=== PATIENT | male | born 1995 | race Caucasian/White ===

== ENCOUNTER 2018-09-23 21:49 | Emergency (ER) | payer SELFPAY ==
[2018-09-23 21:49] VITALS: BP 143/93; PULSE 118; RESP 18; TEMP 36.9; O2SAT 97; BMI 32.8
--- NOTE | 2018-09-23 21:52 | ED.RN ---
CALLED FOR EKG PER RN REQUEST, PULLED OLD EKGS FOR
[2018-09-23 21:57] VITALS: PULSE 102; RESP 18; O2SAT 97
--- NOTE | 2018-09-23 21:57 | EKG12_ITS ---
Test Reason : PALPS Blood Pressure : / mmHG Vent. Rate : 084 BPM Atrial Rate : 084 BPM P-R Int : 136 ms QRS Dur : 100 ms QT Int : 360 ms P-R-T Axes : 053 042 037 degrees QTc Int : 425 ms Sinus rhythm with Premature supraventricular complexes Otherwise normal ECG Confirmed by NICK KENDRICK ([id number]), editorial cartoonist NATASHA WILSON ([id number]) on 09/27/2018 11:14:34 AM Referred By: BRITTANY/AURA Confirmed By:NICK KENDRICK
[2018-09-23 22:36] LABS: Absolute Lymphocyte Count 2.97 X10^3/ul (0.83-4.51); Basophil# 0.03 X10^3/uL; Basophil% 0.2 % (0-1); Differential Indicated SCAN CRITERIA MET; Eosinophil# 0.25 X10^3/uL; Hematocrit 44.1 % (40-54); Hemoglobin 15.5 g/dl (13.0-16.5); Lymphocyte # 2.97 X10^3/ul (4.0); Lymphocyte % 23.2 % (19-41); Mean Corp Hgb Conc 35.1 g/gl (32-36); Mean Corpuscular Hgb 30.6 pg (27.0-32.0); Mean Platelet Vol. 10.3 fl (6.2-12.0); Monocyte# 1.58 X10^3/uL; Monocyte% 12.3 % (0-10); Neutrophil # 7.97 X10^3/uL (2.7-7.7); Neutrophil % 62.1 % (47-70); POSITIVE COUNT NO; POSITIVE DIFFERENTIAL YES; POSITIVE MORPHOLOGY NO; Platelet Count 273 K/mm3 (150-450); RBC Distribution Width CV 13.3 % (11.6-14.6); RBC Distribution Width SD 42.4 fl (35.1-43.9); Red Blood Count 5.07 M/mm3 (4.6-6.2); White Blood Count 12.8 K/mm3 (4.4-11.0)
[2018-09-23 22:47] LABS: Anion Gap 7 (5-15); BUN 12 mg/dL (7-18); BUN/Creat Ratio 10.7 RATIO (10-20); Calcium,Total 9.1 mg/dL (8.5-10.1); Chloride 107 mmol/L (98-107); Creatinine, Serum 1.12 mg/dL (0.70-1.30); EST Glomerular Filtration Rate 85 mL/min (>60); Est Glom Filt Rate - Afr Amer 103 mL/min (>60); Glucose 97 mg/dL (74-106); Potassium 3.4 mmol/L (3.5-5.1); Sodium Level 139 mmol/L (136-145)
[2018-09-23] MEDS: Metoprolol Tartrate 50 MG Tablet PO (22:59)
--- NOTE | 2018-09-23 23:43 | ED.VIS.GEN ---
History of Present Illness Chief Complaint: Palpitations Informant: Patient Onset: Today Context: Sudden Onset - Sometimes exertional, other times random Timing: Intermittent Quality: fast/racing at times, other times just skips Location: chest Current Severity: Mild Maximum Severity: Severe Worsened by: nothing Relieved by: sometimes by coughing hard Associated Symptoms: Chest tightness when heart was racing earlier Narrative: 1.5 years ago, patient had similar symptoms and needed an ablation in [facility]. He was sent there from here. At that time, he had an EKG that showed sinus tachycardia in the 130s. He states that since his ablation, he has been unable to afford medications that he was supposed to be on which included anticoagulant and metoprolol. He stopped smoking a month ago. He still drinks 1-2 energy drinks daily. He states he frequently since his ablation he has had occasional skips/palpitations, but today felt racing like it did when he needed his ablation. Prior similar symptoms: Yes Past Medical History - Allergies and Home Meds Allergies/Adverse Reactions: Allergies codeine Allergy (Verified 09/23/18 21:59) [facility] Primary Care Physician: Rikki Mojica, CHARGE ATTENDANT-C [Primary Care Provider] - Surgical History: - - Cardiac ablation Lives: Alone Smoking Status: Former smoker Drugs: None Review of Systems General: Denies: Chills, Fever, Sweats Eyes: Denies: Visual changes - bilaterally, Diplopia ENT: Denies: Rhinorrhea, Sore throat Cardiovascular: Reports: Chest pain, Palpitations, Heart racing Respiratory: Denies: Dyspnea, Cough, Dyspnea on exertion Gastrointestinal: Denies: Abdominal pain, Nausea, Vomiting, Diarrhea, Melena, Hematochezia Genitourinary: Denies: Dysuria, Hematuria, Frequency Musculoskeletal: Denies: Back pain, Extremity Pain Skin: Denies: Rash, Wounds Neurological: Denies: Headache, Weakness, Numbness Physical Exam Vital Signs/Narrative: Vital Signs Temp Pulse Resp BP Pulse Ox 09/23/18 21:57 102 H 18 97 09/23/18 21:49 98.5 F 118 H 18 143/93 H 97 Inital Vital Signs reviewed: Yes General: Well nourished, Well developed, No Acute Distress Head: Normocephalic, Atraumatic Eyes: Perrl, EOMI ENT: Moist mucous membranes, No rhinorrhea Neck: Supple, Nontender Cardiovascular: Regular rate, Regular rhythm, No murmurs, Normal S1, Normal S2. Negative for: Tachycardia Respiratory: No distress, CTA bilaterally, Chest nontender Abdomen: Soft, Nontender, Nondistended, Normal bowel sounds Back: Nontender, Normal Inspection Extremities: Nontender, No edema. Negative for: Calf Tenderness Skin: Normal color, No rash, No Trauma Neurological: Alert, Oriented x3, Cranial nerves II-XII grossly intact, Normal Strength, Normal Sensation Psychological: Normal affect, Normal Mood Diagnostic/Tx/Re-eval Laboratory Tests 09/23/18 09/23/18 Range/Units 22:00 22:00 WBC 12.8 H (4.4-11.0) K/mm3 RBC 5.07 (4.6-6.2) M/mm3 Hgb 15.5 (13.0-16.5) g/dl Hct 44.1 (40-54) % MCV 87.0 (80-94) fL MCH 30.6 (27.0-32.0) pg MCHC 35.1 (32-36) g/gl RDW 13.3 (11.6-14.6) % RDW Differential 42.4 (35.1-43.9) fl Plt Count 273 (150-450) K/mm3 MPV 10.3 (6.2-12.0) fl Immature Gran % (Auto) 0.200 (0.0-0.9) % Neut % (Auto) 62.1 (47-70) % Lymph % (Auto) 23.2 (19-41) % Hodgeman % (Auto) 12.3 H (0-10) % Eos % (Auto) 2.0 (0-5) % Baso % (Auto) 0.2 (0-1) % Absolute Neuts (auto) 8.0 H (2.0-7.7) X10^3/uL Absolute Lymphs (auto) 2.97 (0.83-4.51) X10^3/ul Total Counted Not Reportable Differential Comment Sodium 139 (136-145) mmol/L Potassium 3.4 L (3.5-5.1) mmol/L Chloride 107 (98-107) mmol/L Carbon Dioxide 25.0 (21.0-32.0) mmol/L Anion Gap 7 (5-15) BUN 12 (7-18) mg/dL Creatinine 1.12 (0.70-1.30) mg/dL Estim Creat Clear Calc 104.10 ml/min Est GFR (MDRD) Af Amer 103 (>60) mL/min Est GFR (MDRD) Non-Af 85 (>60) mL/min BUN/Creatinine Ratio 10.7 (10-20) RATIO Glucose 97 (74-106) mg/dL Calcium 9.1 (8.5-10.1) mg/dL - Rhythm Strip Rhythm Strip: Sinus Rhythm Rate: 95 Ectopy: PAC(s) - EKG Initial EKG Interpretation: Sinus Rhythm, No Acute Injury Pattern, - - Intervals are unremarkable. Sinus rhythm at 84 with a PAC. Normal axis. No acute injury. - Medical Decision Making Labs show slightly low potassium but are otherwise normal. He was given a dose of oral replacement. He was also given oral metoprolol 50 mg and a reevaluation his heart rate is in 80s and he feels fine. I think he is stable for discharge on metoprolol. I advised to follow-up with his manager intel at [facility]. He is agreeable to this plan, in addition to curbing or discontinuing energy drinks/caffeine. ED Disposition - Plan for ED Patient: Disposition: Home or Assisted Living Diagnosis: Palpitations Instructions: ED Palpitations Prescriptions: Metoprolol Tartrate 2 tab PO BID #60 tab Referrals: Rikki Mojica, TENNILLE-C [Primary Care Provider] - manager intel, [facility] [Other] (call for appt)
--- NOTE | 2018-09-23 23:51 | ED.DCSUM_ITS ---
History of Present Illness Chief Complaint: Palpitations Informant: Patient Onset: Today Context: Sudden Onset - Sometimes exertional, other times random Timing: Intermittent Quality: fast/racing at times, other times just skips Location: chest Current Severity: Mild Maximum Severity: Severe Worsened by: nothing Relieved by: sometimes by coughing hard Associated Symptoms: Chest tightness when heart was racing earlier Narrative: 1.5 years ago, patient had similar symptoms and needed an ablation in [facility]. He was sent there from here. At that time, he had an EKG that showed sinus tachycardia in the 130s. He states that since his ablation, he has been unable to afford medications that he was supposed to be on which included anticoagulant and metoprolol. He stopped smoking a month ago. He still drinks 1-2 energy drinks daily. He states he frequently since his ablation he has had occasional skips/palpitations, but today felt racing like it did when he needed his ablation. Prior similar symptoms: Yes Past Medical History - Allergies and Home Meds Allergies/Adverse Reactions: Allergies codeine Allergy (Verified 09/23/18 21:59) [facility] Primary Care Physician: Rikki Mojica, ADVENTURE EDUCATION TEACHER-C [Primary Care Provider] - Surgical History: - - Cardiac ablation Lives: Alone Smoking Status: Former smoker Drugs: None Review of Systems General: Denies: Chills, Fever, Sweats Eyes: Denies: Visual changes - bilaterally, Diplopia ENT: Denies: Rhinorrhea, Sore throat Cardiovascular: Reports: Chest pain, Palpitations, Heart racing Respiratory: Denies: Dyspnea, Cough, Dyspnea on exertion Gastrointestinal: Denies: Abdominal pain, Nausea, Vomiting, Diarrhea, Melena, Hematochezia Genitourinary: Denies: Dysuria, Hematuria, Frequency Musculoskeletal: Denies: Back pain, Extremity Pain Skin: Denies: Rash, Wounds Neurological: Denies: Headache, Weakness, Numbness Physical Exam Vital Signs/Narrative: Vital Signs Temp Pulse Resp BP Pulse Ox 09/23/18 21:57 102 H 18 97 09/23/18 21:49 98.5 F 118 H 18 143/93 H 97 Inital Vital Signs reviewed: Yes General: Well nourished, Well developed, No Acute Distress Head: Normocephalic, Atraumatic Eyes: Perrl, EOMI ENT: Moist mucous membranes, No rhinorrhea Neck: Supple, Nontender Cardiovascular: Regular rate, Regular rhythm, No murmurs, Normal S1, Normal S2. Negative for: Tachycardia Respiratory: No distress, CTA bilaterally, Chest nontender Abdomen: Soft, Nontender, Nondistended, Normal bowel sounds Back: Nontender, Normal Inspection Extremities: Nontender, No edema. Negative for: Calf Tenderness Skin: Normal color, No rash, No Trauma Neurological: Alert, Oriented x3, Cranial nerves II-XII grossly intact, Normal Strength, Normal Sensation Psychological: Normal affect, Normal Mood Diagnostic/Tx/Re-eval Laboratory Tests 09/23/18 09/23/18 Range/Units 22:00 22:00 WBC 12.8 H (4.4-11.0) K/mm3 RBC 5.07 (4.6-6.2) M/mm3 Hgb 15.5 (13.0-16.5) g/dl Hct 44.1 (40-54) % MCV 87.0 (80-94) fL MCH 30.6 (27.0-32.0) pg MCHC 35.1 (32-36) g/gl RDW 13.3 (11.6-14.6) % RDW Differential 42.4 (35.1-43.9) fl Plt Count 273 (150-450) K/mm3 MPV 10.3 (6.2-12.0) fl Immature Gran % (Auto) 0.200 (0.0-0.9) % Neut % (Auto) 62.1 (47-70) % Lymph % (Auto) 23.2 (19-41) % Rush % (Auto) 12.3 H (0-10) % Eos % (Auto) 2.0 (0-5) % Baso % (Auto) 0.2 (0-1) % Absolute Neuts (auto) 8.0 H (2.0-7.7) X10^3/uL Absolute Lymphs (auto) 2.97 (0.83-4.51) X10^3/ul Total Counted Not Reportable Differential Comment Sodium 139 (136-145) mmol/L Potassium 3.4 L (3.5-5.1) mmol/L Chloride 107 (98-107) mmol/L Carbon Dioxide 25.0 (21.0-32.0) mmol/L Anion Gap 7 (5-15) BUN 12 (7-18) mg/dL Creatinine 1.12 (0.70-1.30) mg/dL Estim Creat Clear Calc 104.10 ml/min Est GFR (MDRD) Af Amer 103 (>60) mL/min Est GFR (MDRD) Non-Af 85 (>60) mL/min BUN/Creatinine Ratio 10.7 (10-20) RATIO Glucose 97 (74-106) mg/dL Calcium 9.1 (8.5-10.1) mg/dL - Rhythm Strip Rhythm Strip: Sinus Rhythm Rate: 95 Ectopy: PAC(s) - EKG Initial EKG Interpretation: Sinus Rhythm, No Acute Injury Pattern, - - Intervals are unremarkable. Sinus rhythm at 84 with a PAC. Normal axis. No acute injury. - Medical Decision Making Labs show slightly low potassium but are otherwise normal. He was given a dose of oral replacement. He was also given oral metoprolol 50 mg and a reevaluation his heart rate is in 80s and he feels fine. I think he is stable for discharge on metoprolol. I advised to follow-up with his setter up at [facility]. He is agreeable to this plan, in addition to curbing or discontinuing energy drinks/caffeine. ED Disposition - Plan for ED Patient: Disposition: Home or Assisted Living Diagnosis: Palpitations Instructions: ED Palpitations Prescriptions: Metoprolol Tartrate 2 tab PO BID #60 tab Referrals: Rikki Mojica, TENNILLE-C [Primary Care Provider] - setter up, your [facility] [Other] (call for appt)
[2018-09-24 00:03] VITALS: BP 124/73; PULSE 74; RESP 14; O2SAT 98
== END 2018-09-24 00:04 | disposition home or self-care (01) ==
PROVIDERS: Emergency Provider Emergency Medicine; Family Provider Nurse Practitioner Family; PCP Nurse Practitioner Family
DX: R00.2 Palpitations (principal); Z88.5 Allergy status to narcotic agent; Z87.891 Personal history of nicotine dependence
CPT/HCPCS: 80048; 85025; 93005; 99285; A4216

== ENCOUNTER 2022-09-06 18:55 | Emergency (ER) | payer MEDICAID, SELFPAY ==
[2022-09-06 18:56] VITALS: BP 138/97; PULSE 75; RESP 18; TEMP 36.3; O2SAT 98; BMI 34.8
--- NOTE | 2022-09-06 20:38 | EX.ED.GUMALE ---
HPI History of Present Illness Chief Complaint: Complaint Informant: patient Narrative Narrative: Patient is a 27-year-old female with history of atrial fibrillation (on metoprolol and sotalol), prior cardiac ablation presenting for concern of UTI. Patient states he has been having some penile pain and dysuria for the past 2 to 3 weeks. Has had increased frequency for 1 week and started having hematuria over the past 3 to 4 days. His mother gave him ciprofloxacin which he took for 2 days which helped with his urinary symptoms however he started to have generalized malaise and no energy. He went to [facility] and was told that the Cipro was interacting with his medicines and he had to stop it. He was sent to the ER for further evaluation. He denies any penile discharge, lesions or rash. He was released from skilled nursing 6 months ago and has had 1 partner since. He does not think he has been exposed to the STDs but is not certain. He is willing to be tested and treated for them. He denies any scrotal pain or swelling. No other complaints at this time. He states since stopping the Cipro his malaise and other symptoms have improved. [facility] Medical History Asthma History of atrial fibrillation Palpitations Sinus tachycardia Home Medications metoprolol tartrate 25 mg tablet 50 mg PO BID 03/21/19 [History Last Taken Unknown] cephalexin 500 mg capsule 500 mg PO Q12 #10 CAPSULES 09/06/22 [Rx Last Taken Unknown] Allergy/AdvReac Type Severity Reaction Status Date / Time codeine Allergy Hives Verified 09/06/22 18:58 Surgical History H/O cardiac radiofrequency ablation (04/06/17) Social History Smoking Status: Former smoker substance use type: does not use ROS ROS ED Constitutional Constitutional ED: Reports other Details: Generalized malaise ; Denies chills Cardiovascular Cardiovascular: Denies chest pain Respiratory/Chest Respiratory/Chest: Denies dyspnea Gastrointestinal Gastrointestinal: Denies abdominal pain, nausea or other Genitourinary Genitourinary ED: Reports dysuria, hematuria and urinary frequency Musculoskeletal Musculoskeletal: Denies arthralgias or myalgias Neurologic Neurologic: Denies headache(s) Psychiatric Psychiatric: Denies anxiety Hematologic/Lymphatic Hematologic/Lymphatic: Denies easy bleeding or easy bruising EXAM Physical Exam Const Vital Signs: 09/06/22 18:56 Temperature 97.3 F L Temperature Source Temporal Pulse Rate 75 Respiratory Rate 18 Blood Pressure 138/97 H Blood Pressure Mean 110 Pulse Ox 98 Oxygen Delivery Method Room Air Positive well nourished and well developed General Appearance ED: well developed and NAD HEENT Reports moist mucous membranes Eyes PERRL Neck supple Resp normal respiratory effort and clear to auscultation bilaterally Cardio regular rate, regular rhythm and no murmurs GI non-tender and non-distended Extremity normal to inspection Neuro oriented x3 and moves all extremities Motor Exam: Negative for general weakness Psych mental status grossly normal Skin Lesions: no lesions Rashes: no rashes MDM MDM MDM Narrative Medical decision making narrative: Patient is evaluated for dysuria. Urinalysis does show positive nitrites and rare bacteria. Urinalysis is confounded by the fact that he is already had 2 days of ciprofloxacin. He is tested for gonorrhea and chlamydia as well. He likes to be empirically treated. Patient is treated with IM Rocephin for gonorrhea and given 1 dose of doxycycline. As he is concerned about medication mixtures and he does have nitrates in his urine I will err on the side of treating for E. coli UTI over chlamydia. Patient started on Keflex. Counseled that if his chlamydia comes back positive we can switch up his antibiotics. Urine culture sent because he is a male and is atypical to have a UTI. I did check and there should not be any interaction between his sotalol, metoprolol and Keflex. Patient is given return precautions. As he is not having any penile testicular pain I have a low suspicion for epididymitis I do not think he requires any testicular ultrasound. Discharged home in stable condition. Lab Data Labs: Laboratory Results - last 24 hr 09/06/22 09/06/22 20:30 20:30 Urine Color Yellow Urine Clarity Clear Urine pH 5.0 Ur Specific Shepherd 1.025 Urine Protein Negative Urine Glucose (UA) Normal Urine Ketones Negative Urine Occult Blood Negative Urine Nitrite Positive H Urine Bilirubin Negative Urine Urobilinogen 1 H Ur Leukocyte Esterase Negative Urine RBC 0 SEEN Urine WBC 0 SEEN Ur Squamous Epith Cells 0 SEEN Urine Bacteria RARE Urine Mucus 0 SEEN Chlam trachomat DNA PCR Negative N.gonorrhoeae DNA (PCR) Negative Discharge Plan Triage Chief Complaint: Complaint ED Provider: Celia Garcia Dx/Rx/DC Orders Instructions: ED Bladder Infection, Male (Adult) Prescriptions: New cephalexin 500 mg capsule 500 mg PO Q12 Qty: 10 0RF No Action metoprolol tartrate 25 mg tablet 50 mg PO BID Primary Care Provider: Rikki Mojica NP Referrals: Rikki Mojica NP, DOUBLE REAMER OPERATOR-C [Primary Care Provider] - Activity Restrictions/Additional Instructions: You were treated fully for gonorrhea. Your test is pending for chlamydia and gonorrhea. Because you have nitrites in your urine which is more indicative of an E. coli infection I will treat you with Keflex (cephalexin). This should not interact with your current medicines. If your chlamydia result does come back positive we will call in a different antibiotic. Your urine was sent for culture. Disposition Disposition: Home, Self Care Discharge Date/Time: 09/06/22 21:35
[2022-09-06 20:42] LABS: Mucous, Urine 0 SEEN /hpf (<or=2+); Red Blood Cells-Urine 0 SEEN /hpf (0-5); Squamous Epithelial Cells - UA 0 SEEN /hpf (0-5); White Blood Cells 0 SEEN /hpf (0-5)
[2022-09-06 20:45] LABS: Color, Urine Yellow (Yellow); Glucose, Dipstick Normal (Normal); Ketone-Dipstick Negative (Negative); Leukocyte Esterase-Dipstick Negative /ul (Negative); Nitrite-Dipstick Positive (Negative); Occult Blood-Urine Negative /ul (Negative); Protein-Dipstick Negative (Negative); Specific Gravity, Urine 1.025 (1.002-1.030); Urine Bilirubin Dipstick Negative (Negative); Urine Clarity Clear (Clear); Urine Urobilinogen 1 mg/dl (Normal)
[2022-09-06 21:01] LABS: Bacteria RARE /hpf (None Seen)
[2022-09-06] MEDS: Ceftriaxone 500 MG Vial IM (21:21)
[2022-09-06] MEDS: Doxycycline 100 MG CAPSULE PO (21:21)
[2022-09-06 22:42] LABS: Chlamydia Trachomatis by PCR Negative (Negative); Neisserai gonorrhoeae by PCR Negative (Negative); Probe Check PASS; Sample Adequacy Control PASS; Specimen Processing Control PASS
== END 2022-09-06 21:35 | disposition home or self-care (01) ==
PROVIDERS: Emergency Provider Emergency Medicine; PCP Nurse Practitioner Family; Visit Provider Emergency Medicine
DX: N39.0 Urinary tract infection, site not specified (principal); I48.91 Unspecified atrial fibrillation; Z87.891 Personal history of nicotine dependence; B96.20 Unspecified Escherichia coli [E. coli] as the cause of diseases classified elsewhere; R31.9 Hematuria, unspecified; Z11.3 Encounter for screening for infections with a predominantly sexual mode of transmission; R30.0 Dysuria; N48.89 Other specified disorders of penis; J45.909 Unspecified asthma, uncomplicated; R35.0 Frequency of micturition; Z79.899 Other long term (current) drug therapy
CPT/HCPCS: 81001; 87086; 87491; 87591; 96372; 99283

== ENCOUNTER 2023-04-18 13:53 | Inpatient (IN) | payer MEDICAID, SELFPAY ==
[2023-04-18 13:53] VITALS: BP 117/70; PULSE 73; RESP 16; TEMP 36.6; O2SAT 99; BMI 31.5
--- NOTE | 2023-04-18 14:07 | RAD_ITS ---
STUDY: X-RAY - RIGHT KNEE REASON FOR EXAM: Male, 27 years old. Pain and swelling following a fall. TECHNIQUE: 4 view(s) of the knee. COMPARISON: None. FINDINGS: Normal visualized distal femur. Normal visualized proximal tibia and fibula. Normal proximal tibiofibular articulation. Normal medial femorotibial compartment. Normal lateral femorotibial compartment. Normal patellofemoral articulation. Tiny joint effusion. Soft tissue swelling. RAD/Knee 4 or More Views IMPRESSION: Soft tissue swelling. Small joint effusion. Electronically Signed: Miki Preston MD at 14:39 EST ,
--- NOTE | 2023-04-18 14:08 | EDS_ITS ---
HPI History of Present Illness Chief Complaint: Lower Extremity Injury Detail of Chief Complaint: Right knee pain/injury/erythema Informant: patient, parent and family Narrative Narrative: Patient presents to the emergency department with complaint of pain to the right knee. Patient states that he fell 2 nights ago onto the knee while in the driveway injuring it. He states it was sore the next day but then it became more red and hot and more painful. He was seen at urgent care and referred to the emergency department for evaluation. Urgent care had concern for possible joint infection. Patient denies fever or chills or sweats. PFSH PFS Medical History Asthma History of atrial fibrillation Palpitations Sinus tachycardia Home Medications metoprolol tartrate 25 mg tablet 50 mg PO BID 03/21/19 [History Last Taken Unknown] cephalexin 500 mg capsule 500 mg PO Q12 #10 CAPSULES 09/06/22 [Rx Last Taken Unknown] Allergy/AdvReac Type Severity Reaction Status Date / Time codeine Allergy Hives Verified 04/18/23 13:55 Surgical History H/O cardiac radiofrequency ablation (04/06/17) Social History Smoking Status: Former smoker substance use type: does not use ROS ROS ED Review of Systems ROS Unobtainable: other Constitutional Constitutional ED: Reports lethargy; Denies chills, fever(s), sweats or weight loss Eyes Eyes: Denies blurry vision, change in vision or diplopia ENT ENT ED: Denies rhinorrhea or sore throat Cardiovascular Cardiovascular: Denies chest pain, orthopnea or racing heartbeat Respiratory/Chest Respiratory/Chest: Denies cough, dyspnea, dyspnea on exertion, orthopnea or sputum Gastrointestinal Gastrointestinal: Denies abdominal pain, diarrhea, nausea or vomiting Genitourinary Genitourinary ED: Denies dysuria, hematuria or urinary frequency Musculoskeletal Musculoskeletal: Reports other Details: Knee pain, redness, swelling ; Denies arthralgias, back pain, myalgias or neck pain Integumentary Denies abscess, Abrasions or rash Neurologic Neurologic: Denies headache(s) or weakness Psychiatric Psychiatric: Denies anxiety, depression or suicidal thoughts Endocrine Endocrinology: Denies polydipsia, polyphagia or polyuria Hematologic/Lymphatic Hematologic/Lymphatic: Denies easy bleeding, easy bruising or lymphadenopathy Allergic/Immunologic Allergic/Immunologic ED: Denies mouth swelling, tongue swelling or urticaria EXAM Physical Exam Const Vital Signs: 04/18/23 13:53 Temperature 97.8 F Temperature Source Temporal Pulse Rate 73 Respiratory Rate 16 Blood Pressure 117/70 Blood Pressure Mean 85 Pulse Ox 99 Oxygen Delivery Method Room Air Positive well nourished and well developed General Appearance ED: well developed and NAD HEENT Reports TM's clear and moist mucous membranes normocephalic and atraumatic; Negative for trauma or tenderness Tympanic Membrane ED: Yes TM's clear Eyes PERRL and EOMs intact bilaterally General Eye ED: Negative for pale conjunctiva or scleral icterus Neck no lymphadenopathy, supple and no JVD General: Negative for tenderness Chest Wall inspection of chest normal and palpation of chest normal Chest: Negative for tenderness Resp normal respiratory effort and clear to auscultation bilaterally Effort and Inspection: Negative for respiratory distress or pain with movement Auscultation: Negative for rhonchi, wheezes or diminished lung sounds Cardio regular rate, regular rhythm, S1 normal heart sound, S2 normal heart sound and no murmurs Peripheral Pulses: pulses 2+ throughout GI normal to inspection, nondistended, normoactive bowel sounds, soft to palpation, non-tender, non-distended and no masses Back/Spine no CVA tenderness and no thoracic nor lumbar tenderness Extremity Extremity Narrative: Elevation of the right knee reveals diffuse erythema to the anterior aspect and lateral aspect of the knee and onto the anterior proximal tibia. Patient has significant pain with range of motion he has decreased range of motion secondary to pain and swelling. Neurovascular intact distally. Mild joint effusion. General Extremety ED: Negative for edema General Extremity: Negative for edema Neuro oriented x3, CN's II-XII intact bilaterally, no sensory deficits noted and gait normal Sensorium / Orientation: awake, alert, oriented to person, oriented to place and oriented to time Motor Exam: strength 5/5 throughout and strength abnormal Psych mental status grossly normal Skin no rashes or lesions noted and no wounds MDM MDM MDM Narrative Medical decision making narrative: Presents with redness and swelling in severe pain in the right knee after falling onto with 2 days ago. Concern for septic joint. IV line established. CBC with differential patient with a white count of 23.8 with hemoglobin 13.6 and platelet count of 276. Patient sed rate was 14 and C-reactive protein 186. X-rays of the knee show a small fusion. No evidence for fracture. Lola case with orthopedic surgeon who will present to the emergency department to evaluate patient and possible knee arthrocentesis to evaluate further. I initially had concerned about doing this as there are cellulitic changes about the knee and did not want to introduce bacteria into the joint. We will discuss case with hospitalist also to evaluate patient for admission Lab Data Attestation: I reviewed the patient's lab results. Labs: Laboratory Results - last 24 hr 04/18/23 14:22 WBC 23.6 H RBC 4.48 L Hgb 13.6 Hct 40.7 MCV 90.8 MCH 30.4 MCHC 33.4 RDW Std Deviation 46.9 H RDW Coeff of Dev 13.9 Plt Count 276 MPV 10.0 Immature Gran % (Auto) 0.500 Neut % (Auto) 83.2 H Lymph % (Auto) 7.7 L Louisa % (Auto) 7.2 Eos % (Auto) 1.1 Baso % (Auto) 0.3 Absolute Neuts (auto) 19.6 H Absolute Lymphs (auto) 1.82 Nucleated RBC % 0 Differential Comment SCANNED Diff Path Review September ESR 14 C-React Prot Ext Range 186.00 H Radiography Diagnostic Testing: Clinical Impression(s) from Imaging Studies Knee X-Ray 04/18/23 14:07 IMPRESSION: Soft tissue swelling. Small joint effusion. Electronically Signed: Miki Preston MD at 14:39 EST , New x-rays of right knee obtained interpreted by myself as no evidence of fracture. Patient does have small joint effusion. Radiology in agreement. Discharge Plan Triage Chief Complaint: Lower Extremity Injury ED Provider: Alisa Wesley Dx/Rx/DC Orders Clinical Impression: Cellulitis of knee, Acute pain of right knee, History of atrial fibrillation Prescriptions: No Action metoprolol tartrate 25 mg tablet 50 mg PO BID cephalexin 500 mg capsule 500 mg PO Q12 Qty: 10 0RF Primary Care Provider: Rikki Mojica NP Referrals: Rikki Mojica PLANT SENIOR MANAGER, PLANT SENIOR MANAGER-C [Primary Care Provider] - Disposition Disposition: Acute Care [facility]
[2023-04-18 14:30] LABS: Erythrocyte Sedimentation Rate 14 mm/hr (0-20)
[2023-04-18 14:32] LABS: Absolute Lymphocyte Count 1.82 X10^3/uL (0.83-4.51); Absolute Neutrophil Count 19.6 X10^3/uL (2.0-7.7); Basophil# 0.06 X10^3/uL; Basophil% 0.3 % (0-1); Eosinophil# 0.27 X10^3/uL; Eosinophils% 1.1 % (0-5); Hematocrit 40.7 % (40-54); Hemoglobin 13.6 g/dL (13.0-16.5); Lymphocyte # 1.82 X10^3/ul (0.83-4.51); Lymphocyte % 7.7 % (19-41); Mean Corp Hgb Conc 33.4 g/dL (32-36); Mean Corpuscular Hgb 30.4 pg (27.0-32.0); Mean Corpuscular Volume 90.8 fL (80-94); Monocyte% 7.2 % (0-10); NRBC Flagged by Analyzer 0 % (0-5); Neutrophil # 19.62 X10^3/uL (2.7-7.7); Neutrophil % 83.2 % (47-70); POSITIVE DIFFERENTIAL YES; Platelet Count 276 K/mm3 (150-450); RBC Distribution Width CV 13.9 % (11.6-14.6); RBC Distribution Width SD 46.9 fl (35.1-43.9); Red Blood Count 4.48 M/mm3 (4.6-6.2); White Blood Count 23.6 K/mm3 (4.4-11.0)
[2023-04-18 14:35] LABS: Differential Indicated SCAN CRITERIA MET
[2023-04-18 14:47] LABS: Differential Comment SCANNED
[2023-04-18 15:53] VITALS: RESP 18
--- NOTE | 2023-04-18 16:02 | PCM.HP.STD ---
HPI - General General Date of Admission: 04/18/23 Date of Service: 04/18/23 Chief Complaint: Right knee swelling and pain HPI Narrative SERAFIN FUENTES, is a 27 M who presented to [facility] ED on 04/18/2023 with worsening right knee pain and swelling. Patient seen at bedside in the ED. Sitting in bed, conversing normally. Does appear to be in mild distress due to right knee pain. Patient states he fell onto his right knee 2 days ago while working and had mild scraping on the knee. Since then, patient states that there is been development of significant redness around the knee and working down to the mid lower leg, as well as swelling of the knee joint. Has also had a significant amount of pain with any movement over the past day or so. 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 Patient has no previous history of knee issues. Only medical history for patient is A-fib, follows with cardiology in [place] and is taking sotalol for this. Not taking any other medications at home. Otherwise denies any fevers or chills, chest pain, shortness of breath, abdominal pain. No other acute concerns at this time. [facility] Medical History Asthma History of atrial fibrillation Palpitations Sinus tachycardia Home Medications sotalol 80 mg tablet 80 mg PO BID Ablation 04/18/23 [History Last Taken 04/18/23] Allergy/AdvReac Type Severity Reaction Status Date / Time codeine Allergy Hives Verified 04/18/23 13:55 Surgical History H/O cardiac radiofrequency ablation (04/06/17) Social History Smoking Status: Former smoker substance use type: does not use ROS Constitutional Constitutional: Denies chills, fatigue, fever(s) or weakness Eyes Eyes: Denies change in vision Cardiovascular Cardiovascular: Denies chest pain Respiratory/Chest Respiratory/Chest: Denies cough Gastrointestinal Gastrointestinal: Denies abdominal pain Musculoskeletal Musculoskeletal: Reports arthralgias, joint pain and joint swelling Neurologic Neurologic: Reports abnormal gait; Denies confusion, dizziness, focal weakness, headache(s) or numbness Vital Signs Vital Signs Vital Signs: 04/18/23 13:53 Temperature 97.8 F Temperature Source Temporal Pulse Rate 73 Respiratory Rate 16 Blood Pressure 117/70 Blood Pressure Mean 85 Pulse Ox 99 Oxygen Delivery Method Room Air Weight Weight: 99.79 kg Body Mass Index (BMI) 31.5 Physical Exam Const alert and oriented x3 Constitutional Narrative: Pleasant younger male, obese, sitting in bed, conversing normally. Appears to be in mild distress due to right knee pain. General Appearance: cooperative HEENT normocephalic, head/scalp atraumatic, hearing grossly normal bilaterally, nasal mucous membranes and turbinates normal and moist oral mucous membranes Eyes PERRL, EOMs intact bilaterally and conjunctivae normal Neck full ROM, no lymphadenopathy and supple Lymph Lymphatic: no lymphadenopathy noted Chest inspection of chest normal Resp normal respiratory effort, normal air movement, no use of accessory muscles and clear to auscultation bilaterally Cardio regular rate, regular rhythm, no murmurs and peripheral pulses 2+ throughout GI normal to inspection, nondistended, normoactive bowel sounds, soft to palpation, non-tender and non-distended Back/Spine normal ROM Extremity Extremity Narrative: Significant erythema surrounding right knee down to the mid right leg, area was marked with a marker in the ED. Moderate swelling of the knee at the joint. Severe tenderness to light palpation of the knee. Did not attempt any movement of the leg. Skin no rashes or lesions noted Neuro No oriented x3, No moves all extremities and No no focal motor deficits Speech: speech normal Psych mental status grossly normal Results Lab / Micro Data 04/18/23 14:22 04/18/23 17:47 Labs: Laboratory Results - last 24 hr 04/18/23 14:22: WBC 23.6 H, RBC 4.48 L, Hgb 13.6, Hct 40.7, MCV 90.8, MCH 30.4, MCHC 33.4, RDW Std Deviation 46.9 H, RDW Coeff of Dev 13.9, Plt Count 276, MPV 10.0, Immature Gran % (Auto) 0.500, Neut % (Auto) 83.2 H, Lymph % (Auto) 7.7 L, [place] % (Auto) 7.2, Eos % (Auto) 1.1, Baso % (Auto) 0.3, Absolute Neuts (auto) 19.6 H, Absolute Lymphs (auto) 1.82, Nucleated RBC % 0, Differential Comment SCANNED, Diff Path Review September foll, ESR 14, C-React Prot Ext Range 186.00 H Imagaing Radiology Impression Knee X-Ray 04/18/23 14:07 IMPRESSION: Soft tissue swelling. Small joint effusion. Electronically Signed: Miki Preston MD at 14:39 EST , Assessment & Plan Assessment/Plan (1) Cellulitis of knee: (2) Acute pain of right knee: PLAN: Plan Patient is a 27-year-old male who presented to [facility] ED on 04/18/2023 with worsening right knee swelling and pain. 1. Right knee cellulitis with concern for septic joint Severe right knee pain with notable swelling and tenderness to palpation in the ED. Right knee x-ray showed soft tissue swelling with small joint effusion. WBC count 23, CRP 186. Pain began 2 days prior to admission after patient fell and scraped his knee, has progressively gotten worse since then. No previous history of right knee issues. ? Admit under inpatient status to PCU. Orthopedic surgery consulted. Dr. Rollins performed arthrocentesis in the ED, follow-up fluid studies. Continue vancomycin and Unasyn that were initiated in the ED, follow-up blood cultures. Pain management with scheduled Tylenol, as needed IV Toradol, IV Dilaudid and p.o. oxycodone. N.p.o. at midnight in case of need for possible orthopedic procedure tomorrow. 2. Paroxysmal atrial fibrillation Patient reports history of paroxysmal A-fib that started back in 2017. States he failed flecainide at that time and had an ablation done. However, he had recurrence of A-fib a few years later. States he follows with cardiology in [place]. States he was on Lopressor and Eliquis, but was recently switched over to sotalol. [facility] review [facility] [place] records, I was unable to find any records of outpatient visits with cardiology. Last notes from 08/2022 indicated the patient was on Lopressor and Eliquis. Patient is unsure on his dose of sotalol. EKG on admission showed normal sinus rhythm, no ST changes. ? Will hold on starting sotalol for now. Monitor telemetry. Has been in normal sinus rhythm since admission. May need to discuss having patient's outpatient tare weigher send office notes to the hospital here for further review. Chronic medical conditions: ? Obesity: BMI 31 on admit, encouraged lifestyle applications. DVT prophylaxis: Lovenox CODE STATUS: Full code, verified Expected disposition: Home, TBD Total clinical time spent by myself addressing the patient's medical issues, reviewing all the data, and collaborating with patient's care team: 55 minutes. Charges/Coding Visit Charges Inpatient E&M: 90444 Init Hosp L2
[2023-04-18] MEDS: Ampicillin/Sulbactam 3 GM in 0.9% Normal Saline (100mL MB+) 100 ML IV ×2 (16:40→22:03)
[2023-04-18 17:15] VITALS: BP 120/106; PULSE 68; RESP 18; TEMP 36.7; O2SAT 100; BMI 31.6
[2023-04-18] MEDS: Vancomycin HCl 1,500 MG in 0.9% Normal Saline (500mL Bag) 500 ML 250 MG IV (17:35)
[2023-04-18 18:14] LABS: Anion Gap 4 (5-15); BUN 25 mg/dL (7-18); BUN/Creat Ratio 22.1 RATIO (10-20); Calcium,Total 8.7 mg/dL (8.5-10.1); Chloride 101 mmol/L (98-107); Creatinine, Serum 1.13 mg/dL (0.70-1.30); EST Glomerular Filtration Rate 81 mL/min (>60); Est Glom Filt Rate - Afr Amer 98 mL/min (>60); Estimated Creatinine Clearance 99.59 ml/min; Glucose 133 mg/dL (74-106); Potassium 3.5 mmol/L (3.5-5.1); Sodium Level 136 mmol/L (136-145)
[2023-04-18 18:38] LABS: Color / Synovial Fluid Red (Pale Yellow); Source / Synovial Fluid RIGHT KNEE
[2023-04-18 18:39] LABS: Appearance /Synovial Fluid Cloudy (CLEAR)
[2023-04-18 18:42] LABS: Body Fluid QC Type(s) BF2Q
[2023-04-18 18:55] LABS: Lymph 10 %; Monocyte /Synovial Fluid 6 %; Neutrophil 84 % (0-25)
--- NOTE | 2023-04-18 19:23 | PCM.RX.CS ---
Consult Antibiotic Management Pharmacy has been consulted to manage selected antiobiotic: Vancomycin Type of Intervention Type of Consult: New Suspected Infection Suspected Infection: Skin/Soft tissue and Other Labs Labs: Sodium 136 mmol/L (136-145) 04/18/23 17:47 Potassium 3.5 mmol/L (3.5-5.1) 04/18/23 17:47 Chloride 101 mmol/L (98-107) 04/18/23 17:47 Carbon Dioxide 31.0 mmol/L (21.0-32.0) 04/18/23 17:47 Anion Gap 4 (5-15) L 04/18/23 17:47 BUN 25 mg/dL (7-18) H 04/18/23 17:47 Creatinine 1.13 mg/dL (0.70-1.30) 04/18/23 17:47 Est GFR (MDRD) Af Amer 98 mL/min (>60) 04/18/23 17:47 Est GFR (MDRD) Non-Af 81 mL/min (>60) 04/18/23 17:47 BUN/Creatinine Ratio 22.1 RATIO (10-20) H 04/18/23 17:47 Glucose 133 mg/dL (74-106) H 04/18/23 17:47 Goal Trough Goal Trough: 15-20 mcg/mL Pharmacy Plan for Drug Dosing Pharmacy Plan for Drug Dosing: IV VANCOMYCIN Consulting Physician: Dr. Craven Indication: SSTI/ R/O septic joint Goal Trough: 15-20 SrCr:1.13 (04/18) CrCl: 99 mL/min Comments: Initial ED dose of 1500mg IV x1 ordered and administered 04/18 @1735 Vancomycin Dose: 2000mg IV Q12hr to start 04/19/23 @0500 Pending Level: 04/20/23 @0430, prior to 4th total dose per protocol Pharmacy Service will continue to monitor and adjust dosing as required.
[2023-04-18] MEDS: Ketorolac 15 MG/ML Vial IV (20:42)
[2023-04-18] MEDS: 0.9% Saline Lock 10 ML Syringe IV (20:43)
[2023-04-18 21:59] VITALS: BP 121/60; PULSE 78; RESP 18; TEMP 36.9; O2SAT 99
--- NOTE | 2023-04-18 22:00 | CON.PCM.OR_ITS ---
HPI Consult Data Date of Consult: 04/18/23 HPI Narrative Reason for Consultation: Pain with overlying erythema. HPI Narrative: SERAFIN FUENTES, is a 27 M With history of atrial fibrillation cardioverted who presents With right knee pain. Patient fell 2 days ago and developed an abrasion over the anterior knee. He presented to an urgent care today who recommended he proceed to the emergency department. Emergency room physician evaluated the patient patient reported pain over the front of the knee with range of motion. Did have elevated white blood cell count and significant erythema over the anterior knee as well as swelling over the anterior knee. Patient reports pain with flexion. Patient is not currently on any blood thinners. Patient notes symptoms developed over the last 48 hours. Pain with weightbearing. Currently today reports 8 out of 10 pain. [facility] Medical History Asthma History of atrial fibrillation Palpitations Sinus tachycardia Home Medications sotalol 80 mg tablet 80 mg PO BID Ablation 04/18/23 [History Last Taken 04/18/23] Allergy/AdvReac Type Severity Reaction Status Date / Time codeine Allergy Hives Verified 04/18/23 13:55 Family History no significant family his no significant family history Surgical History H/O cardiac radiofrequency ablation (04/06/17) Social History Smoking Status: Former smoker substance use type: does not use ROS Constitutional Constitutional: Reports as per HPI Eyes Eyes: Reports as per HPI ENT HEENT: Reports as per HPI Cardiovascular Cardiovascular: Reports as per HPI Respiratory/Chest Respiratory/Chest: Reports as per HPI Gastrointestinal Gastrointestinal: Reports as per HPI Genitourinary Genitourinary: Reports as per HPI Musculoskeletal Musculoskeletal: Reports as per HPI Integumentary Integumentary: Reports as per HPI Neurologic Neurologic: Reports as per HPI Psychiatric Psychiatric: Reports as per HPI Endocrine Endocrinology: Reports as per HPI Hematologic/Lymphatic Hematologic/Lymphatic: Reports as per HPI Allergic/Immunologic Allergic/Immunologic: Reports as per HPI Vital Signs Vital Signs Vital Signs: 04/18/23 13:53 04/18/23 15:53 04/18/23 17:15 Temperature 97.8 F 98.0 F Temperature Source Temporal Oral Pulse Rate 73 68 Respiratory Rate 16 18 18 Respiratory Effort Respiratory Depth Respiratory Pattern Blood Pressure 117/70 120/106 H Blood Pressure Mean 85 110 Blood Pressure Source Monitor Blood Pressure Position Semi-Fowlers Blood Pressure Location Right Arm Pulse Ox 99 100 Oxygen Delivery Method Room Air Room Air 04/18/23 17:30 Temperature Temperature Source Pulse Rate Respiratory Rate Respiratory Effort Normal Non-Labored Respiratory Depth Normal Respiratory Pattern Normal Blood Pressure Blood Pressure Mean Blood Pressure Source Blood Pressure Position Blood Pressure Location Pulse Ox Oxygen Delivery Method Room Air Weight Weight: 220 lb 3.869 oz Body Mass Index (BMI) 31.6 Physical Exam Const alert and oriented x3 General Appearance: cooperative HEENT normocephalic and head/scalp atraumatic Eyes PERRL Neck no JVD Resp normal respiratory effort Cardio Cardio Narrative: regular pulse GI non-distended Extremity Extremity Narrative: Right lower extremity: Pain and swelling over the anterior knee with tenderness palpation. Patient has a small abrasion of the anterior knee. Erythema over the anterior knee spreading down the anterior tibia. Patient is able to flex knee to 90 degrees with pain anteriorly. Tolerates short arc range of motion on exam testing. Strength exam deferred secondary to pain. Increased warmth of her skin. Moderate swelling of soft tissues anterior to the knee.Neurovascular intact distally. Skin Skin Narrative: Anterior [id number] female. Neuro CN's II-XII intact bilaterally Psych affect normal Medical Records Data Attestation: I reviewed the patient's medical records Lab / Micro Data Attestation: I reviewed the patient's lab results. 04/18/23 14:22 04/18/23 17:47 Labs: Laboratory Results - last 24 hr 04/18/23 14:22: WBC 23.6 H, RBC 4.48 L, Hgb 13.6, Hct 40.7, MCV 90.8, MCH 30.4, MCHC 33.4, RDW Std Deviation 46.9 H, RDW Coeff of Dev 13.9, Plt Count 276, MPV 10.0, Immature Gran % (Auto) 0.500, Neut % (Auto) 83.2 H, Lymph % (Auto) 7.7 L, [place] % (Auto) 7.2, Eos % (Auto) 1.1, Baso % (Auto) 0.3, Absolute Neuts (auto) 19.6 H, Absolute Lymphs (auto) 1.82, Nucleated RBC % 0, Differential Comment SCANNED, Diff Path Review May foll, ESR 14, C-React Prot Ext Range 186.00 H 04/18/23 16:06: Synovial Source RIGHT KNEE, Synovial Color Red, Synovial Appearance Cloudy, Synovial WBC TNP, Synovial RBC TNP, Synovial Tot Cell Ct TNP, Synovial Neutrophils 84 H, Synovial Lymphocytes 10, Synovial Monocytes 6, Synovial Path Comment May follow 04/18/23 17:47: Sodium 136, Potassium 3.5, Chloride 101, Carbon Dioxide 31.0, Anion Gap 4 L, BUN 25 H, Creatinine 1.13, Estim Creat Clear Calc 99.59, Est GFR (MDRD) Af Amer 98, Est GFR (MDRD) Non-Af 81, BUN/Creatinine Ratio 22.1 H, Glucose 133 H, Calcium 8.7 Imagaing Radiology Impression Knee X-Ray 04/18/23 14:07 IMPRESSION: Soft tissue swelling. Small joint effusion. Electronically Signed: Miki Preston MD at 14:39 EST , Personal review of the radiographs reveals significant anterior knee soft tissue swelling Assessment & Plan Assessment/Plan (1) Cellulitis of knee: PLAN: Natural history of the disease process was discussed with the patient. Patient was given opportunity to ask questions. All questions were answered appropriately and to the best of my ability. Natural history I was consulted to rule out potential septic arthritis. Based on the patient's physical examination I do not feel he had septic arthritis however there was an area over the superior patellar medial portal without erythema that I felt was appropriate for aspiration. I was able to aspirate 1 cc of straw-colored synovial fluid. Unfortunately they were unable to obtain synovial white blood cell count. However based on physical examination and the gross appearance of the fluid I do not feel the patient has a septic arthritis. Ultimately I think patient has ant erior knee cellulitis with potential to develop prepatellar bursitis if not treated appropriately. I agree with the plan to admit the patient for IV antibiotics. I will reexamine the patient tomorrow and go over results of the aspiration. There was only 1 cc of fluid so I sent it for cell count again the lab did not perform the cell count. There was some blood-tinged fluid. At this time I will treat the patient for cellulitis. We will reexamine tomorrow. Procedure: After examining the patient I discussed with him an aspiration. I recommended aspirating superior lateral medial suprapatellar portal I explained this may be more painful however there is less erythema here less chance of introducing infectious etiology into the joint. Patient demonstrated understanding and did wish to proceed. 18-gauge needle was drawn used to perform. Gloves were donned and the area was prepped with 4 alcohol swabs. After prepping the area 18-gauge needle was introduced into the joint. Patient moved very abruptly once we did it and remained quite agitated throughout the procedure I was able to get 1 cc of straw-colored fluid with a small amount of blood-tinged in it. The needle was eventually removed and a Band-Aid was placed.
--- NOTE | 2023-04-18 22:18 | EKG12_ITS ---
Test Reason : Blood Pressure : / mmHG Vent. Rate : 073 BPM Atrial Rate : 073 BPM P-R Int : 142 ms QRS Dur : 094 ms QT Int : 384 ms P-R-T Axes : 027 033 025 degrees QTc Int : 423 ms Poor data quality, interpretation may be adversely affected Normal sinus rhythm Normal ECG When compared with ECG of 19-APR-2023 01:17, MANUAL COMPARISON REQUIRED, DATA IS UNCONFIRMED Confirmed by SKYLAR STEPHENS, GODFREY ([id number]), acquisition editor NATASHA WILSON ([id number]) on 04/20/2023 1:57:48 PM Referred By: KAY Confirmed By:GODFREY CHENG MD
[2023-04-18 22:45] VITALS: BP 105/58; PULSE 75
[2023-04-18] MEDS: Sotalol Hydrochloride 80 MG Tablet PO (22:47)
--- NOTE | 2023-04-19 01:00 | EKG12_ITS ---
Test Reason : PRE MEDICATION BASELINE Blood Pressure : / mmHG Vent. Rate : 076 BPM Atrial Rate : 076 BPM P-R Int : 148 ms QRS Dur : 100 ms QT Int : 386 ms P-R-T Axes : 021 022 -05 degrees QTc Int : 434 ms Normal sinus rhythm Normal ECG When compared with ECG of 23-SEP-2018 21:56, Premature supraventricular complexes are no longer Present Nonspecific T wave abnormality, worse in Inferior leads Confirmed by SKYLAR STEPHENS, GODFREY ([id number]), editor at large NATASHA WILSON ([id number]) on 04/20/2023 9:14:54 AM Referred By: KAY Confirmed By:GODFREY CHENG MD
[2023-04-19 04:20] VITALS: BP 126/63; PULSE 73; RESP 18; TEMP 36.8; O2SAT 98
[2023-04-19] MEDS: 0.9% Saline Lock 10 ML Syringe IV ×4 (04:48→16:12)
[2023-04-19] MEDS: Vancomycin HCl 2,000 MG in 0.9% Normal Saline (500mL Bag) 500 ML 250 MG IV ×2 (04:48→16:11)
[2023-04-19 06:37] LABS: Hematocrit 36.2 % (40-54); Hemoglobin 11.8 g/dL (13.0-16.5); Mean Corp Hgb Conc 32.6 g/dL (32-36); Mean Corpuscular Hgb 29.6 pg (27.0-32.0); Mean Corpuscular Volume 90.7 fL (80-94); Mean Platelet Vol. 10.5 fl (6.2-12.0); Platelet Count 256 K/mm3 (150-450); RBC Distribution Width CV 14.2 % (11.6-14.6); RBC Distribution Width SD 47.4 fl (35.1-43.9); Red Blood Count 3.99 M/mm3 (4.6-6.2); White Blood Count 17.8 K/mm3 (4.4-11.0)
[2023-04-19 06:58] LABS: ALB/GLOB Ratio 0.9 RATIO (0.9-2.4); AST(SGOT) 15 U/L (15-37); Alanine Aminotransfer ALT/SGPT 22 U/L (16-61); Albumin, Serum 2.9 g/dL (3.2-5.0); Alkaline Phosphatase 73 U/L (45-117); Anion Gap 4 (5-15); BUN 19 mg/dL (7-18); BUN/Creat Ratio 21.9 RATIO (10-20); Calcium,Total 8.3 mg/dL (8.5-10.1); Chloride 105 mmol/L (98-107); Creatinine, Serum 0.87 mg/dL (0.70-1.30); EST Glomerular Filtration Rate 110 mL/min (>60); Est Glom Filt Rate - Afr Amer 134 mL/min (>60); Estimated Creatinine Clearance 129.36 ml/min; Globulin 3.3 g/dL (2.2-4.2); Glucose 127 mg/dL (74-106); Potassium 3.4 mmol/L (3.5-5.1); Protein, Total 6.2 g/dL (6.4-8.2); Sodium Level 136 mmol/L (136-145)
[2023-04-19] MEDS: Ampicillin/Sulbactam 3 GM in 0.9% Normal Saline (100mL MB+) 100 ML IV ×3 (07:04→18:28)
--- NOTE | 2023-04-19 10:35 | CASEMGMT ---
RN CM Face to Face with patient for initial transition planning/care coordination assessment. RN CM introduced self and role at [facility]. Patient lying in bed, alert and oriented. Patient willing to participate in assessment and is able to answer all questions appropriately. Care providers, pharmacy, and demographics verified. Patient wishes to discharge home, denies need for home health at this time, will monitor for need pending wound care and ATBs. Patient states he has no further needs or concerns at this time. CM to follow for discharge planning needs that may arise. PCP: Yunior Specialists: Juanjose electronic device repairer Preferred Pharmacy: [facility] Insurance: Verdin Prescription Benefit: yes Living Will/HPOA: none LNOK: mother Living Arrangements: Patient lives with his mother in a 3 story duplex. Patient is independent and able to ambulate stairs. Transportation: self, mother DME/HHC: Patient denies DME in the home. May benefit from crutches at discharge. No previous HHC. Disposition Plan: Patient to discharge home with family support and follow-up plans in place. Will monitor course treatment for wound care and ATBs. Leticia PERKINS, RN, CM
[2023-04-19 10:45] VITALS: BP 137/64; PULSE 71; RESP 16; TEMP 36.7; O2SAT 97
[2023-04-19] MEDS: Sotalol Hydrochloride 80 MG Tablet PO ×2 (10:47→22:16)
[2023-04-19] MEDS: Potassium Chloride Oral Tablet 20 MEQ 40 MEQ PO (10:47)
--- NOTE | 2023-04-19 13:45 | EKG12_ITS ---
Test Reason : POST MED Blood Pressure : / mmHG Vent. Rate : 075 BPM Atrial Rate : 075 BPM P-R Int : 146 ms QRS Dur : 096 ms QT Int : 392 ms P-R-T Axes : 039 076 001 degrees QTc Int : 437 ms Normal sinus rhythm Normal ECG No previous ECGs available Confirmed by SKYLAR STEPHENS, GODFREY ([id number]), editor publications NATASHA WILSON ([id number]) on 04/20/2023 1:58:27 PM Referred By: Confirmed By:GODFREY CHENG MD
--- NOTE | 2023-04-19 14:14 | PN_ITS ---
Subjective Subjective Patient seen and examined. He still complained of pain in his right knee; he denied any fever, chills, cough, chest pain, palpitations, dizziness, nausea, vomiting or any other symptoms. Review of sysems is otherwise negative. He had a right knee aspiration done. Objective Data Objective Data Vital Signs: Vital Signs Temp Pulse Resp BP Pulse Ox O2 Del Method 98.1 F 71 16 137/64 H 97 Room Air 04/19/23 10:45 04/19/23 10:45 04/19/23 10:45 04/19/23 10:45 04/19/23 10:45 04/19/23 10:45 Oxygen Delivery Method Room Air Weight: 220 lb 3.869 oz Body Mass Index (BMI) 31.6 Intake & Output: Intake and Output for Last 24 Hours 04/17/23 04/18/23 04/19/23 23:59 23:59 23:59 Intake Total 974 / 974 1324 / 1324 Balance 974 / 974 1324 / 1324 Lab / Micro Data 04/19/23 06:00 04/19/23 06:00 Labs: Laboratory Results - last 24 hr 04/18/23 14:22: WBC 23.6 H, RBC 4.48 L, Hgb 13.6, Hct 40.7, MCV 90.8, MCH 30.4, MCHC 33.4, RDW Std Deviation 46.9 H, RDW Coeff of Dev 13.9, Plt Count 276, MPV 10.0, Immature Gran % (Auto) 0.500, Neut % (Auto) 83.2 H, Lymph % (Auto) 7.7 L, [place] % (Auto) 7.2, Eos % (Auto) 1.1, Baso % (Auto) 0.3, Absolute Neuts (auto) 19.6 H, Absolute Lymphs (auto) 1.82, Nucleated RBC % 0, Differential Comment SCANNED, Diff Path Review September foll, ESR 14, C-React Prot Ext Range 186.00 H 04/18/23 16:06: Synovial Source RIGHT KNEE, Synovial Color Red, Synovial Appearance Cloudy, Synovial WBC TNP, Synovial RBC TNP, Synovial Tot Cell Ct TNP, Synovial Neutrophils 84 H, Synovial Lymphocytes 10, Synovial Monocytes 6, Synovial Path Comment May follow 04/18/23 17:47: Sodium 136, Potassium 3.5, Chloride 101, Carbon Dioxide 31.0, Anion Gap 4 L, BUN 25 H, Creatinine 1.13, Estim Creat Clear Calc 99.59, Est GFR (MDRD) Af Amer 98, Est GFR (MDRD) Non-Af 81, BUN/Creatinine Ratio 22.1 H, Glucose 133 H, Calcium 8.7 04/19/23 06:00: WBC 17.8 H, RBC 3.99 L, Hgb 11.8 L, Hct 36.2 L, MCV 90.7, MCH 29.6, MCHC 32.6, RDW Std Deviation 47.4 H, RDW Coeff of Dev 14.2, Plt Count 256, MPV 10.5, Sodium 136, Potassium 3.4 L, Chloride 105, Carbon Dioxide 27.0, Anion Gap 4 L, BUN 19 H, Creatinine 0.87, Estim Creat Clear Calc 129.36, Est GFR (MDRD) Af Amer 134, Est GFR (MDRD) Non-Af 110, BUN/Creatinine Ratio 21.9 H, Glucose 127 H, Calcium 8.3 L, Total Bilirubin 0.30, AST 15, ALT 22, Alkaline Phosphatase 73, Total Protein 6.2 L, Albumin 2.9 L, Globulin 3.3, Albumin/Globulin Ratio 0.9 Radiography Diagnostic Testing: Radiology Impression Knee X-Ray 04/18/23 14:07 IMPRESSION: Soft tissue swelling. Small joint effusion. Electronically Signed: Miki Preston MD at 14:39 EST Reading Location ID and State: [facility] / [place] , Service support , Physical Exam Const alert, oriented x3 and no apparent distress General Appearance: cooperative and well developed HEENT normocephalic, head/scalp atraumatic, moist oral mucous membranes, oropharynx normal and gingiva normal Eyes PERRL and EOMs intact bilaterally Neck no lymphadenopathy and supple Lymph Lymphatic: no lymphadenopathy noted Resp normal respiratory effort, normal air movement and clear to auscultation bilaterally Cardio regular rate, regular rhythm, S1 normal heart sound, S2 normal heart sound and no murmurs GI normal to inspection, nondistended, normoactive bowel sounds, soft to palpation, non-tender and non-distended Extremity normal capillary refill, no clubbing, cyanosis or edema and no calf tenderness Extremity Narrative: right knee markedly swollen, erythematous, tender to touch, has significant tenderness with movement. Skin Skin Narrative: as under extremity Neuro CN's II-XII intact bilaterally, no focal motor deficits, no sensory deficits noted and deep tendon reflexes 2+ bilaterally Psych thought process normal and cooperative Appearance: appropriate Assessment & Plan Assessment/Plan (1) Acute pain of right knee: (2) History of atrial fibrillation: PLAN: Plan #Right knee cellulitis, concerning for septic arthritis * right knee xray showed soft tissue swelling * had right knee aspiration in the ED * orthopedic surgery on board * on IV vancomycin and IV unasyn * on PO oxycodone, IV morphine and PO tylenl prn for pain * wbc is down to 17.8, from 23.6 on admission. * #Hypokalemia: Potassium is 3.4. Will replace and trend. #Paroxysmal afib * in normal sinus rhythm * had an ablation done * on sotalol and eliquis * #Obesity: BMI is 31.6. Complicates acute care, expected recovery and prognosis DVT prophylaxis: Lovenox. Eliquis on hold as he had the aspiration done. * Charges/Coding Visit Charges Inpatient E&M: 76406 Subs Hosp L2
[2023-04-19 16:26] VITALS: BP 125/79; PULSE 67; RESP 16; TEMP 37.1; O2SAT 99
--- NOTE | 2023-04-19 18:46 | PN.ORTHO_ITS ---
Subjective Subjective Patient overall reports an improvement in his symptoms. He reports medial and lateral knee pain have resolved significantly. He remains with pain in the anterior knee. He is resting comfortably watching television when I enter the room. Vital signs do show that he rates his pain an 8 out of 10. Pain is worse with flexion of the knee. He is able to tolerate range of motion 0-90 fairly well demonstrates to me in the room. He notes he has been up walking around. White count is also shown decline on antibiotics. Unfortunately, they were unable to obtain a full cell count with the fluid available. However gross appearance of the fluid was not consistent with infectious etiology. Objective Data Objective Data Vital Signs: Vital Signs Temp Pulse Resp BP Pulse Ox O2 Del Method 98.8 F 67 16 125/79 H 99 Room Air 04/19/23 16:26 04/19/23 16:26 04/19/23 16:26 04/19/23 16:26 04/19/23 16:26 04/19/23 16:26 Oxygen Delivery Method Room Air Weight: 220 lb 3.869 oz Body Mass Index (BMI) 31.6 Intake & Output: Intake and Output for Last 24 Hours 04/17/23 04/18/23 04/19/23 23:59 23:59 23:59 Intake Total 974 / 974 2424 / 2424 Balance 974 / 974 2424 / 2424 Lab / Micro Data Attestation: I reviewed the patient's lab results. 04/19/23 06:00 04/19/23 06:00 Labs: Laboratory Results - last 24 hr 04/18/23 16:06: Synovial Source RIGHT KNEE, Synovial Color Red, Synovial Appearance Cloudy, Synovial Tot Cell Ct TNP, Synovial Neutrophils 84 H, Synovial Lymphocytes 10, Synovial Monocytes 6, Synovial Path Comment May follow 04/19/23 06:00: WBC 17.8 H, RBC 3.99 L, Hgb 11.8 L, Hct 36.2 L, MCV 90.7, MCH 29.6, MCHC 32.6, RDW Std Deviation 47.4 H, RDW Coeff of Dev 14.2, Plt Count 256, MPV 10.5, Sodium 136, Potassium 3.4 L, Chloride 105, Carbon Dioxide 27.0, Anion Gap 4 L, BUN 19 H, Creatinine 0.87, Estim Creat Clear Calc 129.36, Est GFR (MDRD) Af Amer 134, Est GFR (MDRD) Non-Af 110, BUN/Creatinine Ratio 21.9 H, Glucose 127 H, Calcium 8.3 L, Total Bilirubin 0.30, AST 15, ALT 22, Alkaline Phosphatase 73, Total Protein 6.2 L, Albumin 2.9 L, Globulin 3.3, Albumin/Globulin Ratio 0.9 Physical Exam Const alert, oriented x3 and no apparent distress General Appearance: cooperative, comfortable and well kempt Extremity Extremity Narrative: Right lower extremity: Patient tolerates passive and active short arc range of motion 0 to 90 degrees without significant pain. Upon flexion to greater than 90 reports anterior knee pain. Patient's erythema has resolved and is primarily anterior. There is some anterior bogginess however there is not a definitive area of fluctuance consistent with prepatellar bursa at this time. Lower extremities otherwise neurovascular intact distally. Assessment & Plan Assessment/Plan (1) Cellulitis of knee: PLAN: At this time patient's clinical symptoms are consistent with cellulitis of the right knee. He does not demonstrate symptoms consistent with septic arthritis. Additionally, after aspirating the fluid there was not gross appearance of infectious etiology. Unfortunately were unable to perform the full cell count. I was not contacted in order to also try and get cultures on the available fluid. However again, patient's physical examination is not consistent with a septic joint. Will continue with IV antibiotics. Long-term concern is that the patient may eventually develop prepatellar bursitis. I explained to the patient the natural history of prepatellar bursitis and how it can sometimes require surgical intervention. Would like the patient to follow- up in my office in 2 weeks he would likely need discharge on some form of antibiotic regimen I will leave that up to the primary team. Please call orthopedics for any further questions or concerns. [facility] Office:
[2023-04-19 22:13] VITALS: BP 127/76; PULSE 78; RESP 18; TEMP 37.4; O2SAT 96
[2023-04-20] MEDS: Ampicillin/Sulbactam 3 GM in 0.9% Normal Saline (100mL MB+) 100 ML IV ×4 (00:03→17:11)
[2023-04-20] MEDS: 0.9% Saline Lock 10 ML Syringe IV ×3 (00:04→21:29)
--- NOTE | 2023-04-20 00:04 | EKG12_ITS ---
Test Reason : REPEAT POST MEDICATION Blood Pressure : / mmHG Vent. Rate : 076 BPM Atrial Rate : 076 BPM P-R Int : 146 ms QRS Dur : 104 ms QT Int : 394 ms P-R-T Axes : 011 025 006 degrees QTc Int : 443 ms Normal sinus rhythm Nonspecific T wave abnormality Abnormal ECG When compared with ECG of 18-APR-2023 22:29, MANUAL COMPARISON REQUIRED, DATA IS UNCONFIRMED Confirmed by SKYLAR STEPHENS, GODFREY ([id number]), rewrite editor NATASHA WILSON ([id number]) on 04/20/2023 9:14:42 AM Referred By: KAY Confirmed By:GODFREY CHENG MD
[2023-04-20 04:20] VITALS: BP 115/71; PULSE 69; RESP 16; TEMP 36.9; O2SAT 98
[2023-04-20 04:44] LABS: Absolute Lymphocyte Count 1.68 X10^3/uL (0.83-4.51); Absolute Neutrophil Count 9.4 X10^3/uL (2.0-7.7); Basophil# 0.06 X10^3/uL; Basophil% 0.5 % (0-1); Eosinophil# 0.23 X10^3/uL; Eosinophils% 1.8 % (0-5); Hematocrit 35.7 % (40-54); Hemoglobin 11.4 g/dL (13.0-16.5); Lymphocyte # 1.68 X10^3/ul (0.83-4.51); Lymphocyte % 13.4 % (19-41); Mean Corp Hgb Conc 31.9 g/dL (32-36); Mean Corpuscular Hgb 29.8 pg (27.0-32.0); Mean Corpuscular Volume 93.2 fL (80-94); Mean Platelet Vol. 9.5 fl (6.2-12.0); Monocyte# 1.16 X10^3/uL; Monocyte% 9.3 % (0-10); NRBC Flagged by Analyzer 0 % (0-5); Neutrophil # 9.36 X10^3/uL (2.7-7.7); Neutrophil % 74.8 % (47-70); Platelet Count 243 K/mm3 (150-450); RBC Distribution Width CV 14.5 % (11.6-14.6); RBC Distribution Width SD 49.8 fl (35.1-43.9); Red Blood Count 3.83 M/mm3 (4.6-6.2); White Blood Count 12.5 K/mm3 (4.4-11.0)
[2023-04-20 05:16] LABS: Anion Gap 6 (5-15); BUN 10 mg/dL (7-18); BUN/Creat Ratio 13.8 RATIO (10-20); Calcium,Total 7.8 mg/dL (8.5-10.1); Chloride 109 mmol/L (98-107); Creatinine, Serum 0.73 mg/dL (0.70-1.30); EST Glomerular Filtration Rate 135 mL/min (>60); Est Glom Filt Rate - Afr Amer 164 mL/min (>60); Estimated Creatinine Clearance 154.17 ml/min; Glucose 111 mg/dL (74-106); Sodium Level 141 mmol/L (136-145)
--- NOTE | 2023-04-20 05:38 | PCM.RX.CS ---
Consult Antibiotic Management Pharmacy has been consulted to manage selected antiobiotic: Vancomycin Type of Intervention Type of Consult: Follow-up Labs Labs: Sodium 141 mmol/L (136-145) 04/20/23 04:30 Potassium 4.0 mmol/L (3.5-5.1) 04/20/23 04:30 Chloride 109 mmol/L (98-107) H 04/20/23 04:30 Carbon Dioxide 26.0 mmol/L (21.0-32.0) 04/20/23 04:30 Anion Gap 6 (5-15) 04/20/23 04:30 BUN 10 mg/dL (7-18) 04/20/23 04:30 Creatinine 0.73 mg/dL (0.70-1.30) 04/20/23 04:30 Est GFR (MDRD) Af Amer 164 mL/min (>60) 04/20/23 04:30 Est GFR (MDRD) Non-Af 135 mL/min (>60) 04/20/23 04:30 BUN/Creatinine Ratio 13.8 RATIO (10-20) 04/20/23 04:30 Glucose 111 mg/dL (74-106) H 04/20/23 04:30 Vancomycin Trough 9.0 ug/mL (5.0-15.0) 04/20/23 04:30 Goal Trough Goal Trough: 15-20 mcg/mL Pharmacy Plan for Drug Dosing Pharmacy Plan for Drug Dosing: Pharmacy Service will continue to monitor and adjust dosing as required. TROUGH 9.0 @ 12 HOURS. CHANGE TO 1250MG Q8H AND FOLLOW UP TROUGH PRIOR TO 4TH DOSE Follow-Up Labs Follow-Up Labs: Trough: Vancomycin Date/Time Labs Ordered Labs to be done on [date and time ordered]: 04/21 @ 0500
[2023-04-20] MEDS: Vancomycin HCl 1,250 MG in 0.9% Normal Saline (250mL Bag) 250 ML 167 MG IV ×3 (05:41→21:29)
[2023-04-20 09:35] VITALS: BP 125/84; PULSE 80; RESP 16; TEMP 36.7; O2SAT 99
[2023-04-20] MEDS: Sotalol Hydrochloride 80 MG Tablet PO ×2 (09:35→21:29)
[2023-04-20 10:19] LABS: Pathologist Comment Reviewed
[2023-04-20 10:23] LABS: Pathologist Review Reviewed
--- NOTE | 2023-04-20 10:25 | CASEMGMT ---
Social Work As per initial second vp hr assessment, pt does not have LW/POA, declined further information. SHEELA Morales
--- NOTE | 2023-04-20 10:45 | PN_ITS ---
Subjective Subjective Patient seen and examined. He still has pain in his right knee. The swelling and redness has improved. Per orthopedic progress note, the amount of fluid aspirated was too small for the lab to run any tests on it. WBC is trending downwards. Review of systems otherwise negative. Objective Data Objective Data Vital Signs: Vital Signs Temp Pulse Resp BP Pulse Ox O2 Del Method 98.0 F 80 16 125/84 H 99 Room Air 04/20/23 09:35 04/20/23 09:35 04/20/23 09:35 04/20/23 09:35 04/20/23 09:35 04/20/23 09:35 Oxygen Delivery Method Room Air Weight: 220 lb 3.869 oz Body Mass Index (BMI) 31.6 Intake & Output: Intake and Output for Last 24 Hours 04/18/23 04/19/23 04/20/23 23:59 23:59 23:59 Intake Total 974 / 974 2536 / 2536 499 / 499 Balance 974 / 974 2536 / 2536 499 / 499 Lab / Micro Data 04/20/23 04:30 04/20/23 04:30 Labs: Laboratory Results - last 24 hr 04/18/23 14:22: Diff Path Review Reviewed 04/18/23 16:06: Synovial Path Comment Reviewed 04/20/23 04:30: WBC 12.5 H, RBC 3.83 L, Hgb 11.4 L, Hct 35.7 L, MCV 93.2, MCH 29.8, MCHC 31.9 L, RDW Std Deviation 49.8 H, RDW Coeff of Dev 14.5, Plt Count 243, MPV 9.5, Immature Gran % (Auto) 0.200, Neut % (Auto) 74.8 H, Lymph % (Auto) 13.4 L, [place] % (Auto) 9.3, Eos % (Auto) 1.8, Baso % (Auto) 0.5, Absolute Neuts (auto) 9.4 H, Absolute Lymphs (auto) 1.68, Nucleated RBC % 0, Sodium 141, Potassium 4.0, Chloride 109 H, Carbon Dioxide 26.0, Anion Gap 6, BUN 10, Creatinine 0.73, Estim Creat Clear Calc 154.17, Est GFR (MDRD) Af Amer 164, Est GFR (MDRD) Non-Af 135, BUN/Creatinine Ratio 13.8, Glucose 111 H, Calcium 7.8 L, Vancomycin Trough 9.0 Physical Exam Const alert, oriented x3 and no apparent distress General Appearance: cooperative and well developed HEENT normocephalic, head/scalp atraumatic, hearing grossly normal bilaterally, nasal mucous membranes and turbinates normal, moist oral mucous membranes, oropharynx normal and gingiva normal Eyes PERRL, EOMs intact bilaterally and conjunctivae normal Neck full ROM, no lymphadenopathy and supple Lymph Lymphatic: no lymphadenopathy noted Chest inspection of chest normal Resp normal respiratory effort, normal air movement, no use of accessory muscles and clear to auscultation bilaterally Cardio regular rate, regular rhythm, S1 normal heart sound, S2 normal heart sound, no murmurs and peripheral pulses 2+ throughout GI normal to inspection, nondistended, normoactive bowel sounds, soft to palpation, non-tender and non-distended Back/Spine normal ROM Extremity normal capillary refill, no clubbing, cyanosis or edema and no calf tenderness Extremity Narrative: right knee swelling has improved significantly, still has erythema and moderate swelling, unable to flex or extend leg fully at the knee. Skin no rashes or lesions noted Skin Narrative: as under extremity Neuro No oriented x3, CN's II-XII intact bilaterally, No moves all extremities, no focal motor deficits, no sensory deficits noted and deep tendon reflexes 2+ bilaterally Speech: speech normal Psych mental status grossly normal, thought process normal and cooperative Appearance: appropriate Assessment & Plan Assessment/Plan (1) Acute pain of right knee: (2) History of atrial fibrillation: PLAN: Plan #Right knee cellulitis, concerning for septic arthritis * right knee xray showed soft tissue swelling * had right knee aspiration in the ED; fluid was too scant for the lab to run any test on it apparently. * orthopedic surgery on board; per ortho, this is likely cellulitis of the knee, and not a likely septic arthritis. * wbc is down to 12.5 * on IV vancomycin and IV unasyn * on PO oxycodone, IV morphine and PO tylenl prn for pain * * #Hypokalemia: resolved. K is 4. #Paroxysmal afib * in normal sinus rhythm * had an ablation done * on sotalol and eliquis * #Obesity: BMI is 31.6. Complicates acute care, expected recovery and prognosis DVT prophylaxis: Lovenox. Eliquis on hold as he had the aspiration done. Will resume eliquis tomorrow as he is not having any further procedures done. * Charges/Coding Visit Charges Inpatient E&M: 44584 Subs Hosp L2
[2023-04-20 15:35] VITALS: BP 131/79; PULSE 85; RESP 16; TEMP 36.8; O2SAT 99
[2023-04-20 21:25] VITALS: BP 110/61; PULSE 73; RESP 16; TEMP 37; O2SAT 99
[2023-04-21] MEDS: Ampicillin/Sulbactam 3 GM in 0.9% Normal Saline (100mL MB+) 100 ML IV ×3 (00:28→11:12)
[2023-04-21 03:30] VITALS: BP 121/51; PULSE 65; RESP 16; TEMP 36.6; O2SAT 99
[2023-04-21] MEDS: Vancomycin Trough/Random Due 1 LAB MC (05:01)
[2023-04-21] MEDS: 0.9% Saline Lock 10 ML Syringe IV (05:01)
[2023-04-21 05:49] LABS: Absolute Lymphocyte Count 1.67 X10^3/uL (0.83-4.51); Absolute Neutrophil Count 7.8 X10^3/uL (2.0-7.7); Basophil# 0.08 X10^3/uL; Basophil% 0.7 % (0-1); Eosinophil# 0.51 X10^3/uL; Eosinophils% 4.5 % (0-5); Hematocrit 35.7 % (40-54); Hemoglobin 11.3 g/dL (13.0-16.5); Lymphocyte # 1.67 X10^3/ul (0.83-4.51); Lymphocyte % 14.6 % (19-41); Mean Corp Hgb Conc 31.7 g/dL (32-36); Mean Corpuscular Hgb 29.1 pg (27.0-32.0); Mean Platelet Vol. 9.9 fl (6.2-12.0); Monocyte# 1.35 X10^3/uL; Monocyte% 11.8 % (0-10); NRBC Flagged by Analyzer 0 % (0-5); Neutrophil # 7.77 X10^3/uL (2.7-7.7); Neutrophil % 68.1 % (47-70); Platelet Count 263 K/mm3 (150-450); RBC Distribution Width CV 14.3 % (11.6-14.6); RBC Distribution Width SD 48.3 fl (35.1-43.9); Red Blood Count 3.88 M/mm3 (4.6-6.2); White Blood Count 11.4 K/mm3 (4.4-11.0)
[2023-04-21 05:51] LABS: Vancomycin, Trough Level 15.5 ug/mL (5.0-15.0)
[2023-04-21 06:11] LABS: Anion Gap 6 (5-15); BUN 9 mg/dL (7-18); Calcium,Total 8.2 mg/dL (8.5-10.1); Chloride 109 mmol/L (98-107); Creatinine, Serum 0.82 mg/dL (0.70-1.30); EST Glomerular Filtration Rate 118 mL/min (>60); Est Glom Filt Rate - Afr Amer 142 mL/min (>60); Estimated Creatinine Clearance 137.25 ml/min; Glucose 99 mg/dL (74-106); Sodium Level 140 mmol/L (136-145)
[2023-04-21] MEDS: Vancomycin HCl 1,250 MG in 0.9% Normal Saline (250mL Bag) 250 ML 167 MG IV (06:40)
--- NOTE | 2023-04-21 06:43 | PCM.RX.CS ---
Consult Antibiotic Management Pharmacy has been consulted to manage selected antiobiotic: Vancomycin Type of Intervention Type of Consult: Follow-up Labs Labs: Sodium 140 mmol/L (136-145) 04/21/23 04:45 Potassium 4.0 mmol/L (3.5-5.1) 04/21/23 04:45 Chloride 109 mmol/L (98-107) H 04/21/23 04:45 Carbon Dioxide 25.0 mmol/L (21.0-32.0) 04/21/23 04:45 Anion Gap 6 (5-15) 04/21/23 04:45 BUN 9 mg/dL (7-18) 04/21/23 04:45 Creatinine 0.82 mg/dL (0.70-1.30) 04/21/23 04:45 Est GFR (MDRD) Af Amer 142 mL/min (>60) 04/21/23 04:45 Est GFR (MDRD) Non-Af 118 mL/min (>60) 04/21/23 04:45 BUN/Creatinine Ratio 11.0 RATIO (10-20) 04/21/23 04:45 Glucose 99 mg/dL (74-106) 04/21/23 04:45 Vancomycin Trough 15.5 ug/mL (5.0-15.0) H 04/21/23 04:45 Goal Trough Goal Trough: 15-20 mcg/mL Pharmacy Plan for Drug Dosing Pharmacy Plan for Drug Dosing: Pharmacy Service will continue to monitor and adjust dosing as required. TROUGH 15.5 @ 7.2 HOURS. NO CHANGES, FOLLOW UP TROUGH IN 2 DAYS Follow-Up Labs Follow-Up Labs: Trough: Vancomycin Date/Time Labs Ordered Labs to be done on [date and time ordered]: 04/23 @ 0500
[2023-04-21 08:56] VITALS: BP 125/83; PULSE 68; RESP 12; TEMP 36.6; O2SAT 100
[2023-04-21] MEDS: Sotalol Hydrochloride 80 MG Tablet PO (09:01)
--- NOTE | 2023-04-21 11:00 | CASEMGMT ---
Social Work SW was asked about getting crutches for pt, they were able to pull the crutches from materials management. Script on chart if needed. SHEELA Morales
--- NOTE | 2023-04-21 12:16 | DCINST_ITS ---
Discharge Instructions Diet Discharge Diet: Low fat / Low cholesterol Activity Discharge Activity: Return to Normal Activity Weight Bearing Status: Weight bearing as tolerated Dressing / Incision Call your doctor if you observe: Fever of 101 or Higher, Shortness of breath, Dizziness, Swelling in the ankles, Chest pain and Increased palpitations (irregular heartbeat) Follow Up Care Test Results: Test results from this visit will be discussed in further detail at your follow- up appointment, if applicable. Discharge Plan Admission Admit Date/Time: 04/18/23 16:02 Primary Reason for Your Visit: cellulitis of the right knee Attending Provider: Juliana Dominguez Primary Care Provider: Rikki Mojica NP Consulting Providers: Jacky Rollins; Rock Craven Instructions Patient Instructions: Cellulitis Discharge Orders/Prescriptions Prescriptions: New doxycycline hyclate 100 mg tablet 100 mg PO BID Qty: 20 0RF cephalexin 500 mg capsule 500 mg PO Q8H Qty: 30 0RF Continued sotalol 80 mg tablet 80 mg PO BID Referrals / Follow Up: Jacky Rollins MD [Med Staff - Active Staff] - Within 2 Weeks Rikki Mojica NP, [employer] [Primary Care Provider] - Within 1 Week Disposition Disposition (needs filled in before D/C Order can be placed): Home, Self Care
--- NOTE | 2023-04-21 12:17 | PCM.DC.SUM ---
Providers Date of Admission: 04/18/23 Date of Discharge: 04/21/23 Primary Care Physician: Rikki Mojica, [facility] Consultations 04/18/23 16:06 Consult: Orthopedics Routine Consulting Provider: Jacky Rollins Reason for Consult: Concern for left knee septic joint EMERGENT Consult: No MD Notified: Yes Date Notified: 04/18/23 Time Notified: 16:06 Method of Notification: Verbal Reason For Visit: LEFT KNEE CELLULITIS WITH CONCERN FOR SEPTIC JOINT Diagnosis Discharge Diagnosis (1) Acute pain of right knee: Status: Acute Code(s): M25.561 - Pain in right knee (2) History of atrial fibrillation: Status: Resolved Code(s): Z86.79 - Personal history of other diseases of the circulatory system Plan #Right knee cellulitis, concerning for septic arthritis right knee xray showed soft tissue swelling had right knee aspiration in the ED; fluid was too scant for the lab to run any test on it apparently. orthopedic surgery on board; per ortho, this is likely cellulitis of the knee, and not a likely septic arthritis. wbc is down to 12.5 on IV vancomycin and IV unasyn on PO oxycodone, IV morphine and PO tylenl prn for pain #Hypokalemia: resolved. K is 4. #Paroxysmal afib in normal sinus rhythm had an ablation done on sotalol and eliquis #Obesity: BMI is 31.6. Complicates acute care, expected recovery and prognosis DVT prophylaxis: Lovenox. Eliquis on hold as he had the aspiration done. Will resume eliquis tomorrow as he is not having any further procedures done. Medications at Discharge Home Medications sotalol 80 mg tablet 80 mg PO BID Ablation 04/18/23 cephalexin 500 mg capsule 500 mg PO Q8H #30 caps 04/21/23 doxycycline hyclate 100 mg tablet 100 mg PO BID #20 tabs 04/21/23 Hospital Course Operations None Procedures - (right knee aspiration) Summary of Care Provided Minutes Spent on Discharge: 45 Hospital Course: Patient is a 27 y/o male with a PMH as outlined who was admitted with a complaint of right knee swelling and pain. He fell onto his right knee 2 days prior to admission and had mild scooping on the knee. Subsequently he noticed that there was extensive swelling and redness around the knee and extending down to the mid kern. The knee was also very painful with movement. Review of symptoms otherwise negative and he denied any fever or chills. X-ray of the right knee showed soft tissue swelling with small joint effusion. He was admitted and managed for right knee cellulitis with concerns for septic arthritis. Orthopedic surgery was consulted. He was started on IV vancomycin and Unasyn. Patient had bedside right knee aspiration done by orthopedics. Patient's pain, swelling and redness of the right knee and right lower extremity improved with antibiotics. The scant fluid gotten from the aspiration was sent for microbiology evaluation. However it turned out that he could not have any analysis of the fluid done because the fluid was scanty. Per orthopedics, there was no need to do a repeat aspiration as the swelling and redness was getting better and was likely this was due to right knee cellulitis and less likely septic arthritis. Patient felt much better and was able to better flex and extend his right leg at the knee joint. Redness had also significantly improved as well as swelling. He was discharged home on 04/21/2023 on p.o. Keflex and p.o. doxycycline for 10-day course. He is follow-up with his primary care doctor and follow-up with orthopedic surgery on outpatient basis within 2 weeks. Patient seen and examined prior to discharge. He had no complaints and had an uneventful night. Pain, redness and swelling was much better. He felt much much better. Review of systems otherwise negative. Labs and vitals reviewed. Home medication reviewed and reconciled. Physical Exam Const alert, oriented x3 and no apparent distress General Appearance: cooperative, comfortable, well kempt and well developed HEENT normocephalic, head/scalp atraumatic, hearing grossly normal bilaterally, nasal mucous membranes and turbinates normal, moist oral mucous membranes, oropharynx normal and gingiva normal Mouth: oral and palatal mucosa normal Eyes PERRL, EOMs intact bilaterally and conjunctivae normal Neck full ROM, no lymphadenopathy and supple Lymph Lymphatic: no lymphadenopathy noted Chest inspection of chest normal Resp normal respiratory effort, normal air movement, no use of accessory muscles and clear to auscultation bilaterally Cardio regular rate, regular rhythm, S1 normal heart sound, S2 normal heart sound, no murmurs and peripheral pulses 2+ throughout GI normal to inspection, nondistended, normoactive bowel sounds, soft to palpation, non-tender and non-distended Back/Spine normal ROM Extremity normal capillary refill, no clubbing, cyanosis or edema and no calf tenderness Extremity Narrative: right knee swelling has improved significantly; erythema and pain has improved significantly. Skin no rashes or lesions noted Skin Narrative: as under extremity Neuro No oriented x3, CN's II-XII intact bilaterally, No moves all extremities, no focal motor deficits, no sensory deficits noted and deep tendon reflexes 2+ bilaterally Speech: speech normal Psych mental status grossly normal, thought process normal and cooperative Appearance: appropriate Weight / BMI Weight Weight: 220 lb 3.869 oz Body Mass Index (BMI) 31.6 ABG / Lab / Microbiology Data 04/21/23 04:45 04/21/23 04:45 Laboratory: Laboratory Results - last 24 hr 04/21/23 04:45: WBC 11.4 H, RBC 3.88 L, Hgb 11.3 L, Hct 35.7 L, MCV 92.0, MCH 29.1, MCHC 31.7 L, RDW Std Deviation 48.3 H, RDW Coeff of Dev 14.3, Plt Count 263, MPV 9.9, Immature Gran % (Auto) 0.300, Neut % (Auto) 68.1, Lymph % (Auto) 14.6 L, [place] % (Auto) 11.8 H, Eos % (Auto) 4.5, Baso % (Auto) 0.7, Absolute Neuts (auto) 7.8 H, Absolute Lymphs (auto) 1.67, Nucleated RBC % 0, Sodium 140, Potassium 4.0, Chloride 109 H, Carbon Dioxide 25.0, Anion Gap 6, BUN 9, Creatinine 0.82, Estim Creat Clear Calc 137.25, Est GFR (MDRD) Af Amer 142, Est GFR (MDRD) Non-Af 118, BUN/Creatinine Ratio 11.0, Glucose 99, Calcium 8.2 L, Vancomycin Trough 15.5 H D/C Instructions Discharge Diet: Low fat / Low cholesterol Discharge Activity: Return to Normal Activity Weight Bearing Status: Weight bearing as tolerated Call your doctor if you observe: Fever of 101 or Higher, Shortness of breath, Dizziness, Swelling in the ankles, Chest pain and Increased palpitations (irregular heartbeat) Meaningful Use Info Meaningful Use Diagnoses (Choose all that apply): None applicable Discharge Plan Admission Admit Date/Time: 04/18/23 16:02 Primary Reason for Your Visit: cellulitis of the right knee Attending Provider: Juliana Dominguez Primary Care Provider: Rikki Mojica NP Consulting Providers: Jacky Rollins; Rock Craven Instructions Patient Instructions: Cellulitis Discharge Orders/Prescriptions Prescriptions: New doxycycline hyclate 100 mg tablet 100 mg PO BID Qty: 20 0RF cephalexin 500 mg capsule 500 mg PO Q8H Qty: 30 0RF Continued sotalol 80 mg tablet 80 mg PO BID Referrals / Follow Up: Jacky Rollins MD [Med Staff - Active Staff] - Within 2 Weeks Rikki Mojica NP, ASSOCIATE [employer]MIST[employer] [Primary Care Provider] - Within 1 Week Disposition Disposition (needs filled in before D/C Order can be placed): Home, Self Care Charges/Coding Visit Charges Inpatient E&M: 95499 Disch Hosp >30min
[2023-04-21 13:00] VITALS: BP 113/76; PULSE 99; RESP 14; TEMP 36.6; O2SAT 97
== END 2023-04-21 13:25 | disposition home or self-care (01) | DRG 383 ==
LOC: ED 16:18 → PCU 16:36
PROVIDERS: Specialist; Admitting Provider Hospitalist; Emergency Provider Emergency Medicine; PCP Nurse Practitioner Family; Visit Provider Student in an Organized Health Care Education/Training Program
DX: L03.115 Cellulitis of right lower limb (principal); E66.9 Obesity, unspecified; I48.0 Paroxysmal atrial fibrillation; J45.909 Unspecified asthma, uncomplicated; E87.6 Hypokalemia; M25.561 Pain in right knee; S80.211A Abrasion, right knee, initial encounter; W18.30XA Fall on same level, unspecified, initial encounter; Z79.899 Other long term (current) drug therapy; Z87.891 Personal history of nicotine dependence; Z68.31 Body mass index [BMI] 31.0-31.9, adult
CPT/HCPCS: 36415; 73564; 80048; 80053; 80202; 85025; 85027; 85652; 86140; 89051; 93005; 99282; J7040; J7050; A4216; J0295

== ENCOUNTER 2024-02-17 15:25 | Emergency (ER) | payer SELFPAY ==
[2024-02-17 15:25] VITALS: BP 134/96; PULSE 62; RESP 20; TEMP 36.4; O2SAT 100; BMI 32.3
--- NOTE | 2024-02-17 15:48 | ED.VIS.CHEST ---
HPI History of Present Illness Chief Complaint: Chest Pain Informant: patient Onset/Context/Timing Onset: Days (3) Activity at onset: sudden Timing: Continuous Quality: Positive for Tightness Location: Left Chest Worsened By: Nothing Relieved By: Nothing Associated Symptoms: Positive for Nausea, Vomiting, Diaphoresis, Dyspnea, Fever, Lightheadedness and Palpitations; Negative for Cough or Acid Reflux Narrative Narrative: Patient presents with chest pain, dizziness, lightheadedness, and migraine headache that began 3 days ago. Patient states it began rather suddenly when he woke up Sunday morning. Patient describes his pain as a tightness. Patient states it is over his left lower chest. Patient states he has a history of paroxysmal atrial fibrillation and thinks his symptoms are related to that. Patient also states she has a migraine headache. Patient admits to some nausea and vomiting. Patient also admits to some shortness of breath. Patient admits to subjective fevers and chills. Patient also states he was recently diagnosed with rheumatoid arthritis but is not being treated for that. CVD Risk Factors: Negative for Hypertension, Diabetes, Hypercholesterolemia, Family History 1' </=55 or Smoking PE Risk Factors: Negative for Recent Travel/Surgery, Recent Immobilization, Prior DVT or PE, Cancer or OCP + Smoking + >/=35 PFSH PFSH Medical History History of atrial fibrillation Asthma History of atrial fibrillation Sinus tachycardia Palpitations Home Medications ?Medication ?Instructions ?Recorded ?Last Taken ?Type NK 02/17/24 Unknown History Allergy/AdvReac Type Severity Reaction Status Date / Time codeine Allergy Hives Verified 02/17/24 15:29 Surgical History H/O cardiac radiofrequency ablation (04/06/17) Social History Smoking Status: Former smoker substance use type: does not use ROS ROS ED Constitutional Constitutional ED: Reports chills, fever(s) and subjective Eyes Eyes: Denies blurry vision or change in vision ENT ENT ED: Denies rhinorrhea or sore throat Cardiovascular Cardiovascular: Reports chest pain and palpitations Respiratory/Chest Respiratory/Chest: Reports dyspnea; Denies cough Gastrointestinal Gastrointestinal: Reports nausea and vomiting; Denies abdominal pain Genitourinary Genitourinary ED: Denies dysuria or hematuria Musculoskeletal Musculoskeletal: Reports back pain and neck pain Integumentary Denies abscess or rash Neurologic Neurologic: Reports headache(s); Denies weakness Allergic/Immunologic Allergic/Immunologic ED: Denies mouth swelling or urticaria EXAM Physical Exam Const Vital Signs: 02/17/24 15:25 02/17/24 15:25 02/17/24 16:25 Temperature 97.5 F L Temperature Source Oral Pulse Rate 62 62 Respiratory Rate 20 H 19 H Respiratory Effort Normal Non-Labored Blood Pressure 134/96 H 152/109 H Blood Pressure Mean 108 123 Pulse Ox 100 99 Oxygen Delivery Method Room Air Room Air 02/17/24 17:00 02/17/24 18:00 Temperature Temperature Source Pulse Rate 48 L 62 Respiratory Rate 18 20 H Respiratory Effort Blood Pressure 146/99 H 132/84 H Blood Pressure Mean 114 100 Pulse Ox 99 100 Oxygen Delivery Method Room Air Room Air Positive well nourished and well developed General Appearance ED: well developed and NAD HEENT Reports moist mucous membranes Neck supple and no JVD Resp normal respiratory effort and clear to auscultation bilaterally Cardio regular rate and regular rhythm GI soft to palpation, non-tender and non-distended Neuro oriented x3, CN's II-XII intact bilaterally and no sensory deficits noted Sensorium / Orientation: awake and alert Motor Exam: strength 5/5 throughout Psych mental status grossly normal Heart Score History: Slightly/Non-Suspicious ECG: Normal Age: </= 45 years Risk Factors: No Risk Factors Troponin: </= Normal Limit Score: 0 MDM MDM MDM Narrative Medical decision making narrative: Differential diagnosis includes cardiac dysrhythmia, cardiac ischemia, pneumonia, pneumothorax, migraine headache, electrolyte abnormality, and viral illness. EKG will be obtained to assess for cardiac dysrhythmia and cardiac ischemia. Chest x-ray will be obtained to assess for pneumonia and pneumothorax. CBC will be obtained to assess for leukocytosis and anemia. Basic metabolic profile will be obtained to assess for electrolyte abnormality and renal function. High-sensitivity troponin will be obtained to assess for cardiac ischemia. COVID-19, influenza, and RSV PCR will be obtained to assess for viral illness. Lab Data Attestation: I reviewed the patient's lab results. Lab results narrative: CBC was reviewed. There is a mild leukocytosis of 11.3. This is unchanged compared to previous results. Basic metabolic profile was reviewed and was within normal limits. High-sensitivity troponin was reviewed and was normal at 4. Urinalysis was reviewed. There is no evidence of urinary tract infection or hematuria. COVID-19 PCR was reviewed and was negative. Influenza PCR was reviewed and was negative for influenza A and influenza B. RSV PCR was reviewed and was negative. Labs: Laboratory Results - last 24 hr 02/17/24 02/17/24 15:40 16:35 WBC 11.3 H RBC 5.26 Hgb 15.3 Hct 46.9 MCV 89.2 MCH 29.1 MCHC 32.6 RDW Std Deviation 44.7 H RDW Coeff of Dev 13.5 Plt Count 302 MPV 10.4 Immature Gran % (Auto) 0.400 Neut % (Auto) 72.1 H Lymph % (Auto) 19.0 [place] % (Auto) 7.7 Eos % (Auto) 0.4 Baso % (Auto) 0.4 Absolute Neuts (auto) 8.2 H Absolute Lymphs (auto) 2.16 Nucleated RBC % 0 Sodium 137 Potassium 3.4 L Chloride 103 Carbon Dioxide 27.0 Anion Gap 7 BUN 13 Creatinine 1.02 Estim Creat Clear Calc 126.75 Est GFR (MDRD) Af Amer 110 Est GFR (MDRD) Non-Af 91 BUN/Creatinine Ratio 12.7 Glucose 106 Calcium 9.4 Troponin I High Sens 4 Urine Color Yellow Urine Clarity Sl. Cloudy Urine pH 7.0 Ur Specific [place] 1.015 Urine Protein 15 H Urine Glucose (UA) Normal Urine Ketones Negative Urine Occult Blood Negative Urine Nitrite Negative Urine Bilirubin Negative Urine Urobilinogen 4 H Ur Leukocyte Esterase Negative Urine RBC 0 SEEN Urine WBC 0-5 SEEN Ur Squamous Epith Cells 0 SEEN Urine Bacteria 1+ Urine Mucus 0 SEEN Radiography Diagnostic Testing: Clinical Impression(s) from Imaging Studies Brain CT 02/17/24 16:11 IMPRESSION: Normal unenhanced CT scan of the brain. Electronically Signed: Claus Donohue DO at 16:54 EDT Reading Location ID and State: [facility] / [place] Tel [phone], Service support , Chest X-Ray 02/17/24 16:35 IMPRESSION: No radiographic evidence of acute cardiopulmonary disease. Electronically Signed: Claus Donohue DO at 17:56 EDT , CT scan of the brain was obtained. There is no acute intracranial abnormality. This was interpreted by the radiologist and was also independently reviewed by myself. PA and lateral chest x-ray was obtained. There are 2 views. On my independent interpretation, lung jones are clear. There is normal cardiac silhouette. Bony thorax is normal. There is no acute process noted. Radiologist also interpreted the x-ray and agrees. EKG Initial EKG: Attestation: I personally reviewed and interpreted this EKG as follows: Interpretation: Sinus Rhythm (63) and No Acute Injury Pattern Comments: EKG was obtained. On my independent interpretation, it showed a normal sinus rhythm with a rate of 63. OK interval, QRS interval, and QTc intervals were all normal. [place] was normal. There are no acute ST or T wave changes. Prior EKG tracings: available for review Prior: Unchanged (04/20/2023) Treatment and Re-Evaluation :: Patient was given IV fluids, Reglan, and Benadryl. Patient was also given aspirin. Patient was advised of his findings. Patient was instructed to drink plenty of fluids. Patient has a HEART score of 0. Patient was advised that this is low risk for acute cardiac event. Patient states that he is out of his sotalol and needs it to be refilled. Patient was advised that sotalol is not a medication that he normally refill from the emergency department. Patient was advised that this would have to be done by his primary care physician or diesel roller operator. Patient was instructed to rest in a dark quiet room. Patient was instructed to follow-up with his primary care physician in 3 to 5 days. Patient was instructed to return if worse in any way. Patient understood and was agreeable with the plan. All questions were answered. Discharge Plan Triage Chief Complaint: Chest Pain ED Provider: Johnny Blount Dx/Rx/DC Orders Clinical Impression: Headache, migraine, Heart palpitations Instructions: ED, Migraine (Classical), ED Palpitations Prescriptions: No Action NK Stand Alone Forms: Work / School Excuse Primary Care Provider: Rikki Mojica NP Referrals: Yunior,Rikki Parker COSMETIC SALES CONSULTANT, COSMETIC SALES CONSULTANT-C [Primary Care Provider] - 3-5 Days Activity Restrictions/Additional Instructions: Call your doctor tomorrow to schedule an appointment for follow-up care. Print Language: Italian Disposition Disposition: Home, Self Care
--- NOTE | 2024-02-17 16:11 | CT_ITS ---
STUDY: CT BRAIN WITHOUT CONTRAST REASON FOR EXAM: Male, 28 years old. Headache RADIATION DOSAGE (If Supplied By Facility): CTDIvol = ( 44.99 ) mGy, DLP = ( 829.85 ) mGycm TECHNIQUE: Transaxial CT imaging of the brain was performed without administration of intravenous contrast material. Individualized dose optimization techniques were used for this CT. COMPARISON: No relevant priors. FINDINGS: Normal soft tissue structures. Normal calvarium. Normal size ventricles and extra-axial spaces for the patient''s age. Normal white matter tracts of the cerebral hemispheres. Normal basal ganglia and thalami. Normal brainstem. Normal cerebellum. There is no intracranial hemorrhage. There are no findings of an acute ischemic infarction. Normal visualized paranasal sinuses. CT/Brain/Head without Contrast IMPRESSION: Normal unenhanced CT scan of the brain. Electronically Signed: Claus Donohue DO at 16:54 EDT ,
--- NOTE | 2024-02-17 16:11 | EKG12_ITS ---
Test Reason : CP Blood Pressure : / mmHG Vent. Rate : 063 BPM Atrial Rate : 063 BPM P-R Int : 144 ms QRS Dur : 098 ms QT Int : 404 ms P-R-T Axes : 030 018 018 degrees QTc Int : 413 ms Normal sinus rhythm Normal ECG Confirmed by SKYLAR STEPHENS, GODFREY ([id number]), state editor ANGE YOO ([id number]) on 02/19/2024 6:31:32 AM Referred By: ROGERS Confirmed By:GODFREY CHENG MD
[2024-02-17 16:25] VITALS: BP 152/109; PULSE 62; RESP 19; O2SAT 99
[2024-02-17] MEDS: Metoclopramide 10 MG/2 ML Vial IV (16:27)
[2024-02-17] MEDS: DiphenhydrAMINE 50 MG/ML Syringe 25 MG IV (16:27)
[2024-02-17] MEDS: 0.9% Normal Saline (1000mL) 1,000 ML 1000 ML IV (16:27)
--- NOTE | 2024-02-17 16:35 | RAD_ITS ---
INDICATION: Chest pain EXAMINATION/TECHNIQUE: X-RAY - XR Chest 2 Views COMPARISON: FINDINGS: LINES/DEVICES: None. LUNGS: No consolidation, edema or effusion. No pneumothorax. MEDIASTINUM AND CARDIOVASCULAR STRUCTURES: Cardiac silhouette not enlarged. Central airways and mediastinal contour are unremarkable. BONES AND SOFT TISSUES: Unremarkable. RAD/Chest PA and Lateral IMPRESSION: No radiographic evidence of acute cardiopulmonary disease. Electronically Signed: Claus Donohue DO at 17:56 EDT ,
[2024-02-17 16:37] LABS: Absolute Lymphocyte Count 2.16 X10^3/uL (0.83-4.51); Absolute Neutrophil Count 8.2 X10^3/uL (2.0-7.7); Basophil# 0.05 X10^3/uL; Basophil% 0.4 % (0-1); Eosinophil# 0.04 X10^3/uL; Eosinophils% 0.4 % (0-5); Hematocrit 46.9 % (40-54); Hemoglobin 15.3 g/dL (13.0-16.5); Lymphocyte # 2.16 X10^3/ul (0.83-4.51); Mean Corp Hgb Conc 32.6 g/dL (32-36); Mean Corpuscular Hgb 29.1 pg (27.0-32.0); Mean Corpuscular Volume 89.2 fL (80-94); Mean Platelet Vol. 10.4 fl (6.2-12.0); Monocyte# 0.87 X10^3/uL; Monocyte% 7.7 % (0-10); NRBC Flagged by Analyzer 0 % (0-5); Neutrophil # 8.17 X10^3/uL (2.7-7.7); Neutrophil % 72.1 % (47-70); Platelet Count 302 K/mm3 (150-450); RBC Distribution Width CV 13.5 % (11.6-14.6); RBC Distribution Width SD 44.7 fl (35.1-43.9); Red Blood Count 5.26 M/mm3 (4.6-6.2); White Blood Count 11.3 K/mm3 (4.4-11.0)
[2024-02-17 16:42] LABS: Mucous, Urine 0 SEEN /hpf (<or=2+); Red Blood Cells-Urine 0 SEEN /hpf (0-5); Squamous Epithelial Cells - UA 0 SEEN /hpf (0-5)
[2024-02-17 16:44] LABS: Color, Urine Yellow (Yellow); Glucose, Dipstick Normal (Normal); Ketone-Dipstick Negative (Negative); Leukocyte Esterase-Dipstick Negative /ul (Negative); Nitrite-Dipstick Negative (Negative); Occult Blood-Urine Negative /ul (Negative); Protein-Dipstick 15 mg/dl (Negative); Specific Gravity, Urine 1.015 (1.002-1.030); Urine Bilirubin Dipstick Negative (Negative); Urine Clarity Sl. Cloudy (Clear); Urine Urobilinogen 4 mg/dl (Normal)
[2024-02-17 16:48] LABS: Anion Gap 7 (5-15); BUN 13 mg/dL (7-18); BUN/Creat Ratio 12.7 RATIO (10-20); Calcium,Total 9.4 mg/dL (8.5-10.1); Chloride 103 mmol/L (98-107); Creatinine, Serum 1.02 mg/dL (0.70-1.30); EST Glomerular Filtration Rate 91 mL/min (>60); Est Glom Filt Rate - Afr Amer 110 mL/min (>60); Estimated Creatinine Clearance 126.75 ml/min; Glucose 106 mg/dL (74-106); Potassium 3.4 mmol/L (3.5-5.1); Sodium Level 137 mmol/L (136-145); Troponin-I HS 4 pg/mL (3.0-78.0)
[2024-02-17 16:56] LABS: Bacteria 1+ /hpf (None Seen)
[2024-02-17 16:57] LABS: White Blood Cells 0-5 SEEN /hpf (0-5)
[2024-02-17 17:00] VITALS: BP 146/99; PULSE 48; RESP 18; O2SAT 99
[2024-02-17 18:00] VITALS: BP 132/84; PULSE 62; RESP 20; O2SAT 100
[2024-02-17 18:46] VITALS: BP 136/74; PULSE 59; RESP 18; TEMP 36.8; O2SAT 99
== END 2024-02-17 18:47 | disposition home or self-care (01) ==
PROVIDERS: Emergency Provider Emergency Medicine; PCP Nurse Practitioner Family; Visit Provider Emergency Medicine
DX: G43.909 Migraine, unspecified, not intractable, without status migrainosus (principal); I48.0 Paroxysmal atrial fibrillation; R06.02 Shortness of breath; R50.9 Fever, unspecified; R00.2 Palpitations; Z87.891 Personal history of nicotine dependence; R11.2 Nausea with vomiting, unspecified; R42 Dizziness and giddiness; R07.9 Chest pain, unspecified; J45.909 Unspecified asthma, uncomplicated; M54.2 Cervicalgia
CPT/HCPCS: 70450; 71046; 80048; 81001; 84484; 85025; 87631; 93005; 96361; 96374; 96375; 99284; J7030; A4216

== ENCOUNTER 2024-11-09 12:16 | Emergency (ER) | payer MEDICAID, SELFPAY ==
[2024-11-09 12:17] VITALS: BP 121/92; PULSE 78; RESP 16; TEMP 37.1; O2SAT 97; BMI 33.7
[2024-11-09 12:44] VITALS: BP 139/80; PULSE 80; RESP 18; O2SAT 99
--- NOTE | 2024-11-09 13:19 | EX.ED.DYSGE1 ---
HPI <DAYAMI Gonzalez - Last Filed: 11/09/24 16:51> History of Present Illness Chief Complaint: General Illness Narrative Narrative: Patient presenting today with concerns for an RA flare. He reports that he was diagnosed with rheumatoid arthritis but does not follow with any providers for it due to having a lapse in insurance coverage. He is scheduled to see an RA specialist in November and his PCP on Sunday. He reports that he is having generalized achiness, hair loss to the left front hairline, and yesterday developed swelling of his tongue. He denies any exposure to known allergens or new medications. He has a poison maira rash to his abdomen/ chest and left side of his face that is resolving, he has been using OTC methods for this. He denies any fevers, chills, abdominal pain, nausea, vomiting, chest pain, and shortness of breath. PFSH <DAYAMI Gonzalez - Last Filed: 11/09/24 16:51> [facility] Medical History Rheumatoid arthritis History of atrial fibrillation Asthma History of atrial fibrillation Sinus tachycardia Palpitations Home Medications ?Medication ?Instructions ?Recorded ?Last Taken ?Type NK 02/17/24 Unknown History prednisone 20 mg tablet 40 mg (2 x 20 mg) PO DAILY 5 days 11/09/24 Unknown Rx #10 tabs Allergy/AdvReac Type Severity Reaction Status Date / Time codeine Allergy Hives Verified 11/09/24 12:17 Surgical History H/O cardiac radiofrequency ablation (04/06/17) Social History housing: house Smoking Status: Former smoker substance use type: does not use ROS <DAYAMI Gonzalez - Last Filed: 11/09/24 16:51> ROS ED Constitutional Constitutional ED: Denies chills or fever(s) Cardiovascular Cardiovascular: Denies chest pain Respiratory/Chest Respiratory/Chest: Denies dyspnea Gastrointestinal Gastrointestinal: Denies abdominal pain, nausea or vomiting Genitourinary Genitourinary ED: Denies dysuria, hematuria or urinary urgency Musculoskeletal Musculoskeletal: Reports arthralgias Integumentary Reports rash Neurologic Neurologic: Denies weakness Allergic/Immunologic Allergic/Immunologic ED: Reports tongue swelling; Denies lip swelling, mouth swelling or urticaria EXAM <DAYAMI Gonzalez - Last Filed: 11/09/24 16:51> Physical Exam Const Vital Signs: 11/09/24 12:17 11/09/24 12:44 11/09/24 12:44 Temperature 98.7 F Temperature Source Oral Pulse Rate 78 80 Respiratory Rate 16 18 Respiratory Effort Normal Non-Labored Respiratory Pattern Normal Blood Pressure 121/92 H 139/80 H Blood Pressure Mean 101 99 Pulse Ox 97 99 Oxygen Delivery Method Room Air 11/09/24 13:43 Temperature 98 F Temperature Source Pulse Rate 80 Respiratory Rate 18 Respiratory Effort Respiratory Pattern Blood Pressure 139/80 H Blood Pressure Mean 99 Pulse Ox 99 Oxygen Delivery Method Positive well nourished, well developed and no apparent distress General Appearance ED: well developed HEENT Reports normocephalic and head/scalp atraumatic HEENT Narrative: On my exam, no obvious tongue swelling, no lip swelling, the posterior pharynx is normal, no stridor, tolerating secretions Mouth ED: Yes lips normal and Yes moist mucous membranes normal Mouth: lips normal Throat: posterior oropharynx normal and uvula midline; Negative for hoarseness Eyes PERRL and EOMs intact bilaterally Neck full ROM and supple Chest Wall inspection of chest normal Resp normal respiratory effort and clear to auscultation bilaterally Cardio regular rate and regular rhythm GI soft to palpation, non-tender, non-distended and no masses Back/Spine normal ROM and normal to inspection Extremity normal to inspection and full ROM Neuro oriented x3, CN's II-XII intact bilaterally, moves all extremities, no focal motor deficits and no sensory deficits noted Sensorium / Orientation: awake and alert Psych mental status grossly normal and thought process normal Skin Skin Narrative: Dried papular rash to the abdomen and chest. No erythema, warmth, fluctuance, or purulent discharge <Dr. Bill Helton DO - Last Filed: 11/09/24 17:46> Physical Exam Const Vital Signs: 11/09/24 12:17 11/09/24 12:44 11/09/24 12:44 Temperature 98.7 F Temperature Source Oral Pulse Rate 78 80 Respiratory Rate 16 18 Respiratory Effort Normal Non-Labored Respiratory Pattern Normal Blood Pressure 121/92 H 139/80 H Blood Pressure Mean 101 99 Pulse Ox 97 99 Oxygen Delivery Method Room Air 11/09/24 13:43 Temperature 98 F Temperature Source Pulse Rate 80 Respiratory Rate 18 Respiratory Effort Respiratory Pattern Blood Pressure 139/80 H Blood Pressure Mean 99 Pulse Ox 99 Oxygen Delivery Method [facility] <DAYAMI Gonzalez - Last Filed: 11/09/24 16:51> [facility] Narrative Medical decision making narrative: Patient presenting today due to concerns for an RA flare. He was apparently diagnosed with this but is not on any medications, he is supposed to be seeing an RA specialist in November. He is nontoxic-appearing, he has unremarkable vital signs. He reports swelling to his tongue but on my exam I am not appreciating any tongue swelling, he has no angioedema, no stridor, he is tolerating his secretions. He has generalized achiness that he attributes to his RA. He also has a poison maira dermatitis that looks like it is resolving but still itchy. I feel he would benefit from a course of prednisone, he will be given first dose here. He sees his PCP in 2 days. He feels comfortable being discharged home with close outpatient follow-up. Patient discharged in stable condition. <Dr. Bill Helton, - Last Filed: 11/09/24 17:46> [facility] Treatment and Re-Evaluation :: ED attending note: I evaluated the patient in conjunction with the ASIF. I agree with his/her statements and above findings. I have personally performed a face to face assessment of the patient and have reviewed the ASIF Note. I performed a substantive portion of the visit including all aspects of the following. I personally saw the patient performed chart review, physical exam, reviewed labs, imaging (if obtained), and formulated a treatment and management plan. This note was generated with [employer] dictation software. It may contain incorrect words, spelling, and punctuation that were not noted in review of the chart prior to signing. Discharge Plan Triage Chief Complaint: General Illness ED Midlevel Provider: Nimco Michel ED Provider: Bill Helton Dx/Rx/DC Orders Clinical Impression: Poison maira, Arthralgia, Personal history of rheumatoid arthritis Instructions: ED Arthralgia, ED Poison Maira Rash Prescriptions: New prednisone 20 mg tablet 40 mg PO DAILY 5 Days Qty: 10 0RF No Action NK Primary Care Provider: Rikki Mojica INPUT OUTPUT CLERK Referrals: Rikki Mojica INPUT OUTPUT CLERK, INPUT OUTPUT CLERK-C [Primary Care Provider] - 5-7 Days Activity Restrictions/Additional Instructions: Follow-up with your PCP and return for any worsening symptoms or other concerns Print Language: Nepalese Disposition Disposition: Home, Self Care Discharge Date/Time: 11/09/24 13:45
--- OUTSIDE RECORDS SUMMARY | 2024-11-09 13:21 | XMS RPT_ITS | CCD ---
Author Organization [facility] Care Team Providers Care Hosiery Pairer Name Role Phone Zehra Mojica CNP Primary Care Provider Yunior BROOMCORN PRESS FEEDER, BROOMCORN PRESS FEEDER-C Zehra Canales Primary Care Pr ovider Dr. Alisa Wesley Emergency Provider Dr. Rock Craven Admit Provider Dr. Rock Craven Other Provider Dr. Jacky Rollins Other Provider [phone] Juliana Dominguez Attending Provider [phone] Dr. Juliana Dominguez Other Provider YUNIOR NEGRON - DARIO, ZEHRA West [facility] KRYSTIAN SU-MARGRET BISHOP Attending Kennethab bora MOJICA APRN - DARIO, ZEHRA West Primary Care U navailable YUNIOR RECREATIONAL DIRECTOR - DARIO, ZEHRA West Primary Care U navailable YUNIOR RECREATIONAL DIRECTOR - ADJUNCT PROFESSOR OF VOICE, ZEHRA West Attending U navailable YUNIOR RECREATIONAL DIRECTOR - ADJUNCT PROFESSOR OF VOICE, ZEHRA West Primary Care U navailable YUNIOR RECREATIONAL DIRECTOR - ADJUNCT PROFESSOR OF VOICE, ZEHRA West Attending U ernesto KLEIN MD, DR GWENDOLYN Landaverde Attending Maru MOJICA APRN - DARIO, ZEHRA West Primary Care U navailable YuniorZehra tucker CNP Primary Care Provider ZEHRA MOJICA Primary Care Unavailable ZEHRA MJOICA Primary Care Unavailable ZEHRA MOJICA Primary Care Unavailable ZEHRA MOJICA Primary Care Unavailable YUNIOR RECREATIONAL DIRECTOR - ADJUNCT PROFESSOR OF VOICE, ZEHRA West Primary Care U ernesto YOUSSEF MD, DR SULTANA Attending Unavailab Jacky Davalos Consulting Unavailable Rock Craven Admitting Unavailable Juliana Dominguez Attending Unavailable Mohave Zehra Parker Primary Care Unavail able Rock Craven Consulting Unavailable Cory Serrano Attending Unavailable Mostjai, Rock Referring Unavailable Mohave, Zehra Parker Primary Care Unavail able Mostjai Rock Admitting Unavailable Jacky Rollins Consulting Unavailable Juliana Domingueza Attending Unavailable Yunior, Zehra Parker Primary Care Unavail able Rock Craven Consulting Unavailable Angelica, Juliana Camila Consulting Unavailable Rock Craven Attending Unavailable ZachCory vieira Attending Unavailable Rock Craven Referring Unavailable Yunior, Zhera Parker Primary Care Unavail able Cory Serrano Attending Unavailable Rock Craven Referring Unavailable Yunior, Zehra Parker Primary Care Unavail able Yunior, Zehra Parker Primary Care Unavail able Johnny Blount Attending Unavailable Allergies Allergy Classification Reported Allergen(s) Allergy Type Date of Onset Reaction(s) Facility (12 sources) Codeine; Translations: [codeine] Drug Allergy 04-06-2017 Hives [facility] (6 sources) Bee Sting; Translations: [BEE STING] Allergy to substance 04-06-2017 Anaphylaxis [facility] (1 source) Codeine Drug Allergy 02-17-2024 [facility] Repository Medications Current Medications Medication Drug Class(es) Dates Sig (Normalized) Sig (Original) acetaminophen 500 mg oral tablet (1 source) Start: 04-26-2023 End: 05-03-2023 Tylenol Extra Strength 500 mg oral tablet Dose : 500 mg = 1 tab(s), Oral, TID, X 7 day(s), # 21 tab(s), 0 Refill(s), 05/03/23 3:08:00 PM EST, Pharmacy: [id number], Acute pain of right knee Septic arthritis of knee, right, 177, cm, 04/26/23 14:25:00 EST, Height, kg, 04/26/23 14:25:00 EST, Dosing Weight Start Date: 04/26/23 Stop Date: 05/03/23 Status: Ordered apixaban 5 mg oral tablet (5 sources) Factor Xa Inhibitor Start: 05-16-2017 take 1 tablet by mouth twice daily apixaban (ELIQUIS) 5 mg tab tab(s) Take 1 tablet by mouth twice daily. 60 tablet 5 05/16/2017 Active Comment on above: Take 1 tablet by trevor th twice daily. cephalexin 500 mg oral capsule (4 sources) Cephalosporin Antibacterial Start: 04-21-2023 take 500 mg by mouth every eight hours Cephalexin Active 500 MG PO Q8H April 21, 2023 12:00am Start: 09-06-2022 End: 04-18-2023 take 500 mg by mouth every twelve hours Cephalexin Discontinued 500 MG PO EVERY 12 HOURS September 05, 2022 11:00pm April 18, 2023 5:06pm diclofenac sodium 75 mg delayed release oral tablet (2 sources) Nonsteroidal Anti-inflammatory Drug Start: 04-26-2023 End: 05-11-2023 diclofenac sodium 75 mg oral delayed release tablet Dose : 75 mg = 1 tab(s), Oral, BID, # 180 tab(s), 1 Refill(s), Pharmacy: [id number], Rheumatoid factor positive, 177, cm, 05/04/23 10:21:00 EST, Height, kg, 05/04/23 10:21:00 EST, Dosing Weight Start Date: 05/04/23 Stop Date: 05/11/23 Status: Ordered doxycycline hyclate 100 mg oral tablet (1 source) Tetracycline-class Drug Start: 04-21-2023 take 100 mg by mouth twice daily Doxycycline Hyclate Active 100 MG PO TWICE A DAY April 21, 2023 12:00am flecainide acetate 100 mg oral tablet (5 sources) Antiarrhythmic Start: 04-06-2017 flecainide (TAMBOCOR) 100 mg tablet One tablet at onset of sustained palpitations. May repeat every 12 hours. 6 tablet 1 04/06/2017 Active Comment on above: One tablet at onset of sustained palpitations. May repeat every 12 hours. omeprazole 40 mg delayed release oral capsule (3 sources) Proton Pump Inhibitor Start: 12-25-2023 omeprazole 40 mg oral delayed release capsule Dose : 40 mg = 1 cap(s), Oral, qDay, # 30 cap(s), 0 Refill(s), Pharmacy: [id number], GERD (gastroesophageal reflux disease), 177, cm, 12/25/23 13:05:00 EDT, Height, kg, 12/25/23 13:05:00 EDT, Dosing Weight Start Date: 12/25/23 Status: Ordered Start: 04-26-2023 End: 05-11-2023 omeprazole 40 mg oral delaye d release capsule Dose : 40 mg = 1 cap(s), Oral, qDay, # 90 cap(s), 1 Refill(s), Pharmacy: [facility], GERD (gastroesophageal reflux disease), 177, cm, 05/04/23 10:21:00 EST, Height, kg, 05/04/23 10:21:00 EST, Dosing Weight Start Date: 05/04/23 Stop Date: 05/11/23 Status: Ordered ondansetron 4 mg oral film (1 source) Serotonin-3 Receptor Antagonist Start: 02-16-2024 take 1 dose by mouth three times daily ondansetron 4 mg oral disintegrating strip Dose : 4 mg = 1 EA, Oral, TID, # 15 film, 0 Refill(s) Start Date: 02/16/24 Status: Ordered predniSONE 10 mg oral tablet (2 sources) Start: 10-02-2023 End: 10-14-2023 predniSONE (DELTASONE) 10 mg tablet Take 4 tabs daily x 3 days, then 3 tabs x 3 days, 2 tabs x 3 days, then 1 tab x3 days with food. 30 tablet 0 10/02/2023 10/14/2023 Active Start: 03-07-2023 End: 03-16-2023 predniSONE (DELTASONE) 10 mg tablet Indications: Left sided sciatica Take 4 tabs daily for 3 days, then 2 tabs daily for 3 days, then 1 tab daily for 3 days with food. 21 tablet 0 03/07/2023 03/16/2023 Active Comment on above: Take 4 tabs daily fo r 3 days, then 2 tabs daily for 3 days, then 1 tab daily for 3 days with food. sotalol hydrochloride 80 mg oral tablet (6 sources) Antiarrhythmic Start: 12-06-2022 sotalol 80 mg oral tablet Dose : 80 mg = 1 tab(s), Oral, BID, # 60 tab(s), 11 Refill(s), Pharmacy: [facility], 177.8, cm, 12/06/22 13:03:00 EDT, Height, kg, 12/06/22 13:03:00 EDT, Dosing Weight Start Date: 12/06/22 Status: Ordered Completed/Discontinued Medications Medication Drug Class(es) Dates Sig (Normalized) Sig (Original) metoprolol tartrate 25 mg oral tablet (11 sources) beta-Adrenergic Catia Start: 09-23-2018 End: 04-18-2023 take 50 mg by mouth twice daily Metoprolol Tartrate Discontinued 50 MG PO TWICE A DAY March 21, 2019 3:26pm April 18, 2023 5:22pm Start: 05-16-2017 take 1 tablet by trevor th once daily metoprolol succinate ER (TOPROL XL) 50 mg 24 hr tablet Take 1 tablet by mouth once daily. 30 tablet 5 05/16/2017 Active Comment on above: Take 1 tablet by trevor th once daily. Problems Active Problems Problem Classification Problem Date Documented Date Episodic/Chronic Asthma (5 sources) Exacerbation of intermittent asthma; Translations: [Mild intermittent asthma with (acute) exacerbation] Onset: 04-06-2017 04-06-2017 Chronic Cardiac dysrhythmias (8 sources) Paroxysmal atrial fibrillation; Translations: [Paroxysmal atrial fibrillation] Onset: 04-06-2017 04-06-2017 Chronic Esophageal disorders (2 sources) Gastroesophageal reflux disease 05-04-2023 Chronic Fluid and electrolyte disorders (1 source) Dehydration; Translations: [Dehydration] Onset: 02-16-2024 Episodic Headache; including migraine (1 source) Headache; Translations: [Headache, unspecified] Onset: 02-16-2024 Episodic Immunizations and screening for infectious disease (2 sources) Rheumatoid factor positive 05-04-2023 Episodic Nonspecific chest pain (6 sources) Chest pain; Translations: [Chest pain, unspecified] Onset: 04-06-2017 04-06-2017 Episodic Other circulatory disease (5 sources) H/O: atrial fibrillation; Translations: [Personal history of other diseases of the circulatory system] 12-31-2018 Episodic Other injuries and conditions due to external causes (1 source) Injury of right knee; Translations: [Unspecified injury of right lower leg, initial encounter] 04-18-2023 Episodic Other non-traumatic joint disorders (1 source) Joint pain; Translations: [Pain in unspecified joint] 10-02-2023 Episodic Other nutritional; endocrine; and metabolic disorders (3 sources) Hypocalcemia 04-26-2023 Chronic Residual codes; unclassified (1 source) Did not attend 11-13-2023 Episodic Comment on above: 11/13/2023 07/12/2023 Residual codes; unclassified (1 source) Procedure not done; Translations: [Procedure and treatment not carried out, unspecified reason] 02-17-2024 Episodic Unclassified (2 sources) Pain of knee region 04-26-2023 Past or Other Problems Problem Classification Problem Date Documented Date Episodic/Chronic Cardiac dysrhythmias (15 sources) Palpitations; Translations: [Palpitations] Onset: 04-06-2017 03-21-2019 Episodic Infective arthritis and osteomyelitis (except that caused by tuberculosis or sexually transmitted disease) (2 sources) Knee pyogenic arthritis 04-26-2023 Episodic Other circulatory disease (3 sources) Personal history of other diseases of the circulatory system; Translations: [Personal history of other diseases of circulatory system] Onset: 04-23-2023 04-18-2023 Episodic Other non-traumatic joint disorders (5 sources) Pain in right knee; Translations: [Acute pain of right knee] Onset: 04-25-2023 04-18-2023 Episodic Residual codes; unclassified (3 sources) History of radiofrequency ablation operation for arrhythmia; Translations: [Other specified postprocedural states] Onset: 04-06-2017 12-31-2018 Episodic Residual codes; unclassified (5 sources) Tobacco user; Translations: [Tobacco use] Onset: 04-06-2017 04-06-2017 Episodic Skin and subcutaneous tissue infections (6 sources) Cellulitis of knee; Translations: [Cellulitis of unspecified part of limb] Onset: 04-25-2023 04-18-2023 Episodic Spondylosis; intervertebral disc disorders; other back problems (3 sources) Sciatica; Translations: [Sciatica, left side] 03-07-2023 Episodic Results Test Name Value Interpretation Reference Range Facility 12 Lead EKGon 02-17-2024 12 Lead EKG [facility] Cardiovascular Services [address] [place] [address] 12 Lead EKG 02/17/24 1534 MR#: [id number] Acct: [id number] Name: CHENCHO FUENTES Rep #: [id number] : 1995 28 From: Cory Serrano MD Attending Dr: Status: DEP ER Ordering Dr: Johnny Blount DO Date: 02/17/24 Location: ED Sex: M C Admitted: Test Reason : CP Blood Pressure : / mmHG Vent. Rate : 063 BPM Atrial Rate : 063 BPM P-R Int : 144 ms QRS Dur : 098 ms QT Int : 404 ms P-R-T Axes : 030 018 018 degrees QTc Int : 413 ms Normal sinus rhythm Normal ECG Confirmed by ZACH STEPHENS, CORY ([id number]), city editor NAGE YOO ([id number]) on 02/19/2024 6:31:32 AM Referred By: ROGERS Confirmed By:CORY SERRANO MD 02/19/24 06 Date Cory Serrano MD CC: BR[employer] PRESS FEEDER-C Zehra Mojica; Dr. Johnny Blount, Signed Normal [facility] Basic Metabolic Profile (BMP )on 02-17-2024 BUN/CRE 12.7 RATIO Normal 10-20 [facility] Comment on above: Order Comment: 'TROP ' Serial specimen #1, #2 or #3: 1 Performed By: #### L 100.0100, L500.2500, L501.4020 #### [facility] [address] [place], [address] CA,Total 9.4 mg/dL Normal 8.5-10.1 [facility] Comment on above: Order Comment: 'TROP ' Serial specimen #1, #2 or #3: 1 Performed By: #### L 100.0100, L500.2500, L501.4020 #### [facility] [address] [place], [address] Chloride [Moles/Vol] 103 mmol/L Normal 98-107 [facility] Comment on above: Order Comment: 'TROP ' Serial specimen #1, #2 or #3: 1 Performed By: #### L 100.0100, L500.2500, L501.4020 #### [facility] [address] [place], [address] CO2 [Moles/Vol] 27.0 mmol/L Normal 21.0-32.0 [facility] Comment on above: Order Comment: 'TROP ' Serial specimen #1, #2 or #3: 1 Performed By: #### L 100.0100, L500.2500, L501.4020 #### [facility] [address] [place], [address] Creatinine [Mass/Vol] 1.02 mg/dL Normal 0.70-1.30 [facility] Comment on above: Order Comment: 'TROP ' Serial specimen #1, #2 or #3: 1 Result Comment: The validity of the calculated GFR GFRAA in patients over 70 years has not been determined. Clinical correlation is essential. Performed By: #### L 100.0100, L500.2500, L501.4020 #### [facility] [address] [place], [address] ECRCL 126.75 ml/min Normal [facility] Comment on above: Order Comment: 'TROP ' Serial specimen #1, #2 or #3: 1 Performed By: #### L 100.0100, L500.2500, L501.4020 #### [facility] [address] [place], [address] EST GFR - AA 110 mL/min Normal >60 [facility] Comment on above: Order Comment: 'TROP ' Serial specimen #1, #2 or #3: 1 Result Comment: Afri can Singaporean GFR Calc Performed By: #### L 100.0100, L500.2500, L501.4020 #### [facility] [address] [place], [address] GAP 7 Normal 5-15 [facility] Comment on above: Order Comment: 'TROP ' Serial specimen #1, #2 or #3: 1 Performed By: #### L 100.0100, L500.2500, L501.4020 #### [facility] [address] [place], [address] GFR/1.73 sq M.predicted among non-blacks MDRD (S/P/Bld) [Vol rate/Area] 91 mL/min/{1.73_m2} Normal >60 [facility] Comment on above: Order Comment: 'TROP ' Serial specimen #1, #2 or #3: 1 Result Comment: Non- GFR Calc Performed By: #### L 100.0100, L500.2500, L501.4020 #### [facility] [address] [place], [address] Glucose [Mass/Vol] 106 mg/dL Normal 74-106 [facility] Comment on above: Order Comment: 'TROP ' Serial specimen #1, #2 or #3: 1 Result Comment: Fast ing Glucose result from 100 to 125 mg/dL suggests IMPAIRED HOMEOSTASIS per A.D.A. criteria. Performed By: #### L 100.0100, L500.2500, L501.4020 #### [facility] [address] [place], [address] Potassium [Moles/Vol] 3.4 mmol/L Low 3.5-5.1 [facility] Comment on above: Order Comment: 'TROP ' Serial specimen #1, #2 or #3: 1 Performed By: #### L 100.0100, L500.2500, L501.4020 #### [facility] [address] [place], [address] Sodium [Moles/Vol] 137 mmol/L Normal 136-145 [facility] Comment on above: Order Comment: 'TROP ' Serial specimen #1, #2 or #3: 1 Performed By: #### L 100.0100, L500.2500, L501.4020 #### [facility] [address] [place], [address] Urea nitrogen [Mass/Vol] 13 mg/dL Normal 7-18 [facility] Comment on above: Order Comment: 'TROP ' Serial specimen #1, #2 or #3: 1 Performed By: #### L 100.0100, L500.2500, L501.4020 #### [facility] [address] [place], [place], [address] Brain/Head without Contrasto n 02-17-2024 Brain/Head without Contrast [facility] Imaging Services [address] [place], [place] [address] Brain/Head without Contrast MR#: [id number] Acct: [id number] Name: CHENCHO FUENTES Rep #: [id number] : 1995 M 28 From: Claus Donohue DO PCP: Zehra Mojica, [employer] FEEDER-C Status: REG ER Study: Brain/Head without Contrast Date of Exam: 01/20 02/11 Exam# [id number] Ordering Dr: Johnny Blount DO [id number] STUDY: CT BRAIN WITHOUT CONTRAST REASON FOR EXAM: Male, 28 years old. Headache RADIATION DOSAGE (If Supplied By Facility): CTDIvol = ( 44.99 ) mGy, DLP = ( 829.85 ) mGycm TECHNIQUE: Transaxial CT imaging of the brain was performed without administration of intravenous contrast material. Individualized dose optimization techniques were used for this CT. COMPARISON: No relevant priors. FINDINGS: Normal soft tissue structures. Normal calvarium. Normal size ventricles and extra-axial spaces for the patient''s age. Normal white matter tracts of the cerebral hemispheres. Normal basal ganglia and thalami. Normal brainstem. Normal cerebellum. There is no intracranial hemorrhage. There are no findings of an acute ischemic infarction. Normal visualized paranasal sinuses. CT/Brain/Head without Contrast IMPRESSION: Normal unenhanced CT scan of the brain. Electronically Signed: Claus Donohue DO at 16:54 EDT , CC: GABRIEL Mojica; Dr. Johnny Blount DO Laundry Route Driver: Signed Normal [facility] CBC W/Diff, Automatedon 01-20 Absolute Lymph 2.16 X10 3/uL Normal 0.83-4.51 [facility] Comment on above: Performed By: #### L 100.0100, L500.2500, L501.4020 #### [facility] [address] [place], [address] Absolute Neut 8.2 X10 3/uL High 2.0-7.7 [facility] Comment on above: Performed By: #### L 100.0100, L500.2500, L501.4020 #### [facility] [address] [place], [address] Basophils/100 WBC (Bld) 0.4 % Normal 0-1 [facility] Comment on above: Performed By: #### L 100.0100, L500.2500, L501.4020 #### [facility] [address] [place], [address] Eosinophils/100 WBC (Bld) 0.4 % Normal 0-5 [facility] Comment on above: Performed By: #### L 100.0100, L500.2500, L501.4020 #### [facility] [address] [place], [address] Erythrocyte distribution width (RBC) [Ratio] 13.5 % Normal 11.6-14.6 [facility] Comment on above: Performed By: #### L 100.0100, L500.2500, L501.4020 #### [facility] [address] [place], [address] Hematocrit (Bld) [Volume fraction] 46.9 % Normal 40-54 [facility] Comment on above: Performed By: #### L 100.0100, L500.2500, L501.4020 #### [facility] [address] [place], [address] Hemoglobin (Bld) [Mass/Vol] 15.3 g/dL Normal 13.0-16.5 [facility] Comment on above: Performed By: #### L 100.0100, L500.2500, L501.4020 #### [facility] [address] [place], [address] IG% 0.400 Normal 0.0-0.9 [facility] Comment on above: Result Comment: IG% - Immature Granulocytes (promyelocytes, myelocytes and metamyelocytes) > 1% indicates that a LEFT SHIFT is Present. Performed By: #### L 100.0100, L500.2500, L501.4020 #### [facility] [address] [place], [address] Lymphocytes/100 WBC (Bld) 19.0 % Normal 19-41 [facility] Comment on above: Performed By: #### L 100.0100, L500.2500, L501.4020 #### [facility] [address] [place], [address] MCH (RBC) [Entitic mass] 29.1 pg Normal 27.0-32.0 [facility] Comment on above: Performed By: #### L 100.0100, L500.2500, L501.4020 #### [facility] [address] [place], [address] MCHC (RBC) [Mass/Vol] 32.6 g/dL Normal 32-36 [facility] Comment on above: Performed By: #### L 100.0100, L500.2500, L501.4020 #### [facility] [address] [place], [address] MCV (RBC) [Entitic vol] 89.2 fL Normal 80-94 [facility] Comment on above: Performed By: #### L 100.0100, L500.2500, L501.4020 #### [facility] [address] [place], [address] Monocytes/100 WBC (Bld) 7.7 % Normal 0-10 [facility] Comment on above: Performed By: #### L 100.0100, L500.2500, L501.4020 #### [facility] [address] [place], [address] Neutrophils/100 WBC (Bld) 72.1 % High 47-70 [facility] Comment on above: Performed By: #### L 100.0100, L500.2500, L501.4020 #### [facility] [address] [place], [address] Nucleated RBC (Bld) [#/Vol] 0 10*3/uL Normal 0-5 [facility] Comment on above: Performed By: #### L 100.0100, L500.2500, L501.4020 #### [facility] [address] [place], [address] Platelet mean volume (Bld) [Entitic vol] 10.4 fL Normal 6.2-12.0 [facility] Comment on above: Performed By: #### L 100.0100, L500.2500, L501.4020 #### [facility] [address] [place], [address] Platelets (Bld) [#/Vol] 302 10*3/uL Normal 150-450 [facility] Comment on above: Performed By: #### L 100.0100, L500.2500, L501.4020 #### [facility] [address] [place], [address] RBC (Bld) [#/Vol] 5.26 10*6/uL Normal 4.6-6.2 [facility] Comment on above: Performed By: #### L 100.0100, L500.2500, L501.4020 #### [facility] [address] [place], [address] RDW SD 44.7 fl High 35.1-43.9 [facility] Comment on above: Performed By: #### L 100.0100, L500.2500, L501.4020 #### [facility] [address] [place], [address] WBC (Bld) [#/Vol] 11.3 10*3/uL High 4.4-11.0 [facility] Comment on above: Performed By: #### L 100.0100, L500.2500, L501.4020 #### [facility] [address] [place], [address] Camron 02-17-2024 [facility] ([id number]) 1995 M Date Time Provider Department 02/17/24 3:15 PM HOWIE CISNEROS [facility] During your visit today, we recorded the following information about you: Howie Cisneros APRN.CNP 02/17/2024 3:24 PM Signed Nontoxic-appearing male presents urgent care chief complaint pain and heart arrhythmia sensation. Patient states was seen in the hospital yesterday. Diagnosed with headache and dehydration. Given fluids and pain medication. States today he feels like his heart is fluttering. History of A-fib. Has been out of his medications. Presents today for evaluation. Presenting symptoms I recommend patient be seen ED for further evaluation care. States will be transported to [place] ED by mother. Verbalized understand agrees with plan of care. Howie Cisneros APRN.ADJUNCT PROFESSOR OF VOICE Allergies As of Date: 02/17/2024 Noted Allergy Reaction BEE STING 04/06/2017 10 - Anaphylaxis CODEINE 04/06/2017 4 - Hives Date Reviewed: 10/02/2023 Reviewed by: Laurie Zhu MA - Fully Assessed Primary Visit Diagnosis:Procedure not carried out [Z53.9] Prescriptions as of 02/17/2024 - sotalol (BETAPACE) 80 mg tablet Take 80 mg by mouth two times a day. - apixaban (ELIQUIS) 5 mg tab tab(s) Take 1 tablet by mouth twice daily. - metoprolol succinate ER (TOPROL XL) 50 mg 24 hr tablet Take 1 tablet by mouth once daily. - flecainide (TAMBOCOR) 100 mg tablet One tablet at onset of sustained palpitations. May repeat every 12 hours. Problem List As Of Date 02/17/2024 Noted Resolved Chest pain [R07.9] 04/06/2017 Palpitations [R00.2] 04/06/2017 Paroxysmal atrial fibrillation (HCC) [I48.0] 04/06/2017 Tobacco abuse [Z72.0] 04/06/2017 Mild intermittent asthma with exacerbation [J45*04/06/2017 Encounter Status:Closed by HOWIE CISNEROS on 02/17/24 [facility] Chest PA and Lateralon 02-16 Chest PA and Lateral [facility] Imaging Services [address] [place] [address] Chest PA and Lateral MR#: [id number] Acct: [id number] Name: CHENCHO FUENTES Rep #: [id number] : 1995 M 28 From: Claus Donohue DO PCP: Zehra Mojica, TENNILLE-Sarahi Status: [facility] ER Study: Chest PA and Lateral Date of Exam: 02/17/24 Exam# [id number] Ordering Dr: Johnny Blount DO [id number] INDICATION: Chest pain EXAMINATION/TECHNIQU E: X-RAY - XR Chest 2 Views COMPARISON: ____ FINDINGS: LINES/DEVICES: None. LUNGS: No consolidation, edema or effusion. No pneumothorax. MEDIASTINUM AND CARDIOVASCULAR STRUCTURES: Cardiac silhouette not enlarged. Central airways and mediastinal contour are unremarkable. BONES AND SOFT TISSUES: Unremarkable. RAD/Chest PA and Lateral IMPRESSION: No radiographic evidence of acute cardiopulmonary disease. Electronically Signed: Claus Donohue DO at 17:56 EDT , CC: [employer] FEEDERHenrik Mojica; Dr. Johnny Blount DO Laundry Route Driver: Signed Normal [facility] Emergency Department Summary on 02-17-2024 Emergency Department Summary [facility] Medical Records Department [address] [place] [id number] Emergency Department Summary 02/17/24 MR#: [id number] Acct: [id number] Name: CHENCHO FUENTES Rep #: [id number] : 1995 28 From: Johnny Blount DO PCP: ENRIQUE SmithC Status:DEP ER Location: ED HPI History of Present Illness Chief Complaint: Chest Pain Informant: patient Onset/Context/Timing Onset: Days (3) Activity at onset: sudden Timing: Continuous Quality: Positive for Tightness Location: Left Chest Worsened By: Nothing Relieved By: Nothing Associated Symptoms: Positive for Nausea, Vomiting, Diaphoresis, Dyspnea, Fever, Lightheadedness and Palpitations; Negative for Cough or Acid Reflux Narrative Narrative: Patient presents with chest pain, dizziness, lightheadedness, and migraine headache that began 3 days ago. Patient states it began rather suddenly when he woke up Sunday morning. Patient describes his pain as a tightness. Patient states it is over his left lower chest. Patient states he has a history of paroxysmal atrial fibrillation and thinks his symptoms are related to that. Patient also states she has a migraine headache. Patient admits to some nausea and vomiting. Patient also admits to some shortness of breath. Patient admits to subjective fevers and chills. Patient also states he was recently diagnosed with rheumatoid arthritis but is not being treated for that. CVD Risk Factors: Negative for Hypertension, Diabetes, Hypercholesterolemia , Family History 1' or Smoking PE Risk Factors: Negative for Recent Travel/Surgery, Recent Immobilization, Prior DVT or PE, Cancer or OCP + Smoking + >/=35 PFSH PFSH Medical History History of atrial fibrillation Asthma History of atrial fibrillation Sinus tachycardia Palpitations Home Medications ???Medication ???Instructions ???Recorded ???Last Taken ???Type NK 02/17/24 Unknown History Allergy/AdvReac Type Severity Reaction Status Date / Time codeine Allergy Hives Verified 02/17/24 15:29 Surgical History H/O cardiac radiofrequency ablation (04/06/17) Social History Smoking Status: Former smoker substance use type: does not use ROS ROS ED Constitutional Constitutional ED: Reports chills, fever(s) and subjective Eyes Eyes: Denies blurry vision or change in vision ENT ENT ED: Denies rhinorrhea or sore throat Cardiovascular Cardiovascular: Reports chest pain and palpitations Respiratory/Chest Respiratory/Chest: Reports dyspnea; Denies cough Gastrointestinal Gastrointestinal: Reports nausea and vomiting; Denies abdominal pain Genitourinary Genitourinary ED: Denies dysuria or hematuria Musculoskeletal Musculoskeletal: Reports back pain and neck pain Integumentary Denies abscess or rash Neurologic Neurologic: Reports headache(s); Denies weakness Allergic/Immunologic Allergic/Immunologic ED: Denies mouth swelling or urticaria EXAM Physical Exam Const Vital Signs: 02/17/24 15:25 02/17/24 15:25 02/17/24 16:25 Temperature 97.5 F L Temperature Source Oral Pulse Rate 62 62 Respiratory Rate 20 H 19 H Respiratory Effort Normal Non-Labored Blood Pressure 134/96 H 152/109 H Blood Pressure Mean 108 123 Pulse Ox 100 99 Oxygen Delivery Method Room Air Room Air 02/17/24 17:00 02/17/24 18:00 Temperature Temperature Source Pulse Rate 48 L 62 Respiratory Rate 18 20 H Respiratory Effort Blood Pressure 146/99 H 132/84 H Blood Pressure Mean 114 100 Pulse Ox 99 100 Oxygen Delivery Method Room Air Room Air Positive well nourished and well developed General Appearance ED: well developed and NAD HEENT Reports moist mucous membranes Neck supple and no JVD Resp normal respiratory effort and clear to auscultation bilaterally Cardio regular rate and regular rhythm GI soft to palpation, non-tender and non-distended Neuro oriented x3, CN's II-XII intact bilaterally and no sensory deficits noted Sensorium / Orientation: awake and alert Motor Exam: strength 5/5 throughout Psych mental status grossly normal Heart Score History: Slightly/Non-Suspici ous ECG: Normal Age: Risk Factors: No Risk Factors Troponin: Score: 0 MDM MDM MDM Narrative Medical decision making narrative: Differential diagnosis includes cardiac dysrhythmia, cardiac ischemia, pneumonia, pneumothorax, migraine headache, electrolyte abnormality, and viral illness. EKG will be obtained to assess for cardiac dysrhythmia and cardiac ischemia. Chest x-ray will be obtained to assess for pneumonia and pneumothorax. CBC will be obtained to assess for leuko (more content not included)... Normal [facility] L501.4020on 02-17-2024 TROPONIN-I HS 4 pg/mL Normal 3.0-78.0 [facility] Comment on above: Order Comment: 'TROP ' Serial specimen #1, #2 or #3: 1 Result Comment: Plea se Note: New Test Units and Gender Specific Reference Ranges. For more information see Policy Stat Procedure Pace High Sensitivity Troponin (TNIH) and attachments. Performed By: #### L 100.0100, L500.2500, L501.4020 #### [facility] [address] [place], [place], [address] M100.678on 02-17-2024 M100.678 Pending SARS-CoV-2 (COVID 19) Negative INFLUENZA A Negative INFLUENZA B Negative RSV PCR Negative Normal [facility] Comment on above: Performed By: #### L 500.2500, L100.0100 #### [facility] [address] [place], [address] Urinalysis, Completeon 02-16 WBC 0-5 SEEN Normal 0-5 [facility] Comment on above: Order Comment: CLEAN CATCH Performed By: #### L 400.0001 #### [facility] [address] [place], [address] BACTERIA 1+ /hpf Normal None Seen [facility] Comment on above: Order Comment: CLEAN CATCH Performed By: #### L 400.0001 #### [facility] [address] [place], [address] BILIRUBIN URINE Negative Normal Negative [facility] Comment on above: Order Comment: CLEAN CATCH Performed By: #### L 400.0001 #### [facility] [address] [place], [address] Clarity (U) Sl. Cloudy Normal Clear [facility] Comment on above: Order Comment: CLEAN CATCH Performed By: #### L 400.0001 #### [facility] [address] [place], [address] Color (U) Yellow Normal Yellow [facility] Comment on above: Order Comment: CLEAN CATCH Performed By: #### L 400.0001 #### [facility] [address] [place], [address] GLUCOSE, UR Normal Normal Normal [facility] Comment on above: Order Comment: CLEAN CATCH Performed By: #### L 400.0001 #### [facility] [address] [place], [address] KETONE UR Negative Normal Negative [facility] Comment on above: Order Comment: CLEAN CATCH Performed By: #### L 400.0001 #### [facility] [address] [place], [address] LEUK ESTERASE Negative Normal Negative [facility] Comment on above: Order Comment: CLEAN CATCH Performed By: #### L 400.0001 #### [facility] [address] [place], [address] Nitrite Ql (U) Negative Normal Negative [facility] Comment on above: Order Comment: CLEAN CATCH Performed By: #### L 400.0001 #### [facility] [address] [place], [address] OCCULT BLOOD-UR Negative Normal Negative [facility] Comment on above: Order Comment: CLEAN CATCH Performed By: #### L 400.0001 #### [facility] [address] [place], [address] pH UR 7.0 Normal 5.0 - 8.0 [facility] Comment on above: Order Comment: CLEAN CATCH Performed By: #### L 400.0001 #### [facility] [address] [place], [address] PROT DIPSTX 15 mg/dl Abnormal Negative [facility] Comment on above: Order Comment: CLEAN CATCH Performed By: #### L 400.0001 #### [facility] [address] [place], [address] SP.GR. DIPSTX 1.015 Normal 1.002-1.030 [facility] Comment on above: Order Comment: CLEAN CATCH Performed By: #### L 400.0001 #### [facility] [address] [place], [address] UROBILI 4 mg/dl Abnormal Normal [facility] Comment on above: Order Comment: CLEAN CATCH Performed By: #### L 400.0001 #### [facility] [address] [place], [address] EPI,SQUAMOUS 0 SEEN Normal 0-5 [facility] Comment on above: Order Comment: CLEAN CATCH Performed By: #### L 400.0001 #### [facility] [address] [place], [address] Mucus Ql (Urine sed) 0 SEEN Normal [facility] Comment on above: Order Comment: CLEAN CATCH Performed By: #### L 400.0001 #### [facility] [address] [place], [address] RBC 0 SEEN Normal 0-5 [facility] Comment on above: Order Comment: CLEAN CATCH Performed By: #### L 400.0001 #### [facility] [address] [place], [place], [id number] .Auto Diffon 02-15-2024 Basophil, Absolute 0.1 10 3/mcL Normal 0.0-0.2 [facility] Comment on above: Performed By: #### A SPENSER, GFR, BMP, CBC, MDW, ADIFF #### [address] [address] Basophils/100 WBC (Bld) 0.4 % Normal 0.0-2.5 [facility] Comment on above: Performed By: #### A SPENSER, GFR, BMP, CBC, MDW, ADIFF #### [address] [address] Eosinophil, Absolute 0.0 10 3/mcL Normal 0.0-0.7 [facility] Comment on above: Performed By: #### A SPENSER, GFR, BMP, CBC, MDW, ADIFF #### [address] [address] Eosinophils/100 WBC (Bld) 0.2 % Normal 0.0-7.0 [facility] Comment on above: Performed By: #### A SPENSER, GFR, BMP, CBC, MDW, ADIFF #### [address] [address] Lymphocyte, Absolute 1.1 10 3/mcL Normal 0.9-4.3 [facility] Comment on above: Performed By: #### A SPENSER, GFR, BMP, CBC, MDW, ADIFF #### [address] [address] Lymphocytes/100 WBC (Bld) 5.7 % Low 20.0-40.0 [facility] Comment on above: Performed By: #### A SPENSER, GFR, BMP, CBC, MDW, ADIFF #### [address] [address] Monocyte, Absolute 0.6 10 3/mcL Normal 0.1-1.4 [facility] Comment on above: Performed By: #### A SPENSER, GFR, BMP, CBC, MDW, ADIFF #### [address] [address] Monocytes/100 WBC (Bld) 3.2 % Normal 2.0-13.0 [facility] Comment on above: Performed By: #### A SPENSER, GFR, BMP, CBC, MDW, ADIFF #### [address] [address] Neutrophils/100 WBC (Bld) 90.5 % High 50.0-75.0 [facility] Comment on above: Performed By: #### A SPENSER, GFR, BMP, CBC, MDW, ADIFF #### [address] [address] .GFRon 02-15-2024 GFR 114 ml/min/1.73sqm [facility] Comment on above: Result Comment: GFR Population mean for , Non- Americans Ages 20-29 = 116 mL/min/1.73 sq.m. Ages 30-39 = 107 mL/min/1.73 sq.m. Ages 40-49 = 99 mL/min/1.73 sq.m. Ages 50-59 = 93 mL/min/1.73 sq.m. Ages 60-69 = 85 mL/min/1.73 sq.m. Ages 70+ = 75 mL/min/1.73 sq.m. Chronic Kidney Disease: Less than 60 mL/min/1.73 square meters End Stage Renal Disease: Less than 15 mL/min/1.73 square meters Performed By: #### A SPENSER, GFR, BMP, CBC, MDW, ADIFF #### [address] [address] GFR Non- 94 ml/min/1.73sqm Normal [facility] Comment on above: Result Comment: GFR Population mean for , Non- Americans Ages 20-29 = 116 mL/min/1.73 sq.m. Ages 30-39 = 107 mL/min/1.73 sq.m. Ages 40-49 = 99 mL/min/1.73 sq.m. Ages 50-59 = 93 mL/min/1.73 sq.m. Ages 60-69 = 85 mL/min/1.73 sq.m. Ages 70+ = 75 mL/min/1.73 sq.m. Chronic Kidney Disease: Less than 60 mL/min/1.73 square meters End Stage Renal Disease: Less than 15 mL/min/1.73 square meters Performed By: #### A SPENSER, GFR, BMP, CBC, MDW, ADIFF #### [address] [address] .MDWon 02-15-2024 Monocyte Distribution Width 17.13 Normal 0.00-20.00 [facility] Comment on above: Result Comment: For ED adult patients suspected of sepsis, MDW<=20.0 does not rule out sepsis or risk of sepsis Performed By: #### A SPENSER, GFR, BMP, CBC, MDW, ADIFF #### [address] [address] .NEUABSon 02-15-2024 Neutrophil, Absolute 17.8 10 3/mcL High 2.3-8.1 [facility] Comment on above: Performed By: #### A SPENSER, GFR, BMP, CBC, MDW, ADIFF #### [address] [address] BMPon 02-15-2024 BUN/Creatinine Ratio 14 ratio Normal 12-14 [facility] Comment on above: Performed By: #### A SPENSER, GFR, BMP, CBC, MDW, ADIFF #### [address] [address] Calcium [Mass/Vol] 9.8 mg/dL Normal 8.4-10.2 [facility] Comment on above: Performed By: #### A SPENSER, GFR, BMP, CBC, MDW, ADIFF #### [address] [address] Chloride [Moles/Vol] 95 mmol/L Low 98-107 [facility] Comment on above: Performed By: #### A SPENSER, GFR, BMP, CBC, MDW, ADIFF #### [address] [address] CO2 [Moles/Vol] 24 mmol/L Normal 22-29 [facility] Comment on above: Performed By: #### A SPENSER, GFR, BMP, CBC, MDW, ADIFF #### [address] [address] Creatinine [Mass/Vol] 0.94 mg/dL Normal 0.70-1.30 [facility] Comment on above: Result Comment: Test ing performed on Siemens Dimension EXL analyzer using a modified kinetic Abby technique. Performed By: #### A SPENSRE, GFR, BMP, CBC, MDW, ADIFF #### [address] [address] Electrolyte Balance 14.0 mEq/L Normal 4.0-15.0 [facility] Comment on above: Performed By: #### A SPENSER, GFR, BMP, CBC, MDW, ADIFF #### [address] [address] Glucose [Mass/Vol] 136 mg/dL High 70-105 [facility] Comment on above: Performed By: #### A SPENSER, GFR, BMP, CBC, MDW, ADIFF #### [address] [address] Potassium [Moles/Vol] 4.0 mmol/L Normal 3.5-5.1 [facility] Comment on above: Performed By: #### A SPENSER, GFR, BMP, CBC, MDW, ADIFF #### [address] [address] Sodium [Moles/Vol] 133 mmol/L Low 136-145 [facility] Comment on above: Performed By: #### A SPENSER, GFR, BMP, CBC, MDW, ADIFF #### [address] [address] Urea nitrogen [Mass/Vol] 13 mg/dL Normal 7-18 [facility] Comment on above: Performed By: #### A SPENSER, GFR, BMP, CBC, MDW, ADIFF #### [address] [address] CBCon 02-15-2024 Erythrocyte distribution width (RBC) [Ratio] 14.1 % Normal 11.5-15.5 [facility] Comment on above: Performed By: #### A SPENSER, GFR, BMP, CBC, MDW, ADIFF #### [place] [address] Hematocrit (Bld) [Volume fraction] 45.4 % Normal 40.0-52.0 [facility] Comment on above: Performed By: #### A SPENSER, GFR, BMP, CBC, MDW, ADIFF #### [place] [address] Hgb 15.2 G/dL Normal 13.0-17.5 [facility] Comment on above: Performed By: #### A SPENSER, GFR, BMP, CBC, MDW, ADIFF #### [address] [address] MCH (RBC) [Entitic mass] 30.1 pg Normal 27.0-33.0 [facility] Comment on above: Performed By: #### A SPENSER, GFR, BMP, CBC, MDW, ADIFF #### [address] [address] MCHC 33.6 G/dL Normal 32.0-36.0 [facility] Comment on above: Performed By: #### A SPESNER, GFR, BMP, CBC, MDW, ADIFF #### [address] [address] MCV (RBC) [Entitic vol] 89.6 fL Normal 81.0-100.0 [facility] Comment on above: Performed By: #### A SPENSER, GFR, BMP, CBC, MDW, ADIFF #### [address] [address] Platelet 299 10 3/mcL Normal 150-450 [facility] Comment on above: Performed By: #### A SPENSER, GFR, BMP, CBC, MDW, ADIFF #### [place] [id number] [place], [place] [address] Platelet mean volume (Bld) [Entitic vol] 8.6 fL Normal 6.4-10.5 [facility] Comment on above: Performed By: #### A SPENSER, GFR, BMP, CBC, MDW, ADIFF #### [address] [address] RBC 5.07 10 6/mcL Normal 4.50-6.00 [facility] Comment on above: Performed By: #### A SPENSER, GFR, BMP, CBC, MDW, ADIFF #### [place] [address] [place], [place] [address] WBC 19.7 10 3/mcL High 4.5-10.8 [facility] Comment on above: Performed By: #### A SPENSER, GFR, BMP, CBC, MDW, ADIFF #### [address] [address] LABORATORYOrdered By: SYSTEM SYSTEM on 02-15-2024 Basophils (Bld) [#/Vol] 0.1 103/mcL Normal 0.0 - 0.2 10^3/mcL AO Workflow SS Basophils/100 WBC (Bld) 0.4 % Normal 0.0 - 2.5 % AO Workflow SS Calcium [Mass/Vol] 9.8 mg/dL Normal 8.4 - 10. 2 mg/dL AO ADM SS Chloride [Moles/Vol] 95 mmol/L Low 98 - 10 7 mmol/L AO ADM SS CO2 [Moles/Vol] 24 mmol/L Normal 22 - 29 mmol/L AO ADM SS Creatinine [Mass/Vol] 0.94 mg/dL Normal 0.70 - 1.30 mg/dL AO ADM SS Comment on above: Interpretive Data: T esting performed on Siemens Dimension EXL analyzer using a modified kinetic Abby technique. Electrolyte Balance 14.0 mEq/L Normal 4.0 - 15 .0 mEq/L AO ADM SS Eosinophil, Absolute 0.0 103/mcL Normal 0.0 - 0 .7 10^3/mcL AO Workflow SS Eosinophils/100 WBC (Bld) 0.2 % Normal 0.0 - 7.0 % AO Workflow SS Erythrocyte distribution width (RBC) [Ratio] 14.1 % Normal 11.5 - 15.5 % AO Workflow SS GFR/1.73 sq M.predicted among blacks MDRD (S/P/Bld) [Vol rate/Area] 114 ml/min/1.73sqm Invalid Interpretation Code AO Chemistry S Comment on above: Interpretive Data: GFR Population mean for , Non- Americans Ages 20-29 = 116 mL/min/1.73 sq.m. Ages 30-39 = 107 mL/min/1.73 sq.m. Ages 40-49 = 99 mL/min/1.73 sq.m. Ages 50-59 = 93 mL/min/1.73 sq.m. Ages 60-69 = 85 mL/min/1.73 sq.m. Ages 70+ = 75 mL/min/1.73 sq.m. Chronic Kidney Disease: Less than 60 mL/min/1.73 square meters End Stage Renal Disease: Less than 15 mL/min/1.73 square meters GFR/1.73 sq M.predicted among non-blacks MDRD (S/P/Bld) [Vol rate/Area] 94 ml/min/1.73sqm Invalid Interpretation Code AO Chemistry S Comment on above: Interpretive Data: GFR Population mean for , Non- Americans Ages 20-29 = 116 mL/min/1.73 sq.m. Ages 30-39 = 107 mL/min/1.73 sq.m. Ages 40-49 = 99 mL/min/1.73 sq.m. Ages 50-59 = 93 mL/min/1.73 sq.m. Ages 60-69 = 85 mL/min/1.73 sq.m. Ages 70+ = 75 mL/min/1.73 sq.m. Chronic Kidney Disease: Less than 60 mL/min/1.73 square meters End Stage Renal Disease: Less than 15 mL/min/1.73 square meters Glucose [Mass/Vol] 136 mg/dL High 70 - 105 mg/dL AO ADM SS Hematocrit (Bld) [Volume fraction] 45.4 % Normal 40.0 - 52.0 % AO Workflow SS Hemoglobin (Bld) [Mass/Vol] 15.2 G/dL Normal 13.0 - 17.5 G/dL AO Workflow SS Lymphocytes (Bld) [#/Vol] 1.1 103/mcL Normal 0.9 - 4.3 10^3/mcL AO Workflow SS Lymphocytes/100 WBC (Bld) 5.7 % Low 20.0 - 40.0 % AO Workflow SS MCH (RBC) [Entitic mass] 30.1 pg Normal 27.0 - 33.0 pg AO Workflow SS MCHC 33.6 G/dL Normal 32.0 - 36.0 G/dL AO Workflow SS MCV (RBC) [Entitic vol] 89.6 fL Normal 81.0 - 100.0 fL AO Workflow SS Monocyte distribution width Auto (Bld) [Entitic vol] 17.13 1 Normal 0.00 - 20.00 AO Workflow SS Comment on above: Result Comment: For ED adult patients suspected of sepsis, MDW<=20.0 does not rule out sepsis or risk of sepsis Monocytes (Bld) [#/Vol] 0.6 103/mcL Normal 0.1 - 1.4 10^3/mcL AO Workflow SS Monocytes/100 WBC (Bld) 3.2 % Normal 2.0 - 13.0 % AO Workflow SS Neutrophils (Bld) [#/Vol] 17.8 103/mcL High 2.3 - 8.1 10^3/mcL AO Workflow SS Neutrophils/100 WBC (Bld) 90.5 % High 50.0 - 75.0 % AO Workflow SS Platelet mean volume (Bld) [Entitic vol] 8.6 fL Normal 6.4 - 10.5 fL AO Workflow SS Platelets (Bld) [#/Vol] 299 103/mcL Normal 150 - 450 10^3/mcL AO Workflow SS Potassium [Moles/Vol] 4.0 mmol/L Normal 3.5 - 5.1 mmol/L AO ADM SS RBC (Bld) [#/Vol] 5.07 106/mcL Normal 4.50 - 6.0 0 10^6/mcL AO Workflow SS Sodium [Moles/Vol] 133 mmol/L Low 136 - 145 mmol/L AO ADM SS Urea nitrogen [Mass/Vol] 13 mg/dL Normal 7 - 18 mg/dL AO ADM SS Urea nitrogen/Creatinine [Mass ratio] 14 ratio Normal 7 - 27 ratio AO ADM SS WBC (Bld) [#/Vol] 19.7 103/mcL High 4.5 - 10.8 10^3/mcL AO Workflow SS CNOVchitra 10-02-2023 CNOV Office Visit (UCWSTR) CHENCHO FUENTES ([id number]) 1995 M Date Time Provider Department 10/02/23 3:30 PM BAKARI AKERS [facility] During your visit today, we recorded the following information about you: Temperature Pulse Respiration Blood pressure 97.8 degrees 96/minute 16/minute 120/72 Weight 106.6 kg Bakari Akers PA-C 10/02/2023 3:55 PM Signed This note was created using [employer]ore[employer]. Subjective Chencho Fuentes is a 28 year old male. HPI Patient presents with a chief complaint of arthralgias. He has had this for several months. Today his hands were feeling very painful and swollen when he woke up this morning. He has chronic neck pain with pain rating to his left arm as well. Also has problems with his back off and on. He had been seen by his primary doctor and per the patient had lab work and a workup done and was diagnosed with RA. He has not been able to follow-up with rheumatology as the town marshal he was referred to does not take his insurance. He has been taking ibuprofen and Tylenol. He does notice when he keeps moving his arthralgias are better however when he is home still or after he wakes up in the morning his joint pains hurt more. No fever or chills. No rash. Review of Systems Constitutional: Negative. HENT: Negative. Respiratory: Negative. Cardiovascular: Negative. Gastrointestinal: Negative. Genitourinary: Negative. Musculoskeletal: Positive for arthralgias, back pain and neck pain. Hand pain and swelling Skin: Negative. All other systems reviewed and are negative. PAST MEDICAL HISTORY Diagnosis Date Asthma Genital herpes Hyperglycemia Tobacco abuse Current Outpatient Medications Medication Sig Dispense Refill sotalol (BETAPACE) 80 mg tablet Take 80 mg by mouth two times a day. predniSONE (DELTASONE) 10 mg tablet Take 4 tabs daily x 3 days, then 3 tabs x 3 days, 2 tabs x 3 days, then 1 tab x3 days with food. 30 tablet 0 apixaban (ELIQUIS) 5 mg tab tab(s) Take 1 tablet by mouth twice daily. (Patient not taking: Reported on 10/02/2023) 60 tablet 5 metoprolol succinate ER (TOPROL XL) 50 mg 24 hr tablet Take 1 tablet by mouth once daily. (Patient not taking: Reported on 10/02/2023) 30 tablet 5 flecainide (TAMBOCOR) 100 mg tablet One tablet at onset of sustained palpitations. May repeat every 12 hours. (Patient not taking: Reported on 10/02/2023) 6 tablet 1 No current facility-administere d medications for this visit. No past surgical history on file. No family history on file. Objective BP 120/72 Pulse 96 Temp 36.6 ?C (97.8 ?F) Resp 16 Wt 106.6 kg (235 lb 0.2 oz) SpO2 98% BMI 33.72 kg/m? Physical Exam Vitals reviewed. Constitutional: Appearance: Normal appearance. HENT: Head: Normocephalic and atraumatic. Cardiovascular: Rate and Rhythm: Normal rate and regular rhythm. Heart sounds: Normal heart sounds. Pulmonary: Effort: Pulmonary effort is normal. Breath sounds: Normal breath sounds. Musculoskeletal: Comments: Some mild diffuse swelling to his hands bilaterally, left worse than right. No significant erythema. Normal hand grasp strength. Exam of the neck reveals pain with rotation of the neck left and right and limited range of motion. No erythema or swelling. Pain with twisting on the back. Normal strength and sensation in lower extremities. Skin: General: Skin is warm and dry. Neurological: Mental Status: He is alert. Assessment and Plan ASSESSMENT/PLAN: 1. Arthralgia, unspecified joint - ICD9: 719.40, ICD10: M25.[address] on a prednisone taper. Also will have him follow-up with [facility] rheumatology. Patient agreeable with plan. - CONSULT TO RHEUM/IMMUN DISEASE Bakari Akers PA-C Allergies As of Date: 10/02/2023 Noted Allergy Reaction BEE STING 04/06/2017 10 - Anaphylaxis CODEINE 04/06/2017 4 - Hives Date Reviewed: 10/02/2023 Reviewed by: Laurie Zhu MA - Fully Assessed Reason for Visit: Pain [78] Cmt: generalized pain patient has RA x today Primary Visit Diagnosis:Arthralgia , unspecified joint [M25.50] Order(s):predniSONE (DELTASONE) 10 mg tabletTake 4 tabs daily x 3 days, then 3 tabs x 3 days, 2 tabs x 3 days, then 1 tab x3 days with food.Disp: 30 tabletRfl: 0 CONSULT TO RHEUM/IMMUN DISEASE [9039] Order #: [id number]: 1 FUTURE Prescriptions as of 10/02/2023 - sotalol (BETAPACE) 80 mg tablet Take 80 mg by mouth two times a day. - predniSONE (DELTASONE) 10 mg tablet Take 4 tabs daily x 3 days, then 3 tabs x 3 days, 2 tabs x 3 days, then 1 tab x3 days with food. - apixaban (ELIQUIS) 5 mg tab tab(s) Take 1 tablet by mouth twice daily. - metoprolol succinate ER (TOPROL XL) 50 mg 24 hr tablet Take 1 tablet by mouth once daily. - flecainide (TAMBOCOR) 100 mg tablet One tablet at onset of sustained palpitations. May repeat every 12 hours. Problem List As Of Date (more content not included)... Normal [facility] 36on 06-20-2023 36 Attempted to call pt to new pt appt, busy signal. Attempted to call pt to new pt appt, # not in service. Normal [facility] RFon 05-04-2023 Rheumatoid Factor 13.7 High <=5.9 [facility] ([place]) Comment on above: Result Comment: RF I gM Antibody by Enzyme Immunoassay: Negative < or = 6 Positive > 6 A positive result indicates the presence of RF antibodies and suggests the possibility of rheumatoid arthritis. A negative result indicates no RF IgM antibody or levels below the negative cut-off of the assay. Results of this assay should be used in conjunction with clinical findings and other serological tests. These results were obtained with the [employer]de[employer] QUANTA Lite RF IgM BENJI. RF IgM values obtained with different manufacturers' assay methods may not be used interchangeably. The magnitude of the reported IgM levels cannot be correlated to an endpoint titer. Performed By: #### E SR, ANEU, GFR, CMP, CRP, CBC, ADIFF ####[facility] [place], [place] [address]#### PERLA, RF ####[place] [address] [place] [address] ANAon 05-03-2023 Nuclear Ab IF (S) [Titer] 40 {titer} Normal Neg 40 [facility] ([place]) Comment on above: Result Comment: PERLA Screen and Titer methodology is an immunofluorescent technique utilizing Hep2 Substrate. Performed By: #### E SR, ANEU, GFR, CMP, CRP, CBC, ADIFF ####[facility] [place], [place] [address]#### PERLA, RF ####[address] [address] XR KNEE THREE VIEWS RIGHTon 05-03-2023 XR KNEE THREE VIEWS RIGHT ORIGINAL EXAMINATION: THREE XRAY VIEWS OF THE RIGHT KNEE 05/01/2023 3:51 pm COMPARISON: None. HISTORY: ORDERING SYSTEM PROVIDED HISTORY: Reason for Exam: pain No known injury. FINDINGS: There is no fracture or dislocation of the right knee. The tibiofemoral and patellofemoral joint spaces are maintained. Articular surfaces have normal contour. There is no joint effusion. Soft tissue swelling is present in the prepatellar region and anterior to the patellar tendon. No soft tissue gas or foreign body is detected. IMPRESSION: No osseous abnormality. Anterior soft tissue swelling. Interpreted by: Dino Rider MD Preliminary Report By: Dino Rider MD Electronically signed By Dino Rider MD Dictated Date: 05/03/2023 12:42:54 AM Prelim Date: 05/03/2023 12:44:55 AM Sign Date: 05/03/2023 12:44:55 AM Ordering Provider: ZEHRA Ybarra [facility] ([place]) XR SPINE CERVICAL AP/LATon 1 07-03-2022 XR SPINE CERVICAL AP/LAT ORIGINAL EXAMINATION: TWO XRAY VIEWS OF THE CERVICAL SPINE 05/01/2023 3:50 pm COMPARISON: None. HISTORY: ORDERING SYSTEM PROVIDED HISTORY: Reason for Exam: pain FINDINGS: The cervical spine is imaged from C1 through C7. There is reversal of the cervical lordosis. No significant anterolisthesis or retrolisthesis. Vertebral body heights are maintained. Areas of disc space loss with osteophyte formation identified, greatest at C4-5 and C5-6. No prevertebral soft tissue thickening. The odontoid appears intact on open-mouth view although the tip is obscured. IMPRESSION: 1. Multilevel degenerative changes, more advanced than usually seen in this age group. 2. Reversal of the cervical lordosis which could be positional or related to spasm. Interpreted by: Morenita Durham MD Preliminary Report By: Morenita Durham MD Electronically signed By Morenita Durham MD Dictated Date: 05/02/2023 9:52:12 PM Prelim Date: 05/02/2023 9:54:04 PM Sign Date: 05/02/2023 9:54:04 PM Ordering Provider: ZEHRA Ybarra [facility] ([place]) .Auto Diffon 05-01-2023 Basophil, Absolute 0.1 10 3/mcL Normal 0.0-0.2 [facility] ([place]) Comment on above: Performed By: #### E SR, ANEU, GFR, CMP, CRP, CBC, ADIFF ####[address] [address]#### PERLA, RF ####[address] [address] Basophils/100 WBC (Bld) 0.7 % Normal 0.0-2.5 A [facility] ([place]) Comment on above: Performed By: #### E SR, ANEU, GFR, CMP, CRP, CBC, ADIFF ####[place] [address] [place], [place] [address]#### PERLA, RF ####[address] [address] Eosinophil, Absolute 0.3 10 3/mcL Normal 0.0-0.4 [facility] ([place]) Comment on above: Performed By: #### E SR, ANEU, GFR, CMP, CRP, CBC, ADIFF ####[place] [address]#### PERLA, RF ####[address] [address] Eosinophils/100 WBC (Bld) 2.9 % Normal 0.0-7.0 [facility] ([place] Comment on above: Performed By: #### E SR, ANEU, GFR, CMP, CRP, CBC, ADIFF ####[place] [address]#### PERLA, RF ####[address] [address] Lymphocyte, Absolute 2.0 10 3/mcL Normal 0.8-3.9 [facility] ([place]) Comment on above: Performed By: #### E SR, ANEU, GFR, CMP, CRP, CBC, ADIFF ####[place] [address]#### PERLA, RF ####[address] [address] Lymphocytes/100 WBC (Bld) 22.4 % Normal 10.0-50.0 [facility] ([place] Comment on above: Performed By: #### E SR, ANEU, GFR, CMP, CRP, CBC, ADIFF ####[place] [address]#### PERLA, RF ####[address] [address] Monocyte, Absolute 0.7 10 3/mcL Normal 0.2-1.0 [facility] ([place] Comment on above: Performed By: #### E SR, ANEU, GFR, CMP, CRP, CBC, ADIFF ####[place] [address]#### PERLA, RF ####[address] [address] Monocytes/100 WBC (Bld) 7.3 % Normal 1.7-13.0 [facility] ([place]) Comment on above: Performed By: #### E SR, ANEU, GFR, CMP, CRP, CBC, ADIFF ####[address] [place], [place] [address]#### PERLA, RF ####[address] [address] Neutrophils/100 WBC (Bld) 66.7 % Normal 37.0-80.0 [facility] ([place]) Comment on above: Performed By: #### E SR, ANEU, GFR, CMP, CRP, CBC, ADIFF ####[place] [place], [place] [address]#### PERLA, RF ####[address] [address] .GFRon 05-01-2023 GFR Non- 82 ml/min/1.73sqm Normal [facility] ([place]) Comment on above: Result Comment: GFR Population mean for , Non- Americans Ages 20-29 = 116 mL/min/1.73 sq.m. Ages 30-39 = 107 mL/min/1.73 sq.m. Ages 40-49 = 99 mL/min/1.73 sq.m. Ages 50-59 = 93 mL/min/1.73 sq.m. Ages 60-69 = 85 mL/min/1.73 sq.m. Ages 70+ = 75 mL/min/1.73 sq.m. Chronic Kidney Disease: Less than 60 mL/min/1.73 square meters End Stage Renal Disease: Less than 15 mL/min/1.73 square meters Performed By: #### E SR, ANEU, GFR, CMP, CRP, CBC, ADIFF ####[place] [place], [place] [address]#### PERLA, RF ####[place] [address] [place] [address] GFR 99 ml/min/1.73sqm Normal [facility] ([place]) Comment on above: Result Comment: GFR Population mean for , Non- Americans Ages 20-29 = 116 mL/min/1.73 sq.m. Ages 30-39 = 107 mL/min/1.73 sq.m. Ages 40-49 = 99 mL/min/1.73 sq.m. Ages 50-59 = 93 mL/min/1.73 sq.m. Ages 60-69 = 85 mL/min/1.73 sq.m. Ages 70+ = 75 mL/min/1.73 sq.m. Chronic Kidney Disease: Less than 60 mL/min/1.73 square meters End Stage Renal Disease: Less than 15 mL/min/1.73 square meters Performed By: #### E SR, ANEU, GFR, CMP, CRP, CBC, ADIFF ####[place] [address]#### PERLA, RF ####[place] [address] .NEUABSon 05-01-2023 Neutrophil, Absolute 6.0 10 3/mcL Normal 2.9-6.2 [facility] ([place]) Comment on above: Performed By: #### E SR, ANEU, GFR, CMP, CRP, CBC, ADIFF ####[place] [address]#### PERLA, RF ####[place] [address] CBCon 05-01-2023 Erythrocyte distribution width (RBC) [Ratio] 14.2 % Normal 11.5-14.5 [facility] ([place]) Comment on above: Performed By: #### E SR, ANEU, GFR, CMP, CRP, CBC, ADIFF ####[place] [address]#### PERLA, RF ####[place] [address] Hematocrit (Bld) [Volume fraction] 38.9 % Low 42.0-52.0 [facility] ([place]) Comment on above: Performed By: #### E SR, ANEU, GFR, CMP, CRP, CBC, ADIFF ####[place] [address]#### PERLA, RF ####[place] [address] Hgb 12.9 G/dL Low 14.0-18.0 [facility] ([place]) Comment on above: Performed By: #### E SR, ANEU, GFR, CMP, CRP, CBC, ADIFF ####[place] [address]#### PERLA, RF ####[place] [address] MCH (RBC) [Entitic mass] 28.9 pg Normal 27.0-31.2 [facility] ([place]) Comment on above: Performed By: #### E SR, ANEU, GFR, CMP, CRP, CBC, ADIFF ####[place] [address]#### PERLA, RF ####[place] [address] MCHC 33.2 G/dL Normal 31.8-35.4 [facility] ([place]) Comment on above: Performed By: #### E SR, ANEU, GFR, CMP, CRP, CBC, ADIFF ####[place] [address]#### PERLA, RF ####[place] [address] MCV (RBC) [Entitic vol] 87.1 fL Normal 80.0-94.0 A [facility] ([place] Comment on above: Performed By: #### E SR, ANEU, GFR, CMP, CRP, CBC, ADIFF ####[place] [address]#### PERLA, RF ####[place] [address] Platelet 329 10 3/mcL Normal 130-400 [facility] ([place]) Comment on above: Performed By: #### E SR, ANEU, GFR, CMP, CRP, CBC, ADIFF ####[place] [address]#### PERLA, RF ####[place] [address] Platelet mean volume (Bld) [Entitic vol] 7.6 fL Normal 7.4-10.4 [facility] ([place]) Comment on above: Performed By: #### E SR, ANEU, GFR, CMP, CRP, CBC, ADIFF ####[place] [address]#### PERLA, RF ####[address] [address] RBC 4.47 10 6/mcL Normal 4.04-6.13 [facility] ([place]) Comment on above: Performed By: #### E SR, ANEU, GFR, CMP, CRP, CBC, ADIFF ####[place] [address]#### PERLA, RF ####[place] [address] WBC 9.1 10 3/mcL Normal 4.6-10.8 [facility] ([place] Comment on above: Performed By: #### E SR, ANEU, GFR, CMP, CRP, CBC, ADIFF ####[place] [address]#### PERLA, RF ####[place] [address] CMPon 05-01-2023 Albumin Level 3.5 G/dL Normal 3.5-5.0 [facility] ([place]) Comment on above: Performed By: #### E SR, ANEU, GFR, CMP, CRP, CBC, ADIFF ####[place] [address]#### PERLA, RF ####[place] [address] Albumin/Globulin [Mass ratio] 1.0 {ratio} Low 1.1-2.5 [facility] ([place]) Comment on above: Performed By: #### E SR, ANEU, GFR, CMP, CRP, CBC, ADIFF ####[place] [address]#### PERLA, RF ####[place] [address] ALP [Catalytic activity/Vol] 84 U/L Normal 40-135 [facility] ([place]) Comment on above: Performed By: #### E SR, ANEU, GFR, CMP, CRP, CBC, ADIFF ####[place] [address]#### PERLA, RF ####[address] [address] ALT [Catalytic activity/Vol] 29 U/L Normal 16-63 [facility] ([place]) Comment on above: Performed By: #### E SR, ANEU, GFR, CMP, CRP, CBC, ADIFF ####[place] [address]#### PERLA, RF ####[place] [address] AST [Catalytic activity/Vol] 18 U/L Normal 10-40 [facility] ([place]) Comment on above: Performed By: #### E SR, ANEU, GFR, CMP, CRP, CBC, ADIFF ####[place] [address]#### PERLA, RF ####[address] [address] Bili Total 0.5 mg/dL Normal 0.2-1.0 [facility] ([place]) Comment on above: Result Comment: Use of this assay is not recommended for patients undergoing treatment with eltrombopag due to the potential for falsely elevated results. Performed By: #### E SR, ANEU, GFR, CMP, CRP, CBC, ADIFF ####[place] [address]#### PERLA, RF ####[address] [address] BUN/Creatinine Ratio 12 ratio Normal 7-27 [facility] ([place]) Comment on above: Performed By: #### E SR, ANEU, GFR, CMP, CRP, CBC, ADIFF ####[place] [address]#### PERLA, RF ####[address] [address] Calcium [Mass/Vol] 9.4 mg/dL Normal 8.4-10.2 [facility] ([place]) Comment on above: Performed By: #### E SR, ANEU, GFR, CMP, CRP, CBC, ADIFF ####[place] [address]#### PERLA, RF ####[address] [address] Chloride [Moles/Vol] 103 mmol/L Normal 98-107 [facility] ([place]) Comment on above: Performed By: #### E SR, ANEU, GFR, CMP, CRP, CBC, ADIFF ####[place] [address]#### PERLA, RF ####[place] [address] CO2 [Moles/Vol] 29 mmol/L Normal 22-29 [facility] ([place]) Comment on above: Performed By: #### E SR, ANEU, GFR, CMP, CRP, CBC, ADIFF ####[place] [address]#### PERLA, RF ####[place] [address] Creatinine [Mass/Vol] 1.07 mg/dL Normal 0.70-1.30 [facility] ([place]) Comment on above: Performed By: #### E SR, ANEU, GFR, CMP, CRP, CBC, ADIFF ####[place] [address]#### PERLA, RF ####[place] [address] Electrolyte Balance 8.0 mEq/L Normal 4.0-15.0 [facility] ([place]) Comment on above: Performed By: #### E SR, ANEU, GFR, CMP, CRP, CBC, ADIFF ####[place] [address]#### PERLA, RF ####[place] [address] Globulin 3.5 G/dL Normal [facility] ([place]) Comment on above: Performed By: #### E SR, ANEU, GFR, CMP, CRP, CBC, ADIFF ####[place] [address]#### PERLA, RF ####[address] [address] Glucose [Mass/Vol] 88 mg/dL Normal 70-105 [facility] ([place] Comment on above: Performed By: #### E SR, ANEU, GFR, CMP, CRP, CBC, ADIFF ####[place] [address]#### PERLA, RF ####[address] [address] Potassium [Moles/Vol] 4.7 mmol/L Normal 3.5-5.1 [facility] ([place]) Comment on above: Performed By: #### E SR, ANEU, GFR, CMP, CRP, CBC, ADIFF ####[place] [address]#### PERLA, RF ####[address] [address] Sodium [Moles/Vol] 140 mmol/L Normal 136-145 [facility] ([place] Comment on above: Performed By: #### E SR, ANEU, GFR, CMP, CRP, CBC, ADIFF ####[place] [address]#### PERLA, RF ####[address] [address] Total Protein 7.0 G/dL Normal 6.4-8.2 [facility] ([place]) Comment on above: Performed By: #### E SR, ANEU, GFR, CMP, CRP, CBC, ADIFF ####[place] [address]#### PERLA, RF ####[address] [address] Urea nitrogen [Mass/Vol] 13 mg/dL Normal 7-18 [facility] ([place]) Comment on above: Performed By: #### E SR, ANEU, GFR, CMP, CRP, CBC, ADIFF ####[place] [place] [address]#### PERLA, RF ####[place] [address] [place] [address] CRPon 05-01-2023 C-Reactive Protein 0.3 mg/dL Normal 0.0-0.3 [facility] ([place]) Comment on above: Performed By: #### E SR, ANEU, GFR, CMP, CRP, CBC, ADIFF ####[place] [place] [address]#### PERLA, RF ####[place] [address] ESRon 05-01-2023 Erythrocyte Sed Rate 22 mm/hr High 0-15 [facility] ([place]) Comment on above: Performed By: #### E SR, ANEU, GFR, CMP, CRP, CBC, ADIFF ####[place] [address] [place] [address]#### PERLA, RF ####[place] [address] LABORATORYOrdered By: SYSTEM SYSTEM on 05-01-2023 Albumin BCP dye [Mass/Vol] 3.5 G/dL Normal 3.5 - 5.0 G/dL AO ADM SS Albumin/Globulin [Mass ratio] 1.0 {ratio} Low 1.1 - 2.5 ratio AO ADM SS ALP [Catalytic activity/Vol] 84 U/L Normal 40 - 135 U/L AO ADM SS ALT With P-5'-P [Catalytic activity/Vol] 29 U/L Normal 16 - 63 U/L AO ADM SS AST With P-5'-P [Catalytic activity/Vol] 18 U/L Normal 10 - 40 U/L AO ADM SS Basophil, Absolute 0.1 103/mcL Normal 0.0 - 0.2 10^3/mcL AO Workflow SS Basophils/100 WBC (Bld) 0.7 % Normal 0.0 - 2.5 % AO Workflow SS Bilirubin [Mass/Vol] 0.5 mg/dL Normal 0.2 - 1 .0 mg/dL AO ADM SS Comment on above: Interpretive Data: U se of this assay is not recommended for patients undergoing treatment with eltrombopag due to the potential for falsely elevated results. Calcium [Mass/Vol] 9.4 mg/dL Normal 8.4 - 10. 2 mg/dL AO ADM SS Chloride [Moles/Vol] 103 mmol/L Normal 98 - 10 7 mmol/L AO ADM SS CO2 [Moles/Vol] 29 mmol/L Normal 22 - 29 mmol/L AO ADM SS Creatinine [Mass/Vol] 1.07 mg/dL Normal 0.70 - 1.30 mg/dL AO ADM SS CRP [Mass/Vol] 0.3 mg/dL Normal 0.0 - 0.3 mg/dL AO ADM SS Electrolyte Balance 8.0 mEq/L Normal 4.0 - 15 .0 mEq/L AO ADM SS Eosinophil, Absolute 0.3 103/mcL Normal 0.0 - 0 .4 10^3/mcL AO Workflow SS Eosinophils/100 WBC (Bld) 2.9 % Normal 0.0 - 7.0 % AO Workflow SS Erythrocyte distribution width (RBC) [Ratio] 14.2 % Normal 11.5 - 14.5 % AO Workflow SS GFR/1.73 sq M.predicted among blacks MDRD (S/P/Bld) [Vol rate/Area] 99 ml/min/1.73sqm Invalid Interpretation Code AO Chemistry S Comment on above: Interpretive Data: GFR Population mean for , Non- Americans Ages 20-29 = 116 mL/min/1.73 sq.m. Ages 30-39 = 107 mL/min/1.73 sq.m. Ages 40-49 = 99 mL/min/1.73 sq.m. Ages 50-59 = 93 mL/min/1.73 sq.m. Ages 60-69 = 85 mL/min/1.73 sq.m. Ages 70+ = 75 mL/min/1.73 sq.m. Chronic Kidney Disease: Less than 60 mL/min/1.73 square meters End Stage Renal Disease: Less than 15 mL/min/1.73 square meters GFR/1.73 sq M.predicted among non-blacks MDRD (S/P/Bld) [Vol rate/Area] 82 ml/min/1.73sqm Invalid Interpretation Code AO Chemistry S Comment on above: Interpretive Data: GFR Population mean for , Non- Americans Ages 20-29 = 116 mL/min/1.73 sq.m. Ages 30-39 = 107 mL/min/1.73 sq.m. Ages 40-49 = 99 mL/min/1.73 sq.m. Ages 50-59 = 93 mL/min/1.73 sq.m. Ages 60-69 = 85 mL/min/1.73 sq.m. Ages 70+ = 75 mL/min/1.73 sq.m. Chronic Kidney Disease: Less than 60 mL/min/1.73 square meters End Stage Renal Disease: Less than 15 mL/min/1.73 square meters Globulin 3.5 G/dL Invalid Interpretation Code AO ADM SS Glucose [Mass/Vol] 88 mg/dL Normal 70 - 105 mg/dL AO ADM SS Hematocrit (Bld) [Volume fraction] 38.9 % Low 42.0 - 52.0 % AO Workflow SS Hemoglobin (Bld) [Mass/Vol] 12.9 G/dL Low 14.0 - 18.0 G/dL AO Workflow SS Lymphocyte, Absolute 2.0 103/mcL Normal 0.8 - 3 .9 10^3/mcL AO Workflow SS Lymphocytes/100 WBC (Bld) 22.4 % Normal 10.0 - 50.0 % AO Workflow SS MCH (RBC) [Entitic mass] 28.9 pg Normal 27.0 - 31.2 pg AO Workflow SS MCHC 33.2 G/dL Normal 31.8 - 35.4 G/dL AO Workflow SS MCV (RBC) [Entitic vol] 87.1 fL Normal 80.0 - 94.0 fL AO Workflow SS Monocyte, Absolute 0.7 103/mcL Normal 0.2 - 1.0 10^3/mcL AO Workflow SS Monocytes/100 WBC (Bld) 7.3 % Normal 1.7 - 13.0 % AO Workflow SS Neutrophil, Absolute 6.0 103/mcL Normal 2.9 - 6 .2 10^3/mcL AO Workflow SS Neutrophils/100 WBC (Bld) 66.7 % Normal 37.0 - 80.0 % AO Workflow SS Platelet mean volume (Bld) [Entitic vol] 7.6 fL Normal 7.4 - 10.4 fL AO Workflow SS Platelets (Bld) [#/Vol] 329 103/mcL Normal 130 - 400 10^3/mcL AO Workflow SS Potassium [Moles/Vol] 4.7 mmol/L Normal 3.5 - 5.1 mmol/L AO ADM SS Protein [Mass/Vol] 7.0 G/dL Normal 6.4 - 8.2 G/dL AO ADM SS RBC (Bld) [#/Vol] 4.47 106/mcL Normal 4.04 - 6.1 3 10^6/mcL AO Workflow SS Sodium [Moles/Vol] 140 mmol/L Normal 136 - 145 mmol/L AO ADM SS Urea nitrogen [Mass/Vol] 13 mg/dL Normal 7 - 18 mg/dL AO ADM SS Urea nitrogen/Creatinine [Mass ratio] 12 ratio Normal 7 - 27 ratio AO ADM SS WBC (Bld) [#/Vol] 9.1 103/mcL Normal 4.6 - 10.8 10^3/mcL AO Workflow SS LABORATORYOrdered By: Clayton Larose on 05-01-2023 ESR Photometric method (Bld) [Velocity] 22 mm/hr High 0 - 15 mm/hr AO Man Heme SS Basic Metabolic Profile (BMP )on 04-27-2023 BUN Normal 7-18 [facility] Comment on above: Result Comment: Canc elled via OM: Order cancelled - Patient discharged Performed By: #### L 100.0100, L500.2500 #### [facility] [address] [place], [address] BUN/CRE Normal 10-20 [facility] Comment on above: Result Comment: Canc elled via OM: Order cancelled - Patient discharged Performed By: #### L 100.0100, L500.2500 #### [facility] [address] [place], [address] CA,Total Normal 8.5-10.1 [facility] Comment on above: Result Comment: Canc elled via OM: Order cancelled - Patient discharged Performed By: #### L 100.0100, L500.2500 #### [facility] [address] [place], [address] CL Normal 98-107 [facility] Comment on above: Result Comment: Canc elled via OM: Order cancelled - Patient discharged Performed By: #### L 100.0100, L500.2500 #### [facility] [address] [place], [address] CO2 Normal 21.0-32.0 [facility] Comment on above: Result Comment: Canc elled via OM: Order cancelled - Patient discharged Performed By: #### L 100.0100, L500.2500 #### [facility] [address] [place], [address] CREAT,SERUM Normal 0.70-1.30 [facility] Comment on above: Result Comment: Canc elled via OM: Order cancelled - Patient discharged Performed By: #### L 100.0100, L500.2500 #### [facility] [address] [place], [address] EST GFR Normal >60 [facility] Comment on above: Result Comment: Canc elled via OM: Order cancelled - Patient discharged Performed By: #### L 100.0100, L500.2500 #### [facility] [address] [place], [address] EST GFR - AA Normal >60 [facility] Comment on above: Result Comment: Canc elled via OM: Order cancelled - Patient discharged Performed By: #### L 100.0100, L500.2500 #### [facility] [address] [place], [address] GAP Normal 5-15 [facility] Comment on above: Result Comment: Canc elled via OM: Order cancelled - Patient discharged Performed By: #### L 100.0100, L500.2500 #### [facility] [address] [place], [address] GLU Normal 74-106 [facility] Comment on above: Result Comment: Canc elled via OM: Order cancelled - Patient discharged Performed By: #### L 100.0100, L500.2500 #### [facility] [address] [place], [address] Potassium Normal 3.5-5.1 [facility] Comment on above: Result Comment: Canc elled via OM: Order cancelled - Patient discharged Performed By: #### L 100.0100, L500.2500 #### [facility] [address] [place], [address] Basic Metabolic Profile (BMP) Normal 136-145 [facility] Comment on above: Result Comment: Canc elled via OM: Order cancelled - Patient discharged Performed By: #### L 100.0100, L500.2500 #### [facility] [address] [place], [address] CBC W/Diff, Automatedon 12-0 -2022 Absolute Neut Normal 2.0-7.7 [facility] Comment on above: Result Comment: Canc elled via OM: Order cancelled - Patient discharged Performed By: #### L 500.2500, L100.0100 #### [facility] [address] [place], [address] HCT Normal 40-54 [facility] Comment on above: Result Comment: Canc elled via OM: Order cancelled - Patient discharged Performed By: #### L 500.2500, L100.0100 #### [facility] [address] [place], [address] HGB Normal 13.0-16.5 [facility] Comment on above: Result Comment: Canc elled via OM: Order cancelled - Patient discharged Performed By: #### L 500.2500, L100.0100 #### [facility] [address] [place], [address] MCH Normal 27.0-32.0 [facility] Comment on above: Result Comment: Canc elled via OM: Order cancelled - Patient discharged Performed By: #### L 500.2500, L100.0100 #### [facility] [address] [place], [address] MCHC Normal 32-36 [facility] Comment on above: Result Comment: Canc elled via OM: Order cancelled - Patient discharged Performed By: #### L 500.2500, L100.0100 #### [facility] [address] [place], [address] MCV Normal 80-94 [facility] Comment on above: Result Comment: Canc elled via OM: Order cancelled - Patient discharged Performed By: #### L 500.2500, L100.0100 #### [facility] [address] [place], [address] NEUT% Normal 47-70 [facility] Comment on above: Result Comment: Canc elled via OM: Order cancelled - Patient discharged Performed By: #### L 500.2500, L100.0100 #### [facility] [address] [place], [address] PLT Normal 150-450 [facility] Comment on above: Result Comment: Canc elled via OM: Order cancelled - Patient discharged Performed By: #### L 500.2500, L100.0100 #### [facility] [address] [place], [address] RBC Normal 4.6-6.2 [facility] Comment on above: Result Comment: Canc elled via OM: Order cancelled - Patient discharged Performed By: #### L 500.2500, L100.0100 #### [facility] [address] [place], [address] RDW CV Normal 11.6-14.6 [facility] Comment on above: Result Comment: Canc elled via OM: Order cancelled - Patient discharged Performed By: #### L 500.2500, L100.0100 #### [facility] [address] [place], [address] RDW SD Normal 35.1-43.9 [facility] Comment on above: Result Comment: Canc elled via OM: Order cancelled - Patient discharged Performed By: #### L 500.2500, L100.0100 #### [facility] [address] [place], [address] WBC Normal 4.4-11.0 [facility] Comment on above: Result Comment: Canc elled via OM: Order cancelled - Patient discharged Performed By: #### L 500.2500, L100.0100 #### [facility] [address] [place], [address] Basic Metabolic Profile (BMP )on 04-26-2023 BUN Normal 7-18 [facility] Comment on above: Result Comment: Canc elled via OM: Order cancelled - Patient discharged Performed By: #### L 500.2500, L100.0100 #### [facility] [address] [place], [address] BUN/CRE Normal 10-20 [facility] Comment on above: Result Comment: Canc elled via OM: Order cancelled - Patient discharged Performed By: #### L 500.2500, L100.0100 #### [facility] [address] [place], [address] CA,Total Normal 8.5-10.1 [facility] Comment on above: Result Comment: Canc elled via OM: Order cancelled - Patient discharged Performed By: #### L 500.2500, L100.0100 #### [facility] [address] [place], [address] CL Normal 98-107 [facility] Comment on above: Result Comment: Canc elled via OM: Order cancelled - Patient discharged Performed By: #### L 500.2500, L100.0100 #### [facility] [address] [place], [address] CO2 Normal 21.0-32.0 [facility] Comment on above: Result Comment: Canc elled via OM: Order cancelled - Patient discharged Performed By: #### L 500.2500, L100.0100 #### [facility] [address] [place], [address] CREAT,SERUM Normal 0.70-1.30 [facility] Comment on above: Result Comment: Canc elled via OM: Order cancelled - Patient discharged Performed By: #### L 500.2500, L100.0100 #### [facility] [address] [place], [address] EST GFR Normal >60 [facility] Comment on above: Result Comment: Canc elled via OM: Order cancelled - Patient discharged Performed By: #### L 500.2500, L100.0100 #### [facility] [address] [place], [address] EST GFR - AA Normal >60 [facility] Comment on above: Result Comment: Canc elled via OM: Order cancelled - Patient discharged Performed By: #### L 500.2500, L100.0100 #### [facility] [address] [place], [address] GAP Normal 5-15 [facility] Comment on above: Result Comment: Canc elled via OM: Order cancelled - Patient discharged Performed By: #### L 500.2500, L100.0100 #### [facility] [address] [place], [address] GLU Normal 74-106 [facility] Comment on above: Result Comment: Canc elled via OM: Order cancelled - Patient discharged Performed By: #### L 500.2500, L100.0100 #### [facility] [address] [place], [address] Potassium Normal 3.5-5.1 [facility] Comment on above: Result Comment: Canc elled via OM: Order cancelled - Patient discharged Performed By: #### L 500.2500, L100.0100 #### [facility] [address] [place], [address] Basic Metabolic Profile (BMP) Normal 136-145 [facility] Comment on above: Result Comment: Canc elled via OM: Order cancelled - Patient discharged Performed By: #### L 500.2500, L100.0100 #### [facility] [address] [place], [address] CBC W/Diff, Automatedon 12-0 -2022 Absolute Neut Normal 2.0-7.7 [facility] Comment on above: Result Comment: Canc elled via OM: Order cancelled - Patient discharged Performed By: #### L 500.2500, L100.0100 #### [facility] [address] [place], [address] HCT Normal 40-54 [facility] Comment on above: Result Comment: Canc elled via OM: Order cancelled - Patient discharged Performed By: #### L 500.2500, L100.0100 #### [facility] [address] [place], [address] HGB Normal 13.0-16.5 [facility] Comment on above: Result Comment: Canc elled via OM: Order cancelled - Patient discharged Performed By: #### L 500.2500, L100.0100 #### [facility] [address] [place], [address] MCH Normal 27.0-32.0 [facility] Comment on above: Result Comment: Canc elled via OM: Order cancelled - Patient discharged Performed By: #### L 500.2500, L100.0100 #### [facility] [address] [place], [address] MCHC Normal 32-36 [facility] Comment on above: Result Comment: Canc elled via OM: Order cancelled - Patient discharged Performed By: #### L 500.2500, L100.0100 #### [facility] [address] [place], [address] MCV Normal 80-94 [facility] Comment on above: Result Comment: Canc elled via OM: Order cancelled - Patient discharged Performed By: #### L 500.2500, L100.0100 #### [facility] [address] [place], [address] NEUT% Normal 47-70 [facility] Comment on above: Result Comment: Canc elled via OM: Order cancelled - Patient discharged Performed By: #### L 500.2500, L100.0100 #### [facility] [address] [place], [address] PLT Normal 150-450 [facility] Comment on above: Result Comment: Canc elled via OM: Order cancelled - Patient discharged Performed By: #### L 500.2500, L100.0100 #### [facility] [address] [place], [address] RBC Normal 4.6-6.2 [facility] Comment on above: Result Comment: Canc elled via OM: Order cancelled - Patient discharged Performed By: #### L 500.2500, L100.0100 #### [facility] [address] [place], [address] RDW CV Normal 11.6-14.6 [facility] Comment on above: Result Comment: Canc elled via OM: Order cancelled - Patient discharged Performed By: #### L 500.2500, L100.0100 #### [facility] [address] [place], [address] RDW SD Normal 35.1-43.9 [facility] Comment on above: Result Comment: Canc elled via OM: Order cancelled - Patient discharged Performed By: #### L 500.2500, L100.0100 #### [facility] [address] [place], [address] WBC Normal 4.4-11.0 [facility] Comment on above: Result Comment: Canc elled via OM: Order cancelled - Patient discharged Performed By: #### L 500.2500, L100.0100 #### [facility] [address] [place], [address] Basic Metabolic Profile (BMP )on 04-25-2023 BUN Normal 7-18 [facility] Comment on above: Result Comment: Canc elled via OM: Order cancelled - Patient discharged Performed By: #### L 500.2500, L100.0100 #### [facility] [address] [place], [address] BUN/CRE Normal 10-20 [facility] Comment on above: Result Comment: Canc elled via OM: Order cancelled - Patient discharged Performed By: #### L 500.2500, L100.0100 #### [facility] [address] [place], [address] CA,Total Normal 8.5-10.1 [facility] Comment on above: Result Comment: Canc elled via OM: Order cancelled - Patient discharged Performed By: #### L 500.2500, L100.0100 #### [facility] [address] [place], [address] CL Normal 98-107 [facility] Comment on above: Result Comment: Canc elled via OM: Order cancelled - Patient discharged Performed By: #### L 500.2500, L100.0100 #### [facility] [address] [place], [address] CO2 Normal 21.0-32.0 [facility] Comment on above: Result Comment: Canc elled via OM: Order cancelled - Patient discharged Performed By: #### L 500.2500, L100.0100 #### [facility] [address] [place], [address] CREAT,SERUM Normal 0.70-1.30 [facility] Comment on above: Result Comment: Canc elled via OM: Order cancelled - Patient discharged Performed By: #### L 500.2500, L100.0100 #### [facility] [address] [place], [address] EST GFR Normal >60 [facility] Comment on above: Result Comment: Canc elled via OM: Order cancelled - Patient discharged Performed By: #### L 500.2500, L100.0100 #### [facility] [address] [place], [address] EST GFR - AA Normal >60 [facility] Comment on above: Result Comment: Canc elled via OM: Order cancelled - Patient discharged Performed By: #### L 500.2500, L100.0100 #### [facility] [address] [place], [address] GAP Normal 5-15 [facility] Comment on above: Result Comment: Canc elled via OM: Order cancelled - Patient discharged Performed By: #### L 500.2500, L100.0100 #### [facility] [address] [place], [address] GLU Normal 74-106 [facility] Comment on above: Result Comment: Canc elled via OM: Order cancelled - Patient discharged Performed By: #### L 500.2500, L100.0100 #### [facility] [address] [place], [address] Potassium Normal 3.5-5.1 [facility] Comment on above: Result Comment: Canc elled via OM: Order cancelled - Patient discharged Performed By: #### L 500.2500, L100.0100 #### [facility] [address] [place], [address] Basic Metabolic Profile (BMP) Normal 136-145 [facility] Comment on above: Result Comment: Canc elled via OM: Order cancelled - Patient discharged Performed By: #### L 500.2500, L100.0100 #### [facility] [address] [place], [address] CBC W/Diff, Automatedon 12-0 -2022 Absolute Neut Normal 2.0-7.7 [facility] Comment on above: Result Comment: Canc elled via OM: Order cancelled - Patient discharged Performed By: #### L 500.2500, L100.0100 #### [facility] [address] [place], [address] HCT Normal 40-54 [facility] Comment on above: Result Comment: Canc elled via OM: Order cancelled - Patient discharged Performed By: #### L 500.2500, L100.0100 #### [facility] [address] [place], [address] HGB Normal 13.0-16.5 [facility] Comment on above: Result Comment: Canc elled via OM: Order cancelled - Patient discharged Performed By: #### L 500.2500, L100.0100 #### [facility] [address] [place], [address] MCH Normal 27.0-32.0 [facility] Comment on above: Result Comment: Canc elled via OM: Order cancelled - Patient discharged Performed By: #### L 500.2500, L100.0100 #### [facility] [address] [place], [address] MCHC Normal 32-36 [facility] Comment on above: Result Comment: Canc elled via OM: Order cancelled - Patient discharged Performed By: #### L 500.2500, L100.0100 #### [facility] [address] [place], [address] MCV Normal 80-94 [facility] Comment on above: Result Comment: Canc elled via OM: Order cancelled - Patient discharged Performed By: #### L 500.2500, L100.0100 #### [facility] [address] [place], [address] NEUT% Normal 47-70 [facility] Comment on above: Result Comment: Canc elled via OM: Order cancelled - Patient discharged Performed By: #### L 500.2500, L100.0100 #### [facility] [address] [place], [address] PLT Normal 150-450 [facility] Comment on above: Result Comment: Canc elled via OM: Order cancelled - Patient discharged Performed By: #### L 500.2500, L100.0100 #### [facility] [address] [place], [address] RBC Normal 4.6-6.2 [facility] Comment on above: Result Comment: Canc elled via OM: Order cancelled - Patient discharged Performed By: #### L 500.2500, L100.0100 #### [facility] [address] [place], [address] RDW CV Normal 11.6-14.6 [facility] Comment on above: Result Comment: Canc elled via OM: Order cancelled - Patient discharged Performed By: #### L 500.2500, L100.0100 #### [facility] [address] [place], [address] RDW SD Normal 35.1-43.9 [facility] Comment on above: Result Comment: Canc elled via OM: Order cancelled - Patient discharged Performed By: #### L 500.2500, L100.0100 #### [facility] [address] [place], [address] WBC Normal 4.4-11.0 [facility] Comment on above: Result Comment: Canc elled via OM: Order cancelled - Patient discharged Performed By: #### L 500.2500, L100.0100 #### [facility] [address] [place], [address] Basic Metabolic Profile (BMP )on 04-24-2023 BUN Normal 7-18 [facility] Comment on above: Result Comment: Canc elled via OM: Order cancelled - Patient discharged Performed By: #### L 500.2500, L100.0100 #### [facility] [address] [place], [address] BUN/CRE Normal 10-20 [facility] Comment on above: Result Comment: Canc elled via OM: Order cancelled - Patient discharged Performed By: #### L 500.2500, L100.0100 #### [facility] [address] [place], [address] CA,Total Normal 8.5-10.1 [facility] Comment on above: Result Comment: Canc elled via OM: Order cancelled - Patient discharged Performed By: #### L 500.2500, L100.0100 #### [facility] [address] [place], [address] CL Normal 98-107 [facility] Comment on above: Result Comment: Canc elled via OM: Order cancelled - Patient discharged Performed By: #### L 500.2500, L100.0100 #### [facility] [address] [place], [address] CO2 Normal 21.0-32.0 [facility] Comment on above: Result Comment: Canc elled via OM: Order cancelled - Patient discharged Performed By: #### L 500.2500, L100.0100 #### [facility] [address] [place], [address] CREAT,SERUM Normal 0.70-1.30 [facility] Comment on above: Result Comment: Canc elled via OM: Order cancelled - Patient discharged Performed By: #### L 500.2500, L100.0100 #### [facility] [address] [place], [address] EST GFR Normal >60 [facility] Comment on above: Result Comment: Canc elled via OM: Order cancelled - Patient discharged Performed By: #### L 500.2500, L100.0100 #### [facility] [address] [place], [address] EST GFR - AA Normal >60 [facility] Comment on above: Result Comment: Canc elled via OM: Order cancelled - Patient discharged Performed By: #### L 500.2500, L100.0100 #### [facility] [address] [place], [address] GAP Normal 5-15 [facility] Comment on above: Result Comment: Canc elled via OM: Order cancelled - Patient discharged Performed By: #### L 500.2500, L100.0100 #### [facility] [address] [place], [address] GLU Normal 74-106 [facility] Comment on above: Result Comment: Canc elled via OM: Order cancelled - Patient discharged Performed By: #### L 500.2500, L100.0100 #### [facility] [address] [place], [address] Potassium Normal 3.5-5.1 [facility] Comment on above: Result Comment: Canc elled via OM: Order cancelled - Patient discharged Performed By: #### L 500.2500, L100.0100 #### [facility] [address] [place], [address] Basic Metabolic Profile (BMP) Normal 136-145 [facility] Comment on above: Result Comment: Canc elled via OM: Order cancelled - Patient discharged Performed By: #### L 500.2500, L100.0100 #### [facility] [address] [place], [address] CBC W/Diff, Automatedon 12-0 -2022 Absolute Neut Normal 2.0-7.7 [facility] Comment on above: Result Comment: Canc elled via OM: Order cancelled - Patient discharged Performed By: #### L 500.2500, L100.0100 #### [facility] [address] [place], [address] HCT Normal 40-54 [facility] Comment on above: Result Comment: Canc elled via OM: Order cancelled - Patient discharged Performed By: #### L 500.2500, L100.0100 #### [facility] [address] [place], [address] HGB Normal 13.0-16.5 [facility] Comment on above: Result Comment: Canc elled via OM: Order cancelled - Patient discharged Performed By: #### L 500.2500, L100.0100 #### [facility] [address] [place], [address] MCH Normal 27.0-32.0 [facility] Comment on above: Result Comment: Canc elled via OM: Order cancelled - Patient discharged Performed By: #### L 500.2500, L100.0100 #### [facility] [address] [place], [address] MCHC Normal 32-36 [facility] Comment on above: Result Comment: Canc elled via OM: Order cancelled - Patient discharged Performed By: #### L 500.2500, L100.0100 #### [facility] [address] [place], [address] MCV Normal 80-94 [facility] Comment on above: Result Comment: Canc elled via OM: Order cancelled - Patient discharged Performed By: #### L 500.2500, L100.0100 #### [facility] [address] [place], [address] NEUT% Normal 47-70 [facility] Comment on above: Result Comment: Canc elled via OM: Order cancelled - Patient discharged Performed By: #### L 500.2500, L100.0100 #### [facility] [address] [place], [address] PLT Normal 150-450 [facility] Comment on above: Result Comment: Canc elled via OM: Order cancelled - Patient discharged Performed By: #### L 500.2500, L100.0100 #### [facility] [address] [place], [address] RBC Normal 4.6-6.2 [facility] Comment on above: Result Comment: Canc elled via OM: Order cancelled - Patient discharged Performed By: #### L 500.2500, L100.0100 #### [facility] [address] [place], [address] RDW CV Normal 11.6-14.6 [facility] Comment on above: Result Comment: Canc elled via OM: Order cancelled - Patient discharged Performed By: #### L 500.2500, L100.0100 #### [facility] [address] [place], [address] RDW SD Normal 35.1-43.9 [facility] Comment on above: Result Comment: Canc elled via OM: Order cancelled - Patient discharged Performed By: #### L 500.2500, L100.0100 #### [facility] [address] [place], [address] WBC Normal 4.4-11.0 [facility] Comment on above: Result Comment: Canc elled via OM: Order cancelled - Patient discharged Performed By: #### L 500.2500, L100.0100 #### [facility] [address] [place], [address] Basic Metabolic Profile (BMP )on 04-23-2023 BUN Normal 7-18 [facility] Comment on above: Result Comment: Canc elled via OM: Order cancelled - Patient discharged Performed By: #### L 500.2500, L100.0100 #### [facility] [address] [place], [address] BUN/CRE Normal 10-20 [facility] Comment on above: Result Comment: Canc elled via OM: Order cancelled - Patient discharged Performed By: #### L 500.2500, L100.0100 #### [facility] [address] [place], [address] CA,Total Normal 8.5-10.1 [facility] Comment on above: Result Comment: Canc elled via OM: Order cancelled - Patient discharged Performed By: #### L 500.2500, L100.0100 #### [facility] [address] [place], [address] CL Normal 98-107 [facility] Comment on above: Result Comment: Canc elled via OM: Order cancelled - Patient discharged Performed By: #### L 500.2500, L100.0100 #### [facility] [address] [place], [address] CO2 Normal 21.0-32.0 [facility] Comment on above: Result Comment: Canc elled via OM: Order cancelled - Patient discharged Performed By: #### L 500.2500, L100.0100 #### [facility] [address] [place], [address] CREAT,SERUM Normal 0.70-1.30 [facility] Comment on above: Result Comment: Canc elled via OM: Order cancelled - Patient discharged Performed By: #### L 500.2500, L100.0100 #### [facility] [address] [place], [address] EST GFR Normal >60 [facility] Comment on above: Result Comment: Canc elled via OM: Order cancelled - Patient discharged Performed By: #### L 500.2500, L100.0100 #### [facility] [address] [place], [address] EST GFR - AA Normal >60 [facility] Comment on above: Result Comment: Canc elled via OM: Order cancelled - Patient discharged Performed By: #### L 500.2500, L100.0100 #### [facility] [address] [place], [address] GAP Normal 5-15 [facility] Comment on above: Result Comment: Canc elled via OM: Order cancelled - Patient discharged Performed By: #### L 500.2500, L100.0100 #### [facility] [address] [place], [address] GLU Normal 74-106 [facility] Comment on above: Result Comment: Canc elled via OM: Order cancelled - Patient discharged Performed By: #### L 500.2500, L100.0100 #### [facility] [address] [place], [address] Potassium Normal 3.5-5.1 [facility] Comment on above: Result Comment: Canc elled via OM: Order cancelled - Patient discharged Performed By: #### L 500.2500, L100.0100 #### [facility] [address] [place], [address] Basic Metabolic Profile (BMP) Normal 136-145 [facility] Comment on above: Result Comment: Canc elled via OM: Order cancelled - Patient discharged Performed By: #### L 500.2500, L100.0100 #### [facility] [address] [place], [address] CBC W/Diff, Automatedon 12-0 Absolute Neut Normal 2.0-7.7 [facility] Comment on above: Result Comment: Canc elled via OM: Order cancelled - Patient discharged Performed By: #### L 500.2500, L100.0100 #### [facility] [address] [place], [address] HCT Normal 40-54 [facility] Comment on above: Result Comment: Canc elled via OM: Order cancelled - Patient discharged Performed By: #### L 500.2500, L100.0100 #### [facility] [address] [place], [address] HGB Normal 13.0-16.5 [facility] Comment on above: Result Comment: Canc elled via OM: Order cancelled - Patient discharged Performed By: #### L 500.2500, L100.0100 #### [facility] [address] [place], [address] MCH Normal 27.0-32.0 [facility] Comment on above: Result Comment: Canc elled via OM: Order cancelled - Patient discharged Performed By: #### L 500.2500, L100.0100 #### [facility] [address] [place], [address] MCHC Normal 32-36 [facility] Comment on above: Result Comment: Canc elled via OM: Order cancelled - Patient discharged Performed By: #### L 500.2500, L100.0100 #### [facility] [address] [place], [address] MCV Normal 80-94 [facility] Comment on above: Result Comment: Canc elled via OM: Order cancelled - Patient discharged Performed By: #### L 500.2500, L100.0100 #### [facility] [address] [place], [address] NEUT% Normal 47-70 [facility] Comment on above: Result Comment: Canc elled via OM: Order cancelled - Patient discharged Performed By: #### L 500.2500, L100.0100 #### [facility] [address] [place], [address] PLT Normal 150-450 [facility] Comment on above: Result Comment: Canc elled via OM: Order cancelled - Patient discharged Performed By: #### L 500.2500, L100.0100 #### [facility] [address] [place], [address] RBC Normal 4.6-6.2 [facility] Comment on above: Result Comment: Canc elled via OM: Order cancelled - Patient discharged Performed By: #### L 500.2500, L100.0100 #### [facility] [address] [place], [address] RDW CV Normal 11.6-14.6 [facility] Comment on above: Result Comment: Canc elled via OM: Order cancelled - Patient discharged Performed By: #### L 500.2500, L100.0100 #### [facility] [address] [place], [address] RDW SD Normal 35.1-43.9 [facility] Comment on above: Result Comment: Canc elled via OM: Order cancelled - Patient discharged Performed By: #### L 500.2500, L100.0100 #### [facility] [address] [place], [address] WBC Normal 4.4-11.0 [facility] Comment on above: Result Comment: Canc elled via OM: Order cancelled - Patient discharged Performed By: #### L 500.2500, L100.0100 #### [facility] [address] [place], [address] Basic Metabolic Profile (BMP )on 04-22-2023 BUN Normal 7-18 [facility] Comment on above: Result Comment: Canc elled via OM: Order cancelled - Patient discharged Performed By: #### L 500.2500, L100.0100 #### [facility] [address] [place], [address] BUN/CRE Normal 10-20 [facility] Comment on above: Result Comment: Canc elled via OM: Order cancelled - Patient discharged Performed By: #### L 500.2500, L100.0100 #### [facility] [address] [place], [address] CA,Total Normal 8.5-10.1 [facility] Comment on above: Result Comment: Canc elled via OM: Order cancelled - Patient discharged Performed By: #### L 500.2500, L100.0100 #### [facility] [address] [place], [address] CL Normal 98-107 [facility] Comment on above: Result Comment: Canc elled via OM: Order cancelled - Patient discharged Performed By: #### L 500.2500, L100.0100 #### [facility] [address] [place], [address] CO2 Normal 21.0-32.0 [facility] Comment on above: Result Comment: Canc elled via OM: Order cancelled - Patient discharged Performed By: #### L 500.2500, L100.0100 #### [facility] [address] [place], [address] CREAT,SERUM Normal 0.70-1.30 [facility] Comment on above: Result Comment: Canc elled via OM: Order cancelled - Patient discharged Performed By: #### L 500.2500, L100.0100 #### [facility] [address] [place], [address] EST GFR Normal >60 [facility] Comment on above: Result Comment: Canc elled via OM: Order cancelled - Patient discharged Performed By: #### L 500.2500, L100.0100 #### [facility] [address] [place], [address] EST GFR - AA Normal >60 [facility] Comment on above: Result Comment: Canc elled via OM: Order cancelled - Patient discharged Performed By: #### L 500.2500, L100.0100 #### [facility] [address] [place], [address] GAP Normal 5-15 [facility] Comment on above: Result Comment: Canc elled via OM: Order cancelled - Patient discharged Performed By: #### L 500.2500, L100.0100 #### [facility] [address] [place], [address] GLU Normal 74-106 [facility] Comment on above: Result Comment: Canc elled via OM: Order cancelled - Patient discharged Performed By: #### L 500.2500, L100.0100 #### [facility] [address] [place], [address] Potassium Normal 3.5-5.1 [facility] Comment on above: Result Comment: Canc elled via OM: Order cancelled - Patient discharged Performed By: #### L 500.2500, L100.0100 #### [facility] [address] [place], [address] Basic Metabolic Profile (BMP) Normal 136-145 [facility] Comment on above: Result Comment: Canc elled via OM: Order cancelled - Patient discharged Performed By: #### L 500.2500, L100.0100 #### [facility] [address] [place], [address] CBC W/Diff, Automatedon 12-0 -2022 Absolute Neut Normal 2.0-7.7 [facility] Comment on above: Result Comment: Canc elled via OM: Order cancelled - Patient discharged Performed By: #### L 500.2500, L100.0100 #### [facility] [address] [place], [address] HCT Normal 40-54 [facility] Comment on above: Result Comment: Canc elled via OM: Order cancelled - Patient discharged Performed By: #### L 500.2500, L100.0100 #### [facility] [address] [place], [address] HGB Normal 13.0-16.5 [facility] Comment on above: Result Comment: Canc elled via OM: Order cancelled - Patient discharged Performed By: #### L 500.2500, L100.0100 #### [facility] [address] [place], [address] MCH Normal 27.0-32.0 [facility] Comment on above: Result Comment: Canc elled via OM: Order cancelled - Patient discharged Performed By: #### L 500.2500, L100.0100 #### [facility] [address] [place], [address] MCHC Normal 32-36 [facility] Comment on above: Result Comment: Canc elled via OM: Order cancelled - Patient discharged Performed By: #### L 500.2500, L100.0100 #### [facility] [address] [place], [address] MCV Normal 80-94 [facility] Comment on above: Result Comment: Canc elled via OM: Order cancelled - Patient discharged Performed By: #### L 500.2500, L100.0100 #### [facility] [address] [place], [address] NEUT% Normal 47-70 [facility] Comment on above: Result Comment: Canc elled via OM: Order cancelled - Patient discharged Performed By: #### L 500.2500, L100.0100 #### [facility] [address] [place], [address] PLT Normal 150-450 [facility] Comment on above: Result Comment: Canc elled via OM: Order cancelled - Patient discharged Performed By: #### L 500.2500, L100.0100 #### [facility] [address] [place], [address] RBC Normal 4.6-6.2 [facility] Comment on above: Result Comment: Canc elled via OM: Order cancelled - Patient discharged Performed By: #### L 500.2500, L100.0100 #### [facility] [address] [place], [address] RDW CV Normal 11.6-14.6 [facility] Comment on above: Result Comment: Canc elled via OM: Order cancelled - Patient discharged Performed By: #### L 500.2500, L100.0100 #### [facility] [address] [place], [address] RDW SD Normal 35.1-43.9 [facility] Comment on above: Result Comment: Canc elled via OM: Order cancelled - Patient discharged Performed By: #### L 500.2500, L100.0100 #### [facility] [address] [place], [address] WBC Normal 4.4-11.0 [facility] Comment on above: Result Comment: Canc elled via OM: Order cancelled - Patient discharged Performed By: #### L 500.2500, L100.0100 #### [facility] [address] [place], [address] Absolute lymphocyte countOrd ered By: Juliana Dominguez on 04-21-2023 Lymphocytes Auto (Unsp spec) [#/Vol] 1.67 10*3/uL 0.83-4.51 [facility] Basic Metabolic Profile (BMP )on 04-21-2023 BUN/CRE 11.0 RATIO Normal 10-20 [facility] Comment on above: Performed By: #### L 500.2500, L100.0100 #### [facility] [address] [place], [address] CA,Total 8.2 mg/dL Low 8.5-10.1 [facility] Comment on above: Performed By: #### L 500.2500, L100.0100 #### [facility] [address] [place], [address] Chloride [Moles/Vol] 109 mmol/L High 98-107 [facility] Comment on above: Performed By: #### L 500.2500, L100.0100 #### [facility] [address] [place], [address] CO2 [Moles/Vol] 25.0 mmol/L Normal 21.0-32.0 [facility] Comment on above: Performed By: #### L 500.2500, L100.0100 #### [facility] [address] [place], [address] Creatinine [Mass/Vol] 0.82 mg/dL Normal 0.70-1.30 [facility] Comment on above: Result Comment: The validity of the calculated GFR GFRAA in patients over 70 years has not been determined. Clinical correlation is essential. Performed By: #### L 500.2500, L100.0100 #### [facility] [address] [place], [address] ECRCL 137.25 ml/min Normal [facility] Comment on above: Performed By: #### L 500.2500, L100.0100 #### [facility] [address] [place], [address] EST GFR - AA 142 mL/min Normal >60 [facility] Comment on above: Result Comment: Afri can [place]an GFR Calc Performed By: #### L 500.2500, L100.0100 #### [facility] [address] [place], [address] GAP 6 Normal 5-15 [facility] Comment on above: Performed By: #### L 500.2500, L100.0100 #### [facility] [address] [place], [address] GFR/1.73 sq M.predicted among non-blacks MDRD (S/P/Bld) [Vol rate/Area] 118 mL/min/{1.73_m2} Normal >60 [facility] Comment on above: Result Comment: Non- GFR Calc Performed By: #### L 500.2500, L100.0100 #### [facility] [address] [place], [address] Glucose [Mass/Vol] 99 mg/dL Normal 74-106 [facility] Comment on above: Performed By: #### L 500.2500, L100.0100 #### [facility] [address] [place], [address] Potassium [Moles/Vol] 4.0 mmol/L Normal 3.5-5.1 [facility] Comment on above: Performed By: #### L 500.2500, L100.0100 #### [facility] [address] [place], [address] Sodium [Moles/Vol] 140 mmol/L Normal 136-145 [facility] Comment on above: Performed By: #### L 500.2500, L100.0100 #### [facility] [address] [place], [address] Urea nitrogen [Mass/Vol] 9 mg/dL Normal 7-18 [facility] Comment on above: Performed By: #### L 500.2500, L100.0100 #### [facility] [address] [place], [address] Basophil percentageOrdered B y: Juliana Dominguez on 04-21-2023 Basophils/100 WBC (Bld) 0.7 % 0-1 [facility] Chloride [Moles/Vol] 109 mmol/L 98-107 [facility] Eosinophils/100 WBC (Bld) 4.5 % 0-5 [facility] Glucose [Mass/Vol] 99 mg/dL 74-106 [facility] Neutrophils (Bld) [#/Vol] 7.8 10*3/uL 2.0-7.7 [facility] Neutrophils/100 WBC (Bld) 68.1 % 47-70 [facility] Potassium [Moles/Vol] 4.0 mmol/L 3.5-5.1 [facility] Sodium [Moles/Vol] 140 mmol/L 136-145 [facility] WBC (Bld) [#/Vol] 11.4 10*3/uL 4.4-11.0 [facility] Blood erythrocytes count (nu mber/volume)Ordered By: Juliana Dominguez on 04-21-2023 RBC (Bld) [#/Vol] 3.88 10*6/uL 4.6-6.2 [facility] Blood hemoglobin measurement (mass/volume)Ordered By: Juliana Dominguez on 04-21-2023 Hemoglobin (Bld) [Mass/Vol] 11.3 g/dL 13.0-16.5 [facility] Blood lymphocytes/100 leukoc ytesOrdered By: Juliana Dominguez on 04-21-2023 Lymphocytes/100 WBC (Bld) 14.6 % 19-41 [facility] Blood monocytes/100 leukocyt esOrdered By: Juliana Dominguez on 04-21-2023 Monocytes/100 WBC (Bld) 11.8 % 0-10 [facility] Blood platelet mean volumeOr dered By: Juliana Dominguez on 04-21-2023 Platelet mean volume (Bld) [Entitic vol] 9.9 fL 6.2-12.0 [facility] CBC W/Diff, Automatedon Absolute Lymph 1.67 X10 3/uL Normal 0.83-4.51 [facility] Comment on above: Performed By: #### L 500.2500, L100.0100 #### [facility] [address] [place], [place], [address] Absolute Neut 7.8 X10 3/uL High 2.0-7.7 [facility] Comment on above: Performed By: #### L 500.2500, L100.0100 #### [facility] [address] [place], [address] Basophils/100 WBC (Bld) 0.7 % Normal 0-1 [facility] Comment on above: Performed By: #### L 500.2500, L100.0100 #### [facility] [address] [place], [address] Eosinophils/100 WBC (Bld) 4.5 % Normal 0-5 [facility] Comment on above: Performed By: #### L 500.2500, L100.0100 #### [facility] [address] [place], [address] Erythrocyte distribution width (RBC) [Ratio] 14.3 % Normal 11.6-14.6 [facility] Comment on above: Performed By: #### L 500.2500, L100.0100 #### [facility] [address] [place], [address] Hematocrit (Bld) [Volume fraction] 35.7 % Low 40-54 [facility] Comment on above: Performed By: #### L 500.2500, L100.0100 #### [facility] [address] [place], [address] Hemoglobin (Bld) [Mass/Vol] 11.3 g/dL Low 13.0-16.5 [facility] Comment on above: Performed By: #### L 500.2500, L100.0100 #### [facility] [address] [place], [address] IG% 0.300 Normal 0.0-0.9 [facility] Comment on above: Result Comment: IG% - Immature Granulocytes (promyelocytes, myelocytes and metamyelocytes) > 1% indicates that a LEFT SHIFT is Present. Performed By: #### L 500.2500, L100.0100 #### [facility] [address] [place], [address] Lymphocytes/100 WBC (Bld) 14.6 % Low 19-41 [facility] Comment on above: Performed By: #### L 500.2500, L100.0100 #### [facility] [address] [place], [address] MCH (RBC) [Entitic mass] 29.1 pg Normal 27.0-32.0 [facility] Comment on above: Performed By: #### L 500.2500, L100.0100 #### [facility] [address] [place], [address] MCHC (RBC) [Mass/Vol] 31.7 g/dL Low 32-36 [facility] Comment on above: Performed By: #### L 500.2500, L100.0100 #### [facility] [address] [place], [address] MCV (RBC) [Entitic vol] 92.0 fL Normal 80-94 [facility] Comment on above: Performed By: #### L 500.2500, L100.0100 #### [facility] [address] [place], [address] Monocytes/100 WBC (Bld) 11.8 % High 0-10 [facility] Comment on above: Performed By: #### L 500.2500, L100.0100 #### [facility] [address] [place], [address] Neutrophils/100 WBC (Bld) 68.1 % Normal 47-70 [facility] Comment on above: Performed By: #### L 500.2500, L100.0100 #### [facility] [address] [place], [address] Nucleated RBC (Bld) [#/Vol] 0 10*3/uL Normal 0-5 [facility] Comment on above: Performed By: #### L 500.2500, L100.0100 #### [facility] [address] [place], [address] Platelet mean volume (Bld) [Entitic vol] 9.9 fL Normal 6.2-12.0 [facility] Comment on above: Performed By: #### L 500.2500, L100.0100 #### [facility] [address] [place], [address] Platelets (Bld) [#/Vol] 263 10*3/uL Normal 150-450 [facility] Comment on above: Performed By: #### L 500.2500, L100.0100 #### [facility] [address] [place], [address] RBC (Bld) [#/Vol] 3.88 10*6/uL Low 4.6-6.2 [facility] Comment on above: Performed By: #### L 500.2500, L100.0100 #### [facility] [address] [place], [address] RDW SD 48.3 fl High 35.1-43.9 [facility] Comment on above: Performed By: #### L 500.2500, L100.0100 #### [facility] [address] [place], [address] WBC (Bld) [#/Vol] 11.4 10*3/uL High 4.4-11.0 [facility] Comment on above: Performed By: #### L 500.2500, L100.0100 #### [facility] [address] [place], [address] Determination of erythrocyte mean corpuscular volume (MCV)Ordered By: Juliana Dominguez on 04-21-2023 MCV (RBC) [Entitic vol] 92.0 fL 80-94 [facility] Discharge Instructionon Discharge Instruction [facility] Medical Records Department [address] [place] [address] Instructions for Home/Discharge Instructions 04/21/23 1216 MR#: [id number] Acct: [id number] Name: CHENCHO FUENTES Rep #: [id number] : 1995 27 From: Juliana Dominguez MD PCP: GABRIEL Smith Status:ADM IN Discharge Instructions Diet Discharge Diet: Low fat / Low cholesterol Activity Discharge Activity: Return to Normal Activity Weight Bearing Status: Weight bearing as tolerated Dressing / Incision Call your doctor if you observe: Fever of 101 or Higher, Shortness of breath, Dizziness, Swelling in the ankles, Chest pain and Increased palpitations (irregular heartbeat) Follow Up Care Test Results: Test results from this visit will be discussed in further detail at your follow-up appointment, if applicable. Discharge Plan Admission Admit Date/Time: 04/18/23 16:02 Primary Reason for Your Visit: cellulitis of the right knee Attending Provider: Juliana Dominguez Primary Care Provider: Zehra Mojica NP Consulting Providers: Jacky Rollins; Rock Craven Instructions Patient Instructions: Cellulitis Discharge Orders/Prescriptions Prescriptions: New doxycycline hyclate 100 mg tablet 100 mg PO BID Qty: 20 0RF cephalexin 500 mg capsule 500 mg PO Q8H Qty: 30 0RF Continued sotalol 80 mg tablet 80 mg PO BID Referrals / Follow Up: Jacky Rollins MD [Med Staff - Active Staff] - Within 2 Weeks Zehra Mojica NP, [employer] [Primary Care Provider] - Within 1 Week Disposition Disposition (needs filled in before D/C Order can be placed): Home, Self Care 04/21/23 1217 Juliana Dominguez MD CC: [employer] Zehra Mojica; Dr. Rock Craven DO; Dr. Jacky Rollins MD Signed Normal [facility] Hematocrit Auto (Bld) [Volum e fraction]Ordered By: Juliana Dominguez on 04-21-2023 Hematocrit (Bld) [Volume fraction] 35.7 % 40-54 [facility] - Chemistry and C hemistry - challengeOrdered By: Juliana Dominguez on 04-21-2023 CO2 [Moles/Vol] 25.0 mmol/L 21.0-32.0 [facility] Urea nitrogen/Creatinine [Mass ratio] 11.0 mg/mg 10-20 [facility] - Hematology and Cell countsOrdered By: Juliana Dominguez on 04-21-2023 Erythrocyte distribution width (RBC) [Entitic vol] 48.3 fL 35.1-43.9 [facility] Erythrocyte distribution width (RBC) [Ratio] 14.3 % 11.6-14.6 [facility] Immature granulocytes/100 WBC (Bld) 0.300 % 0.0-0.9 [facility] Comment on above: IG% - Immature Granu locytes (promyelocytes, myelocytes and metamyelocytes) > 1% indicates that a LEFT SHIFT is Present. MCH (RBC) [Entitic mass] 29.1 pg 27.0-32.0 [facility] Nucleated RBC/100 WBC (Bld) [Ratio] 0 % 0-5 [facility] MCHC Auto (RBC) [Mass/Vol]Or dered By: Juliana Dominguez on 04-21-2023 MCHC (RBC) [Mass/Vol] 31.7 g/dL 32-36 [facility] No Panel InformationOrdered By: Juliana Dominguez on 04-21-2023 Estimated Creatinine Clearance Calc 137.25 ml/min [facility] Estimated GFR (MDRD) Amer 142 mL/min >60 [facility] Comment on above: GFR Calc Estimated GFR (MDRD) Non-Af Amer 118 mL/min >60 [facility] Comment on above: Non- GFR Calc Platelets bldOrdered By: Margarita Dominguez on 04-21-2023 Platelets (Bld) [#/Vol] 263 10*3/uL 150-450 [facility] Serum or plasma calcium david urement (mass/volume)Ordered By: Juliana Dominguez on 04-21-2023 Calcium [Mass/Vol] 8.2 mg/dL 8.5-10.1 [facility] Serum or plasma creatinine m easurement (mass/volume)Ordered By: Juliana Dominguez on 04-21-2023 Creatinine [Mass/Vol] 0.82 mg/dL 0.70-1.30 [facility] Comment on above: The validity of the calculated GFR & GFRAA in patients over 70 years has not been determined. Clinical correlation is essential. Serum or plasma trough vanco mycin levelOrdered By: Rock Craven on 04-21-2023 Vancomycin trough [Mass/Vol] 15.5 ug/mL 5.0-15.0 [facility] Comment on above: VANCOMYCIN STANDARED DRUG THERAPY TROUGH LEVEL: 5.0 - 15.0 mg/L VANCOMYCIN HIGH INTENSITY THERAPY TROUGH LEVEL: 15.0 - 20.0 mg/L High Intensity therapy recommended for serious lifethreatening infections include:- Sfdxiinhyh-Bkeccctiyvjz-Xzxzpybbk (Ventilator/Healtcare Associated)-Sepsis PLEASE CONTACT PHARMACY SERVICES (#[id number]) FOR INTERPRETATIONOF RESULTS. Serum or plasma urea nitroge n measurement (mass/volume)Ordered By: Juliana Dominguez on 04-21-2023 Urea nitrogen [Mass/Vol] 9 mg/dL 7-18 [facility] Thin prep Papanicolaou smear with manual screeningOrdered By: Juliana Dominguez on 04-21-2023 Thin prep Papanicolaou smear with manual screening 6 5-15 [facility] Vancomycin, Trough Levelon 1 06-22-2022 VANCO, TROUGH 15.5 ug/mL High 5.0-15.0 [facility] Comment on above: Order Comment: Comme nts: Trough to be drawn 30 mins prior to scheduled dose 0530 Result Comment: VANC OMYCIN STANDARED DRUG THERAPY TROUGH LEVEL: 5.0 - 15.0 mg/L VANCOMYCIN HIGH INTENSITY THERAPY TROUGH LEVEL: 15.0 - 20.0 mg/L High Intensity therapy recommended for serious life threatening infections include: - Meningitis -Endocarditis -Pneumonia (Ventilator/Healtcare Associated) -Sepsis PLEASE CONTACT PHARMACY SERVICES (#[id number]) FOR INTERPRETATION OF RESULTS. Performed By: #### L 501.8820 #### [facility] [address] [place], [place], [id number] 12 Lead EKGon 04-20-2023 12 Lead EKG [facility] Cardiovascular Services [address] [place] [address] 12 Lead EKG 04/19/23 0117 MR#: [id number] Acct: [id number] Name: CHENCHO FUENTES Rep #: [id number] : 1995 27 From: Cory Serrano MD Attending Dr: Dr. Juliana Dominguez MD Status: AD M IN Ordering Dr: Rock Craven DO Date: 04/20/23 Location: [facility] Sex: M C Admitted: 04/18/23 Test Reason : REPEAT POST MEDICATION Blood Pressure : / mmHG Vent. Rate : 076 BPM Atrial Rate : 076 BPM P-R Int : 146 ms QRS Dur : 104 ms QT Int : 394 ms P-R-T Axes : 011 025 006 degrees QTc Int : 443 ms Normal sinus rhythm Nonspecific T wave abnormality Abnormal ECG When compared with ECG of 18-APR-2023 22:29, MANUAL COMPARISON REQUIRED, DATA IS UNCONFIRMED Confirmed by ZACH STEPHENS, CORY ([id number]), city editor NATASHA WILSON ([id number]) on 04/20/2023 9:14:42 AM Referred By: AKY Confirmed By:CORY SERRANO MD 04/20/2314 Date Cory Serrano MD CC: [employer] Zehra Mojica; Dr. Rock Craven DO; Dr. Juliana Dominguez MD Signed Normal [facility] Basic Metabolic Profile (BMP )on 04-20-2023 BUN/CRE 13.8 RATIO Normal 10-20 [facility] Comment on above: Performed By: #### L 500.2500, L100.0100 #### [facility] [address] [place], [address] CA,Total 7.8 mg/dL Low 8.5-10.1 [facility] Comment on above: Performed By: #### L 500.2500, L100.0100 #### [facility] [address] [place], [address] Chloride [Moles/Vol] 109 mmol/L High 98-107 [facility] Comment on above: Performed By: #### L 500.2500, L100.0100 #### [facility] [address] [place], [address] CO2 [Moles/Vol] 26.0 mmol/L Normal 21.0-32.0 [facility] Comment on above: Performed By: #### L 500.2500, L100.0100 #### [facility] [address] [place], [address] Creatinine [Mass/Vol] 0.73 mg/dL Normal 0.70-1.30 [facility] Comment on above: Result Comment: The validity of the calculated GFR GFRAA in patients over 70 years has not been determined. Clinical correlation is essential. Performed By: #### L 500.2500, L100.0100 #### [facility] [address] [place], [address] ECRCL 154.17 ml/min Normal [facility] Comment on above: Performed By: #### L 500.2500, L100.0100 #### [facility] [address] [place], [address] EST GFR - AA 164 mL/min Normal >60 [facility] Comment on above: Result Comment: Afri can Singaporean GFR Calc Performed By: #### L 500.2500, L100.0100 #### [facility] [address] [place], [address] GAP 6 Normal 5-15 [facility] Comment on above: Performed By: #### L 500.2500, L100.0100 #### [facility] [address] [place], [address] GFR/1.73 sq M.predicted among non-blacks MDRD (S/P/Bld) [Vol rate/Area] 135 mL/min/{1.73_m2} Normal >60 [facility] Comment on above: Result Comment: Non- GFR Calc Performed By: #### L 500.2500, L100.0100 #### [facility] [address] [place], [address] Glucose [Mass/Vol] 111 mg/dL High 74-106 [facility] Comment on above: Result Comment: Fast ing Glucose result from 100 to 125 mg/dL suggests IMPAIRED HOMEOSTASIS per A.D.A. criteria. Performed By: #### L 500.2500, L100.0100 #### [facility] [address] [place], [address] Potassium [Moles/Vol] 4.0 mmol/L Normal 3.5-5.1 [facility] Comment on above: Performed By: #### L 500.2500, L100.0100 #### [facility] [address] [place], [address] Sodium [Moles/Vol] 141 mmol/L Normal 136-145 [facility] Comment on above: Performed By: #### L 500.2500, L100.0100 #### [facility] [address] [place], [address] Urea nitrogen [Mass/Vol] 10 mg/dL Normal 7-18 [facility] Comment on above: Performed By: #### L 500.2500, L100.0100 #### [facility] [address] [place], [address] CBC W/Diff, Automatedon 12-0 PATH REV Reviewed Normal [facility] Comment on above: Result Comment: Neut rophilic leukocytosis. Clinical correlation suggested. Andrey Lion D.O. 04/20/23 AMENDED REPORT 04/20/23 1023 PATH REV previously reported as: Arabella dial Performed By: #### L 500.2500, L100.0100 #### [facility] [address] [place], [address] Absolute Lymph 1.68 X10 3/uL Normal 0.83-4.51 [facility] Comment on above: Performed By: #### L 500.2500, L100.0100 #### [facility] [address] [place], [address] Absolute Neut 9.4 X10 3/uL High 2.0-7.7 [facility] Comment on above: Performed By: #### L 500.2500, L100.0100 #### [facility] [address] [place], [address] Basophils/100 WBC (Bld) 0.5 % Normal 0-1 [facility] Comment on above: Performed By: #### L 500.2500, L100.0100 #### [facility] [address] [place], [address] Eosinophils/100 WBC (Bld) 1.8 % Normal 0-5 [facility] Comment on above: Performed By: #### L 500.2500, L100.0100 #### [facility] [address] [place], [address] Erythrocyte distribution width (RBC) [Ratio] 14.5 % Normal 11.6-14.6 [facility] Comment on above: Performed By: #### L 500.2500, L100.0100 #### [facility] [address] [place], [address] Hematocrit (Bld) [Volume fraction] 35.7 % Low 40-54 [facility] Comment on above: Performed By: #### L 500.2500, L100.0100 #### [facility] [address] [place], [address] Hemoglobin (Bld) [Mass/Vol] 11.4 g/dL Low 13.0-16.5 [facility] Comment on above: Performed By: #### L 500.2500, L100.0100 #### [facility] [address] [place], [address] IG% 0.200 Normal 0.0-0.9 [facility] Comment on above: Result Comment: IG% - Immature Granulocytes (promyelocytes, myelocytes and metamyelocytes) > 1% indicates that a LEFT SHIFT is Present. Performed By: #### L 500.2500, L100.0100 #### [facility] [address] [place], [address] Lymphocytes/100 WBC (Bld) 13.4 % Low 19-41 [facility] Comment on above: Performed By: #### L 500.2500, L100.0100 #### [facility] [address] [place], [address] MCH (RBC) [Entitic mass] 29.8 pg Normal 27.0-32.0 [facility] Comment on above: Performed By: #### L 500.2500, L100.0100 #### [facility] [address] [place], [address] MCHC (RBC) [Mass/Vol] 31.9 g/dL Low 32-36 [facility] Comment on above: Performed By: #### L 500.2500, L100.0100 #### [facility] [address] [place], [address] MCV (RBC) [Entitic vol] 93.2 fL Normal 80-94 [facility] Comment on above: Performed By: #### L 500.2500, L100.0100 #### [facility] [address] [place], [address] Monocytes/100 WBC (Bld) 9.3 % Normal 0-10 [facility] Comment on above: Performed By: #### L 500.2500, L100.0100 #### [facility] [address] [place], [address] Neutrophils/100 WBC (Bld) 74.8 % High 47-70 [facility] Comment on above: Performed By: #### L 500.2500, L100.0100 #### [facility] [address] [place], [address] Nucleated RBC (Bld) [#/Vol] 0 10*3/uL Normal 0-5 [facility] Comment on above: Performed By: #### L 500.2500, L100.0100 #### [facility] [address] [place], [address] Platelet mean volume (Bld) [Entitic vol] 9.5 fL Normal 6.2-12.0 [facility] Comment on above: Performed By: #### L 500.2500, L100.0100 #### [facility] [address] [place], [address] Platelets (Bld) [#/Vol] 243 10*3/uL Normal 150-450 [facility] Comment on above: Performed By: #### L 500.2500, L100.0100 #### [facility] [address] [place], [address] RBC (Bld) [#/Vol] 3.83 10*6/uL Low 4.6-6.2 [facility] Comment on above: Performed By: #### L 500.2500, L100.0100 #### [facility] [address] [place], [address] RDW SD 49.8 fl High 35.1-43.9 [facility] Comment on above: Performed By: #### L 500.2500, L100.0100 #### [facility] [address] [place], [address] WBC (Bld) [#/Vol] 12.5 10*3/uL High 4.4-11.0 [facility] Comment on above: Performed By: #### L 500.2500, L100.0100 #### [facility] [address] [place], [address] Synovial Fluid RBC, WBC AND Diffon 04-20-2023 PATH COM/SYFL Reviewed Normal [facility] Comment on above: Order Comment: Comme nts: right knee Result Comment: Nega tive for malignant cells. Andrey Lion D.O. 04/20/23 AMENDED REPORT 04/20/23 1015 PATH COM/SYFL previously reported as: May follow Performed By: #### L 500.2500, L100.0100 #### [facility] [address] [place], [place], [address] Vancomycin, Trough Levelon 1 06-21-2022 VANCO, TROUGH 9.0 ug/mL Normal 5.0-15.0 [facility] Comment on above: Order Comment: Comme nts: Trough to be drawn 30 mins prior to scheduled dose Result Comment: VANC OMYCIN STANDARED DRUG THERAPY TROUGH LEVEL: 5.0 - 15.0 mg/L VANCOMYCIN HIGH INTENSITY THERAPY TROUGH LEVEL: 15.0 - 20.0 mg/L High Intensity therapy recommended for serious life threatening infections include: - Meningitis -Endocarditis -Pneumonia (Ventilator/Healtcare Associated) -Sepsis PLEASE CONTACT PHARMACY SERVICES (#[id number]) FOR INTERPRETATION OF RESULTS. Performed By: #### L 500.2500, L100.0100 #### [facility] [address] [place], [place], [address] 12 Lead EKGon 04-19-2023 12 Lead EKG [facility] [address] [place] [address] 12 Lead EKG 04/19/23 1427 MR#: [id number] Acct: [id number] Name: CHENCHO FUENTES Rep #: [id number] : 1995 27 From: Cory Serrano MD Attending Dr: Dr. Juliana Dominguez MD Status: AD M IN Ordering Dr: Rock Craven DO Date: 04/19/23 Location: [facility] Sex: M C Admitted: 04/18/23 Test Reason : POST MED Blood Pressure : / mmHG Vent. Rate : 075 BPM Atrial Rate : 075 BPM P-R Int : 146 ms QRS Dur : 096 ms QT Int : 392 ms P-R-T Axes : 039 076 001 degrees QTc Int : 437 ms Normal sinus rhythm Normal ECG No previous ECGs available Confirmed by CORY SERRANO MD ([id number]), city editor NATASHA WILSON ([id number]) on 04/20/2023 1:58:27 PM Referred By: Confirmed By:CORY SERRANO MD 04/20/23 1358 Date Cory Serrano MD CC: [employer]-C Zehra Mojica; Dr. Rock Craven DO; Dr. Juliana Dominguez MD Signed Normal [facility] 12 Lead EKG [facility] [address] [place] [address] 12 Lead EKG 04/18/23 2229 MR#: [id number] Acct: [id number] Name: CHENCHO FUENTES Rep #: [id number] : 1995 27 From: Cory Serrano MD Attending Dr: Dr. Juliana Dominguez MD Status: AD M IN Ordering Dr: Rock Craven DO Date: 04/19/23 Location: [facility] Sex: M C Admitted: 04/18/23 Test Reason : PRE MEDICATION BASELINE Blood Pressure : / mmHG Vent. Rate : 076 BPM Atrial Rate : 076 BPM P-R Int : 148 ms QRS Dur : 100 ms QT Int : 386 ms P-R-T Axes : 021 022 -05 degrees QTc Int : 434 ms Normal sinus rhythm Normal ECG When compared with ECG of 23-SEP-2018 21:56, Premature supraventricular complexes are no longer Present Nonspecific T wave abnormality, worse in Inferior leads Confirmed by CORY SERRANO MD ([id number]), city editor NATASHA WILSON ([id number]) on 04/20/2023 9:14:54 AM Referred By: KAY Confirmed By:CORY SERRANO MD 04/20/23 0914 Date Cory Serrano MD CC: [employer] FEEDERMassimoC Zehra Mojica; Dr. Rock Craven DO; Dr. Juliana Dominguez MD Signed Normal [facility] Basophil percentageOrdered B y: Rock Craven on 04-19-2023 Bilirubin [Mass/Vol] 0.30 mg/dL Normal 0.20-1.00 [facility] Comment on above: For patients on eltr ombopag therapy, use of Dimension Pace TBIL is not recommended. Result Comment: For patients on eltrombopag therapy, use of Dimension Pace TBIL is not recommended. Performed By: #### L 500.2500, L100.0100 #### [facility] [address] [place], [address] Protein [Mass/Vol] 6.2 g/dL 6.4-8.2 [facility] CBC-Complete Blood Cnt No Di ffon 04-19-2023 Erythrocyte distribution width (RBC) [Ratio] 14.2 % Normal 11.6-14.6 [facility] Comment on above: Performed By: #### L 500.2500, L100.0100 #### [facility] [address] [place], [address] Hematocrit (Bld) [Volume fraction] 36.2 % Low 40-54 [facility] Comment on above: Performed By: #### L 500.2500, L100.0100 #### [facility] [address] [place], [address] Hemoglobin (Bld) [Mass/Vol] 11.8 g/dL Low 13.0-16.5 [facility] Comment on above: Performed By: #### L 500.2500, L100.0100 #### [facility] [address] [place], [address] MCH (RBC) [Entitic mass] 29.6 pg Normal 27.0-32.0 [facility] Comment on above: Performed By: #### L 500.2500, L100.0100 #### [facility] [address] [place], [address] MCHC (RBC) [Mass/Vol] 32.6 g/dL Normal 32-36 [facility] Comment on above: Performed By: #### L 500.2500, L100.0100 #### [facility] [address] [place], [address] MCV (RBC) [Entitic vol] 90.7 fL Normal 80-94 [facility] Comment on above: Performed By: #### L 500.2500, L100.0100 #### [facility] [address] [place], [address] Platelet mean volume (Bld) [Entitic vol] 10.5 fL Normal 6.2-12.0 [facility] Comment on above: Performed By: #### L 500.2500, L100.0100 #### [facility] [address] [place], [address] Platelets (Bld) [#/Vol] 256 10*3/uL Normal 150-450 [facility] Comment on above: Performed By: #### L 500.2500, L100.0100 #### [facility] [address] [place], [address] RBC (Bld) [#/Vol] 3.99 10*6/uL Low 4.6-6.2 [facility] Comment on above: Performed By: #### L 500.2500, L100.0100 #### [facility] [address] [place], [address] RDW SD 47.4 fl High 35.1-43.9 [facility] Comment on above: Performed By: #### L 500.2500, L100.0100 #### [facility] [address] [place], [address] WBC (Bld) [#/Vol] 17.8 10*3/uL High 4.4-11.0 [facility] Comment on above: Performed By: #### L 500.2500, L100.0100 #### [facility] [address] [place], [address] Comprehensive Metabolic Prof ilon 04-19-2023 ALK P 73 U/L Normal 45-117 [facility] Comment on above: Performed By: #### L 500.2500, L100.0100 #### [facility] [address] [place], [address] AST [Catalytic activity/Vol] 15 U/L Normal 15-37 [facility] Comment on above: Performed By: #### L 500.2500, L100.0100 #### [facility] [address] [place], [address] BUN/CRE 21.9 RATIO High 10-20 [facility] Comment on above: Performed By: #### L 500.2500, L100.0100 #### [facility] [address] [place], [address] CA,Total 8.3 mg/dL Low 8.5-10.1 [facility] Comment on above: Performed By: #### L 500.2500, L100.0100 #### [facility] [address] [place], [address] Chloride [Moles/Vol] 105 mmol/L Normal 98-107 [facility] Comment on above: Performed By: #### L 500.2500, L100.0100 #### [facility] [address] [place], [address] CO2 [Moles/Vol] 27.0 mmol/L Normal 21.0-32.0 [facility] Comment on above: Performed By: #### L 500.2500, L100.0100 #### [facility] [address] [place], [address] Creatinine [Mass/Vol] 0.87 mg/dL Normal 0.70-1.30 [facility] Comment on above: Result Comment: The validity of the calculated GFR GFRAA in patients over 70 years has not been determined. Clinical correlation is essential. Performed By: #### L 500.2500, L100.0100 #### [facility] [address] [place], [address] ECRCL 129.36 ml/min Normal [facility] Comment on above: Performed By: #### L 500.2500, L100.0100 #### [facility] [address] [place], [address] EST GFR - AA 134 mL/min Normal >60 [facility] Comment on above: Result Comment: Afri can Singaporean GFR Calc Performed By: #### L 500.2500, L100.0100 #### [facility] [address] [place], [address] GAP 4 Low 5-15 [facility] Comment on above: Performed By: #### L 500.2500, L100.0100 #### [facility] [address] [place], [address] GFR/1.73 sq M.predicted among non-blacks MDRD (S/P/Bld) [Vol rate/Area] 110 mL/min/{1.73_m2} Normal >60 [facility] Comment on above: Result Comment: Non- GFR Calc Performed By: #### L 500.2500, L100.0100 #### [facility] [address] [place], [address] Glucose [Mass/Vol] 127 mg/dL High 74-106 [facility] Comment on above: Result Comment: Fast ing Glucose result greater than or equal to 126 mg/dL suggests DIABETES MELLITUS per A.D.A. criteria. Performed By: #### L 500.2500, L100.0100 #### [facility] [address] [place], [address] Potassium [Moles/Vol] 3.4 mmol/L Low 3.5-5.1 [facility] Comment on above: Performed By: #### L 500.2500, L100.0100 #### [facility] [address] [place], [address] Sodium [Moles/Vol] 136 mmol/L Normal 136-145 [facility] Comment on above: Performed By: #### L 500.2500, L100.0100 #### [facility] [address] [place], [address] T PROT 6.2 g/dL Low 6.4-8.2 [facility] Comment on above: Performed By: #### L 500.2500, L100.0100 #### [facility] [address] [place], [address] Urea nitrogen [Mass/Vol] 19 mg/dL High 7-18 [facility] Comment on above: Performed By: #### L 500.2500, L100.0100 #### [facility] [address] [place], [address] Comprehensive Metabolic Prof ilOrdered By: Rock Craven on 04-19-2023 ALT [Catalytic activity/Vol] 22 U/L Normal 16-61 [facility] Comment on above: Performed By: #### L 500.2500, L100.0100 #### [facility] [address] [place], [address] Globulin (S) [Mass/Vol] 3.3 g/dL Normal 2.2-4.2 [facility] Comment on above: Performed By: #### L 500.2500, L100.0100 #### [facility] [address] [place], [address] Laboratory - Chemistry and C hemistry - challengeOrdered By: Rock Craven on 04-19-2023 ALP [Catalytic activity/Vol] 73 U/L 45-117 [facility] Serum or plasma albumin david urement (mass/volume)Ordered By: Rock Craven on 04-19-2023 Albumin [Mass/Vol] 2.9 g/dL Low 3.2-5.0 [facility] Comment on above: Performed By: #### L 500.2500, L100.0100 #### [facility] [address] [facility] [address] Serum or plasma albumin/glob ulin mass ratioOrdered By: Rock Craven on 04-19-2023 Albumin/Globulin [Mass ratio] 0.9 {ratio} Normal 0.9-2.4 [facility] Comment on above: Performed By: #### L 500.2500, L100.0100 #### [facility] [address] [place], [address] Thin prep Papanicolaou smear with manual screeningOrdered By: Rock Craven on 04-19-2023 Thin prep Papanicolaou smear with manual screening 15 U/L 15-37 [facility] 12 Lead EKGon 04-18-2023 12 Lead EKG [facility] Cardiovascular Services [address] [place] [address] 12 Lead EKG 04/20/23 0019 MR#: [id number] Acct: [id number] Name: CHENCHO FUENTES Rep #: [id number] : 1995 27 From: Cory Serrano MD Attending Dr: Dr. Juliana Dominguez MD Status: AD M IN Ordering Dr: Rock Craven DO Date: 04/18/23 Location: [facility] Sex: M C Admitted: 04/18/23 Test Reason : Blood Pressure : / mmHG Vent. Rate : 073 BPM Atrial Rate : 073 BPM P-R Int : 142 ms QRS Dur : 094 ms QT Int : 384 ms P-R-T Axes : 027 033 025 degrees QTc Int : 423 ms Poor data quality, interpretation may be adversely affected Normal sinus rhythm Normal ECG When compared with ECG of 19-APR-2023 01:17, MANUAL COMPARISON REQUIRED, DATA IS UNCONFIRMED Confirmed by ZACH STEPHENS, CORY ([id number]), city editor NATASHA WILSON ([id number]) on 04/20/2023 1:57:48 PM Referred By: KAY Confirmed By:CORY SERRAON MD 04/20/23 1357 Date Cory Serrano MD CC: [employer]-C Zehra Mojica; Dr. Rock Craven DO; Dr. Juliana Dominguez MD Signed Normal [facility] Absolute lymphocyte countOrd ered By: Alisa Wesley on 04-18-2023 Lymphocytes Auto (Unsp spec) [#/Vol] 1.82 10*3/uL 0.83-4.51 [facility] Basic Metabolic Profile (BMP )on 04-18-2023 BUN/CRE 22.1 RATIO High 10-20 [facility] Comment on above: Performed By: #### L 500.2500, L100.0100 #### [facility] [address] [place], [address] CA,Total 8.7 mg/dL Normal 8.5-10.1 [facility] Comment on above: Performed By: #### L 500.2500, L100.0100 #### [facility] [address] [place], [address] Chloride [Moles/Vol] 101 mmol/L Normal 98-107 [facility] Comment on above: Performed By: #### L 500.2500, L100.0100 #### [facility] [address] [place], [address] CO2 [Moles/Vol] 31.0 mmol/L Normal 21.0-32.0 [facility] Comment on above: Performed By: #### L 500.2500, L100.0100 #### [facility] [address] [place], [address] Creatinine [Mass/Vol] 1.13 mg/dL Normal 0.70-1.30 [facility] Comment on above: Result Comment: The validity of the calculated GFR GFRAA in patients over 70 years has not been determined. Clinical correlation is essential. Performed By: #### L 500.2500, L100.0100 #### [facility] [address] [place], [address] ECRCL 99.59 ml/min Normal [facility] Comment on above: Performed By: #### L 500.2500, L100.0100 #### [facility] [address] [place], [address] EST GFR - AA 98 mL/min Normal >60 [facility] Comment on above: Result Comment: Afri can Singaporean GFR Calc Performed By: #### L 500.2500, L100.0100 #### [facility] [address] [place], [address] GAP 4 Low 5-15 [facility] Comment on above: Performed By: #### L 500.2500, L100.0100 #### [facility] [address] [place], [address] GFR/1.73 sq M.predicted among non-blacks MDRD (S/P/Bld) [Vol rate/Area] 81 mL/min/{1.73_m2} Normal >60 [facility] Comment on above: Result Comment: Non- GFR Calc Performed By: #### L 500.2500, L100.0100 #### [facility] [address] [place], [address] Glucose [Mass/Vol] 133 mg/dL High 74-106 [facility] Comment on above: Result Comment: Fast ing Glucose result greater than or equal to 126 mg/dL suggests DIABETES MELLITUS per A.D.A. criteria. Performed By: #### L 500.2500, L100.0100 #### [facility] [address] [place], [address] Potassium [Moles/Vol] 3.5 mmol/L Normal 3.5-5.1 [facility] Comment on above: Result Comment: Slig ht Hemolysis, Result may be falsely increased. Performed By: #### L 500.2500, L100.0100 #### [facility] [address] [place], [address] Sodium [Moles/Vol] 136 mmol/L Normal 136-145 [facility] Comment on above: Performed By: #### L 500.2500, L100.0100 #### [facility] [address] [place], [address] Urea nitrogen [Mass/Vol] 25 mg/dL High 7-18 [facility] Comment on above: Performed By: #### L 500.2500, L100.0100 #### [facility] [address] [place], [address] Basophil percentageOrdered B y: Alisa Wesley on 04-18-2023 Basophils/100 WBC (Bld) 0.3 % 0-1 [facility] Eosinophils/100 WBC (Bld) 1.1 % 0-5 [facility] Neutrophils (Bld) [#/Vol] 19.6 10*3/uL 2.0-7.7 [facility] Neutrophils/100 WBC (Bld) 83.2 % 47-70 [facility] WBC (Bld) [#/Vol] 23.6 10*3/uL 4.4-11.0 [facility] Blood erythrocytes count (nu mber/volume)Ordered By: Alisa Wesley on 04-18-2023 RBC (Bld) [#/Vol] 4.48 10*6/uL 4.6-6.2 [facility] Blood hemoglobin measurement (mass/volume)Ordered By: Alisa Wesley on 04-18-2023 Hemoglobin (Bld) [Mass/Vol] 13.6 g/dL 13.0-16.5 [facility] Blood lymphocytes/100 leukoc ytesOrdered By: Jacky Rollins on 04-18-2023 Lymphocytes/100 WBC (Bld) 10 % [facility] Blood lymphocytes/100 leukoc ytesOrdered By: Alisa Wesley on 04-18-2023 Lymphocytes/100 WBC (Bld) 7.7 % 19-41 [facility] Blood manual differential co mment interpretation (narrative result)Ordered By: Alisa Wesley on 04-18-2023 Manual differential comment Pb (Bld) [Interp] SCANNED [facility] Blood monocytes/100 leukocyt esOrdered By: Alisa Wesley on 04-18-2023 Monocytes/100 WBC (Bld) 7.2 % 0-10 [facility] Blood platelet mean volumeOr dered By: Alisa Wesley on 04-18-2023 Platelet mean volume (Bld) [Entitic vol] 10.0 fL 6.2-12.0 [facility] CNOVon 04-18-2023 [facility] ([id number]) 1995 M Date Time Provider Department 04/18/23 1:30 PM GAMA DIAMOND [facility] During your visit today, we recorded the following information about you: Temperature Pulse Respiration Blood pressure 97.6 degrees 76/minute 16/minute 118/66 Weight 99.8 kg Gama Diamond APRN.CNP 04/18/2023 2:35 PM Signed Subjective HPI HPI Chencho Juvencio Saji is a 27 year old male who presents today for CC of severe right knee pain, fell 2 days ago, now red/swollen and minimal rom d/t pain. Has tried otc medication for relief. Denies fever. .Patient presents with: Knee Pain: Swollen right knee x2days PAST MEDICAL HISTORY Diagnosis Date Asthma Genital herpes Hyperglycemia Tobacco abuse No past surgical history on file. ALLERGIES Bee Sting and Codeine MEDICATIONS apixaban (ELIQUIS) 5 mg tab tab(s) Take 1 tablet by mouth twice daily. metoprolol succinate ER (TOPROL XL) 50 mg 24 hr tablet Take 1 tablet by mouth once daily. flecainide (TAMBOCOR) 100 mg tablet One tablet at onset of sustained palpitations. May repeat every 12 hours. No family history on file. ROS Objective Blood pressure 118/66, pulse 76, temperature 36.4 ?C (97.6 ?F), resp. rate 16, weight 99.8 kg (220 lb), SpO2 98 %. Physical Exam Constitutional: General: He is not in acute distress. Appearance: He is not toxic-appearing or diaphoretic. HENT: Head: Normocephalic and atraumatic. Cardiovascular: Pulses: Dorsalis pedis pulses are 1+ on the right side. Posterior tibial pulses are 1+ on the right side. Pulmonary: Effort: Pulmonary effort is normal. No accessory muscle usage or respiratory distress. Musculoskeletal: Legs: Neurological: Mental Status: He is alert and oriented to person, place, and time. ASSESSMENT/PLAN: 1. Injury of right knee, initial encounter - ICD9: 959.7, ICD10: S89.91XA Will refer to ER, concerns for septic joint Unclear what ER will go to at this time. Gama Diamond APRN.DARIO Allergies As of Date: 04/18/2023 Noted Allergy Reaction BEE STING 04/06/2017 10 - Anaphylaxis CODEINE 04/06/2017 4 - Hives Date Reviewed: 04/18/2023 Reviewed by: Gama Diamond APRN.ADJUNCT PROFESSOR OF VOICE - Fully Assessed Reason for Visit: Knee Pain [132] Cmt: Swollen right knee x2days Primary Visit Diagnosis:Injury of right knee, initial encounter [S89.91XA] Prescriptions as of 04/18/2023 - apixaban (ELIQUIS) 5 mg tab tab(s) Take 1 tablet by mouth twice daily. - metoprolol succinate ER (TOPROL XL) 50 mg 24 hr tablet Take 1 tablet by mouth once daily. - flecainide (TAMBOCOR) 100 mg tablet One tablet at onset of sustained palpitations. May repeat every 12 hours. Problem List As Of Date 04/18/2023 Noted Resolved Chest pain [R07.9] 04/06/2017 Palpitations [R00.2] 04/06/2017 Paroxysmal atrial fibrillation (HCC) [I48.0] 04/06/2017 Tobacco abuse [Z72.0] 04/06/2017 Mild intermittent asthma with exacerbation [J45*04/06/2017 Encounter Status:Closed by GAMA DIAMOND on 04/18/23 Normal [facility] CRPon 04-18-2023 C-REACTIVE PROT 186.00 mg/L High 0.0-3.0 [facility] Comment on above: Result Comment: C-Re active Protein (CRP) provides useful information for the diagnosis, therapy and monitoring of inflammatory processes and associated diseases. For the evaluation of Relative Risk for Cardiovascular Disease, a High Sensitivity CRP (HSCRP) should be ordered. Performed By: #### L 500.2500, L100.0100 #### [facility] [address] [place], [address] Color of Synovial fluidOrder ed By: Jacky Rollins on 04-18-2023 Color (Syn fld) Red Pale Yellow [facility] Consultation - Orthopedicson 04-18-2023 Consultation - Orthopedics [facility] Medical Records Department [address] [place] [address] Consultation - Orthopedics 04/18/23 2200 MR#: [id number] Acct: [id number] Name: CHENCHO FUENTES Rep #: [id number] : 1995 27 From: Jacky Rollins MD PCP: GABRIEL Smith Status:ADM IN Location: [facility] [id number] HPI Consult Data Date of Consult: 04/18/23 HPI Narrative Reason for Consultation: Pain with overlying erythema. HPI Narrative: CHENCHO FUENTES, is a 27 M With history of atrial fibrillation cardioverted who presents With right knee pain. Patient fell 2 days ago and developed an abrasion over the anterior knee. He presented to an urgent care today who recommended he proceed to the emergency department. Emergency room physician evaluated the patient patient reported pain over the front of the knee with range of motion. Did have elevated white blood cell count and significant erythema over the anterior knee as well as swelling over the anterior knee. Patient reports pain with flexion. Patient is not currently on any blood thinners. Patient notes symptoms developed over the last 48 hours. Pain with weightbearing. Currently today reports 8 out of 10 pain. [facility] Medical History Asthma History of atrial fibrillation Palpitations Sinus tachycardia Home Medications sotalol 80 mg tablet 80 mg PO BID Ablation 04/18/23 [History Last Taken 04/18/23] Allergy/AdvReac Type Severity Reaction Status Date / Time codeine Allergy Hives Verified 04/18/23 13:55 Family History no significant family his no significant family history Surgical History H/O cardiac radiofrequency ablation (04/06/17) Social History Smoking Status: Former smoker substance use type: does not use ROS Constitutional Constitutional: Reports as per HPI Eyes Eyes: Reports as per HPI ENT HEENT: Reports as per HPI Cardiovascular Cardiovascular: Reports as per HPI Respiratory/Chest Respiratory/Chest: Reports as per HPI Gastrointestinal Gastrointestinal: Reports as per HPI Genitourinary Genitourinary: Reports as per HPI Musculoskeletal Musculoskeletal: Reports as per HPI Integumentary Integumentary: Reports as per HPI Neurologic Neurologic: Reports as per HPI Psychiatric Psychiatric: Reports as per HPI Endocrine Endocrinology: Reports as per HPI Hematologic/Lymphati c Hematologic/Lymphati c: Reports as per HPI Allergic/Immunologic Allergic/Immunologic : Reports as per HPI Vital Signs Vital Signs Vital Signs: 04/18/23 13:53 04/18/23 15:53 04/18/23 17:15 Temperature 97.8 F 98.0 F Temperature Source Temporal Oral Pulse Rate 73 68 Respiratory Rate 16 18 18 Respiratory Effort Respiratory Depth Respiratory Pattern Blood Pressure 117/70 120/106 H Blood Pressure Mean 85 110 Blood Pressure Source Monitor Blood Pressure Position Semi-Fowlers Blood Pressure Location Right Arm Pulse Ox 99 100 Oxygen Delivery Method Room Air Room Air 04/18/23 17:30 Temperature Temperature Source Pulse Rate Respiratory Rate Respiratory Effort Normal Non-Labored Respiratory Depth Normal Respiratory Pattern Normal Blood Pressure Blood Pressure Mean Blood Pressure Source Blood Pressure Position Blood Pressure Location Pulse Ox Oxygen Delivery Method Room Air Weight Weight: 220 lb 3.869 oz Body Mass Index (BMI) 31.6 Physical Exam Const alert and oriented x3 General Appearance: cooperative HEENT normocephalic and head/scalp atraumatic Eyes PERRL Neck no JVD Resp normal respiratory effort Cardio Cardio Narrative: regular pulse GI non-distended Extremity Extremity Narrative: Right lower extremity: Pain and swelling over the anterior knee with tenderness palpation. Patient has a small abrasion of the anterior knee. Erythema over the anterior knee spreading down the anterior tibia. Patient is able to flex knee to 90 degrees with pain anteriorly. Tolerates short arc range of motion on exam testing. Strength exam deferred secondary to pain. Increased warmth of her skin. Moderate swelling of soft tissues anterior to the knee.Neurovascular intact distally. Skin Skin Narrative: Anterior [id number] female. Neuro CN's II-XII intact bilaterally Psych affect normal Medical Records Data Attestation: I reviewed the patient's medical records Lab / Micro Data Attestation: I reviewed the patient's lab results. 04/18/23 14:22 04/18/23 17:47 Labs: Laboratory Results - last 24 hr 04/18/23 14:22: WBC 23.6 H, RBC 4.48 L, Hgb 13.6, Hct 40.7, MCV 90.8, MCH 30.4, MCHC 33.4, RDW Std (more content not included)... Normal [facility] Determination of appearance of synovial fluidOrdered By: Jacky Rollins on 04-18-2023 Appearance (Syn fld) Cloudy CLEAR [facility] Determination of erythrocyte mean corpuscular volume (MCV)Ordered By: Alisa Wesley on 04-18-2023 MCV (RBC) [Entitic vol] 90.8 fL 80-94 [facility] Emergency Department Summary on 04-18-2023 Emergency Department Summary [facility] Medical Records Department [address] [place] [address] Emergency Department Summary 04/18/23 MR#: [id number] Acct: [id number] Name: CHENCHO FUENTES Rep #: [id number] : 1995 27 From: Alisa Wesley DO PCP: Zehra Mojica, [employer] Status:ADM IN Location: [place] [address] HPI History of Present Illness Chief Complaint: Lower Extremity Injury Detail of Chief Complaint: Right knee pain/injury/erythema Informant: patient, parent and family Narrative Narrative: Patient presents to the emergency department with complaint of pain to the right knee. Patient states that he fell 2 nights ago onto the knee while in the driveway injuring it. He states it was sore the next day but then it became more red and hot and more painful. He was seen at urgent care and referred to the emergency department for evaluation. Urgent care had concern for possible joint infection. Patient denies fever or chills or sweats. PFSH PFS Medical History Asthma History of atrial fibrillation Palpitations Sinus tachycardia Home Medications metoprolol tartrate 25 mg tablet 50 mg PO BID 03/21/19 [History Last Taken Unknown] cephalexin 500 mg capsule 500 mg PO Q12 #10 CAPSULES 09/06/22 [Rx Last Taken Unknown] Allergy/AdvReac Type Severity Reaction Status Date / Time codeine Allergy Hives Verified 04/18/23 13:55 Surgical History H/O cardiac radiofrequency ablation (04/06/17) Social History Smoking Status: Former smoker substance use type: does not use ROS ROS ED Review of Systems ROS Unobtainable: other Constitutional Constitutional ED: Reports lethargy; Denies chills, fever(s), sweats or weight loss Eyes Eyes: Denies blurry vision, change in vision or diplopia ENT ENT ED: Denies rhinorrhea or sore throat Cardiovascular Cardiovascular: Denies chest pain, orthopnea or racing heartbeat Respiratory/Chest Respiratory/Chest: Denies cough, dyspnea, dyspnea on exertion, orthopnea or sputum Gastrointestinal Gastrointestinal: Denies abdominal pain, diarrhea, nausea or vomiting Genitourinary Genitourinary ED: Denies dysuria, hematuria or urinary frequency Musculoskeletal Musculoskeletal: Reports other Details: Knee pain, redness, swelling ; Denies arthralgias, back pain, myalgias or neck pain Integumentary Denies abscess, Abrasions or rash Neurologic Neurologic: Denies headache(s) or weakness Psychiatric Psychiatric: Denies anxiety, depression or suicidal thoughts Endocrine Endocrinology: Denies polydipsia, polyphagia or polyuria Hematologic/Lymphati c Hematologic/Lymphati c: Denies easy bleeding, easy bruising or lymphadenopathy Allergic/Immunologic Allergic/Immunologic ED: Denies mouth swelling, tongue swelling or urticaria EXAM Physical Exam Const Vital Signs: 04/18/23 13:53 Temperature 97.8 F Temperature Source Temporal Pulse Rate 73 Respiratory Rate 16 Blood Pressure 117/70 Blood Pressure Mean 85 Pulse Ox 99 Oxygen Delivery Method Room Air Positive well nourished and well developed General Appearance ED: well developed and NAD HEENT Reports TM's clear and moist mucous membranes normocephalic and atraumatic; Negative for trauma or tenderness Tympanic Membrane ED: Yes TM's clear Eyes PERRL and EOMs intact bilaterally General Eye ED: Negative for pale conjunctiva or scleral icterus Neck no lymphadenopathy, supple and no JVD General: Negative for tenderness Chest Wall inspection of chest normal and palpation of chest normal Chest: Negative for tenderness Resp normal respiratory effort and clear to auscultation bilaterally Effort and Inspection: Negative for respiratory distress or pain with movement Auscultation: Negative for rhonchi, wheezes or diminished lung sounds Cardio regular rate, regular rhythm, S1 normal heart sound, S2 normal heart sound and no murmurs Peripheral Pulses: pulses 2+ throughout GI normal to inspection, nondistended, normoactive bowel sounds, soft to palpation, non-tender, non- distended and no masses Back/Spine no CVA tenderness and no thoracic nor lumbar tenderness Extremity Extremity Narrative: Elevation of the right knee reveals diffuse erythema to the anterior aspect and lateral aspect of the knee and onto the anterior proximal tibia. Patient has significant pain with range of motion he has decreased range of motion secondary to pain and swelling. Neurovascular intact distally. Mild joint effusion. General Extremety ED: Negative for edema General Extremity: Negative for edema Neuro oriented x3, CN's II-XII intact bilaterally, no sensory deficits noted and gait normal Sensorium / Orientati (more content not included)... Normal [facility] Erythrocyte Sed Rateon 04-18 SED RATE 14 mm/hr Normal 0-20 [facility] Comment on above: Performed By: #### L 500.2500, L100.0100 #### [facility] [place], [address] Erythrocyte sedimentation ra teOrdered By: Alisa Wesley on 04-18-2023 ESR (Bld) [Velocity] 14 mm/h 0-20 [facility] H AND P Exam - Hospitaliston 04-18-2023 H&P Exam - Hospitalist [facility] Medical Records Department [address] [place] [address] H P Exam - Hospitalist 04/18/23 1602 MR#: [id number] Acct: [id number] Name: CHENCHO FUENTES Rep #: [id number] : 1995 27 From: Rock Craven DO PCP: Zehra Mojica, [employer] Status:ADM IN Location: [facility] [id number] HPI - General General Date of Admission: 04/18/23 Date of Service: 04/18/23 Chief Complaint: Right knee swelling and pain HPI Narrative CHENCHO FUENTES, is a 27 M who presented to [facility] ED on 04/18/2023 with worsening right knee pain and swelling. Patient seen at bedside in the ED. Sitting in bed, conversing normally. Does appear to be in mild distress due to right knee pain. Patient states he fell onto his right knee 2 days ago while working and had mild scraping on the knee. Since then, patient stat es that there is been development of significant redness around the knee and working down to the mid lower leg, as well as swelling of the knee joint. Has also had a significant amount of pain with a ny movement over the past day or so. 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 Patient has no previous history of knee issues. Only medical history for patient is A-fib, follows with cardiology in [place] and is taking sotalol for this. Not taking any other medications at home. Otherwise denies any fevers or chills, chest pain, shortness of breath, abdominal pain. No other acute concerns at this time. [facility] Medical History Asthma History of atrial fibrillation Palpitations Sinus tachycardia Home Medications sotalol 80 mg tablet 80 mg PO BID Ablation 04/18/23 [History Last Taken 04/18/23] Allergy/AdvReac Type Severity Reaction Status Date / Time codeine Allergy Hives Verified 04/18/23 13:55 Surgical History H/O cardiac radiofrequency ablation (04/06/17) Social History Smoking Status: Former smoker substance use type: does not use ROS Constitutional Constitutional: Denies chills, fatigue, fever(s) or weakness Eyes Eyes: Denies change in vision Cardiovascular Cardiovascular: Denies chest pain Respiratory/Chest Respiratory/Chest: Denies cough Gastrointestinal Gastrointestinal: Denies abdominal pain Musculoskeletal Musculoskeletal: Reports arthralgias, joint pain and joint swelling Neurologic Neurologic: Reports abnormal gait; Denies confusion, dizziness, focal weakness, headache(s) or numbness Vital Signs Vital Signs Vital Signs: 04/18/23 13:53 Temperature 97.8 F Temperature Source Temporal Pulse Rate 73 Respiratory Rate 16 Blood Pressure 117/70 Blood Pressure Mean 85 Pulse Ox 99 Oxygen Delivery Method Room Air Weight Weight: 99.79 kg Body Mass Index (BMI) 31.5 Physical Exam Const alert and oriented x3 Constitutional Narrative: Pleasant younger male, obese, sitting in bed, conversing normally. Appears to be in mild distress due to right knee pain. General Appearance: cooperative HEENT normocephalic, head/scalp atraumatic, hearing grossly normal bilaterally, nasal mucous membranes and turbinates normal and moist oral mucous membranes Eyes PERRL, EOMs intact bilaterally and conjunctivae normal Neck full ROM, no lymphadenopathy and supple Lymph Lymphatic: no lymphadenopathy noted Chest inspection of chest normal Resp normal respiratory effort, normal air movement, no use of accessory muscles and clear to auscultation bilaterally Cardio regular rate, regular rhythm, no murmurs and peripheral pulses 2+ throughout GI normal to inspection, nondistended, normoactive bowel sounds, soft to palpation, non-tender and non- distended Back/Spine normal ROM Extremity Extremity Narrative: Significant erythema surrounding right knee down to the mid right leg, area was marked with a marker in the ED. Moderate swelling of the knee at the joint. Severe tenderness to light palpation of the knee. Did not attempt any movement of the leg. Skin no rashes or lesions noted Neuro No oriented x3, No moves all extremities and No no focal motor deficits Speech: speech normal Psych mental status grossly normal Results Lab / Micro Data 04/18/23 14:22 04/18/23 17:47 Labs: Laboratory Results - last 24 hr 04/18/23 14:22: WBC 23.6 H, RBC 4.48 L, Hgb 13.6, Hct 40.7, MCV 90.8, MCH 30.4, MCHC 33.4, RDW Std Deviation 46.9 H, RDW Coeff of Dev 13.9, Plt Count 276, MPV 10.0, Immature Gran % (Auto) 0.500, Neut % (Auto) 83.2 H, Lymph % (Auto) 7.7 L, [place] % (Auto) 7.2, Eos % (Auto) 1.1, Baso % (Auto) 0.3, Absolute Neuts (au (more content not included)... Normal [facility] Hematocrit Auto (Bld) [Volum e fraction]Ordered By: Alisa Wesley on 04-18-2023 Hematocrit (Bld) [Volume fraction] 40.7 % 40-54 [facility] Knee 4 or More Viewson 04-18 Knee 4 or More Views [facility] Imaging Services [address] [place] [address] Knee 4 or More Views MR#: [id number] Acct: [id number] Name: CHENCHO FUENTES Rep #: [id number] : 1995 M 27 From: Miki parry MD PCP: Zehra Mojica, [employer]Sarahi Status: REG ER Study: Knee 4 or More Views Date of Exam: 04/18/23 Exam# [id number] Ordering Dr: Alisa Wesley DO [id number] STUDY: X-RAY - RIGHT KNEE REASON FOR EXAM: Male, 27 years old. Pain and swelling following a fall. TECHNIQUE: 4 view(s) of the knee. COMPARISON: None. FINDINGS: Normal visualized distal femur. Normal visualized proximal tibia and fibula. Normal proximal tibiofibular articulation. Normal medial femorotibial compartment. Normal lateral femorotibial compartment. Normal patellofemoral articulation. Tiny joint effusion. Soft tissue swelling. RAD/Knee 4 or More Views IMPRESSION: Soft tissue swelling. Small joint effusion. Electronically Signed: Miki Preston MD at 14:39 EST , CC: GABRIEL Mojica; Dr. Alisa Wesley, Laundry Route Driver: Signed Normal [facility] - Hematology and Cell countsOrdered By: Alisa Wesley on 04-18-2023 Erythrocyte distribution width (RBC) [Entitic vol] 46.9 fL 35.1-43.9 [facility] Erythrocyte distribution width (RBC) [Ratio] 13.9 % 11.6-14.6 [facility] Immature granulocytes/100 WBC (Bld) 0.500 % 0.0-0.9 [facility] Comment on above: IG% - Immature Granu locytes (promyelocytes, myelocytes and metamyelocytes) > 1% indicates that a LEFT SHIFT is Present. MCH (RBC) [Entitic mass] 30.4 pg 27.0-32.0 [facility] Nucleated RBC/100 WBC (Bld) [Ratio] 0 % 0-5 [facility] MCHC Auto (RBC) [Mass/Vol]Or dered By: Alisa Wesley on 04-18-2023 MCHC (RBC) [Mass/Vol] 33.4 g/dL 32-36 [facility] No Panel InformationOrdered By: Jacky Rollins on 04-18-2023 Synovial Fluid Total Cells Counted TNP [facility] Comment on above: Test not performedBE @PERFORMED ONLY. NOTIFIED NURSE ON PCU ABOUT THIS MAF 04-18-23@ Platelets bldOrdered By: Divya Wesley on 04-18-2023 Platelets (Bld) [#/Vol] 276 10*3/uL 150-450 [facility] Review by pathologistOrdered By: Jacky Rollins on 04-18-2023 Pathologist review Pb (Unsp spec) [Interp] Reviewed [facility] Comment on above: Previous reported re sult: September follow Edited by: RGOOD on 04/20/23:1015Negative for malignant cells.Andrey Lion D.O. 04/20/23 AMENDED REPORT 04/20/23 1015 PATH COM/SYFL previously reported as: September follow Review by pathologistOrdered By: Alisa Wesley on 04-18-2023 Pathologist review Pb (Unsp spec) [Interp] September foll [facility] Pathologist review Pb (Unsp spec) [Interp] Reviewed [facility] Comment on above: Previous reported re sult: September Edited by: RGOOD on 04/20/23:1023Neutrophilic leukocytosis.Clinical correlation suggested.Andrey Lion D.O. 04/20/23 AMENDED REPORT 04/20/23 1023 PATH REV previously reported as: September foll Serum or plasma C reactive p rotein measurement (mass/volume)Ordered By: Alisa Wesley on 04-18-2023 CRP [Mass/Vol] 186.00 mg/L 0.0-3.0 [facility] Comment on above: C-Reactive Protein ( CRP) provides useful information for thediagnosis, therapy and monitoring of inflammatory processesand associated diseases. For the evaluation of Relative Riskfor Cardiovascular Disease, a High Sensitivity CRP (HSCRP)should be ordered. Specimen source identificati on of body fluidOrdered By: Jacky Rollins on 04-18-2023 Specimen source Nom (Body fld) RIGHT KNEE [facility] Synovial fluid erythrocytes count (number/volume)Ordered By: Jacky Rollins on 04-18-2023 RBC (Syn fld) [#/Vol] [facility] Comment on above: Test not performed Synovial fluid leukocytes co unt (number/volume)Ordered By: Jacky Rollins on 04-18-2023 WBC (Syn fld) [#/Vol] [facility] Comment on above: Test not performed Synovial fluid monocyte perc entageOrdered By: Jacky Rollins on 04-18-2023 Monocytes/100 WBC (Syn fld) 6 % [facility] Synovial fluid neutrophil pe rcentageOrdered By: Jacky Rollins on 04-18-2023 Neutrophils/100 WBC (Syn fld) 84 % 0-25 [facility] CNOVon 03-07-2023 CNOV Office Visit (UCWSTR) CHENCHO FUENTES ([id number]) 1995 M Date Time Provider Department 03/07/23 1:45 PM [facility] During your visit today, we recorded the following information about you: Temperature Pulse Respiration Blood pressure 97.2 degrees 72/minute 16/minute 120/68 Weight 110.4 kg Gama Diamond APRN.CNP 03/07/2023 4:34 PM Signed Subjective HPI HPI Chencho Fuentes is a 27 year old male who presents today for CC of left back pain, radiating to left leg. This started few days ago. Has tried otc medication for relief. Symptoms are worsened by rom of back. Risk factors hx of sciatica. .Patient presents with: Back Pain: Back pain into leg on left side. PAST MEDICAL HISTORY Diagnosis Date Asthma Genital herpes Hyperglycemia Tobacco abuse No past surgical history on file. ALLERGIES Bee Sting and Codeine MEDICATIONS apixaban (ELIQUIS) 5 mg tab tab(s) Take 1 tablet by mouth twice daily. metoprolol succinate ER (TOPROL XL) 50 mg 24 hr tablet Take 1 tablet by mouth once daily. flecainide (TAMBOCOR) 100 mg tablet One tablet at onset of sustained palpitations. May repeat every 12 hours. predniSONE (DELTASONE) 10 mg tablet Take 4 tabs daily for 3 days, then 2 tabs daily for 3 days, then 1 tab daily for 3 days with food. No family history on file. Review of Systems Constitutional: Negative for chills, fever and weight loss. Cardiovascular: Negative for leg swelling. Gastrointestinal: Negative for abdominal pain, constipation, diarrhea, nausea and vomiting. Genitourinary: Negative for dysuria, flank pain, frequency, hematuria and urgency. Musculoskeletal: Positive for back pain. Skin: Negative for rash. Neurological: Negative for sensory change and focal weakness. Objective Blood pressure 120/68, pulse 72, temperature 36.2 ?C (97.2 ?F), resp. rate 16, weight 110.4 kg (243 lb 6.4 oz), SpO2 99 %. Physical Exam Constitutional: General: He is not in acute distress. Appearance: Normal appearance. He is not diaphoretic. Cardiovascular: Pulses: Dorsalis pedis pulses are 2+ on the right side and 2+ on the left side. Posterior tibial pulses are 2+ on the right side and 2+ on the left side. Abdominal: General: Bowel sounds are normal. Palpations: Abdomen is soft. Tenderness: There is no abdominal tenderness. Musculoskeletal: Lumbar back: Spasms present. Decreased range of motion. Back: Comments: Lumbar paraspinal muscles tender with palpation Neurological: Mental Status: He is alert and oriented to person, place, and time. Gait: Gait is intact. Gait normal. Deep Tendon Reflexes: Reflex Scores: Patellar reflexes are 2+ on the right side and 2+ on the left side. Achilles reflexes are 2+ on the right side and 2+ on the left side. ASSESSMENT/PLAN: 1. Left sided sciatica - ICD9: 724.3, ICD10: M54.32 Steroids/flexeril ordered Home pt provided F/u with pcp if s/s persist/worsen/menendez e Urgent f/u for red flag symptoms - PREDNISONE 10 MG TABLET Gama Diamond APRN.ADJUNCT PROFESSOR OF VOICE Allergies As of Date: 03/07/2023 Noted Allergy Reaction BEE STING 04/06/2017 10 - Anaphylaxis CODEINE 04/06/2017 4 - Hives Date Reviewed: 03/07/2023 Reviewed by: Gama Diamond APRN.ADJUNCT PROFESSOR OF VOICE - Fully Assessed Reason for Visit: Back Pain [12] Cmt: Back pain into leg on left side. Primary Visit Diagnosis:Left sided sciatica [M54.32] Order(s):predniSONE (DELTASONE) 10 mg tabletTake 4 tabs daily for 3 days, then 2 tabs daily for 3 days, then 1 tab daily for 3 days with food.Disp: 21 tabletRfl: 0 Prescriptions as of 03/07/2023 - predniSONE (DELTASONE) 10 mg tablet Take 4 tabs daily for 3 days, then 2 tabs daily for 3 days, then 1 tab daily for 3 days with food. - apixaban (ELIQUIS) 5 mg tab tab(s) Take 1 tablet by mouth twice daily. - metoprolol succinate ER (TOPROL XL) 50 mg 24 hr tablet Take 1 tablet by mouth once daily. - flecainide (TAMBOCOR) 100 mg tablet One tablet at onset of sustained palpitations. May repeat every 12 hours. Problem List As Of Date 03/07/2023 Noted Resolved Chest pain [R07.9] 04/06/2017 Palpitations [R00.2] 04/06/2017 Paroxysmal atrial fibrillation (HCC) [I48.0] 04/06/2017 Tobacco abuse [Z72.0] 04/06/2017 Mild intermittent asthma with exacerbation [J45*04/06/2017 Prescriptions ordered this encounter Disp Refills Start End PREDNISONE 10 MG TABLET 21 t* 0 03/07/2023 03/16/2023 Sig: Take 4 tabs daily for 3 days, then 2 tabs daily for 3 days, then 1 tab daily for 3 days with food. Letter Text Encounter Status:Closed by GAMA DIAMOND on 03/07/23 Normal [facility] Basophil percentageOrdered B y: ED PROVIDER on 09-06-2022 Basophil percentage 0 SEEN /hpf 0-5 [facility] Bilirubin Test strip Ql (U)O rdered By: ED PROVIDER on 09-06-2022 Bilirubin Ql (U) Negative Negative [facility] Ketones Test strip Ql (U)Ord ered By: ED PROVIDER on 09-06-2022 Ketones Ql (U) Negative Negative [facility] Mucus LM Ql (Urine sed)Order ed By: ED PROVIDER on 09-06-2022 Mucus Ql (Urine sed) 0 SEEN /hpf [facility] Nitrite Test strip Ql (U)Ord ered By: ED PROVIDER on 09-06-2022 Nitrite Ql (U) Positive Negative [facility] Protein Test strip Ql (U)Ord ered By: ED PROVIDER on 09-06-2022 Protein Ql (U) Negative Negative [facility] Squamous epithelial cells de tection in urine sediment by light microscopyOrdered By: ED PROVIDER on 09-06-2022 Epithelial cells.squamous LM Ql (Urine sed) 0 SEEN /hpf 0-5 [facility] Urine blood detectionOrdered By: ED PROVIDER on 09-06-2022 RBC Ql (U) Negative Negative [facility] RBC Ql (U) 0 SEEN /hpf 0-5 [facility] Urine clarityOrdered By: ED PROVIDER on 09-06-2022 Clarity (U) Clear Clear [facility] Urine color determinationOrd ered By: ED PROVIDER on 09-06-2022 Color (U) Yellow Yellow [facility] Urine glucose detectionOrder ed By: ED PROVIDER on 09-06-2022 Glucose Ql (U) Normal mg/dl Normal [facility] Urine leukocyte esterase det ection by dipstickOrdered By: ED PROVIDER on 09-06-2022 Leukocyte esterase Test strip Ql (U) Negative Negative [facility] Urine pHOrdered By: ED PROVI TORI on 09-06-2022 pH (U) 5.0 [pH] 5.0 - 8.0 [facility] Urine sediment bacteria coun t by microscopy (number/high power field)Ordered By: ED PROVIDER on 09-06-2022 Bacteria LM.HPF (Urine sed) [#/Area] RARE /hpf None Seen [facility] Urine specific gravity measu rementOrdered By: ED PROVIDER on 09-06-2022 Specific gravity (U) [Rel density] 1.025 1.002-1.030 [facility] Urobilinogen Auto test strip Ql (U)Ordered By: ED PROVIDER on 09-06-2022 Urobilinogen Ql (U) 1 mg/dl Normal [facility] .Auto Diffon 05-18-2022 Basophil, Absolute 0.1 10 3/mcL Normal 0.0-0.2 [facility] ([place]) Comment on above: Performed By: #### T ROPHS, GFR, PRO, BMP #### [address] [address] Basophils/100 WBC (Bld) 0.6 % Normal 0.0-2.5 A [facility] ([place]) Comment on above: Performed By: #### T ROPHS, GFR, PRO, BMP #### [address] [address] Eosinophil, Absolute 0.2 10 3/mcL Normal 0.0-0.4 [facility] ([place]) Comment on above: Performed By: #### T ROPHS, GFR, PRO, BMP #### [address] [address] Eosinophils/100 WBC (Bld) 1.9 % Normal 0.0-7.0 [facility] ([place]) Comment on above: Performed By: #### T ROPHS, GFR, PRO, BMP #### [address] [address] Lymphocyte, Absolute 2.3 10 3/mcL Normal 0.8-3.9 [facility] ([place]) Comment on above: Performed By: #### T ROPHS, GFR, PRO, BMP #### [address] [address] Lymphocytes/100 WBC (Bld) 19.9 % Normal 10.0-50.0 [facility] ([place]) Comment on above: Performed By: #### T ROPHS, GFR, PRO, BMP #### [address] [address] Monocyte, Absolute 0.9 10 3/mcL Normal 0.2-1.0 [facility] ([place]) Comment on above: Performed By: #### T ROPHS, GFR, PRO, BMP #### [address] [address] Monocytes/100 WBC (Bld) 8.1 % Normal 1.7-13.0 [facility] ([place]) Comment on above: Performed By: #### T ROPHS, GFR, PRO, BMP #### [address] [address] Neutrophils/100 WBC (Bld) 69.5 % Normal 37.0-80.0 [facility] ([place]) Comment on above: Performed By: #### T ROPHS, GFR, PRO, BMP #### [address] [address] .GFRon 05-18-2022 GFR 104 ml/min/1.73sqm Normal [facility] ([place]) Comment on above: Result Comment: GFR Population mean for , Non- Americans Ages 20-29 = 116 mL/min/1.73 sq.m. Ages 30-39 = 107 mL/min/1.73 sq.m. Ages 40-49 = 99 mL/min/1.73 sq.m. Ages 50-59 = 93 mL/min/1.73 sq.m. Ages 60-69 = 85 mL/min/1.73 sq.m. Ages 70+ = 75 mL/min/1.73 sq.m. Chronic Kidney Disease: Less than 60 mL/min/1.73 square meters End Stage Renal Disease: Less than 15 mL/min/1.73 square meters Performed By: #### T ABBI, GFR, PRO, BMP #### [address] [address] GFR Non- 86 ml/min/1.73sqm Normal [facility] ([place]) Comment on above: Result Comment: GFR Population mean for , Non- Americans Ages 20-29 = 116 mL/min/1.73 sq.m. Ages 30-39 = 107 mL/min/1.73 sq.m. Ages 40-49 = 99 mL/min/1.73 sq.m. Ages 50-59 = 93 mL/min/1.73 sq.m. Ages 60-69 = 85 mL/min/1.73 sq.m. Ages 70+ = 75 mL/min/1.73 sq.m. Chronic Kidney Disease: Less than 60 mL/min/1.73 square meters End Stage Renal Disease: Less than 15 mL/min/1.73 square meters Performed By: #### T ABBI, GFR, PRO, BMP #### Aguilar [address] [address] .MDWon 05-18-2022 Monocyte Distribution Width 13.72 Normal 0.00-20.00 [facility] ([place]) Comment on above: Result Comment: For ED adult patients suspected of sepsis, MDW<=20.0 does not rule out sepsis or risk of sepsis Performed By: #### T ROPHS, GFR, PRO, BMP #### [address] [address] .NEUABSon 05-18-2022 Neutrophil, Absolute 8.2 10 3/mcL High 2.9-6.2 [facility] ([place]) Comment on above: Performed By: #### T ABBI, GFR, PRO, BMP #### [address] [address] BMPon 05-18-2022 BUN/Creatinine Ratio 16 ratio Normal 7-27 [facility] ([place]) Comment on above: Performed By: #### T ABBI, GFR, PRO, BMP #### [address] [address] Calcium [Mass/Vol] 9.2 mg/dL Normal 8.4-10.2 [facility] ([place]) Comment on above: Performed By: #### T ABBI, GFR, PRO, BMP #### [address] [address] Chloride [Moles/Vol] 105 mmol/L Normal 98-107 [facility] ([place]) Comment on above: Performed By: #### T ABBI, GFR, PRO, BMP #### [address] [address] CO2 [Moles/Vol] 26 mmol/L Normal 22-29 [facility] ([place]) Comment on above: Performed By: #### T ABBI, GFR, PRO, BMP #### [address] [address] Creatinine [Mass/Vol] 1.03 mg/dL Normal 0.70-1.30 [facility] ([place]) Comment on above: Performed By: #### T ABBI, GFR, PRO, BMP #### [address] [address] Electrolyte Balance 8.0 mEq/L Normal 4.0-15.0 [facility] ([place]) Comment on above: Performed By: #### T ABBI, GFR, PRO, BMP #### [address] [address] Glucose [Mass/Vol] 97 mg/dL Normal 70-105 [facility] ([place]) Comment on above: Performed By: #### T ABBI, GFR, PRO, BMP #### [address] [address] Potassium [Moles/Vol] 4.1 mmol/L Normal 3.5-5.1 [facility] ([place]) Comment on above: Performed By: #### T ROPHS, GFR, PRO, BMP #### [address] [address] Sodium [Moles/Vol] 139 mmol/L Normal 136-145 [facility] ([place] Comment on above: Performed By: #### T ROPHS, GFR, PRO, BMP #### [place] [id number] Urea nitrogen [Mass/Vol] 16 mg/dL Normal 7-18 [facility] ([place]) Comment on above: Performed By: #### T ROPHS, GFR, PRO, BMP #### [address] [address] CBCon 05-18-2022 Erythrocyte distribution width (RBC) [Ratio] 14.9 % High 11.5-14.5 [facility] ([place]) Comment on above: Performed By: #### T ROPHS, GFR, PRO, BMP #### [address] [address] Hematocrit (Bld) [Volume fraction] 42.0 % Normal 42.0-52.0 [facility] ([place]) Comment on above: Performed By: #### T ROPHS, GFR, PRO, BMP #### [address] [address] Hgb 13.9 G/dL Low 14.0-18.0 [facility] ([place] Comment on above: Performed By: #### T ROPHS, GFR, PRO, BMP #### [address] [address] MCH (RBC) [Entitic mass] 29.1 pg Normal 27.0-31.2 [facility] ([place] Comment on above: Performed By: #### T ROPHS, GFR, PRO, BMP #### [address] [address] MCHC 33.1 G/dL Normal 31.8-35.4 [facility] ([place]) Comment on above: Performed By: #### T ABBI, GFR, PRO, BMP #### Aguilar [address] [address] MCV (RBC) [Entitic vol] 87.9 fL Normal 80.0-94.0 A [facility] ([place] Comment on above: Performed By: #### T ABBI, GFR, PRO, BMP #### Aguilar [address] [address] Platelet 243 10 3/mcL Normal 130-400 [facility] ([place]) Comment on above: Performed By: #### [place], GFR, PRO, BMP #### [address] [address] Platelet mean volume (Bld) [Entitic vol] 8.4 fL Normal 7.4-10.4 [facility] ([place]) Comment on above: Performed By: #### T ABBI, GFR, PRO, BMP #### [address] [address] RBC 4.78 10 6/mcL Normal 4.04-6.13 [facility] ([place]) Comment on above: Performed By: #### [place], GFR, PRO, BMP #### [address] [address] WBC 11.7 10 3/mcL High 4.6-10.8 [facility] ([place]) Comment on above: Performed By: #### T ROPALVIN, GFR, PRO, BMP #### [address] [address] PROon 05-18-2022 INR Coag (PPP) [Relative time] 1.1 {INR} Normal 0.9-1.2 [facility] ([place]) Comment on above: Result Comment: Cezar dard Dose 2.0 - 3.0 High Dose 2.5 - 3.5 The recommended therapeutic range for oral anticoagulant therapy is: LOW RISK: Prophylaxis of venous thrombosis INR: 2.0 - 3.0 Treatment of pulmonary embolism 2.0 - 3.0 Prevention of systemic embolism 2.0 - 3.0 HIGH RISK: Mechanical prosthetic valves 2.5 - 3.5 Performed By: #### T ROPALVIN, GFR, PRO, BMP #### [address] [address] PT Coag (PPP) [Time] 12.0 s Normal 9.7-13.9 [facility] ([place]) Comment on above: Performed By: #### T ABBI, GFR, PRO, BMP #### [address] [address] TROPHSon 05-18-2022 Troponin I High Sensitivity 4.1 ng/L Normal 0.0-76.2 [facility] ([place]) Comment on above: Performed By: #### T ABBI, GFR, PRO, BMP #### [address] [address] XR CHEST 1 VIEWon 05-18-2022 XR CHEST 1 VIEW ORIGINAL EXAMINATION: ONE XRAY VIEW OF THE CHEST05/18/2022 3:56 pm XR Chest portable upright COMPARISON: None HISTORY: ORDERING SYSTEM PROVIDED HISTORY: Reason for Exam: chest pain, FINDINGS: No acute infiltrate, consolidation,mass, pneumothorax, pleural fluid, or vascular congestion is seen. Heart size and mediastinal contours are within normal limits for age and projection. No acute skeletal abnormality. IMPRESSION: No acute cardiopulmonary process. Interpreted by: Saul Hermosillo MD Preliminary Report By: Saul Hermosillo MD Electronically signed By Saul Hermosillo MD Dictated Date: 05/18/2022 4:04:29 PM Prelim Date: 05/18/2022 4:04:56 PM Sign Date: 05/18/2022 4:04:56 PM Ordering Provider: ÁNGELA Ybarra [facility] ([place]) Vital Signs Date Time Vital Sign Value Performing Clinician Facility 02-15-2024 22:13-0400 Body temperature 96.8 [degF] DR RD YOUSSEF MD [facility] 02-15-2024 22:13-0400 Diastolic Blood Pressure Non-Invasive 92 mm[Hg] DR RD YOUSSEF MD [facility] 02-15-2024 22:13-0400 Heart rate 68 /min DR RD YOUSSEF MD [facility] 02-15-2024 22:13-0400 Respiratory rate 20 /min DR RD YOUSSEF MD [facility] 02-15-2024 22:13-0400 Systolic Blood Pressure Non-Invasive 131 mm[Hg] DR RD YOUSSEF MD [facility] 10-02-2023 15:38-0400 Body mass index (BMI) [Ratio] 33.72 kg/m2 Bakari Athy PA-C Work Phone: [facility] 10-02-2023 15:38-0400 Body temperature 97.81 [degF] Bakari Athy PA-C Work Phone: [facility] 10-02-2023 15:38-0400 Body weight 106.6 kg Bakari Athy PA-C Work Phone: [facility] 10-02-2023 15:38-0400 Diastolic blood pressure 72 mm[Hg] Bakari Athy PA-C Work Phone: [facility] 10-02-2023 15:38-0400 Heart rate 96 /min Bakari Athy PA-C Work Phone: [facility] 10-02-2023 15:38-0400 Respiratory rate 16 /min Bakari Athy PA-C Work Phone: [facility] 10-02-2023 15:38-0400 SaO2% (BldA) [Mass fraction] 98 % Bakari Athy PA-C Work Phone: [facility] 10-02-2023 15:38-0400 Systolic blood pressure 120 mm[Hg] Bakari Athy PA-C Work Phone: [facility] 04-21-2023 13:00-0500 Body temperature 98 [degF] [employer]-C Zehra Garciapkins [employer] PR[employer]ER Work Phone: [facility] 04-21-2023 13:00-0500 Diastolic blood pressure 76 mm[Hg] [employer]ER-C Zehra Mojica [employer] PRESS FEEDER Work Phone: [facility] 04-21-2023 13:00-0500 Heart rate 99 /min [employer]-C Zehra Garciapkins [employer] PRESS FEEDER Work Phone: [facility] 04-21-2023 13:00-0500 Respiratory rate 14 /min [employer]-C Zehra Garciapkins [employer]OOMC[employer] PRESS FEEDER Work Phone: [facility] 04-21-2023 13:00-0500 SaO2% (BldA) [Mass fraction] 97 % [employer]-C Zehra Garciapkins BROOMC[employer] PRESS FEEDER Work Phone: [facility] 04-21-2023 13:00-0500 Systolic blood pressure 113 mm[Hg] [employer] FEEDER-C Zehra Garciapkins [employer]OOMC[employer] PRESS FEEDER Work Phone: [facility] 04-18-2023 17:15-0500 Body height 177.8 cm [employer]-C Zehra Garciapkins [employer] PRESS FEEDER Work Phone: [facility] 04-18-2023 17:15-0500 Body mass index (BMI) [Ratio] 31.6 kg/m2 [employer]-C Zehra Garciapkins [employer]OMC[employer] PRESS FEEDER Work Phone: [facility] 04-18-2023 17:15-0500 Body weight 99.9 kg [employer]-C Zehra Garciapkins [employer] PRESS FEEDER Work Phone: [facility] 04-18-2023 15:53-0500 Respiratory rate 18 /min [facility] 04-18-2023 13:53-0500 Body height 177.8 cm [facility] 04-18-2023 13:53-0500 Body mass index (BMI) [Ratio] 31.5 kg/m2 [facility] 04-18-2023 13:53-0500 Body temperature 97.8 [degF] [facility] 04-18-2023 13:53-0500 Body weight 99.79 kg [facility] 04-18-2023 13:53-0500 Diastolic blood pressure 70 mm[Hg] [facility] 04-18-2023 13:53-0500 Heart rate 73 /min [facility] 04-18-2023 13:53-0500 SaO2% (BldA) [Mass fraction] 99 % [facility] 04-18-2023 13:53-0500 Systolic blood pressure 117 mm[Hg] [facility] 04-18-2023 13:39-0500 Body temperature 97.59 [degF] Gama Lobo RECREATIONAL DIRECTOR.ADJUNCT PROFESSOR OF VOICE Work Phone: [facility] 04-18-2023 13:39-0500 Body weight 99.79 kg Gama Lobo RECREATIONAL DIRECTOR.ADJUNCT PROFESSOR OF VOICE Work Phone: [facility] 04-18-2023 13:39-0500 Diastolic blood pressure 66 mm[Hg] Gama Lobo RECREATIONAL DIRECTOR.ADJUNCT PROFESSOR OF VOICE Work Phone: [facility] 04-18-2023 13:39-0500 Heart rate 76 /min Gama Lobo RECREATIONAL DIRECTOR.ADJUNCT PROFESSOR OF VOICE Work Phone: [facility] 04-18-2023 13:39-0500 Respiratory rate 16 /min Gama Lobo RECREATIONAL DIRECTOR.ADJUNCT PROFESSOR OF VOICE Work Phone: [facility] 04-18-2023 13:39-0500 SaO2% (BldA) [Mass fraction] 98 % Gama Lobo RECREATIONAL DIRECTOR.ADJUNCT PROFESSOR OF VOICE Work Phone: [facility] 04-18-2023 13:39-0500 Systolic blood pressure 118 mm[Hg] Gama Lobo RECREATIONAL DIRECTOR.ADJUNCT PROFESSOR OF VOICE Work Phone: [facility] 03-07-2023 13:58-0400 Body temperature 97.2 [degF] Gama Lobo RECREATIONAL DIRECTOR.ADJUNCT PROFESSOR OF VOICE Work Phone: [facility] 03-07-2023 13:58-0400 Body weight 110.41 kg Gama Lobo RECREATIONAL DIRECTOR.ADJUNCT PROFESSOR OF VOICE Work Phone: [facility] 03-07-2023 13:58-0400 Diastolic blood pressure 68 mm[Hg] Gama Diamond RECREATIONAL DIRECTOR.ADJUNCT PROFESSOR OF VOICE Work Phone: [facility] 03-07-2023 13:58-0400 Heart rate 72 /min Gama Diamond RECREATIONAL DIRECTOR.ADJUNCT PROFESSOR OF VOICE Work Phone: [facility] 03-07-2023 13:58-0400 Respiratory rate 16 /min Gama Diamond RECREATIONAL DIRECTOR.ADJUNCT PROFESSOR OF VOICE Work Phone: [facility] 03-07-2023 13:58-0400 SaO2% (BldA) [Mass fraction] 99 % Gama Diamond RECREATIONAL DIRECTOR.ADJUNCT PROFESSOR OF VOICE Work Phone: [facility] 03-07-2023 13:58-0400 Systolic blood pressure 120 mm[Hg] Gama Diamond RECREATIONAL DIRECTOR.ADJUNCT PROFESSOR OF VOICE Work Phone: [facility] 09-06-2022 18:56-0400 Body height 177.8 cm [facility] 09-06-2022 18:56-0400 Body mass index (BMI) [Ratio] 34.8 kg/m2 [facility] 09-06-2022 18:56-0400 Body temperature 97.3 [degF] [facility] 09-06-2022 18:56-0400 Body weight 110.22 kg [facility] 09-06-2022 18:56-0400 Diastolic blood pressure 97 mm[Hg] [facility] 09-06-2022 18:56-0400 Heart rate 75 /min [facility] 09-06-2022 18:56-0400 Respiratory rate 18 /min [facility] 09-06-2022 18:56-0400 SaO2% (BldA) [Mass fraction] 98 % [facility] 09-06-2022 18:56-0400 Systolic blood pressure 138 mm[Hg] [facility] Encounters Encounter Date Encounter Type Care Provider Facility Start: 02-17-2024 End: 02-17-2024 Emergency department patient visit Zehra Mojica Facility:[facility] Start: 02-17-2024 End: 02-17-2024 ambulatory ZEHRA MOJICA Facility:[facility] Start: 02-17-2024 End: 02-17-2024 Patient encounter procedure Howie Sepulvedamiguel RECREATIONAL DIRECTOR.ADJUNCT PROFESSOR OF VOICE Work Phone: [facility] Comment on above: Procedure not veronica d out (Primary Dx) Start: 02-15-2024 End: 02-16-2024 Emergency department patient visit DR RD YOUSSEF MD [facility] Start: 10-02-2023 End: 10-02-2023 ambulatory ZEHRA MOJICA Facility:[facility] Start: 10-02-2023 End: 10-02-2023 Patient encounter procedure Bakari Akers PA-C Work Phone: [facility] Comment on above: Arthralgia, unspecif ied joint (Primary Dx) Start: 05-04-2023 End: 05-05-2023 ambulatory ZEHRA GONZALEZKINS RECREATIONAL DIRECTOR - ADJUNCT PROFESSOR OF VOICE Facility:[facility] Start: 05-04-2023 End: 05-04-2023 Patient encounter procedure ZEHRA GARCIAPKINS RECREATIONAL DIRECTOR - ADJUNCT PROFESSOR OF VOICE [facility] Start: 05-01-2023 End: 05-02-2023 ambulatory ZEHRA GARCIAPKINS RECREATIONAL DIRECTOR - ADJUNCT PROFESSOR OF VOICE Facility:[facility] Start: 05-01-2023 End: 05-01-2023 Patient encounter procedure ZEHRA MOJICA RECREATIONAL DIRECTOR - ADJUNCT PROFESSOR OF VOICE 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 Work Phone: [facility] Work Phone: Start: 04-20-2023 End: 04-20-2023 ambulatory Cory Serrano Facility:[facility] Start: 04-19-2023 Non-patient / Non-visit [employer]-C R anisa Mojica [employer] PR[employer] FEEDER Work Phone: [facility] Work Phone: Start: 04-19-2023 End: 04-19-2023 ambulatory Cory Serrano Facility:[facility] Start: 04-18-2023 End: 04-18-2023 ambulatory Cory Serrano Facility:[facility] Start: 04-18-2023 ambulatory Rock Alfaro ility:[facility] Start: 04-18-2023 End: 04-21-2023 Evaluation and management of inpatient [facility] Work Phone: Start: 04-18-2023 End: 04-18-2023 ambulatory ZEHRA MOJICA Facility:[facility] Start: 04-18-2023 End: 04-18-2023 Patient encounter procedure Gama Diamond RECREATIONAL DIRECTOR.ADJUNCT PROFESSOR OF VOICE Work Phone: [facility] Comment on above: Injury of right knee , initial encounter (Primary Dx) Start: 03-07-2023 End: 03-07-2023 ambulatory ZEHRA MOJICA Facility:[facility] Start: 03-07-2023 End: 03-07-2023 Patient encounter procedure Gama Diamond RECREATIONAL DIRECTOR.ADJUNCT PROFESSOR OF VOICE Work Phone: [facility] Comment on above: Left sided sciatica (Primary Dx) Start: 09-06-2022 End: 09-06-2022 Emergency department patient visit [facility] Start: 09-06-2022 End: 09-06-2022 Patient encounter procedure Dorothea Valencia RECREATIONAL DIRECTOR.ADJUNCT PROFESSOR OF VOICE Work Phone: [facility] Comment on above: Palpitations (Primar y Dx) Start: 06-06-2022 ambulatory MARGRET BOLAND RECREATIONAL DIRECTOR-ADJUNCT PROFESSOR OF VOICE F acility:[facility] Start: 05-18-2022 End: 05-18-2022 Emergency department patient visit DR GWENDOLYN KLEIN MD Facility:[facility] Procedures Date Procedure Procedure Detail Performing Clinician Start: 04-18-2023 Radiologic examinati on of knee Start: 05-21-2016 Cardiac ablation sys tem (physical object) ZEHRA MOJICA RECREATIONAL DIRECTOR - ADJUNCT PROFESSOR OF VOICE Plan of Treatment Date Care Activity Detail Author Start: 01-20-2024 Covid-19 Vaccine ( season) Covid-19 Vaccine ( season) [facility] Start: 01-20-2024 Influenza vaccination [facility] Start: 10-11-2023 End: 10-11-2023 Patient encounter procedure 10/11/2023 3:00 PM EDT Office Visit Rheumatology [id number] [place] [address] Mona Johnson PA-C [address] [place], [place] [id number] Arthralgia, unspecified joint [M25.50] Rheumatology Comment on above: Arthralgia, unspecif ied joint [M25.50] Start: 05-21-2023 Behavioral Health Screening Behavioral Health Screening [facility] Start: 04-27-2023 Blood chemistry [facility] Start: 04-26-2023 Blood chemistry [facility] Start: 04-25-2023 Blood chemistry [facility] Start: 04-24-2023 Blood chemistry [facility] Start: 04-23-2023 Blood chemistry [facility] Start: 04-23-2023 [facility] Start: 04-22-2023 Blood chemistry [facility] Start: 04-21-2023 Patient discharge [facility] Start: 04-18-2023 Notification of physician [facility] Start: 04-18-2023 Following clinical pathway protocol [facility] Start: 04-18-2023 Ambulation without limitation [facility] Start: 04-18-2023 Assessment of risk o f venous thromboembolism [facility] Start: 04-18-2023 Insertion of cathete r into peripheral vein [facility] Start: 04-18-2023 Providing care accor ding to standard [facility] Start: 04-18-2023 Referral to occupati onal therapist [facility] Start: 04-18-2023 Referral to service [facility] Start: 04-18-2023 [facility] Start: 04-18-2023 Hospital admission, emergency, from emergency room, medical nature [facility] Start: 04-18-2023 Cardiac monitoring [facility] Start: 04-18-2023 Consultation [facility] Start: 04-18-[address] [facility] Start: 04-18-2023 [facility] Start: 01-19-2023 Covid-19 Vaccine ( season) Covid-19 Vaccine ( season) [facility] Start: 01-19-2023 Influenza vaccination [facility] Start: 09-06-2022 [facility] Start: 05-21-2022 DEPRESSION ASSESSMENT DEPRESSION ASS ESSMENT [facility] Start: 2012 Hepatitis B Vaccine (1 of 3 - 19+ 3-dose series) Hepatitis B Vaccine (1 of 3 - 19+ 3-dose series) [facility] Start: 2012 Urine microalbumin profile [facility] Start: 08-20-2011 ANNUAL PCP TEAM CLUB ATTENDANT PEDRITO DISEASE VISIT ANNUAL PCP TEAM CHRONIC DISEASE VISIT [facility] Start: 08-20-2011 Anxiety Screening Anxiety Screening [facility] Start: 08-20-2011 Depression Screening Depression Scre ening [facility] Start: 08-20-2011 HEPATITIS C SCREENING HEPATITIS C [facility] Start: 08-20-2011 Hepatitis C screening Hepatitis C [facility] Start: 08-20-2011 HIV SCREENING HIV SCREENING [facility] Start: 08-20-2011 HIV screening HIV Screening [facility] Start: 08-20-2011 SPIROMETRY SPIROMETRY [facility] Start: 08-20-1999 PNEUMOCOCCAL (1 - PCV) PNEUMOCOCCAL (1 - PCV) [facility] Start: 08-20-1999 Pneumococcal vaccination Pneum ococcal Vaccine (1 - PCV) [facility] Start: 02-18-1994 COVID-19 VACCINE (#1) COVID-19 VACCI NE (#1) [facility] Start: 1993 HEPATITIS B (1 of 3 - 3-dose series) HEPATITIS B (1 of 3 - 3-dose series) [facility] Start: 1993 Hepatitis B Vaccine (1 of 3 - 3-dose series) Hepatitis B Vaccine (1 of 3 - 3-dose series) [facility] Anion gap measurement [facility] Anion gap measurement [facility] Anion gap measurement [facility] Bacteria identified in Urine by Culture Urine Culture [facility] BUN/Creatinine ratio [facility] BUN/Creatinine ratio [facility] BUN/Creatinine ratio [facility] Calcium [Mass/volume ] in Serum or Plasma [facility] Calcium [Mass/volume ] in Serum or Plasma [facility] Calcium [Mass/volume ] in Serum or Plasma [facility] Carbon dioxide, tota l [Moles/volume] in Serum or Plasma [facility] Carbon dioxide, tota l [Moles/volume] in Serum or Plasma [facility] Carbon dioxide, tota l [Moles/volume] in Serum or Plasma [facility] Chlamydia trachomati s DNA assay [facility] Chloride [Moles/volu me] in Serum or Plasma [facility] Chloride [Moles/volu me] in Serum or Plasma [facility] Chloride [Moles/volu me] in Serum or Plasma [facility] Creatinine [Moles/vo lume] in Serum or Plasma [facility] Creatinine [Moles/vo lume] in Serum or Plasma [facility] Creatinine [Moles/vo lume] in Serum or Plasma [facility] Glucose [Mass/volume ] in Serum or Plasma [facility] Glucose [Mass/volume ] in Serum or Plasma [facility] Glucose [Mass/volume ] in Serum or Plasma [facility] Hematocrit [Volume Fraction] of Blood [facility] Hematocrit [Volume Fraction] of Blood [facility] Hematocrit [Volume Fraction] of Blood [facility] Hematocrit [Volume Fraction] of Blood [facility] Hematocrit [Volume Fraction] of Blood [facility] Hematocrit [Volume Fraction] of Blood [facility] Hemoglobin [Mass/vol ume] in Blood [facility] Hemoglobin [Mass/vol ume] in Blood [facility] Hemoglobin [Mass/vol ume] in Blood [facility] Hemoglobin [Mass/vol ume] in Blood [facility] Hemoglobin [Mass/vol ume] in Blood [facility] Hemoglobin [Mass/vol ume] in Blood [facility] Leukocytes [#/volume ] in Blood [facility] Leukocytes [#/volume ] in Blood [facility] Leukocytes [#/volume ] in Blood [facility] Leukocytes [#/volume ] in Blood [facility] Leukocytes [#/volume ] in Blood [facility] Leukocytes [#/volume ] in Blood [facility] Mean corpuscular hemoglobin concentration determination [facility] Mean corpuscular hemoglobin concentration determination [facility] Mean corpuscular hemoglobin concentration determination [facility] Mean corpuscular hemoglobin concentration determination [facility] Mean corpuscular hemoglobin concentration determination [facility] Mean corpuscular hemoglobin concentration determination [facility] Mean corpuscular hemoglobin determination [facility] Mean corpuscular hemoglobin determination [facility] Mean corpuscular hemoglobin determination [facility] Mean corpuscular hemoglobin determination [facility] Mean corpuscular hemoglobin determination [facility] Mean corpuscular hemoglobin determination [facility] Measurement of renal function [facility] Measurement of renal function [facility] Measurement of renal function [facility] Neisseria gonorrhoea e DNA [Presence] in Cervical mucus by PAUL with probe detection [facility] Neutrophil count [facility] Neutrophil count [facility] Neutrophil count [facility] Neutrophil count [facility] Neutrophil count [facility] Neutrophil count [facility] Neutrophil percent differential count [facility] Neutrophil percent differential count [facility] Neutrophil percent differential count [facility] Neutrophil percent differential count [facility] Neutrophil percent differential count [facility] Neutrophil percent differential count [facility] Pathologist review o f results [facility] Patient Education [facility] Work Phone: Patient referral [facility] Work Phone: Platelets [#/volume] in Blood [facility] Platelets [#/volume] in Blood [facility] Platelets [#/volume] in Blood [facility] Platelets [#/volume] in Blood [facility] Platelets [#/volume] in Blood [facility] Platelets [#/volume] in Blood [facility] Potassium [Moles/vol ume] in Serum or Plasma [facility] Potassium [Moles/vol ume] in Serum or Plasma [facility] Potassium [Moles/vol ume] in Serum or Plasma [facility] Red blood cell count [facility] Red blood cell count [facility] Red blood cell count [facility] Red blood cell count [facility] Red blood cell count [facility] Red blood cell count [facility] Red blood cell count [facility] Red cell distributio n width determination [facility] Red cell distributio n width determination [facility] Red cell distributio n width determination [facility] Red cell distributio n width determination [facility] Red cell distributio n width determination [facility] Red cell distributio n width determination [facility] Sodium [Moles/volume ] in Serum or Plasma [facility] Sodium [Moles/volume ] in Serum or Plasma [facility] Sodium [Moles/volume ] in Serum or Plasma [facility] Specimen processing [facility] Synovial fluid examination [facility] Urea nitrogen [Mass/volume] in Serum or Plasma [facility] Urea nitrogen [Mass/volume] in Serum or Plasma [facility] Urea nitrogen [Mass/volume] in Serum or Plasma [facility] White blood cell count [facility] Payers Date Payer Category Payer Self-pay [id number] 2022 Unknown [id number] 2022 Medicaid [id number] 1993 Unknown [id number] 2.16.8 [id number] 1993 Unknown [id number] 2.16.8 [id number] 1993 Unknown [id number] 2.16.8 [id number] 1993 Unknown [id number] 2.16.8 [id number] 1993 Unknown [id number] 2.16.8 [id number] Unknown [id number] 2.16.8 [id number] Unknown [id number] 2.16.8 [id number] Unknown [id number] 2.16.8 [id number] Unknown [id number] 2.16.8 [id number] Unknown [id number] 2.16.8 [id number] Unknown [id number] 2.16.8 [id number] Unknown [id number] 2.16.8 [id number] Unknown [id number] 2.16.8 [id number] Unknown [id number] 2.16.8 [id number] Social History Date Type Detail Facility Start: 09-06-2022 End: 04-21-2023 Tobacco smoking status UTIS Unknown if ever smoked [facility] Start: 09-24-2018 None [facility] Start: 09-24-2018 Alone [facility] Start: 1995 Sex Assigned At Male [facility] Start: 1995 Sex Assigned At Not on file [facility] Start: 04-06-2017 End: 10-11-2023 History of Social function [facility] Start: 04-06-2017 End: 10-11-2023 Tobacco use panel [facility] Start: 04-26-2023 End: 12-25-2023 Tobacco smoking status Ex-smoker (finding) [facility] [place] Comment on above: Stopped smoking ciga rettes in May 2022 Sex Assigned At Sex [facility] National Score (1-10 0), lower number is lower risk 71 [facility] Goals Date Patient Goal Desired Activity /State Functional Status Date Assessment Result Facility 02-16-2024 Functional Status Independent [facility] 02-15-2024 Functional Status Awake [facility] 04-21-2023 Functional status Ambulates;Up ad elio [facility] Work Phone: Mental Status Date Assessment Result Facility 02-16-2024 Mental Status Orientation Oriented x 4 [facility] 02-15-2024 [facility] 04-21-2023 Cognitive function Voice/Name [facility] Work Phone: Clinical Notes 09-06-2022 to 02-17-2024 Howie Cisneros APRN.CNP - 02/17/2024 3:17 PM EDTLaboratoryRadiologyAthy, Bakari Gavin PA-C - 10/02/2023 3:50 PM EDT Note Date & Type Note Facility 02-17-2024 Note HNO ID: [id number] Author: HOWIE CISNEROS APRN.CNP Service: ? Author Type: Nurse Practitioner Type: Progress Notes Filed: 02/17/2024 15:24 Note Text: Nontoxic-appearing male presents urgent care chief complaint pain and heart arrhythmia sensation. Patient states was seen in the hospital yesterday. Diagnosed with headache and dehydration. Given fluids and pain medication. States today he feels like his heart is fluttering. History of A-fib. Has been out of his medications. Presents today for evaluation. Presenting symptoms I recommend patient be seen ED for further evaluation care. States will be transported to [place] ED by mother. Verbalized understand agrees with plan of care. Howie Cisneros APRN.CNP [facility] 02-17-2024 History of Present illness Narrative Nontoxic-appearing male presents urgent care chief complaint pain and heart arrhythmia sensation. Patient states was seen in the hospital yesterday. Diagnosed with headache and dehydration. Given fluids and pain medication. States today he feels like his heart is fluttering. History of A-fib. Has been out of his medications. Presents today for evaluation. Presenting symptoms I recommend patient be seen ED for further evaluation care. States will be transported to [place] ED by mother. Verbalized understand agrees with plan of care. Howie Cisneros APRN.DARIO documented in this encounter [facility] 02-16-2024 Hospital Discharge instructions Patient Education 02/16/2024 00:52:59 Dehydration Dehydration The human body is comprised largely of water. If you lose more fluids than you take in, you can become dehydrated. This means there are not enough fluids in your body for it to function right. Mild dehydration can cause weakness, confusion, or muscle cramps. In extreme cases, it can lead to brain damage and even . That's why prompt treatment is crucial. Risk factors Anyone can become dehydrated. But infants, children, and older adults are at greatest risk. You are most likely to lose fluids with severe vomiting, diarrhea, or a fever. Exercising or working hard especially in hot weather can also cause excess fluid loss. What to do Drinking liquids is the best way to prevent dehydration. Water is best, but juice or frozen pops can also help. For adults, don't use liquids that contain caffeine or alcohol to rehydrate. Your doctor may suggest electrolyte solutions for sick infants and young children. When to go to the emergency room (ER) Go to an ER right away for these symptoms: Adults Very dark urine and little urine output Dizziness, weakness, confusion, fainting Children Sunken eyes Little or no urine output (for infants, no wet diaper in 8 hours) Very dark urine Skin that doesn't bounce back quickly when pinched Crying without tears Lethargy, decreased activity, or increased sleepiness What to expect in the emergency room Your blood pressure, temperature, and heart rate will be checked. You may have blood or urine tests. The main treatment for dehydration is fluids. You may be given these to drink. Or, you may receive them through a vein in your arm. You also may be treated for diarrhea, vomiting, or a high fever. 8210-2957 The [employer]. [address] [place] [address], [place] [address]. All rights reserved. This information is not intended as a substitute for professional medical care. Always follow your healthcare professional's instructions. Follow Up Care 02/15/2024 22:05:54 With:ZEHRA MOJICA APRN - ADJUNCT PROFESSOR OF VOICE Address: [address] [place] [address]- When:2-4 days [facility] 02-16-2024 Note Discharge Instructions Thank you for allowing [facility] to assist you with your healthcare needs. The following is important discharge information regarding your hospital visit. Diagnosis from Today's Visit Dehydration Headache What to Do Next Instructions from Your Care Team Discharge Return to Work, School, or Sports (Return to Work, School, or Sports) - Ordered -- 02/16/24, 02/18/24, May return to: work, 02/16/24 0:52:00 EDT Post Acute Orders No qualifying data available. You Need to Schedule the Following Appointments Follow Up with ZEHRA MOJICA APRN, CNP When:Within 2-4 days Where:[address] [facility] [place] [address]- Allergies codeine hives, throat swells Medications Please ask your primary doctor or pharmacist before taking any other medication not listed, including over the counter drugs, herbal medications, vitamins and or supplements as they may interact with your home medications. What How Much When Why Instructions Last Dose New ondansetron (ondansetron 4 mg oral disintegrating strip) 1 Each by mouth Three (3) times a day Printed Prescription Unchanged omeprazole (omeprazole 40 mg oral delayed release capsule) 1 cap by mouth Once a day GERD (gastroesophageal reflux disease) Unchanged sotalol (sotalol 80 mg oral tablet) 1 tab(s) by mouth Two (2) times a day Please take this list to your next doctor s visit. Bring all medications you take, including over the counter medications, herbals and other supplements with you to your doctor s visit. Patients and families are reminded to discard old lists and to update any records with all medication providers or retail pharmacies. Education Materials Dehydration The human body is comprised largely of water. If you lose more fluids than you take in, you can become dehydrated. This means there are not enough fluids in your body for it to function right. Mild dehydration can cause weakness, confusion, or muscle cramps. In extreme cases, it can lead to brain damage and even . That's why prompt treatment is crucial. Risk factors Anyone can become dehydrated. But infants, children, and older adults are at greatest risk. You are most likely to lose fluids with severe vomiting, diarrhea, or a fever. Exercising or working hard especially in hot weather can also cause excess fluid loss. What to do Drinking liquids is the best way to prevent dehydration. Water is best, but juice or frozen pops can also help. For adults, don't use liquids that contain caffeine or alcohol to rehydrate. Your doctor may suggest electrolyte solutions for sick infants and young children. When to go to the emergency room (ER) Go to an ER right away for these symptoms: Adults Very dark urine and little urine output Dizziness, weakness, confusion, fainting Children Sunken eyes Little or no urine output (for infants, no wet diaper in 8 hours) Very dark urine Skin that doesn't bounce back quickly when pinched Crying without tears Lethargy, decreased activity, or increased sleepiness What to expect in the emergency room Your blood pressure, temperature, and heart rate will be checked. You may have blood or urine tests. The main treatment for dehydration is fluids. You may be given these to drink. Or, you may receive them through a vein in your arm. You also may be treated for diarrhea, vomiting, or a high fever. [id number] [employer]. [address] [place] [address]. All rights reserved. This information is not intended as a substitute for professional medical care. Always follow your healthcare professional's instructions. Additional Information VACCINATE! IT SAVES LIVES! Members of the community who have not yet received the COVID-19 vaccine and would like to receive it can visit one of [facility] vaccine clinics. There are many vaccine clinic locations within the [facility]. For locations and available times, please visit [email or web address] It is important to note that some COVID mobile vaccine clinics are held outdoors and may be canceled in rainy or stormy conditions. To learn more about pediatric vaccinations (ages 5-11), we invite you to visit the [facility] webpage. [email or web address] To learn more about the COVID-19 vaccine, we invite you to visit the CDC website for a list of frequently asked questions. https://www.cdc.gov/coronavirus/ 2019-ncov/vaccines/faq.html [facility] Patient Portal Access Instructions: Stay connected with your healthcare team and access your personal medical information anytime with the [facility] Patient Portal. If you would like a full copy of your medical records please contact the [facility] Medical Records Department Sunday through Sunday between 8a.m. and 4:30p.m. Please follow the directions below to access the portal: 1.Access the email account you provided upon registration to the [facility].2.Look for an invitation email from [facility].3.Open the email and access the invitation link: [facility] to [facility].Fill in the required jones to create your account. Sign into [email or web address] with your username and password that you created in the above steps to stay up to date. You can then view a summary of results, a summary of your visits, and the ability to download your summaries to your computer or send the information securely to a physician. Remember that your healthcare information is confidential, so carefully consider who you will allow to register on the [facility] Patient Portal for access to your information. You can also access the [facility] Patient Portal on the [employer] asif. Simply click on Health Records under Health Data and then click on the [facility] logo. HOW TO SAFELY DISPOSE OF PRESCRIPTION MEDICATIONS Please use one of the following methods to safely dispose of your unused medications. 1.Use a drug disposal kit: the drug disposal pouch allows you to safely discard your old and unused drugs. Ask your nurse to give you one when you are discharged.2.Visit a local take-back location: Many local pharmacies and police departments have programs that collect old and unwanted prescription drugs. Call your local pharmacy or go to http://bit.GameWith/9V7Zh1t to find one close to you.3.Make use of household items: Use cat litter or old coffee grounds to dispose medications if other options are not available. Mix your drugs with these household products, seal them in an airtight container and throw it into the garbage. Call [facility]: [phone] to be sure your drugs can be disposed of in this way. Some medicines may require a different approach.4.Never flush your medications down the toilet. IF YOU HAVE BEEN PRESCRIBED AN OPIOIDS FOR PAIN If you have been prescribed an opioid (such as hydrocodone, oxycodone or morphine), it is critical to understand the possible side effects and risks of opioid pain medications. Even when taken as directed, opioids can have several side effects including: Tolerance, meaning you might need to take more of a medication for the same pain relief. Nausea, vomiting and/or constipation. Sleepiness, dizziness, dry mouth, confusion, depression or itching. Physical dependence, meaning you have withdrawal symptoms when a medication is stopped ? this can develop within a few days. KNOW YOUR RESPONSIBILITIES It is important to know exactly how much and how often to take the opioid pain medications you are prescribed. Never take opioids in higher amounts or more often than prescribed. Do not combine opioids with alcohol or other drugs that cause drowsiness, such as benzodiazepines, also known as benzos, including diazepam and alprazolam, muscle relaxants or sleep aids. Never sell or share prescription opioids. This is illegal. Store opioids in a secure place and out of reach of others (including children, family, friends and visitors). The last page(s) of this document has been signed and retained as a CHART COPY Signatures Patient Education Materials Dehydration Medication Leaflets My discharge plan and instructions have been reviewed and explained to me and I,CHENCHO FUENTES understand my current condition and have read and understand these discharge instructions. I have received a written copy of the plan/instructions. If I have questions, I am aware that I should contact my doctor. Patient/Educational/Development Assistant Signature: Date/Time: Relationship to Patient: Witness Name/Signature: Date/Time: [facility] 10-29-2023 Evaluation + Plan note Future Scheduled TestsC-Reactive Protein 10/29/23Uric Acid 10/29/23Rheumatoid Factor 12/25/23Rheumatoid Factor 10/29/23Complete Blood Count 12/25/23Complete Blood Count 10/29/23Sedimentation Rate Automated 10/29/23Complete Metabolic Panel 12/25/23Complete Metabolic Panel 10/29/23XR Knee 3 Views Right 04/26/23XR Spine Cervical AP/LAT 04/26/23 [facility] 10-02-2023 Note HNO ID: [id number] Author: BAKARI AKERS PA-C Service: ? Author Type: Physician Assistant Education Director Type: Progress Notes Filed: 10/02/2023 15:55 Note Text: This note was created using Neocoretechriter. Subjective Chencho Fuentes is a 28 year old male. HPI Patient presents with a chief complaint of arthralgias. He has had this for several months. Today his hands were feeling very painful and swollen when he woke up this morning. He has chronic neck pain with pain rating to his left arm as well. Also has problems with his back off and on. He had been seen by his primary doctor and per the patient had lab work and a workup done and was diagnosed with RA. He has not been able to follow-up with rheumatology as the town marshal he was referred to does not take his insurance. He has been taking ibuprofen and Tylenol. He does notice when he keeps moving his arthralgias are better however when he is home still or after he wakes up in the morning his joint pains hurt more. No fever or chills. No rash. Review of Systems Constitutional: Negative. HENT: Negative. Respiratory: Negative. Cardiovascular: Negative. Gastrointestinal: Negative. Genitourinary: Negative. Musculoskeletal: Positive for arthralgias, back pain and neck pain. Hand pain and swelling Skin: Negative. All other systems reviewed and are negative. PAST MEDICAL HISTORY Diagnosis Date Asthma Genital herpes Hyperglycemia Tobacco abuse Current Outpatient Medications Medication Sig Dispense Refill sotalol (BETAPACE) 80 mg tablet Take 80 mg by mouth two times a day. predniSONE (DELTASONE) 10 mg tablet Take 4 tabs daily x 3 days, then 3 tabs x 3 days, 2 tabs x 3 days, then 1 tab x3 days with food. 30 tablet 0 apixaban (ELIQUIS) 5 mg tab tab(s) Take 1 tablet by mouth twice daily. (Patient not taking: Reported on 10/02/2023) 60 tablet 5 metoprolol succinate ER (TOPROL XL) 50 mg 24 hr tablet Take 1 tablet by mouth once daily. (Patient not taking: Reported on 10/02/2023) 30 tablet 5 flecainide (TAMBOCOR) 100 mg tablet One tablet at onset of sustained palpitations. May repeat every 12 hours. (Patient not taking: Reported on 10/02/2023) 6 tablet 1 No current facility-administered medications for this visit. No past surgical history on file. No family history on file. Objective BP 120/72 Pulse 96 Temp 36.6 ?C (97.8 ?F) Resp 16 Wt 106.6 kg (235 lb 0.2 oz) SpO2 98% BMI 33.72 kg/m? Physical Exam Vitals reviewed. Constitutional: Appearance: Normal appearance. HENT: Head: Normocephalic and atraumatic. Cardiovascular: Rate and Rhythm: Normal rate and regular rhythm. Heart sounds: Normal heart sounds. Pulmonary: Effort: Pulmonary effort is normal. Breath sounds: Normal breath sounds. Musculoskeletal: Comments: Some mild diffuse swelling to his hands bilaterally, left worse than right. No significant erythema. Normal hand grasp strength. Exam of the neck reveals pain with rotation of the neck left and right and limited range of motion. No erythema or swelling. Pain with twisting on the back. Normal strength and sensation in lower extremities. Skin: General: Skin is warm and dry. Neurological: Mental Status: He is alert. Assessment and Plan ASSESSMENT/PLAN: 1. Arthralgia, unspecified joint - ICD9: 719.40, ICD10: M25.[address] on a prednisone taper. Also will have him follow-up with [facility] rheumatology. Patient agreeable with plan. - CONSULT TO RHEUM/IMMUN DISEASE Bakari Akers PA-C [facility] 10-02-2023 History of Present illness Narrative This note was created using NoteWriter. Subjective Chencho Fuentes is a 28 year old male. HPI Patient presents with a chief complaint of arthralgias. He has had this for several months. Today his hands were feeling very painful and swollen when he woke up this morning. He has chronic neck pain with pain rating to his left arm as well. Also has problems with his back off and on. He had been seen by his primary doctor and per the patient had lab work and a workup done and was diagnosed with RA. He has not been able to follow-up with rheumatology as the town marshal he was referred to does not take his insurance. He has been taking ibuprofen and Tylenol. He does notice when he keeps moving his arthralgias are better however when he is home still or after he wakes up in the morning his joint pains hurt more. No fever or chills. No rash. Review of Systems Constitutional: Negative. HENT: Negative. Respiratory: Negative. Cardiovascular: Negative. Gastrointestinal: Negative. Genitourinary: Negative. Musculoskeletal: Positive for arthralgias, back pain and neck pain. Hand pain and swelling Skin: Negative. All other systems reviewed and are negative. PAST MEDICAL HISTORY Diagnosis Date Asthma Genital herpes Hyperglycemia Tobacco abuse Current Outpatient Medications Medication Sig Dispense Refill sotalol (BETAPACE) 80 mg tablet Take 80 mg by mouth two times a day. predniSONE (DELTASONE) 10 mg tablet Take 4 tabs daily x 3 days, then 3 tabs x 3 days, 2 tabs x 3 days, then 1 tab x3 days with food. 30 tablet 0 apixaban (ELIQUIS) 5 mg tab tab(s) Take 1 tablet by mouth twice daily. (Patient not taking: Reported on 10/02/2023) 60 tablet 5 metoprolol succinate ER (TOPROL XL) 50 mg 24 hr tablet Take 1 tablet by mouth once daily. (Patient not taking: Reported on 10/02/2023) 30 tablet 5 flecainide (TAMBOCOR) 100 mg tablet One tablet at onset of sustained palpitations. May repeat every 12 hours. (Patient not taking: Reported on 10/02/2023) 6 tablet 1 No current facility-administered medications for this visit. No past surgical history on file. No family history on file. Objective BP 120/72 Pulse 96 Temp 36.6 C (97.8 F) Resp 16 Wt 106.6 kg (235 lb 0.2 oz) SpO2 98% BMI 33.72 kg/m Physical Exam Vitals reviewed. Constitutional: Appearance: Normal appearance. HENT: Head: Normocephalic and atraumatic. Cardiovascular: Rate and Rhythm: Normal rate and regular rhythm. Heart sounds: Normal heart sounds. Pulmonary: Effort: Pulmonary effort is normal. Breath sounds: Normal breath sounds. Musculoskeletal: Comments: Some mild diffuse swelling to his hands bilaterally, left worse than right. No significant erythema. Normal hand grasp strength. Exam of the neck reveals pain with rotation of the neck left and right and limited range of motion. No erythema or swelling. Pain with twisting on the back. Normal strength and sensation in lower extremities. Skin: General: Skin is warm and dry. Neurological: Mental Status: He is alert. Assessment and Plan ASSESSMENT/PLAN: 1. Arthralgia, unspecified joint - ICD9: 719.40, ICD10: M25.[address] him on a prednisone taper. Also will have him follow-up with [facility] rheumatology. Patient agreeable with plan. - CONSULT TO RHEUM/IMMUN DISEASE Bakari Akers PA-C documented in this encounter [facility] 04-21-2023 Note [facility] Medical Records Department [address] [place] [address] Discharge Summary 04/21/23 1217 MR#: [id number] Acct: [id number] Name: CHENCHO FUENTES Rep #: [id number] : 1995 27 From: Juliana Dominguez MD PCP: GABRIEL Smith Status:[facility] Location: [facility] [id number] Providers Date of Admission: 04/18/23 Date of Discharge: 04/21/23 Primary Care Physician: GABRIEL Smith Consultations 04/18/23 16:06 Consult: Orthopedics Routine Consulting Provider: Jacky Rollins Reason for Consult: Concern for left knee septic joint EMERGENT Consult: No MD Notified: Yes Date Notified: 04/18/23 Time Notified: 16:06 Method of Notification: Verbal Reason For Visit: LEFT KNEE CELLULITIS WITH CONCERN FOR SEPTIC JOINT Diagnosis Discharge Diagnosis (1) Acute pain of right knee: Status: Acute Code(s): M25.561 - Pain in right knee (2) History of atrial fibrillation: Status: Resolved Code(s): Z86.79 - Personal history of other diseases of the circulatory system Plan #Right knee cellulitis, concerning for septic arthritis * right knee xray showed soft tissue swelling * had right knee aspiration in the ED; fluid was too scant for the lab to run any test on it apparently. * orthopedic surgery on board; per ortho, this is likely cellulitis of the knee, and not a likely septic arthritis. * wbc is down to 12.5 * on IV vancomycin and IV unasyn * on PO oxycodone, IV morphine and PO tylenl prn for pain * * #Hypokalemia: resolved. K is 4. #Paroxysmal afib * in normal sinus rhythm * had an ablation done * on sotalol and eliquis * #Obesity: BMI is 31.6. Complicates acute care, expected recovery and prognosis DVT prophylaxis: Lovenox. Eliquis on hold as he had the aspiration done. Will resume eliquis tomorrow as he is not having any further procedures done. * Medications at Discharge Home Medications sotalol 80 mg tablet 80 mg PO BID Ablation 04/18/23 cephalexin 500 mg capsule 500 mg PO Q8H #30 caps 04/21/23 doxycycline hyclate 100 mg tablet 100 mg PO BID #20 tabs 04/21/23 Hospital Course Operations None Procedures - (right knee aspiration) Summary of Care Provided Minutes Spent on Discharge: 45 Hospital Course: Patient is a 27 y/o male with a PMH as outlined who was admitted with a complaint of right knee swelling and pain. He fell onto his right knee 2 days prior to admission and had mild scooping on the knee. Subsequently he noticed that there was extensive swelling and redness around the knee and extending down to the mid kern. The knee was also very painful with movement. Review of symptoms otherwise negative and he denied any fever or chills. X-ray of the right knee showed soft tissue swelling with small joint effusion. He was admitted and managed for right knee cellulitis with concerns for septic arthritis. Orthopedic surgery was consulted. He was started on IV vancomycin and Unasyn. Patient had bedside right knee aspiration done by orthopedics. Patient's pain, s welling and redness of the right knee and right lower extremity improved with antibiotics. The scan t fluid gotten from the aspiration was sent for microbiology evaluation. However it turned out that he could not have any analysis of the fluid done because the fluid was scanty. Per orthopedics, th ere was no need to do a repeat aspiration as the swelling and redness was getting better and was lik laci this was due to right knee cellulitis and less likely septic arthritis. Patient felt much tex r and was able to better flex and extend his right leg at the knee joint. Redness had also signific antly improved as well as swelling. He was discharged home on 04/21/2023 on p.o. Keflex and p.o. dox ycycline for 10-day course. He is follow-up with his primary care doctor and follow-up with orthope dic surgery on outpatient basis within 2 weeks. Patient seen and examined prior to discharge. He had no complaints and had an uneventful night. Pain, redness and swelling was much better. He felt much much better. Review of systems otherwise negative. Labs and vitals reviewed. Home medication reviewed and reconciled. Physical Exam Const alert, oriented x3 and no apparent distress General Appearance: cooperative, comfortable, well kempt and well developed HEENT normocephalic, head/scalp atraumatic, hearing grossly normal bilaterally, nasal mucous membranes and turbinates normal, moist oral mucous membranes, oropharynx normal and gingiva normal Mouth: oral and palatal mucosa normal Eyes PERRL, EOMs intact bilaterally and conjunctivae normal Neck full ROM, no lymphadenopathy and supple Lymph Lymphatic: no lymphadenopathy noted Chest inspection of chest normal Resp normal respiratory effort, normal air movement, no use of accessory muscles and clear to auscultation bilater (more content not included)... [facility] 04-21-2023 Consult note Note Date/Time April 21, 2023 6:44am [facility] Medical Records Department [address] [place] [address] Pharmacokinetic/Renal -Consult 04/21/23 0643 MR#: [id number] Acct: [id number] Name: CHENCHO FUENTES TURNER Rep #:[id number] : 1995 27 From: Bo Pitts od PCP: GABRIEL Smith tus:ADM IN Y Location: [place] [address] Consult Antibiotic Management Pharmacy has been consulted to manage selected antiobiotic: Vancomycin Type of Intervention Type of Consult: Follow-up Labs Labs: Sodium 140 mmol/L (136-145) 04/21/23 04:45 Potassium 4.0 mmol/L (3.5-5.1) 04/21/23 04:45 Chloride 109 mmol/L (98-107) H 04/21/23 04:45 Carbon Dioxide 25.0 mmol/L (21.0-32.0) 04/21/23 04:45 Anion Gap 6 (5-15) 04/21/23 04:45 BUN 9 mg/dL (7-18) 04/21/23 04:45 Creatinine 0.82 mg/dL (0.70-1.30) 04/21/23 04:45 Est GFR (MDRD) Af Amer 142 mL/min (>60) 04/21/23 04:45 Est GFR (MDRD) Non-Af 118 mL/min (>60) 04/21/23 04:45 BUN/Creatinine Ratio 11.0 RATIO (10-20) 04/21/23 04:45 Glucose 99 mg/dL (74-106) 04/21/23 04:45 Vancomycin Trough 15.5 ug/mL (5.0-15.0) H 04/21/23 04:45 Goal Trough Goal Trough: 15-20 mcg/mL Pharmacy Plan for Drug Dosing Pharmacy Plan for Drug Dosing: Pharmacy Service will continue to monitor and adjust dosing as required. TROUGH 15.5 @ 7.2 HOURS. NO CHANGES, FOLLOW UP TROUGH IN 2 DAYS Follow-Up Labs Follow-Up Labs: Trough: Vancomycin Date/Time Labs Ordered Labs to be done on [date and time ordered]: 04/23 @ 0500 04/21/23 0644 <Electronically signed by Bo brown> Date _ Bo Stark Signature (if applicable): Date CC: ~ Signed [facility] Work Phone: 1(497) 856-194412-01-2023 Progress note Author Juliana Dominguez [facility] April 20, 2023 2:16pm Note Date/Time April 20, 2023 1 0:[address] [place] [address] System Medical Records Department [address] [place] [address] Progress Note 04/20/23 1045 MR#: [id number] Acct: [id number] Name: CHENCHO FUENTES Rep #:[id number] : 1995 27 From: Juliana Dominguez MD PCP: Zehra Mojica, GABRIEL Sta tus:ADM IN Location: [place] [address] Subjective Subjective Patient seen and examined. He still has pain in his right knee. The swelling andredness has improved. Per orthopedic progress note, the amount of fluid aspirated was too small for the lab to run any tests on it. WBC is trending downwards. Review of systems otherwise negative. Objective Data Objective Data Vital Signs: Vital Signs Temp Pulse Resp BP Pulse Ox O2 Del Method 98.0 F 80 16 125/84 H 99 Room Air 04/20/23 09:35 04/20/23 09:35 04/20/23 09:35 04/20/23 09:35 04/20/23 09:35 04/20/23 09:35 Oxygen Delivery Method Room Air Weight: 220 lb 3.869 oz Body Mass Index (BMI) 31.6 Intake & Output: Intake and Output for Last 24 Hours 04/18/23 04/19/23 04/20/23 23:59 23:59 23:59 Intake Total 974 / 974 2536 / 2536 499 / 499 Balance 974 / 974 2536 / 2536 499 / 499 Lab / Micro Data 04/20/23 04:30 04/20/23 04:30 Labs: Laboratory Results - last 24 hr 04/18/23 14:22: Diff Path Review Reviewed 04/18/23 16:06: Synovial Path Comment Reviewed 04/20/23 04:30: WBC 12.5 H, RBC 3.83 L, Hgb 11.4 L, Hct 35.7 L, MCV 93.2, MCH 29.8, MCHC 31.9 L, RDW Std Deviation 49.8 H, RDW Coeff of Dev 14.5, Plt Count 243, MPV 9.5, Immature Gran % (Auto) 0.200, Neut % (Auto) 74.8 H, Lymph % (Auto)13.4 L, [place] % (Auto) 9.3, Eos % (Auto) 1.8, Baso % (Auto) 0.5, Absolute Neuts (auto) 9.4 H, Absolute Lymphs (auto) 1.68, Nucleated RBC % 0, Sodium 141, Potassium 4.0, Chloride 109 H, Carbon Dioxide 26.0, Anion Gap 6, BUN 10, Creatinine 0.73, Estim Creat Clear Calc 154.17, Est GFR (MDRD) Af Amer 164, Est GFR (MDRD) Non-Af 135, BUN/Creatinine Ratio 13.8, Glucose 111 H, Calcium 7.8 L, Vancomycin Trough 9.0 Physical Exam Const alert, oriented x3 and no apparent distress General Appearance: cooperative and well developed HEENT normocephalic, head/scalp atraumatic, hearing grossly normal bilaterally, nasal mucous membranes and turbinates normal, moist oral mucous membranes, oropharynx normal and gingiva normal Eyes PERRL, EOMs intact bilaterally and conjunctivae normal Neck full ROM, no lymphadenopathy and supple Lymph Lymphatic: no lymphadenopathy noted Chest inspection of chest normal Resp normal respiratory effort, normal air movement, no use of accessory muscles and clear to auscultation bilaterally Cardio regular rate, regular rhythm, S1 normal heart sound, S2 normal heart sound, no murmurs and peripheral pulses 2+ throughout GI normal to inspection, nondistended, normoactive bowel sounds, soft to palpation,non-tender and non-distended Back/Spine normal ROM Extremity normal capillary refill, no clubbing, cyanosis or edema and no calf tenderness Extremity Narrative: right knee swelling has improved significantly, still has erythema and moderate swelling, unable to flex or extend leg fully at the knee. Skin no rashes or lesions noted Skin Narrative: as under extremity Neuro No oriented x3, CN's II-XII intact bilaterally, No moves all extremities, no focal motor deficits, no sensory deficits noted and deep tendon reflexes 2+ bilaterally Speech: speech normal Psych mental status grossly normal, thought process normal and cooperative Appearance: appropriate Assessment & Plan Assessment/Plan (1) Acute pain of right knee: (2) History of atrial fibrillation: PLAN: Plan #Right knee cellulitis, concerning for septic arthritis * right knee xray showed soft tissue swelling * had right knee aspiration in the ED; fluid was too scant for the lab to run any test on it apparently. * orthopedic surgery on board; per ortho, this is likely cellulitis of the knee, and not a likely septic arthritis. * wbc is down to 12.5 * on IV vancomycin and IV unasyn * on PO oxycodone, IV morphine and PO tylenl prn for pain * * #Hypokalemia: resolved. K is 4. #Paroxysmal afib * in normal sinus rhythm * had an ablation done * on sotalol and eliquis * #Obesity: BMI is 31.6. Complicates acute care, expected recovery and prognosis DVT prophylaxis: Lovenox. Eliquis on hold as he had the aspiration done. Will resume eliquis tomorrow as he is not having any further procedures done. * Charges/Coding Visit Charges Inpatient E&M: 60366 Subs Hosp L2 04/20/23 1416 <Electronically signed by Juliana Dominguez MD> Juliana Dominguez MD Cosigner Signature (if applicable): CC: ~ Signed [facility] Work Phone: 1(925) 687-982112-01-2023 Consult note Author Bo Marquez [facility] April 20, 2023 5:39am Note Date/Time April 20, 2023 5 :40am [facility] Medical Records Department [address] [place] [address] Pharmacokinetic/Renal -Consult 04/20/23 0538 MR#: [id number] Acct: [id number] Name: CHENCHO FUENTES TURNER Rep #:[id number] : 1995 27 From: Bo Pitts od PCP: GABRIEL Smith tus:ADM IN Y Location: [place] [address] Consult Antibiotic Management Pharmacy has been consulted to manage selected antiobiotic: Vancomycin Type of Intervention Type of Consult: Follow-up Labs Labs: Sodium 141 mmol/L (136-145) 04/20/23 04:30 Potassium 4.0 mmol/L (3.5-5.1) 04/20/23 04:30 Chloride 109 mmol/L (98-107) H 04/20/23 04:30 Carbon Dioxide 26.0 mmol/L (21.0-32.0) 04/20/23 04:30 Anion Gap 6 (5-15) 04/20/23 04:30 BUN 10 mg/dL (7-18) 04/20/23 04:30 Creatinine 0.73 mg/dL (0.70-1.30) 04/20/23 04:30 Est GFR (MDRD) Af Amer 164 mL/min (>60) 04/20/23 04:30 Est GFR (MDRD) Non-Af 135 mL/min (>60) 04/20/23 04:30 BUN/Creatinine Ratio 13.8 RATIO (10-20) 04/20/23 04:30 Glucose 111 mg/dL (74-106) H 04/20/23 04:30 Vancomycin Trough 9.0 ug/mL (5.0-15.0) 04/20/23 04:30 Goal Trough Goal Trough: 15-20 mcg/mL Pharmacy Plan for Drug Dosing Pharmacy Plan for Drug Dosing: Pharmacy Service will continue to monitor and adjust dosing as required. TROUGH 9.0 @ 12 HOURS. CHANGE TO 1250MG Q8H AND FOLLOW UP TROUGH PRIOR TO 4TH DOSE Follow-Up Labs Follow-Up Labs: Trough: Vancomycin Date/Time Labs Ordered Labs to be done on [date and time ordered]: 04/21 @ 0500 04/20/23 0539 <Electronically signed by Bo rbown> Date _ Bo Stark Signature (if applicable): Date CC: ~ Signed [facility] Work Phone: 1(349) 946-734611-30-2023 Progress note Author Jacky Rollins [facility] April 19, 2023 6:51pm Note Date/Time April 19, 2023 6:51pm [facility] Medical Records Department [address] [place] [address] Progress Note - Orthopedic 04/19/23 1846 MR#: [id number] Acct: [id number] Name: CHENCHO FUENTES Rep #:[id number] : 1995 27 From: Jacky West PCP: GABRIEL Smith tus:ADM IN Location: [place] [address] Subjective Subjective Patient overall reports an improvement in his symptoms. He reports medial and lateral knee pain have resolved significantly. He remains with pain in the anterior knee. He is resting comfortably watching television when I enter the room. Vital signs do show that he rates his pain an 8 out of 10. Pain is worsewith flexion of the knee. He is able to tolerate range of motion 0-90 fairly well demonstrates to me in the room. He notes he has been up walking around. White count is also shown decline on antibiotics. Unfortunately, they were unable to obtain a full cell count with the fluid available. However gross appearance of the fluid was not consistent with infectious etiology. Objective Data Objective Data Vital Signs: Vital Signs Temp Pulse Resp BP Pulse Ox O2 Del Method 98.8 F 67 16 125/79 H 99 Room Air 04/19/23 16:26 04/19/23 16:26 04/19/23 16:26 04/19/23 16:26 04/19/23 16:26 04/19/23 16:26 Oxygen Delivery Method Room Air Weight: 220 lb 3.869 oz Body Mass Index (BMI) 31.6 Intake & Output: Intake and Output for Last 24 Hours 04/17/23 04/18/23 04/19/23 23:59 23:59 23:59 Intake Total 974 / 974 2424 / 2424 Balance 974 / 974 2424 / 2424 Lab / Micro Data Attestation: I reviewed the patient's lab results. 04/19/23 06:00 04/19/23 06:00 Labs: Laboratory Results - last 24 hr 04/18/23 16:06: Synovial Source RIGHT KNEE, Synovial Color Red, Synovial Appearance Cloudy, Synovial Tot Cell Ct TNP, Synovial Neutrophils 84 H, SynovialLymphocytes 10, Synovial Monocytes 6, Synovial Path Comment May follow 04/19/23 06:00: WBC 17.8 H, RBC 3.99 L, Hgb 11.8 L, Hct 36.2 L, MCV 90.7, MCH 29.6, MCHC 32.6, RDW Std Deviation 47.4 H, RDW Coeff of Dev 14.2, Plt Count 256,MPV 10.5, Sodium 136, Potassium 3.4 L, Chloride 105, Carbon Dioxide 27.0, Anion Gap 4 L, BUN 19 H, Creatinine 0.87, Estim Creat Clear Calc 129.36, Est GFR (MDRD) Af Amer 134, Est GFR (MDRD) Non-Af 110, BUN/Creatinine Ratio 21.9 H, Glucose 127 H, Calcium 8.3 L, Total Bilirubin 0.30, AST 15, ALT 22, Alkaline Phosphatase 73, Total Protein 6.2 L, Albumin 2.9 L, Globulin 3.3, Albumin/Globulin Ratio 0.9 Physical Exam Const alert, oriented x3 and no apparent distress General Appearance: cooperative, comfortable and well kempt Extremity Extremity Narrative: Right lower extremity: Patient tolerates passive and active short arc range of motion 0 to 90 degrees without significant pain. Upon flexion to greater than 90 reports anterior knee pain. Patient's erythema has resolved and is primarilyanterior. There is some anterior bogginess however there is not a definitive area of fluctuance consistent with prepatellar bursa at this time. Lower extremities otherwise neurovascular intact distally. Assessment & Plan Assessment/Plan (1) Cellulitis of knee: PLAN: At this time patient's clinical symptoms are consistent with cellulitis ofthe right knee. He does not demonstrate symptoms consistent with septic arthritis. Additionally, after aspirating the fluid there was not gross appearance of infectious etiology. Unfortunately were unable to perform the full cell count. I was not contacted in order to also try and get cultures on the available fluid. However again, patient's physical examination is not consistent with a septic joint. Will continue with IV antibiotics. Long-term concern is that the patient may eventually develop prepatellar bursitis. I explained to the patient the natural history of prepatellar bursitis and how it can sometimes require surgical intervention. Would like the patient to follow-up in my office in 2 weeks he would likely need discharge on some form of antibiotic regimen I will leave that up to the primary team. Please call orthopedics for any further questions or concerns. [facility] Office: 04/19/23 8398 <Electronically signed by Jacky Rollins MD> Cosigner Signature (if applicable): CC: ~ Signed [facility] Work Phone: 1(472) 862-824711-30-2023 Progress note Author Juliana Dominguez [facility] April 19, 2023 4:52pm Note Date/Time April 19, 2023 2:15pm [facility] Medical Records Department [address] [place] [address] Progress Note 04/19/23 1414 MR#: [id number] Acct: [id number] Name: CHENCHO FUENTES Rep #:[id number] : 1995 27 From: Juliana Dominguez MD PCP: GABRIEL Smith tus:ADM IN Location: [place] [address] Subjective Subjective Patient seen and examined. He still complained of pain in his right knee; he denied any fever, chills, cough, chest pain, palpitations, dizziness, nausea, vomiting or any other symptoms. Review of sysems is otherwise negative. He had aright knee aspiration done. Objective Data Objective Data Vital Signs: Vital Signs Temp Pulse Resp BP Pulse Ox O2 Del Method 98.1 F 71 16 137/64 H 97 Room Air 04/19/23 10:45 04/19/23 10:45 04/19/23 10:45 04/19/23 10:45 04/19/23 10:45 04/19/23 10:45 Oxygen Delivery Method Room Air Weight: 220 lb 3.869 oz Body Mass Index (BMI) 31.6 Intake & Output: Intake and Output for Last 24 Hours 04/17/23 04/18/23 04/19/23 23:59 23:59 23:59 Intake Total 974 / 974 1324 / 1324 Balance 974 / 974 1324 / 1324 Lab / Micro Data 04/19/23 06:00 04/19/23 06:00 Labs: Laboratory Results - last 24 hr 04/18/23 14:22: WBC 23.6 H, RBC 4.48 L, Hgb 13.6, Hct 40.7, MCV 90.8, MCH 30.4, MCHC 33.4, RDW Std Deviation 46.9 H, RDW Coeff of Dev 13.9, Plt Count 276, MPV 10.0, Immature Gran % (Auto) 0.500, Neut % (Auto) 83.2 H, Lymph % (Auto) 7.7 L, [place]air % (Auto) 7.2, Eos % (Auto) 1.1, Baso % (Auto) 0.3, Absolute Neuts (auto) 19.6 H, Absolute Lymphs (auto) 1.82, Nucleated RBC % 0, Differential Comment SCANNED, Diff Path Review September foll, ESR 14, C-React Prot Ext Range 186.00 H 04/18/23 16:06: Synovial Source RIGHT KNEE, Synovial Color Red, Synovial Appearance Cloudy, Synovial WBC TNP, Synovial RBC TNP, Synovial Tot Cell Ct TNP, Synovial Neutrophils 84 H, Synovial Lymphocytes 10, Synovial Monocytes 6, Synovial Path Comment May follow 04/18/23 17:47: Sodium 136, Potassium 3.5, Chloride 101, Carbon Dioxide 31.0, Anion Gap 4 L, BUN 25 H, Creatinine 1.13, Estim Creat Clear Calc 99.59, Est GFR (MDRD) Af Amer 98, Est GFR (MDRD) Non-Af 81, BUN/Creatinine Ratio 22.1 H, Glucose 133 H, Calcium 8.7 04/19/23 06:00: WBC 17.8 H, RBC 3.99 L, Hgb 11.8 L, Hct 36.2 L, MCV 90.7, MCH 29.6, MCHC 32.6, RDW Std Deviation 47.4 H, RDW Coeff of Dev 14.2, Plt Count 256,MPV 10.5, Sodium 136, Potassium 3.4 L, Chloride 105, Carbon Dioxide 27.0, Anion Gap 4 L, BUN 19 H, Creatinine 0.87, Estim Creat Clear Calc 129.36, Est GFR (MDRD) Af Amer 134, Est GFR (MDRD) Non-Af 110, BUN/Creatinine Ratio 21.9 H, Glucose 127 H, Calcium 8.3 L, Total Bilirubin 0.30, AST 15, ALT 22, Alkaline Phosphatase 73, Total Protein 6.2 L, Albumin 2.9 L, Globulin 3.3, Albumin/Globulin Ratio 0.9 Radiography Diagnostic Testing: Radiology Impression Knee X-Ray 04/18/23 14:07 IMPRESSION: Soft tissue swelling. Small joint effusion. Electronically Signed: Miki Preston MD at 14:39 EST , Physical Exam Const alert, oriented x3 and no apparent distress General Appearance: cooperative and well developed HEENT normocephalic, head/scalp atraumatic, moist oral mucous membranes, oropharynx normal and gingiva normal Eyes PERRL and EOMs intact bilaterally Neck no lymphadenopathy and supple Lymph Lymphatic: no lymphadenopathy noted Resp normal respiratory effort, normal air movement and clear to auscultation bilaterally Cardio regular rate, regular rhythm, S1 normal heart sound, S2 normal heart sound and no murmurs GI normal to inspection, nondistended, normoactive bowel sounds, soft to palpation,non-tender and non-distended Extremity normal capillary refill, no clubbing, cyanosis or edema and no calf tenderness Extremity Narrative: right knee markedly swollen, erythematous, tender to touch, has significant tenderness with movement. Skin Skin Narrative: as under extremity Neuro CN's II-XII intact bilaterally, no focal motor deficits, no sensory deficits noted and deep tendon reflexes 2+ bilaterally Psych thought process normal and cooperative Appearance: appropriate Assessment & Plan Assessment/Plan (1) Acute pain of right knee: (2) History of atrial fibrillation: PLAN: Plan #Right knee cellulitis, concerning for septic arthritis * right knee xray showed soft tissue swelling * had right knee aspiration in the ED * orthopedic surgery on board * on IV vancomycin and IV unasyn * on PO oxycodone, IV morphine and PO tylenl prn for pain * wbc is down to 17.8, from 23.6 on admission. * #Hypokalemia: Potassium is 3.4. Will replace and trend. #Paroxysmal afib * in normal sinus rhythm * had an ablation done * on sotalol and eliquis * #Obesity: BMI is 31.6. Complicates acute care, expected recovery and prognosis DVT prophylaxis: Lovenox. Eliquis on hold as he had the aspiration done. * Charges/Coding Visit Charges Inpatient E&M: 76847 Subs Hosp L2 04/19/23 7762 <Electronically signed by Juliana Dominguez MD> Juliana Dominguez MD Cosigner Signature (if applicable): CC: ~ Signed [facility] Work Phone: 1([phone]) 204-458211-30-2023 Discharge summary Author Alisa Wesley [facility] April 18, 2023 10:38pm Note Date/Time April 18, 2023 2:11pm [facility] Medical Records Department [address] [place] [address] Emergency Department Summary 04/18/23 MR#: [id number] Acct: [id number] Name: CHENCHO FUENTES Rep #:[id number] : 1995 27 From: Alisa Wesley DO PCP: GABRIEL Smith Sta tus:ADM IN Location: [place] [address] HPI History of Present Illness Chief Complaint: Lower Extremity Injury Detail of Chief Complaint: Right knee pain/injury/erythema Informant: patient, parent and family Narrative Narrative: Patient presents to the emergency department with complaint of pain to the rightknee. Patient states that he fell 2 nights ago onto the knee while in the driveway injuring it. He states it was sore the next day but then it became more red and hot and more painful. He was seen at urgent care and referred to the emergency department for evaluation. Urgent care had concern for possible joint infection. Patient denies fever or chills or sweats. PFSH PFS Medical History Asthma History of atrial fibrillation Palpitations Sinus tachycardia Home Medications metoprolol tartrate 25 mg tablet 50 mg PO BID 03/21/19 [History Last Taken Unknown] cephalexin 500 mg capsule 500 mg PO Q12 #10 CAPSULES 09/06/22 [Rx Last Taken Unknown] Allergy/AdvReac Type Severity Reaction Status Date / Time codeine Allergy Hives Verified 04/18/23 13:55 Surgical History H/O cardiac radiofrequency ablation (04/06/17) Social History Smoking Status: Former smoker substance use type: does not use ROS ROS ED Review of Systems ROS Unobtainable: other Constitutional Constitutional ED: Reports lethargy; Denies chills, fever(s), sweats or weight loss Eyes Eyes: Denies blurry vision, change in vision or diplopia ENT ENT ED: Denies rhinorrhea or sore throat Cardiovascular Cardiovascular: Denies chest pain, orthopnea or racing heartbeat Respiratory/Chest Respiratory/Chest: Denies cough, dyspnea, dyspnea on exertion, orthopnea or sputum Gastrointestinal Gastrointestinal: Denies abdominal pain, diarrhea, nausea or vomiting Genitourinary Genitourinary ED: Denies dysuria, hematuria or urinary frequency Musculoskeletal Musculoskeletal: Reports other Details: Knee pain, redness, swelling ; Denies arthralgias, back pain, myalgias or neck pain Integumentary Denies abscess, Abrasions or rash Neurologic Neurologic: Denies headache(s) or weakness Psychiatric Psychiatric: Denies anxiety, depression or suicidal thoughts Endocrine Endocrinology: Denies polydipsia, polyphagia or polyuria Hematologic/Lymphatic Hematologic/Lymphatic: Denies easy bleeding, easy bruising or lymphadenopathy Allergic/Immunologic Allergic/Immunologic ED: Denies mouth swelling, tongue swelling or urticaria EXAM Physical Exam Const Vital Signs: 04/18/23 13:53 Temperature 97.8 F Temperature Source Temporal Pulse Rate 73 Respiratory Rate 16 Blood Pressure 117/70 Blood Pressure Mean 85 Pulse Ox 99 Oxygen Delivery Method Room Air Positive well nourished and well developed General Appearance ED: well developed and NAD HEENT Reports TM's clear and moist mucous membranes normocephalic and atraumatic; Negative for trauma or tenderness Tympanic Membrane ED: Yes TM's clear Eyes PERRL and EOMs intact bilaterally General Eye ED: Negative for pale conjunctiva or scleral icterus Neck no lymphadenopathy, supple and no JVD General: Negative for tenderness Chest Wall inspection of chest normal and palpation of chest normal Chest: Negative for tenderness Resp normal respiratory effort and clear to auscultation bilaterally Effort and Inspection: Negative for respiratory distress or pain with movement Auscultation: Negative for rhonchi, wheezes or diminished lung sounds Cardio regular rate, regular rhythm, S1 normal heart sound, S2 normal heart sound and no murmurs Peripheral Pulses: pulses 2+ throughout GI normal to inspection, nondistended, normoactive bowel sounds, soft to palpation,non-tender, non-distended and no masses Back/Spine no CVA tenderness and no thoracic nor lumbar tenderness Extremity Extremity Narrative: Elevation of the right knee reveals diffuse erythema to the anterior aspect and lateral aspect of the knee and onto the anterior proximal tibia. Patient has significant pain with range of motion he has decreased range of motion secondaryto pain and swelling. Neurovascular intact distally. Mild joint effusion. General Extremety ED: Negative for edema General Extremity: Negative for edema Neuro oriented x3, CN's II-XII intact bilaterally, no sensory deficits noted and gait normal Sensorium / Orientation: awake, alert, oriented to person, oriented to place andoriented to time Motor Exam: strength 5/5 throughout and strength abnormal Psych mental status grossly normal Skin no rashes or lesions noted and no wounds MDM MDM MDM Narrative Medical decision making narrative: Presents with redness and swelling in severe pain in the right knee after falling onto with 2 days ago. Concern for septic joint. IV line established. CBC with differential patient with a white count of 23.8 with hemoglobin 13.6 and platelet count of 276. Patient sed rate was 14 and C-reactive protein 186. X-rays of the knee show a small fusion. No evidence for fracture. Lola case with orthopedic surgeon who will present to the emergency department to evaluatepatient and possible knee arthrocentesis to evaluate further. I initially had concerned about doing this as there are cellulitic changes about the knee and did not want to introduce bacteria into the joint. We will discuss case with hospitalist also to evaluate patient for admission Lab Data Attestation: I reviewed the patient's lab results. Labs: Laboratory Results - last 24 hr 04/18/23 14:22 WBC 23.6 H RBC 4.48 L Hgb 13.6 Hct 40.7 MCV 90.8 MCH 30.4 MCHC 33.4 RDW Std Deviation 46.9 H RDW Coeff of Dev 13.9 Plt Count 276 MPV 10.0 Immature Gran % (Auto) 0.500 Neut % (Auto) 83.2 H Lymph % (Auto) 7.[address] Clair % (Auto) 7.2 Eos % (Auto) 1.1 Baso % (Auto) 0.3 Absolute Neuts (auto) 19.6 H Absolute Lymphs (auto) 1.82 Nucleated RBC % 0 Differential Comment SCANNED Diff Path Review September ESR 14 C-React Prot Ext Range 186.00 H Radiography Diagnostic Testing: Clinical Impression(s) from Imaging Studies Knee X-Ray 04/18/23 14:07 IMPRESSION: Soft tissue swelling. Small joint effusion. Electronically Signed: Miki Preston MD at 14:39 EST , New x-rays of right knee obtained interpreted by myself as no evidence of fracture. Patient does have small joint effusion. Radiology in agreement. Discharge Plan Triage Chief Complaint: Lower Extremity Injury ED Provider: Alisa Wesley Dx/Rx/DC Orders Clinical Impression: Cellulitis of knee, Acute pain of right knee, History of atrial fibrillation Prescriptions: No Action metoprolol tartrate 25 mg tablet 50 mg PO BID cephalexin 500 mg capsule 500 mg PO Q12 Qty: 10 0RF Primary Care Provider: Zehra Mojica NP Referrals: Zehra Mojica NP, TENNILLE-Sarahi [Primary Care Provider] - Disposition Disposition: Acute Care Hospital [facility] What to do if you have Problems For any increased pain, shortness of breath, bleeding, nausea or vomiting, chestpain, or any unexpected problems, contact your Primary Care Provider. Call [facility] ([phone]) or report to the closest Emergency Room. Call 911 if necessary. 04/18/232237 <Electronically signed by Alisa Wesley DO> Cosigner Signature (if applicable): CC: GABRIEL Mojica ~ Signed [facility] Work Phone: 1(250) 784-304111-30-2023 Consult note Author Jacky Rollins [facility] April 18, 2023 10:12pm Note Date/Time April 18, 2023 10:04pm [facility] Medical Records Department [address] [place] [address] Consultation - Orthopedics 04/18/232199 MR#: [id number] Acct: [id number] Name: CHENCHO FUENTES Rep #:[id number] : 1995 27 From: Jacky West PCP: GABRIEL Smith Sta tus:ADM IN Location: [place] [address] HPI Consult Data Date of Consult: 04/18/23 HPI Narrative Reason for Consultation: Pain with overlying erythema. HPI Narrative: CHENCHO FUENTES, is a 27 M With history of atrial fibrillation cardioverted who presents With right knee pain. Patient fell 2 days ago and developed an abrasion over the anterior knee. He presented to an urgent care today who recommended he proceed to the emergency department. Emergency room physician evaluated the patient patient reported pain over the front of the knee with range of motion. Did have elevated white blood cell count and significant erythema over the anterior knee as well as swelling over the anterior knee. Patient reports pain with flexion. Patient is not currently on any blood thinners. Patient notes symptoms developed over the last 48 hours. Pain with weightbearing. Currently today reports 8 out of 10 pain. [facility] Medical History Asthma History of atrial fibrillation Palpitations Sinus tachycardia Home Medications sotalol 80 mg tablet 80 mg PO BID Ablation 04/18/23 [History Last Taken 04/18/23] Allergy/AdvReac Type Severity Reaction Status Date / Time codeine Allergy Hives Verified 04/18/23 13:55 Family History no significant family his no significant family history Surgical History H/O cardiac radiofrequency ablation (04/06/17) Social History Smoking Status: Former smoker substance use type: does not use ROS Constitutional Constitutional: Reports as per HPI Eyes Eyes: Reports as per HPI ENT HEENT: Reports as per HPI Cardiovascular Cardiovascular: Reports as per HPI Respiratory/Chest Respiratory/Chest: Reports as per HPI Gastrointestinal Gastrointestinal: Reports as per HPI Genitourinary Genitourinary: Reports as per HPI Musculoskeletal Musculoskeletal: Reports as per HPI Integumentary Integumentary: Reports as per HPI Neurologic Neurologic: Reports as per HPI Psychiatric Psychiatric: Reports as per HPI Endocrine Endocrinology: Reports as per HPI Hematologic/Lymphatic Hematologic/Lymphatic: Reports as per HPI Allergic/Immunologic Allergic/Immunologic: Reports as per HPI Vital Signs Vital Signs Vital Signs: 04/18/23 13:53 04/18/23 15:53 04/18/23 17:15 Temperature 97.8 F 98.0 F Temperature Source Temporal Oral Pulse Rate 73 68 Respiratory Rate 16 18 18 Respiratory Effort Respiratory Depth Respiratory Pattern Blood Pressure 117/70 120/106 H Blood Pressure Mean 85 110 Blood Pressure Source Monitor Blood Pressure Position Semi-Fowlers Blood Pressure Location Right Arm Pulse Ox 99 100 Oxygen Delivery Method Room Air Room Air 04/18/23 17:30 Temperature Temperature Source Pulse Rate Respiratory Rate Respiratory Effort Normal Non-Labored Respiratory Depth Normal Respiratory Pattern Normal Blood Pressure Blood Pressure Mean Blood Pressure Source Blood Pressure Position Blood Pressure Location Pulse Ox Oxygen Delivery Method Room Air Weight Weight: 220 lb 3.869 oz Body Mass Index (BMI) 31.6 Physical Exam Const alert and oriented x3 General Appearance: cooperative HEENT normocephalic and head/scalp atraumatic Eyes PERRL Neck no JVD Resp normal respiratory effort Cardio Cardio Narrative: regular pulse GI non-distended Extremity Extremity Narrative: Right lower extremity: Pain and swelling over the anterior knee with tenderness palpation. Patient has a small abrasion of the anterior knee. Erythema over the anterior knee spreading down the anterior tibia. Patient is able to flex knee to 90 degrees with pain anteriorly. Tolerates short arc range of motion onexam testing. Strength exam deferred secondary to pain. Increased warmth of her skin. Moderate swelling of soft tissues anterior to the knee.Neurovascular intact distally. Skin Skin Narrative: Anterior edxi-pmlm-nbw female. Neuro CN's II-XII intact bilaterally Psych affect normal Medical Records Data Attestation: I reviewed the patient's medical records Lab / Micro Data Attestation: I reviewed the patient's lab results. 04/18/23 14:22 04/18/23 17:47 Labs: Laboratory Results - last 24 hr 04/18/23 14:22: WBC 23.6 H, RBC 4.48 L, Hgb 13.6, Hct 40.7, MCV 90.8, MCH 30.4, MCHC 33.4, RDW Std Deviation 46.9 H, RDW Coeff of Dev 13.9, Plt Count 276, MPV 10.0, Immature Gran % (Auto) 0.500, Neut % (Auto) 83.2 H, Lymph % (Auto) 7.7 L, [place]. Clair % (Auto) 7.2, Eos % (Auto) 1.1, Baso % (Auto) 0.3, Absolute Neuts (auto) 19.6 H, Absolute Lymphs (auto) 1.82, Nucleated RBC % 0, Differential Comment SCANNED, Diff Path Review May foll, ESR 14, C-React Prot Ext Range 186.00 H 04/18/23 16:06: Synovial Source RIGHT KNEE, Synovial Color Red, Synovial Appearance Cloudy, Synovial WBC TNP, Synovial RBC TNP, Synovial Tot Cell Ct TNP,Synovial Neutrophils 84 H, Synovial Lymphocytes 10, Synovial Monocytes 6, Synovial Path Comment May follow 04/18/23 17:47: Sodium 136, Potassium 3.5, Chloride 101, Carbon Dioxide 31.0, Anion Gap 4 L, BUN 25 H, Creatinine 1.13, Estim Creat Clear Calc 99.59, Est GFR (MDRD) Af Amer 98, Est GFR (MDRD) Non-Af 81, BUN/Creatinine Ratio 22.1 H, Glucose 133 H, Calcium 8.7 Imagaing Radiology Impression Knee X-Ray 04/18/23 14:07 IMPRESSION: Soft tissue swelling. Small joint effusion. Electronically Signed: Miki Preston MD at 14:39 EST , Personal review of the radiographs reveals significant anterior knee soft tissueswelling Assessment & Plan Assessment/Plan (1) Cellulitis of knee: PLAN: Natural history of the disease process was discussed with the patient. Patient was given opportunity to ask questions. All questions were answered appropriately and to the best of my ability. Natural history I was consulted torule out potential septic arthritis. Based on the patient's physical examination I do not feel he had septic arthritis however there was an area overthe superior patellar medial portal without erythema that I felt was appropriatefor aspiration. I was able to aspirate 1 cc of straw-colored synovial fluid. Unfortunately they were unable to obtain synovial white blood cell count. However based on physical examination and the gross appearance of the fluid I donot feel the patient has a septic arthritis. Ultimately I think patient has anterior knee cellulitis with potential to develop prepatellar bursitis if not treated appropriately. I agree with the plan to admit the patient for IV antibiotics. I will reexamine the patient tomorrow and go over results of the aspiration. There was only 1 cc of fluid so I sent it for cell count again the lab did not perform the cell count. There was some blood-tinged fluid. At thistime I will treat the patient for cellulitis. We will reexamine tomorrow. Procedure: After examining the patient I discussed with him an aspiration. I recommended aspirating superior lateral medial suprapatellar portal I explained this may be more painful however there is less erythema here less chance of introducing infectious etiology into the joint. Patient demonstrated understanding and did wish to proceed. 18-gauge needle was drawn used to perform. Gloves were donned and the area was prepped with 4 alcohol swabs. After prepping the area 18-gauge needle was introduced into the joint. Patient moved very abruptly once we did it and remained quite agitated throughout the procedure I was able to get 1 cc of straw-colored fluid with a small amount of blood-tinged in it. The needle was eventually removed and a Band-Aid was placed. 04/18/232211 <Electronically signed by Jacky Rollins MD> Cosigner Signature (if applicable): CC: GABRIEL Mojica; Dr. Jacky Rollins MD~ Signed [facility] Work Phone: [phone]) 119-258811-29-2023 History and physical note Author Rock Craven [facility] April 18, 2023 9:56pm Note Date/Time April 18, 2023 4:11pm [facility] Medical Records Department [address] [place] [id number] H&P Exam - Hospitalist 04/18/23 1602 MR#: [id number] Acct: [id number] Name: CHENCHO FUENTES Rep #:[id number] : 1995 27 From: Rock potter DO PCP: GABRIEL Smith tus:ADM IN Location: [facility] [id number]- [id number] HPI - General General Date of Admission: 04/18/23 Date of Service: 04/18/23 Chief Complaint: Right knee swelling and pain HPI Narrative CHENCHO FUENTES, is a 27 M who presented to [facility] ED on 04/18/2023 with worsening right knee pain and swelling. Patient seen at bedsidein the ED. Sitting in bed, conversing normally. Does appear to be in mild distress due to right knee pain. Patient states he fell onto his right knee 2 days ago while working and had mild scraping on the knee. Since then, patient states that there is been development of significant redness around the knee andworking down to the mid lower leg, as well as swelling of the knee joint. Has also had a significant amount of pain with any movement over the past day or so. 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 Patient has no previous history of knee issues. Only medical history for patient is A-fib, [place]cardiology in [place] and is taking sotalol for this. Not taking any other medications at home. Otherwise denies any fevers or chills, chest pain, shortness of breath, abdominal pain. No other acute concerns at this time. [facility] Medical History Asthma History of atrial fibrillation Palpitations Sinus tachycardia Home Medications sotalol 80 mg tablet 80 mg PO BID Ablation 04/18/23 [History Last Taken 04/18/23] Allergy/AdvReac Type Severity Reaction Status Date / Time codeine Allergy Hives Verified 04/18/23 13:55 Surgical History H/O cardiac radiofrequency ablation (04/06/17) Social History Smoking Status: Former smoker substance use type: does not use ROS Constitutional Constitutional: Denies chills, fatigue, fever(s) or weakness Eyes Eyes: Denies change in vision Cardiovascular Cardiovascular: Denies chest pain Respiratory/Chest Respiratory/Chest: Denies cough Gastrointestinal Gastrointestinal: Denies abdominal pain Musculoskeletal Musculoskeletal: Reports arthralgias, joint pain and joint swelling Neurologic Neurologic: Reports abnormal gait; Denies confusion, dizziness, focal weakness, headache(s) or numbness Vital Signs Vital Signs Vital Signs: 04/18/23 13:53 Temperature 97.8 F Temperature Source Temporal Pulse Rate 73 Respiratory Rate 16 Blood Pressure 117/70 Blood Pressure Mean 85 Pulse Ox 99 Oxygen Delivery Method Room Air Weight Weight: 99.79 kg Body Mass Index (BMI) 31.5 Physical Exam Const alert and oriented x3 Constitutional Narrative: Pleasant younger male, obese, sitting in bed, conversing normally. Appears to be in mild distress due to right knee pain. General Appearance: cooperative HEENT normocephalic, head/scalp atraumatic, hearing grossly normal bilaterally, nasal mucous membranes and turbinates normal and moist oral mucous membranes Eyes PERRL, EOMs intact bilaterally and conjunctivae normal Neck full ROM, no lymphadenopathy and supple Lymph Lymphatic: no lymphadenopathy noted Chest inspection of chest normal Resp normal respiratory effort, normal air movement, no use of accessory muscles and clear to auscultation bilaterally Cardio regular rate, regular rhythm, no murmurs and peripheral pulses 2+ throughout GI normal to inspection, nondistended, normoactive bowel sounds, soft to palpation,non-tender and non-distended Back/Spine normal ROM Extremity Extremity Narrative: Significant erythema surrounding right knee down to the mid right leg, area was marked with a marker in the ED. Moderate swelling of the knee at the joint. Severe tenderness to light palpation of the knee. Did not attempt any movement of the leg. Skin no rashes or lesions noted Neuro No oriented x3, No moves all extremities and No no focal motor deficits Speech: speech normal Psych mental status grossly normal Results Lab / Micro Data 04/18/23 14:22 04/18/23 17:47 Labs: Laboratory Results - last 24 hr 04/18/23 14:22: WBC 23.6 H, RBC 4.48 L, Hgb 13.6, Hct 40.7, MCV 90.8, MCH 30.4, MCHC 33.4, RDW Std Deviation 46.9 H, RDW Coeff of Dev 13.9, Plt Count 276, MPV 10.0, Immature Gran % (Auto) 0.500, Neut % (Auto) 83.2 H, Lymph % (Auto) 7.7 L, [place] % (Auto) 7.2, Eos % (Auto) 1.1, Baso % (Auto) 0.3, Absolute Neuts (auto) 19.6 H, Absolute Lymphs (auto) 1.82, Nucleated RBC % 0, Differential Comment SCANNED, Diff Path Review September, ESR 14, C-React Prot Ext Range 186.00 H Imagaing Radiology Impression Knee X-Ray 04/18/23 14:07 IMPRESSION: Soft tissue swelling. Small joint effusion. Electronically Signed: Miki Preston MD at 14:39 EST , Assessment & Plan Assessment/Plan (1) Cellulitis of knee: (2) Acute pain of right knee: PLAN: Plan Patient is a 27-year-old male who presented to [facility] ED on 04/18/2023 with worsening right knee swelling and pain. 1. Right knee cellulitis with concern for septic joint Severe right knee pain with notable swelling and tenderness to palpation in the ED. Right knee x-ray showed soft tissue swelling with small joint effusion. WBC count 23, CRP 186. Pain began 2 days prior to admission after patient fell and scraped his knee, has progressively gotten worse since then. No previous history of right knee issues. ? Admit under inpatient status to PCU. Orthopedic surgery consulted. Dr. Rollins performed arthrocentesis in the ED, follow-up fluid studies. Continue vancomycin and Unasyn that were initiated in the ED, follow-up blood cultures. Pain management with scheduled Tylenol, as needed IV Toradol, IV Dilaudid and p.o. oxycodone. N.p.o. at midnight in case of need for possible orthopedic procedure tomorrow. 2. Paroxysmal atrial fibrillation Patient reports history of paroxysmal A-fib that started back in 2017. States he failed flecainide at that time and had an ablation done. However, he had recurrence of A-fib a few years later. States he follows with cardiology in [place]. States he was on Lopressor and Eliquis, but was recently switched over to sotalol. [facility], I was unable to find any records of outpatient visits with cardiology. Last notes from 08/2022 indicated the patient was on Lopressor and Eliquis. Patient is unsure on his dose of sotalol. EKG on admission showed normal sinus rhythm, no ST changes. ? Will hold on starting sotalol for now. Monitor telemetry. Has been in normalsinus rhythm since admission. May need to discuss having patient's outpatient dinkey skinner send office notes to the hospital here for further review. Chronic medical conditions: ? Obesity: BMI 31 on admit, encouraged lifestyle applications. DVT prophylaxis: Lovenox CODE STATUS: Full code, verified Expected disposition: Home, TBD Total clinical time spent by myself addressing the patient's medical issues, reviewing all the data, and collaborating with patient's care team: 55 minutes. Charges/Coding Visit Charges Inpatient E&M: 65581 Init Hosp L2 04/18/232131 <Electronically signed by Rock Craven DO> Cosigner Signature (if applicable): CC: GABRIEL Mojica; Dr. Rock Craven DO~ Signed ADDENDUM by Dr. Rock Craven DO on 04/18/23 at 2156 Addendum Pharmacy able to verify the patient is currently taking sotalol 80 mg twice daily. Sotalol ordered. 04/18/232155<Electronically signed by Rock Craven DO> Cosigner Signature (if applicable): cc: GABRIEL Mojica; Dr. Rock Craven DO ~* Signed [facility] Work Phone: 1(407) 558-362711-29-2023 Consult note Author Perla Dahl [facility] April 18, 2023 7:24pm Note Date/Time April 18, 2023 7:24pm [facility] Medical Records Department [address] [place] [address] Pharmacokinetic/Renal -Consult 04/18/231922 MR#: [id number] Acct: [id number] Name: CHENCHO FUENTES Rep #:[id number] : 1995 27 From: Perla Dahl PCP: GABRIEL Smith tus:ADM IN Y Location: [place] [address] Consult Antibiotic Management Pharmacy has been consulted to manage selected antiobiotic: Vancomycin Type of Intervention Type of Consult: New start Suspected Infection Suspected Infection: Skin/Soft tissue and Other Labs Labs: Sodium 136 mmol/L (136-145) 04/18/23 17:47 Potassium 3.5 mmol/L (3.5-5.1) 04/18/23 17:47 Chloride 101 mmol/L (98-107) 04/18/23 17:47 Carbon Dioxide 31.0 mmol/L (21.0-32.0) 04/18/23 17:47 Anion Gap 4 (5-15) L 04/18/23 17:47 BUN 25 mg/dL (7-18) H 04/18/23 17:47 Creatinine 1.13 mg/dL (0.70-1.30) 04/18/23 17:47 Est GFR (MDRD) Af Amer 98 mL/min (>60) 04/18/23 17:47 Est GFR (MDRD) Non-Af 81 mL/min (>60) 04/18/23 17:47 BUN/Creatinine Ratio 22.1 RATIO (10-20) H 04/18/23 17:47 Glucose 133 mg/dL (74-106) H 04/18/23 17:47 Goal Trough Goal Trough: 15-20 mcg/mL Pharmacy Plan for Drug Dosing Pharmacy Plan for Drug Dosing: NEW START IV VANCOMYCIN Consulting Physician: Dr. Craven Indication: SSTI/ R/O septic joint Goal Trough: 15-20 SrCr:1.13 (04/18) CrCl: 99 mL/min Comments: Initial ED dose of 1500mg IV x1 ordered and administered 04/18 @1735 Vancomycin Dose: 2000mg IV Q12hr to start 04/19/23 @0500 Pending Level: 04/20/23 @0430, prior to 4th total dose per protocol Pharmacy Service will continue to monitor and adjust dosing as required. 04/18/231923 <Electronically signed by Perla Dahl > Date _ Perla Dahl Cosigner Signature (if applicable): Date CC: ~ Signed [facility] Work Phone: 1(738) 715-503411-29-2023 NoteHNO ID: [id number] Author: Gama Diamond APRN.ADJUNCT PROFESSOR OF VOICE Service: ? Author Type: Nurse Practitioner Type: Progress Notes Filed: 04/18/2023 2:35 PM Note Text: Subjective HPI HPI Chencho Fuentes is a 27 year old male who presents today for CC of severe right knee pain, fell 2 days ago, now red/swollen and minimal rom d/t pain. Has tried otc medication for relief. Denies fever. .Patient presents with: Knee Pain: Swollen right knee x2days PAST MEDICAL HISTORY Diagnosis Date Asthma Genital herpes Hyperglycemia Tobacco abuse No past surgical history on file. ALLERGIES Bee Sting and Codeine MEDICATIONS apixaban (ELIQUIS) 5 mg tab tab(s) Take 1 tablet by mouth twice daily. metoprolol succinate ER (TOPROL XL) 50 mg 24 hr tablet Take 1 tablet by mouth once daily. flecainide (TAMBOCOR) 100 mg tablet One tablet at onset of sustained palpitations. May repeat every 12 hours. No family history on file. ROS Objective Blood pressure 118/66, pulse 76, temperature 36.4 ?C (97.6 ?F), resp. rate 16, weight 99.8 kg (220 lb), SpO2 98 %. Physical Exam Constitutional: General: He is not in acute distress. Appearance: He is not toxic-appearing or diaphoretic. HENT: Head: Normocephalic and atraumatic. Cardiovascular: Pulses: Dorsalis pedis pulses are 1+ on the right side. Posterior tibial pulses are 1+ on the right side. Pulmonary: Effort: Pulmonary effort is normal. No accessory muscle usage or respiratory distress. Musculoskeletal: Legs: Neurological: Mental Status: He is alert and oriented to person, place, and time. ASSESSMENT/PLAN: 1. Injury of right knee, initial encounter - ICD9: 959.7, ICD10: S89.91XA Will refer to ER, concerns for septic joint Unclear what ER will go to at this time. Gama Diamond [facility] History of Present illness Narrative* Gama Diamond APRN.DARIO - 04/18/2023 2:33 PM EST Images from the original note were not included. Subjective HPI HPI Chencho Fuentes is a 27 year old male who presents today for CC of severe right knee pain, fell 2 days ago, now red/swollen and minimal rom d/t pain. Has tried otc medication for relief. Denies fever. .Patient presents with: Knee Pain: Swollen right knee x2days PAST MEDICAL HISTORY Diagnosis Date Asthma Genital herpes Hyperglycemia Tobacco abuse No past surgical history on file. ALLERGIES Bee Sting and Codeine MEDICATIONS apixaban (ELIQUIS) 5 mg tab tab(s) Take 1 tablet by mouth twice daily. metoprolol succinate ER (TOPROL XL) 50 mg 24 hr tablet Take 1 tablet by mouth once daily. flecainide (TAMBOCOR) 100 mg tablet One tablet at onset of sustained palpitations. May repeat every12 hours. No family history on file. ROS Objective Blood pressure 118/66, pulse 76, temperature 36.4 C (97.6 F), resp. rate 16, weight 99.8 kg (220 lb), SpO2 98 %. Physical Exam Constitutional: General: He is not in acute distress. Appearance: He is not toxic-appearing or diaphoretic. HENT: Head: Normocephalic and atraumatic. Cardiovascular: Pulses: Dorsalis pedis pulses are 1+ on the right side. Posterior tibial pulses are 1+ on the right side. Pulmonary: Effort: Pulmonary effort is normal. No accessory muscle usage or respiratory distress. Musculoskeletal: Legs: Neurological: Mental Status: He is alert and oriented to person, place, and time. ASSESSMENT/PLAN: 1. Injury of right knee, initial encounter - ICD9: 959.7, ICD10: S89.91XA Will refer to ER, concerns for septic joint Unclear what ER will go to at this time. Gama Diamond APRN.DARIO documented in this encounter[facility]-2023 NoteHNO ID: [id number] Author: Gama Diamond APRN.ADJUNCT PROFESSOR OF VOICE Service: ? Author Type: Nurse Practitioner Type: Progress Notes Filed: 03/07/2023 4:34 PM Note Text: Subjective HPI HPI Chencho Fuentes is a 27 year old male who presents today for CC of left back pain, radiating to left leg. This started few days ago. Has tried otc medication for relief. Symptoms are worsened by rom of back. Risk factors hx of sciatica. .Patient presents with: Back Pain: Back pain into leg on left side. PAST MEDICAL HISTORY Diagnosis Date Asthma Genital herpes Hyperglycemia Tobacco abuse No past surgical history on file. ALLERGIES Bee Sting and Codeine MEDICATIONS apixaban (ELIQUIS) 5 mg tab tab(s) Take 1 tablet by mouth twice daily. metoprolol succinate ER (TOPROL XL) 50 mg 24 hr tablet Take 1 tablet by mouth once daily. flecainide (TAMBOCOR) 100 mg tablet One tablet at onset of sustained palpitations. May repeat every 12 hours. predniSONE (DELTASONE) 10 mg tablet Take 4 tabs daily for 3 days, then 2 tabs daily for 3 days, then 1 tab daily for 3 days with food. No family history on file. Review of Systems Constitutional: Negative for chills, fever and weight loss. Cardiovascular: Negative for leg swelling. Gastrointestinal: Negative for abdominal pain, constipation, diarrhea, nausea and vomiting. Genitourinary: Negative for dysuria, flank pain, frequency, hematuria and urgency. Musculoskeletal: Positive for back pain. Skin: Negative for rash. Neurological: Negative for sensory change and focal weakness. Objective Blood pressure 120/68, pulse 72, temperature 36.2 ?C (97.2 ?F), resp. rate 16, weight 110.4 kg (243 lb 6.4 oz), SpO2 99 %. Physical Exam Constitutional: General: He is not in acute distress. Appearance: Normal appearance. He is not diaphoretic. Cardiovascular: Pulses: Dorsalis pedis pulses are 2+ on the right side and 2+ on the left side. Posterior tibial pulses are 2+ on the right side and 2+ on the left side. Abdominal: General: Bowel sounds are normal. Palpations: Abdomen is soft. Tenderness: There is no abdominal tenderness. Musculoskeletal: Lumbar back: Spasms present. Decreased range of motion. Back: Comments: Lumbar paraspinal muscles tender with palpation Neurological: Mental Status: He is alert and oriented to person, place, and time. Gait: Gait is intact. Gait normal. Deep Tendon Reflexes: Reflex Scores: Patellar reflexes are 2+ on the right side and 2+ on the left side. Achilles reflexes are 2+ on the right side and 2+ on the left side. ASSESSMENT/PLAN: 1. Left sided sciatica - ICD9: 724.3, ICD10: M54.32 Steroids/flexeril ordered Home pt provided F/u with pcp if s/s persist/worsen/change Urgent f/u for red flag symptoms - PREDNISONE 10 MG TABLET Gama Diamond APRN.[facility]10-18-2023 History of Present illness Narrative* Gama Diamond APRN.ADJUNCT PROFESSOR OF VOICE - 03/07/2023 4:32 PM EDT Images from the original note were not included. Subjective HPI HPI Chencho Fuentes is a 27 year old male who presents today for CC of left back pain, radiating to left leg. This started few days ago. Has tried otc medication for relief. Symptoms are worsened by rom of back. Risk factors hx of sciatica. .Patient presents with: Back Pain: Back pain into leg on left side. PAST MEDICAL HISTORY Diagnosis Date Asthma Genital herpes Hyperglycemia Tobacco abuse No past surgical history on file. ALLERGIES Bee Sting and Codeine MEDICATIONS apixaban (ELIQUIS) 5 mg tab tab(s) Take 1 tablet by mouth twice daily. metoprolol succinate ER (TOPROL XL) 50 mg 24 hr tablet Take 1 tablet by mouth once daily. flecainide (TAMBOCOR) 100 mg tablet One tablet at onset of sustained palpitations. May repeat every12 hours. predniSONE (DELTASONE) 10 mg tablet Take 4 tabs daily for 3 days, then 2 tabs daily for 3 days, then 1 tab daily for 3 days with food. No family history on file. Review of Systems Constitutional: Negative for chills, fever and weight loss. Cardiovascular: Negative for leg swelling. Gastrointestinal: Negative for abdominal pain, constipation, diarrhea, nausea and vomiting. Genitourinary: Negative for dysuria, flank pain, frequency, hematuria and urgency. Musculoskeletal: Positive for back pain. Skin: Negative for rash. Neurological: Negative for sensory change and focal weakness. Objective Blood pressure 120/68, pulse 72, temperature 36.2 C (97.2 F), resp. rate 16, weight 110.4 kg (243 lb 6.4 oz), SpO2 99 %. Physical Exam Constitutional: General: He is not in acute distress. Appearance: Normal appearance. He is not diaphoretic. Cardiovascular: Pulses: Dorsalis pedis pulses are 2+ on the right side and 2+ on the left side. Posterior tibial pulses are 2+ on the right side and 2+ on the left side. Abdominal: General: Bowel sounds are normal. Palpations: Abdomen is soft. Tenderness: There is no abdominal tenderness. Musculoskeletal: Lumbar back: Spasms present. Decreased range of motion. Back: Comments: Lumbar paraspinal muscles tender with palpation Neurological: Mental Status: He is alert and oriented to person, place, and time. Gait: Gait is intact. Gait normal. Deep Tendon Reflexes: Reflex Scores: Patellar reflexes are 2+ on the right side and 2+ on the left side. Achilles reflexes are 2+ on the right side and 2+ on the left side. ASSESSMENT/PLAN: 1. Left sided sciatica - ICD9: 724.3, ICD10: M54.32 Steroids/flexeril ordered Home pt provided F/u with pcp if s/s persist/worsen/change Urgent f/u for red flag symptoms - PREDNISONE 10 MG TABLET Gama Diamond APRN.ADJUNCT PROFESSOR OF VOICE documented in this encounterMet[facility]04-19-2023 History of Present illness Narrative* Dorothea Valencia APRN.CNP - 09/06/2022 6:56 PM EDT Called to triage patient by PSS staff. 27 year old male with PMH afib presents with complaitns of heart palpitations and feel like something is wrong with my brain States he was recently diagnosed with UTI. States he started Cipro which I read interacts with my my medicine Patient on metoprolol and eliquis Given his complaints of palpitations and history of afib, He requires a higher level of care than the express care can provide. Referred to ED. documented in this encounterMet[facility] CenterDischarge summary Author Juliana Dominguez [facility] April 21, 2023 12:17pm Note Date/Time April 21, 2023 1 2:16pm [facility] Medical Records Department [address] [place] [address] Instructions for Home/Discharge Instructions 04/21/23 1216 MR#: [id number] Acct: [id number] Name: CHENCHO FUENTES Rep #:[id number] : 1995 27 From: Juliana Dominguez MD PCP: GABRIEL Smith Sta tus:ADM IN Discharge Instructions Diet Discharge Diet: Low fat / Low cholesterol Activity Discharge Activity: Return to Normal Activity Weight Bearing Status: Weight bearing as tolerated Dressing / Incision Call your doctor if you observe: Fever of 101 or Higher, Shortness of breath, Dizziness, Swelling in the ankles, Chest pain and Increased palpitations (irregular heartbeat) Follow Up Care Test Results: Test results from this visit will be discussed in further detail at your follow- up appointment, if applicable. Discharge Plan Admission Admit Date/Time: 04/18/23 16:02 Primary Reason for Your Visit: cellulitis of the right knee Attending Provider: Juliana Dominguez Primary Care Provider: Zehra Mojica [employer]OOMCORN PRESS FEEDER Consulting Providers: Jacky Rollins; Rock Craven Instructions Patient Instructions: Cellulitis Discharge Orders/Prescriptions Prescriptions: New doxycycline hyclate 100 mg tablet 100 mg PO BID Qty: 20 0RF cephalexin 500 mg capsule 500 mg PO Q8H Qty: 30 0RF Continued sotalol 80 mg tablet 80 mg PO BID Referrals / Follow Up: Jacky Rollins MD [Med Staff - Active Staff] - Within 2 Weeks Zehra Mojica BROOMCORN PRESS FEEDER, BROOMCORN PRESS FEEDER-C [Primary Care Provider] - Within 1 Week Disposition Disposition (needs filled in before D/C Order can be placed): Home, Self Care 04/21/23 1217<Electronically signed by Juliana Dominguez MD>Juliana Dominguez MD CC: BROOMCORN PRESS FEEDER-C Zehra Mojica; Dr. Rock Craven DO; Dr. Jacky Rollins MD ~ Signed [facility] Work Phone: Evaluation + Plan note Future Appointments Appointment Date:05/04/2023 10:20:00 AM Scheduled Provider:ZEHRA MOJICA APRN, CNP Location:[facility] Appointment Type:PC OV Follow Up Appointment Date:06/25/2023 01:00:00 PM Scheduled Provider:MARGRET BOLAND Location:[facility] Appointment Type:CV OV Diagnostic Tests Pending * Antinuclear Antibody Screen, Serum 05/01/23 * Rheumatoid Factor 05/01/23 Future Scheduled Tests Radiology* XR Knee 3 Views Right 04/26/23 * XR Spine Cervical AP/LAT 04/26/23 [facility] Evaluation + Plan note Future Appointments Appointment Date:06/25/2023 01:00:00 PM Scheduled Provider:MARGRET BOLAND Location:[facility] Appointment Type:CV OV Appointment Date:11/08/2023 10:00:00 AM Scheduled Provider: Location:[facility] Appointment Type:PC Nurse Lab Appointment Date:11/13/2023 10:20:00 AM Scheduled Provider:ZEHRA MOJICA APRN, CNP Location:[facility] Appointment Type:PC OV Follow Up Future Scheduled Tests Laboratory* C-Reactive Protein 10/29/23 * Uric Acid 10/29/23 * Rheumatoid Factor 10/29/23 * Complete Blood Count 10/29/23 * Sedimentation Rate Automated 10/29/23 * Complete Metabolic Panel 10/29/23 Radiology* XR Knee 3 Views Right 04/26/23 * XR Spine Cervical AP/LAT 04/26/23 [facility] evMolecular Detectionvhgmf noteNo assessment information available [facility] Work Phone: evaluation note* Diagnosis Palpitations- Primary documented in this encounter [facility]* Diagnosis Left sided sciatica- Primary Sciatica documented in this encounter [facility] note* Diagnosis Onset Date Resolution Status Acute pain of right knee acu te Cellulitis of knee acute History of atrial fibrillation acute [facility] Work Phone: evaluation note* Diagnosis Injury of right knee, initial encounter- Primary documented in this encounter [facility]* Diagnosis Onset Date Resolution Status Acute pain of right knee acu te Cellulitis of knee acute History of atrial fibrillation resolved [facility] Work Phone: evaluation note* Diagnosis Arthralgia, unspecified joint- Primary documented in this encounter [facility]* Diagnosis Procedure not carried out- Primary Procedure not carried out for other reasons documented [facility] Narrative No data available for this section [facility] Hospital Discharge instructions Additional Instructions You were treated fully for gonorrhea. Your test is pending for chlamydia and gonorrhea. Because you have nitrites in your urine which is more indicative of an E. coli infection I will treat you with Keflex (cephalexin). This should not interact with your current medicines. If your chlamydia result does come back positive we will call in a different antibiotic. Your urine was sent for culture.[facility] Work Phone: Hospital Discharge instructions No data available for this section [facility] Progress note No data available for this section [facility] Chief Complaint and Reason for Visit Chief Complaint COMPLAINT Chief Complaint LEFT KNEE CELLULITIS WITH CONCERN FOR SEPTIC JOINT Reason for Visit Acute pain of right knee Cellulitis of knee History of atrial fibrillation Chief Complaint LEFT KNEE CELLULITIS WITH CONCERN FOR SEPTIC JOINT LEFT KNEE CELLULITIS WITH CONCERN FOR SEPTIC JOINT LEFT KNEE CELLULITIS WITH CONCERN FOR SEPTIC JOINT Reason for Visit Acute pain of right knee Cellulitis of knee History of atrial fibrillation Advance Directives Advance Directive Response Recorded Date/ Time Living Will No September 06, 2022 7:24pm Power of Soa Architect No September 06 7:24pm Advance Directive Response Recorded Date/ Time Living Will No April 18 023 1:53pm Power of Soa Architect No April 18, 2023 1:53pm Advance Directive Response Recorded Date/ Time Living Will No April 21 7:08am Power of Soa Architect No April 21, 2023 7:08am Summary Purpose Family History No Family History Records Found Reason for Referral Specialty Diagnoses / Procedures Referred By Carlos das Referred To Contact Rheumatology Diagnoses Arthralgia, unspecified joint Procedures CONSULT TO RHEUM/IMMUN DISEASE OFFICE/OUTPATIENT [facility] 60 MINUTES Bakari Akers PA-C [address] [place] [address] Referral ID Status Reason Start Date Expiration Date Visits Requested Visits Authorized [id number] Authorized PCP Requested Referral 10/02/2023 10/01/2024 1 1 Additional Source Comments Care Teams (unrecognized sec tion and content) Care Team Personnel Name: ZEHRA MOJICA RECREATIONAL DIRECTOR - ADJUNCT PROFESSOR OF VOICE Position: P4 Advanced Supervisor Assembly And Packing Member Role: Primary Care Physician Address: Address: [address] [facility] [place] [facility] [address] Care Team Related Persons Name: LUZ MARES Team Status: Active Member Role Status Dates Zehra Mojica BROOMCORN PRESS FEEDER, BROOMCORN PRESS FEEDER-C Family Provider Activ e Zehra Mojica BROOMCORN PRESS FEEDER, BROOMCORN PRESS FEEDER-C Primary Care Provider Active Team Status: Inactive Member Role Status Dates Zehra Mojica BROOMCORN PRESS FEEDER, BROOMCORN PRESS FEEDER-C Primary Care Provider Active Dr. Celia Garcia , DO Emergency Provider Active Hosiery Pairer Relationship Specialty Start Date End Date YuniorZehra tucker, ADJUNCT PROFESSOR OF VOICE [address] [place] [address] PCP - General Family Medicine 04/10/17 Hosiery Pairer Relationship Specialty Start Date End Date Yunior Zehra West, ADJUNCT PROFESSOR OF VOICE [address] [place] [address] PCP - General [facility] Medicine 04/10/17 Team Status: Active Member Role Status Dates Zehra Mojica BROOMCORN PRESS FEEDER, BROOMCORN PRESS FEEDER-C Primary Care Provider Active Dr. Alisa Wesley , DO Emergency Provider Active Dr. Rock Craven , DO Admit Provider, Attending Provider Active Hosiery Pairer Relationship Specialty Start Date End Date Yunior Zehra West, ADJUNCT PROFESSOR OF VOICE [address] [place] [id number] PCP - General Family Medicine 04/10/17 Team Status: Active Member Role Status Dates Zehra Mojica BROOMCORN PRESS FEEDER, BROOMCORN PRESS FEEDER-C Primary Care Provider Active Dr. Alisa Wesley , DO Emergency Provider Active Dr. Rock Craven , DO Admit Provider, Other Pro vider Active Dr. Jacky Rollins MD Other Provider Active Dr. Juliana Dominguez MD Attending Provider, Other Prov ider Active Team Status: Inactive Member Role Status Dates Zehra Mojica BROOMCORN PRESS FEEDER, BROOMCORN PRESS FEEDER-C Primary Care Provider Active Dr. Alisa Wesley , DO Emergency Provider Active Dr. Rock Craven , DO Admit Provider, Other Pro vider Active Dr. Jacky Rollins MD Other Provider Active Dr. Juliana Camila Koram , MD Attending Provider Active Hosiery Pairer Relationship Specialty Start Date End Date MohaveZehra menendez Jenna, ADJUNCT PROFESSOR OF VOICE [address] [place] [address] PCP - General Family Medicine 04/10/17 Hosiery Pairer Relationship Specialty Start Date End Date Zehra Mojica Jenna, ADJUNCT PROFESSOR OF VOICE [address] [place] [address] PCP - General Family Medicine 04/10/17 Goals (unrecognized section and content) Goals may be documented in a n alternate sectionGoals may be documented in an alternate section No data available for this section No data available for this section No data available for this section Source Comments (unrecognize d section and content) In the event this informatio n is protected by the Federal Confidentiality of Alcohol and Drug Abuse Patient Records regulations: The Federal rules restrict any use of the information to criminally investigate or prosecute any alcohol or drug abuse patient.[facility] the event this information is protected by the Federal Confidentiality of Alcohol and Drug Abuse Patient Records regulations: The Federal rules restrict any use of the information to criminally investigate or prosecute any alcohol or drug abuse patient.[facility] the event this information is protected by the Federal Confidentiality of Alcohol and Drug Abuse Patient Records regulations: The Federal rules restrict any use of the information to criminally investigate or prosecute any alcohol or drug abuse patient.[facility] the event this information is protected by the Federal Confidentiality of Alcohol and Drug Abuse Patient Records regulations: The Federal rules restrict any use of the information to criminally investigate or prosecute any alcohol or drug abuse patient.[facility] the event this information is protected by the Federal Confidentiality of Alcohol and Drug Abuse Patient Records regulations: The Federal rules restrict any use of the information to criminally investigate or prosecute any alcohol or drug abuse patient.[facility] Reason for Visit (unrecogniz ed section and content) Reason Comments Back Pain Back pain into leg o n left side. Reason Comments Knee Pain Swollen right knee x 2days Reason Comments Pain generalized pain pat ient has RA x today (unrecognized sect ion and content) No Status Records FoundNo Status Records FoundNo Status Records FoundNo Status Records FoundNo Status Records Found INFORMATION SOURCE (unrecogn ized section and content) DATE CREATED AUTHOR 05/08/2023 [facility] ([place]) DATE CREATED AUTHOR AUTHOR'S ORGANIZ ATION 06/22/2023 [facility] DATE CREATED AUTHOR AUTHOR'S ORGANIZ ATION 02/17/2024 [facility] DATE CREATED AUTHOR AUTHOR'S ORGANIZ ATION 02/20/2024 [facility] DATE CREATED AUTHOR AUTHOR'S ORGANIZ ATION 03/16/2024 [facility] FOR RECORDS PERTAINING TO PATIENTS WHO ARE OR HAVE BEEN ENROLLED IN A CHEMICAL DEPENDENCY/SUBSTANCEABUSE PROGRAM, SOME INFORMATION MAY BE OMITTED. This clinical summary was aggregated from multiple sources. Caution should be exercised in using it in the provision of clinical care. This summary normalizes information from multiple sources, and as a consequence, information in this document may materially change the coding, format and clinical context of patient data. In addition, data may be omitted in some cases. CLINICAL DECISIONS SHOULD BE BASED ON THE PRIMARY CLINICAL RECORDS. [facility]. provides no warranty or guarantee of the accuracy or completeness of information in this document.
[2024-11-09] MEDS: predniSONE 20 MG Tablet 40 MG PO (13:41)
[2024-11-09 13:43] VITALS: BP 139/80; PULSE 80; RESP 18; TEMP 36.6; O2SAT 99
== END 2024-11-09 13:45 | disposition home or self-care (01) ==
PROVIDERS: Emergency Provider Emergency Medicine; PCP Nurse Practitioner Family; Visit Provider Emergency Medicine
DX: M06.9 Rheumatoid arthritis, unspecified (principal); Z87.891 Personal history of nicotine dependence; L23.7 Allergic contact dermatitis due to plants, except food; J45.909 Unspecified asthma, uncomplicated
CPT/HCPCS: 99283

== ENCOUNTER → 2024-11-11 | Outpatient (CLI) | payer MEDICAID, SELFPAY ==
[2024-11-11 12:27] LABS: Absolute Lymphocyte Count 4.07 X10^3/uL (0.83-4.51); Basophil# 0.12 X10^3/uL; Basophil% 0.9 % (0-1); Eosinophil# 0.48 X10^3/uL; Eosinophils% 3.7 % (0-5); Hemoglobin 14.1 g/dL (13.0-16.5); Lymphocyte # 4.07 X10^3/ul (0.83-4.51); Lymphocyte % 31.7 % (19-41); Mean Corp Hgb Conc 33.6 g/dL (32-36); Mean Corpuscular Hgb 29.7 pg (27.0-32.0); Mean Corpuscular Volume 88.6 fL (80-94); Mean Platelet Vol. 10.4 fl (6.2-12.0); Monocyte# 1.12 X10^3/uL; Monocyte% 8.7 % (0-10); NRBC Flagged by Analyzer 0 % (0-5); Neutrophil # 6.99 X10^3/uL (2.7-7.7); Neutrophil % 54.5 % (47-70); POSITIVE MORPHOLOGY YES; Platelet Count 256 K/mm3 (150-450); RBC Distribution Width CV 13.9 % (11.6-14.6); RBC Distribution Width SD 45.2 fl (35.1-43.9); Red Blood Count 4.74 M/mm3 (4.6-6.2); White Blood Count 12.9 K/mm3 (4.4-11.0)
[2024-11-11 12:54] LABS: Differential Indicated SCAN CRITERIA MET
[2024-11-11 13:26] LABS: Reactive Lymphocyte 1+
[2024-11-11 13:55] LABS: ALB/GLOB Ratio 1.7 RATIO (0.9-2.4); AST(SGOT) 25 U/L (<=37); Alanine Aminotransfer ALT/SGPT 33 U/L (<=46); Albumin, Serum 4.2 g/dL (3.5-5.0); Alkaline Phosphatase 72 U/L (40-129); Anion Gap 14 (5-15); BUN 18 mg/dL (4-19); BUN/Creat Ratio 20.7 RATIO (10-20); Carbon Dioxide 20.6 mmol/L (21.0-32.0); Chloride 105 mmol/L (98-108); Creatinine, Serum 0.88 mg/dL (0.70-1.20); EST Glomerular Filtration Rate 118 (>60); Globulin 2.5 g/dL (2.2-4.2); Glucose 110 mg/dL (70-99); Potassium 4.1 mmol/L (3.3-5.1); Protein, Total 6.7 g/dL (5.9-8.4); Sodium Level 139 mmol/L (133-145); Total Bilirubin 0.25 mg/dL (0.00-1.30)
== END | disposition home or self-care (01) ==
LOC: VSLAB 10:22
DX: I10 Essential (primary) hypertension (principal)
CPT/HCPCS: 36415; 80053; 84443; 85025

== ENCOUNTER 2025-02-13 09:23 | Emergency (ER) | payer MEDICAID, SELFPAY ==
[2025-02-13] VITALS (16 sets, daily range): BP systolic 92–170; BP diastolic 62–123; PULSE 68–97; RESP 18–20; TEMP 36.2–36.9; O2SAT 91–100; BMI 36.1
--- NOTE | 2025-02-13 09:32 | CT_ITS ---
PROCEDURE: BRAIN/HEAD WITHOUT CONTRAST 02/13/2025 REASON FOR EXAM: SEIZURE, HEAD TRAUMA TECHNIQUE: Procedure Code: CTBR Modality: CT Procedure: BRAIN/HEAD WITHOUT CONTRAST Coronal and Sagittal reconstruction series were provided. One or more dose reduction techniques were used (e.g., Automated exposure control, adjustment of the mA and/or kV according to patient size, use of iterative reconstruction technique. RADIATION DOSE SUMMARY: CTDlvol: 45 mGy DLP: 796 mGycm COMPARISON: January 2024. FINDINGS: Cerebrum: Normalcerebral volume. Negative for mass the frontal, parietal, temporal and occipital lobes negative. White matter: Negative for periventricular white matter changes. Cerebellum: Negative. Negative for mass. Negative for acute infarction. CSF pathways and ventricles: Negative. Negative for ventricular dilatation or obstruction. Basal ganglia and thalami: Negative. No acute infarctions. Brainstem: Midbrain, kelsi and medulla negative. Calvarium: Negative. Negative for fractures. Orbital structures: Globes negative. Extraocular muscles negative. Paranasal sinuses: No air fluid levels. Remainder of the sinuses negative. Vascular structures: Slight calcifications of the distal intracranial internal carotid arteries. Soft tissues: Negative. Other: : Negative for acute intracranial hemorrhage. Negative for acute infarction. Remainder of exam negative. CT/Brain/Head without Contrast IMPRESSION: Negative for acute intracranial pathology. Reading Location: [id number]
--- NOTE | 2025-02-13 09:33 | EKG12_ITS ---
Test Reason : HEAD INJURY Blood Pressure : */* mmHG Vent. Rate : 59 BPM Atrial Rate : 59 BPM P-R Int : 170 ms QRS Dur : 96 ms QT Int : 458 ms P-R-T Axes : 28 7 7 degrees QTcB Int : 453 ms Sinus bradycardia Otherwise normal ECG Confirmed by ERIKA BULLOCK ([id number]), primer expeditor and drier ANGE YOO ([id number]) on 02/16/2025 9:10:54 AM Referred By: Confirmed By: ERIKA BULLOCK
--- NOTE | 2025-02-13 09:34 | EX.ED.DYSGE1 ---
HPI <Dr. Celia Garcia DO - Last Filed: 02/14/25 14:59> History of Present Illness Chief Complaint: Seizure Informant: patient and EMS Narrative Narrative: Patient is a 29-year-old male with history of atrial fibrillation (status post cardiac radiofrequency ablation in 2017), seizure (x 1 while in retirement couple years ago) and rheumatoid arthritis presenting for vomiting and seizure activity. Family notes that he had an episode of generalized seizure activity lasting for about 4-5 morning. Significant vomiting complained of blurry vision and headache. Family doctor marked his right cheek and not sure if he fell earlier and injured his head or that was from the seizure. Patient is currently complaining of vomiting and epigastric abdominal pain/cramping. Denies any alcohol use or recent cessation of alcohol use. Denies any recent complaints. Arrived via EMS. Seizure stopped and was noted does not seem that he received any rescue medications. Mother is now at the bedside. She states that he woke up vomiting this morning and there was in the shower she heard a thump and that is when he had the seizure. He seemed to be taken a while to come around and she called 911. [facility] <Dr. Celia Garcia DO - Last Filed: 02/14/25 14:59> [facility] Medical History Rheumatoid arthritis History of atrial fibrillation Asthma History of atrial fibrillation Sinus tachycardia Palpitations Home Medications Medication Instructions Recorded Last Taken Type prednisone 20 mg tablet 40 mg (2 x 20 mg) PO DAILY 5 days 11/09/24 Unknown Rx #10 tabs amlodipine 5 mg tablet 5 mg PO QDAY 11/19/24 Unknown History buspirone 10 mg tablet 10 mg PO BID 11/19/24 Unknown History sotalol 80 mg tablet 80 mg PO BID 11/19/24 Unknown History Allergy/AdvReac Type Severity Reaction Status Date / Time codeine Allergy Hives Verified 11/09/24 12:17 Family History Mother Diabetes Surgical History H/O cardiac radiofrequency ablation (04/06/17) Social History housing: house Smoking Status: Former smoker substance use type: does not use ROS <Dr. Celia Garcia DO - Last Filed: 02/14/25 14:59> ROS ED Constitutional Constitutional ED: Reports sweats; Denies chills or fever(s) Eyes Eyes: Reports blurry vision Cardiovascular Cardiovascular: Denies chest pain Respiratory/Chest Respiratory/Chest: Denies cough or dyspnea Gastrointestinal Gastrointestinal: Reports abdominal pain, nausea and vomiting Integumentary Denies rash Neurologic Neurologic: Reports headache(s) and weakness Hematologic/Lymphatic Hematologic/Lymphatic: Denies easy bleeding or easy bruising EXAM <Dr. Celia Garcia, - Last Filed: 02/14/25 14:59> Physical Exam Const Vital Signs: 02/13/25 15:00 02/13/25 16:00 02/13/25 17:00 Temperature Pulse Rate Respiratory Rate Blood Pressure 92/80 126/80 H 170/106 H Blood Pressure Mean 84 95 127 Pulse Ox 91 Oxygen Delivery Method Room Air 02/13/25 18:00 02/13/25 19:00 02/13/25 20:00 Temperature Pulse Rate 92 93 Respiratory Rate 18 18 18 Blood Pressure 117/66 142/95 H Blood Pressure Mean 83 110 Pulse Ox 99 98 Oxygen Delivery Method Room Air Room Air 02/13/25 21:00 02/13/25 22:43 02/13/25 23:00 Temperature Pulse Rate 88 97 78 Respiratory Rate 18 20 H 18 Blood Pressure 116/78 139/95 H 139/95 H Blood Pressure Mean 90 109 109 Pulse Ox 97 99 98 Oxygen Delivery Method Room Air Room Air Room Air 02/13/25 23:20 02/14/25 00:00 Temperature 98.4 F Pulse Rate 75 83 Respiratory Rate 18 18 Blood Pressure 144/96 H 131/91 H Blood Pressure Mean 112 104 Pulse Ox 98 96 Oxygen Delivery Method Room Air Positive well nourished and well developed Constitutional Narrative: Patient diaphoretic and actively retching/vomiting. General Appearance ED: well developed HEENT Reports TM's clear and moist mucous membranes HEENT Narrative: Abrasion with slight bleeding noted to the lateral aspect of the tongue more pronounced on the right. Normal oropharynx. No hematoma of the head or scalp/face appreciated. Small abrasion to the right cheek Tympanic Membrane ED: Yes TM's clear Eyes PERRL and EOMs intact bilaterally Neck supple General: Negative for tenderness Chest Wall inspection of chest normal and palpation of chest normal Chest Narrative: No chest wall crepitus Resp normal respiratory effort and clear to auscultation bilaterally Cardio regular rate, regular rhythm and no murmurs GI normal to inspection, nondistended, normoactive bowel sounds GI Narrative: Patient retching coffee-ground material. Mild epigastric tenderness present. Palpation: soft; Negative for guarding or mass Extremity normal to inspection General Extremety ED: Negative for edema General Extremity: Negative for edema Neuro Neuro Narrative: Alert oriented to place and history but does seem mildly confused. Equal blend technician strength bilaterally. Moving all extremities. No focal deficit appreciated. Sensorium / Orientation: alert Motor Exam: general weakness Psych Attitude: agitated Skin no wounds Skin Narrative: Diaphoretic <Dr. Alex Childs, DO - Last Filed: 02/13/25 20:42> Physical Exam Const Vital Signs: 02/13/25 15:00 02/13/25 16:00 02/13/25 17:00 Temperature Pulse Rate Respiratory Rate Blood Pressure 92/80 126/80 H 170/106 H Blood Pressure Mean 84 95 127 Pulse Ox 91 Oxygen Delivery Method Room Air 02/13/25 18:00 02/13/25 19:00 02/13/25 20:00 Temperature Pulse Rate 92 93 Respiratory Rate 18 18 18 Blood Pressure 117/66 142/95 H Blood Pressure Mean 83 110 Pulse Ox 99 98 Oxygen Delivery Method Room Air Room Air 02/13/25 21:00 02/13/25 22:43 02/13/25 23:00 Temperature Pulse Rate 88 97 78 Respiratory Rate 18 20 H 18 Blood Pressure 116/78 139/95 H 139/95 H Blood Pressure Mean 90 109 109 Pulse Ox 97 99 98 Oxygen Delivery Method Room Air Room Air Room Air 02/13/25 23:20 02/14/25 00:00 Temperature 98.4 F Pulse Rate 75 83 Respiratory Rate 18 18 Blood Pressure 144/96 H 131/91 H Blood Pressure Mean 112 104 Pulse Ox 98 96 Oxygen Delivery Method Room Air [facility] <Dr. Celia Garcia, DO - Last Filed: 02/14/25 14:59> [facility] Narrative Medical decision making narrative: Patient evaluated for seizure activity as well as nausea/vomiting with hematemesis and epigastric abdominal pain. Differential includes breakthrough seizure, electrolyte derangement, hyponatremia, pancreatitis, Brisa-Spencer tear, Boerhaave syndrome, intracranial hemorrhage and meningitis. No report of any fever. Patient stopped seizing while in the emergency room and does seem postictal initially. He comes around to return to baseline. He does have a lot of nausea/vomiting with some witnessed hematemesis (more brown and not karol blood). Denies any alcohol use but does use THC products regularly. Question if he could have a component of gastritis or cyclic vomiting syndrome. Initially given Zofran, then Reglan and then Haldol for nausea/vomiting relief. Patient given IV Protonix for his hematemesis. A repeat evaluation is feeling much better. His color has improved. His vital signs have normalized. Plan was to consults [facility] neurology to see if he would benefit from admission or starting antiepileptics and be discharged home given that he now had 2 episodes of seizure activity. Waiting on a callback was notified the patient is now having seizure activity again. On my evaluation patient has rhythmic repetitive movements of the right side of the face, is making grunting noises and is having generalized tonic-clonic activity of his extremities. This is highly consistent with a grand mal seizure. Patient stopped spontaneously after approximately 45 seconds however he then does seem to be staring off to the left so is given 1 mg of IV Ativan. O2 saturation improved after the seizure activity stops. Patient is quite confused and slightly combative postictally. He is moving all extremities. He is loaded with 2 g of IV Keppra. Blood sugar obtained which is normal and not consistent with symptomatic hypoglycemia. ABG obtained which is likely mixed venous however shows mild metabolic acidosis but not consistent with acute hypercapnia. At this time I do not think he requires intubation or airway control. Patient is slowly returning to baseline and now sleeping and is not combative. Waiting to hear back from neurology for recommendations anticipate this point he likely require admission. Lab work shows a leukocytosis of 18.7 with no left shift, suspect it is reactive from his seizure. BUN and creatinine are normal. He does have an elevated anion gap of 18 and a bicarb of 16.8 again likely from a metabolic acidosis. Normal liver enzymes and normal lipase. Patient reevaluated. He is calming down and is now resting but still slightly postictal however recovering as expected. Case is discussed with teleneurology at [facility], Dr. Do who is in agreement with to grams Keppra load. Recommends 500 mg Keppra twice daily maintenance. Is agreeable with admission at our hospital for MRI and EEG tomorrow and he will see him on teleneurology consult. Case discussed with hospitalist. Patient a prolonged postictal time and was combative. Because of prolonged postictal time and the fact we do not have any acute villas for emergent EEG she suggest transfer. Will contact [facility] again for transfer. Lab Data Attestation: I reviewed the patient's lab results. Labs: Laboratory Results - last 24 hr 02/13/25 02/13/25 02/13/25 09:30 10:46 13:46 WBC 18.7 H RBC 4.98 Hgb 15.3 Hct 44.6 MCV 89.6 MCH 30.7 MCHC 34.3 RDW Std Deviation 44.3 H RDW Coeff of Dev 13.5 Plt Count 326 MPV 11.0 Immature Gran % (Auto) 0.700 Neut % (Auto) 75.3 H Lymph % (Auto) 16.5 L Laurel % (Auto) 6.1 Eos % (Auto) 1.0 Baso % (Auto) 0.4 Absolute Neuts (auto) 14.1 H Absolute Lymphs (auto) 3.09 Nucleated RBC % 0 Sodium 138 Potassium 4.4 Chloride 103 Carbon Dioxide 16.8 L Anion Gap 18 H BUN 12 Creatinine 0.95 Estim Creat Clear Calc 142.59 Est GFR (MDRD) Non-Af 110 BUN/Creatinine Ratio 12.8 Glucose 176 H Calcium 9.1 Total Bilirubin 0.32 AST 31 ALT 34 Alkaline Phosphatase 73 Total Protein 7.6 Albumin 4.3 Globulin 3.3 Albumin/Globulin Ratio 1.3 Lipase 48 Urine Opiates Screen NEGATIVE U Buprenorphine Qual NEGATIVE Ur Oxycodone Screen NEGATIVE Urine Methadone Screen NEGATIVE Urine Fentanyl Screen NEGATIVE Ur Barbiturates Screen NEGATIVE Ur Phencyclidine Scrn NEGATIVE Ur Amphetamines Screen NEGATIVE U Benzodiazepines Scrn NEGATIVE Urine Cocaine Screen NEGATIVE U Cannabinoids Screen PRESUMPTIVE POSITIVE POC Glucose 126 H ABG Data ABG results: ABG 02/13/25 14:00 Specimen Type ART Sample Site R Radial pH 7.34 L Bicarbonate Actual 20.5 L Total CO2 22 Base Excess -5 L O2 Saturation 70 L O2 % 21.0 ABG pCO2 37.7 ABG pO2 39 L* Ellis Test Positive O2 Delivery Device Room Air Vent Mode Not entered Crit Call To/Read Back Yes Blood Gas Notified Whom soledad Blood Gas Notified Time 14:02:18 Radiography Diagnostic Testing: Clinical Impression(s) from Imaging Studies Brain CT 02/13/25 09:32 IMPRESSION: Negative for acute intracranial pathology. Reading Location: [facility] Chest X-Ray 02/13/25 10:35 IMPRESSION: Negative for acute cardiopulmonary disease. Reading Location: [facility] Rhythm Strip Rhythm Strip: Sinus Rhythm Rate: 59 Ectopy: None EKG Initial EKG: Attestation: I personally reviewed and interpreted this EKG as follows: Interpretation: Sinus Rhythm Comments: 59 Prior EKG tracings: available for review Prior: Unchanged Management Discussion w/another healthcare provider: Hospitalist and [facility] <Dr. Alex Childs, DO - Last Filed: 02/13/25 20:42> MDM MDM Narrative Medical decision making narrative: Patient evaluated for seizure activity as well as nausea/vomiting with hematemesis and epigastric abdominal pain. Differential includes breakthrough seizure, electrolyte derangement, hyponatremia, pancreatitis, Brisa-Spencer tear, Boerhaave syndrome, intracranial hemorrhage and meningitis. No report of any fever. Patient stopped seizing while in the emergency room and does seem postictal initially. He comes around to return to baseline. He does have a lot of nausea/vomiting with some witnessed hematemesis (more brown and not karol blood). Denies any alcohol use but does use THC products regularly. Question if he could have a component of gastritis or cyclic vomiting syndrome. Initially given Zofran, then Reglan and then Haldol for nausea/vomiting relief. Patient given IV Protonix for his hematemesis. A repeat evaluation is feeling much better. His color has improved. His vital signs have normalized. Plan was to consults [facility] neurology to see if he would benefit from admission or starting antiepileptics and be discharged home given that he now had 2 episodes of seizure activity. Waiting on a callback was notified the patient is now having seizure activity again. On my evaluation patient has rhythmic repetitive movements of the right side of the face, is making grunting noises and is having generalized tonic-clonic activity of his extremities. This is highly consistent with a grand mal seizure. Patient stopped spontaneously after approximately 45 seconds however he then does seem to be staring off to the left so is given 1 mg of IV Ativan. O2 saturation improved after the seizure activity stops. Patient is quite confused and slightly combative postictally. He is moving all extremities. He is loaded with 2 g of IV Keppra. Blood sugar obtained which is normal and not consistent with symptomatic hypoglycemia. ABG obtained which is likely mixed venous however shows mild metabolic acidosis but not consistent with acute hypercapnia. At this time I do not think he requires intubation or airway control. Patient is slowly returning to baseline and now sleeping and is not combative. Waiting to hear back from neurology for recommendations anticipate this point he likely require admission. Lab work shows a leukocytosis of 18.7 with no left shift, suspect it is reactive from his seizure. BUN and creatinine are normal. He does have an elevated anion gap of 18 and a bicarb of 16.8 again likely from a metabolic acidosis. Normal liver enzymes and normal lipase. Patient reevaluated. He is calming down and is now resting but still slightly postictal however recovering as expected. Case is discussed with teleneurology at [facility], Dr. Do who is in agreement with to grams Keppra load. Recommends 500 mg Keppra twice daily maintenance. Is agreeable with admission at our hospital for MRI and EEG tomorrow and he will see him on teleneurology consult. Case discussed with hospitalist. Patient a prolonged postictal time and was combative. Because of prolonged postictal time and the fact we do not have any acute villas for emergent EEG she suggest transfer. Will contact [facility] again for transfer. Addendum Alex Childs, DO 8:42 PM I spoke with the neurologist again at [facility] as he called back and was wondering if the patient had another seizure which I notified and he did he states that he wants patient to be transferred. Patient's case was then discussed by transfer line with the hospitalist who accepted patient Dr. Lemus at 8:40 PM. Lab Data Labs: Laboratory Results - last 24 hr 02/13/25 02/13/25 02/13/25 09:30 10:46 13:46 WBC 18.7 H RBC 4.98 Hgb 15.3 Hct 44.6 MCV 89.6 MCH 30.7 MCHC 34.3 RDW Std Deviation 44.3 H RDW Coeff of Dev 13.5 Plt Count 326 MPV 11.0 Immature Gran % (Auto) 0.700 Neut % (Auto) 75.3 H Lymph % (Auto) 16.5 L Laurel % (Auto) 6.1 Eos % (Auto) 1.0 Baso % (Auto) 0.4 Absolute Neuts (auto) 14.1 H Absolute Lymphs (auto) 3.09 Nucleated RBC % 0 Sodium 138 Potassium 4.4 Chloride 103 Carbon Dioxide 16.8 L Anion Gap 18 H BUN 12 Creatinine 0.95 Estim Creat Clear Calc 142.59 Est GFR (MDRD) Non-Af 110 BUN/Creatinine Ratio 12.8 Glucose 176 H Calcium 9.1 Total Bilirubin 0.32 AST 31 ALT 34 Alkaline Phosphatase 73 Total Protein 7.6 Albumin 4.3 Globulin 3.3 Albumin/Globulin Ratio 1.3 Lipase 48 Urine Opiates Screen NEGATIVE U Buprenorphine Qual NEGATIVE Ur Oxycodone Screen NEGATIVE Urine Methadone Screen NEGATIVE Urine Fentanyl Screen NEGATIVE Ur Barbiturates Screen NEGATIVE Ur Phencyclidine Scrn NEGATIVE Ur Amphetamines Screen NEGATIVE U Benzodiazepines Scrn NEGATIVE Urine Cocaine Screen NEGATIVE U Cannabinoids Screen PRESUMPTIVE POSITIVE POC Glucose 126 H ABG Data ABG results: ABG 02/13/25 14:00 Specimen Type ART Sample Site R Radial pH 7.34 L Bicarbonate Actual 20.5 L Total CO2 22 Base Excess -5 L O2 Saturation 70 L O2 % 21.0 ABG pCO2 37.7 ABG pO2 39 L* Ellis Test Positive O2 Delivery Device Room Air Vent Mode Not entered Crit Call To/Read Back Yes Blood Gas Notified Whom soledad Blood Gas Notified Time 14:02:18 Radiography Diagnostic Testing: Clinical Impression(s) from Imaging Studies Brain CT 02/13/25 09:32 IMPRESSION: Negative for acute intracranial pathology. Reading Location: [facility] Chest X-Ray 02/13/25 10:35 IMPRESSION: Negative for acute cardiopulmonary disease. Reading Location: [facility] Discharge Plan Triage Chief Complaint: Seizure ED Provider: Godman,Celia Dx/Rx/DC Orders Clinical Impression: Witnessed seizure-like activity, Acute upper GI bleed, Nausea & vomiting Prescriptions: No Action buspirone 10 mg tablet 10 mg PO BID amlodipine 5 mg tablet 5 mg PO QDAY sotalol 80 mg tablet 80 mg PO BID prednisone 20 mg tablet 40 mg PO DAILY 5 Days Qty: 10 0RF Primary Care Provider: Gurwinder Finney Referrals: Gurwinder Finney, ACTIVITIES THERAPIST-C [Primary Care Provider, Family Practice] Print Language: Slovenian Disposition Disposition: Acute Care Hospital Discharge Location: [facility] Discharge Date/Time: 02/14/25 00:49
[2025-02-13] MEDS: 0.9% Normal Saline (1000mL) 1,000 ML 1000 ML IV (09:37)
[2025-02-13 10:01] LABS: Hematocrit 44.6 % (40-54); Hemoglobin 15.3 g/dL (13.0-16.5); Immature Granulocytes Count 0.140 X10^3/uL (0.0-0.0); Mean Corp Hgb Conc 34.3 g/dL (32-36); Mean Corpuscular Volume 89.6 fL (80-94); Mean Platelet Vol. 11.0 fl (6.2-12.0); NRBC Flagged by Analyzer 0 % (0-5); Platelet Count 326 K/mm3 (150-450); RBC Distribution Width CV 13.5 % (11.6-14.6); RBC Distribution Width SD 44.3 fl (35.1-43.9); Red Blood Count 4.98 M/mm3 (4.6-6.2); White Blood Count 18.7 K/mm3 (4.4-11.0)
[2025-02-13 10:19] LABS: Lipase 48 U/L (13-75)
[2025-02-13] MEDS: Pantoprazole Sodium 40 MG in 0.9% Normal Saline (100mL MB+) 100 ML 300 MG IV (10:20)
[2025-02-13 10:26] LABS: AST(SGOT) 31 U/L (<=37); Alanine Aminotransfer ALT/SGPT 34 U/L (<=46); Albumin, Serum 4.3 g/dL (3.5-5.0); Alkaline Phosphatase 73 U/L (40-129); Anion Gap 18 (5-15); BUN 12 mg/dL (4-19); BUN/Creat Ratio 12.8 RATIO (10-20); Calcium,Total 9.1 mg/dL (7.6-11.0); Carbon Dioxide 16.8 mmol/L (21.0-32.0); Chloride 103 mmol/L (98-108); Estimated Creatinine Clearance 142.59 ml/min (50-250); Globulin 3.3 g/dL (2.2-4.2); Glucose 176 mg/dL (70-99); Potassium 4.4 mmol/L (3.3-5.1)
--- NOTE | 2025-02-13 10:35 | RAD_ITS ---
PROCEDURE: CHEST 1 VIEW (PORTABLE) 02/13/2025 REASON FOR EXAM: SEZIURE, VOMITING TECHNIQUE: Frontal view of the chest. COMPARISON: January 2024. FINDINGS: Hardware and support lines: None. Heart: Upper limits of normal size. Lungs: Negative for infiltrates, or pulmonary edema. Pleura: No pleural thickening. No pleural effusion. Mediastinum and aorta: Mildly prominent pulmonary vasculature. Stable. Mildly tortuous thoracic aorta. Bones: Age-appropriate degenerative changes of the spine. Other: Remainder of the exam negative. RAD/Chest 1 View (Portable) IMPRESSION: Negative for acute cardiopulmonary disease. Reading Location: [id number]
[2025-02-13 11:40] LABS: Barbiturate Urine NEGATIVE (< 200 ng/mL); Benzodiazepine Urine NEGATIVE (< 200 ng/mL); PCP Urine NEGATIVE (< 25 ng/mL); THC Urine PRESUMPTIVE POSITIVE (< 50 ng/mL)
[2025-02-13] MEDS: levETIRAcetam IV 2,000 MG in 0.9% Normal Saline (250mL Bag) 230 ML 1000 MG IV ×2 (13:34→18:12)
[2025-02-13 14:05] LABS: Allen Test Positive; Base Excess -5 mmol/L (-2 to +2); FI02 21.0; PO2 39 mmHG (75-100); SITE R Radial; SO2 70 % (95-99); Time Given 14:02:18
[2025-02-14] VITALS: BP 131/91; PULSE 83; RESP 18; O2SAT 96
--- NOTE | 2025-02-14 00:47 | ED.RN ---
This RN called nurse to nurse report at this time to BRAXTON Tracy at [facility].
== END 2025-02-14 00:49 | disposition short-term general hospital (02) ==
PROVIDERS: Emergency Provider Emergency Medicine; Visit Provider Emergency Medicine
DX: G40.409 Other generalized epilepsy and epileptic syndromes, not intractable, without status epilepticus (principal); R10.13 Epigastric pain; R51.9 Headache, unspecified; Z87.891 Personal history of nicotine dependence; E87.20 Acidosis, unspecified; K92.0 Hematemesis; R11.2 Nausea with vomiting, unspecified; J45.909 Unspecified asthma, uncomplicated; D72.829 Elevated white blood cell count, unspecified
CPT/HCPCS: 36600; 70450; 71045; 80053; 80307; 82803; 82962; 83690; 85025; 93005; 96365; 96366; 96368; 96375; 96376; 99285; A4216; J2405

== ENCOUNTER 2025-02-26 11:28 | Emergency (ER) | payer MEDICAID, SELFPAY ==
[2025-02-26 11:31] VITALS: BP 138/94; PULSE 70; RESP 16; TEMP 36.6; O2SAT 97; BMI 35.6
--- NOTE | 2025-02-26 11:58 | EDS_ITS ---
HPI History of Present Illness Chief Complaint: Headache Informant: patient Onset/Context/Timing Onset: Days Context: Gradual Onset Timing: Continuous Current Severity: Mild Maximum Severity: Mild Narrative Narrative: 29-year-old male history of A-fib, bipolar, seizure disorder. Recently started on Keppra about 8 to 9 days ago. Since that time he has had headaches nausea. Abdominal cramping. He thinks the side effects of the Keppra. He is going to follow-up with [facility] neurology. Currently says headache is resolved. He has had recent imaging. Recent admission [facility]. Prior similar symptoms: Yes Recent Illness/Hospitalization: Yes [facility] Medical History Rheumatoid arthritis History of atrial fibrillation Asthma History of atrial fibrillation Sinus tachycardia Palpitations Home Medications ?Medication ?Instructions ?Recorded ?Last Taken ?Type sotalol 80 mg tablet 80 mg PO BID 11/19/24 Unknow n History levetiracetam 500 mg tablet 500 mg PO Q12.TCU 02/26/25 Unknown History Allergy/AdvReac Type Severity Reaction Status Date / Time codeine Allergy Hives Verified 11/09/24 12:17 Family History Mother Diabetes Surgical History H/O cardiac radiofrequency ablation (04/06/17) Social History housing: house Smoking Status: Former smoker substance use type: does not use ROS ROS ED ROS Narrative Nausea. Headache. Abdominal cramping. Constitutional Constitutional ED: Denies chills or fever(s) Eyes Eyes: Denies blurry vision Cardiovascular Cardiovascular: Denies chest pain Respiratory/Chest Respiratory/Chest: Denies cough Gastrointestinal Gastrointestinal: Reports nausea Genitourinary Genitourinary ED: Denies dysuria or hematuria Musculoskeletal Musculoskeletal: Denies back pain Integumentary Denies abscess Psychiatric Psychiatric: Denies anxiety Endocrine Endocrinology: Denies cold intolerance Hematologic/Lymphatic Hematologic/Lymphatic: Reports none Allergic/Immunologic Allergic/Immunologic ED: Denies mouth swelling, tongue swelling or urticaria EXAM Physical Exam Narrative Exam Narrative: Well-appearing 29-year-old male. Vital signs stable afebrile. H EENT exam pupils round react light. Moist mucous membranes. No trauma to his face or scalp. Neck nontender no JVD. No lymphadenopathy. Lungs clear to auscultation bilaterally. Chest wall ribs nontender. Abdomen soft nontender. Heart regular rhythm rate about 55-60. Moving all 4 extremities. Nontender. 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 Normal dorsi plantarflexion. Neurologically patient is awake alert. Answer questions following commands. NIH 0. Const Vital Signs: 02/26/25 11:31 Temperature 97.9 F Temperature Source Oral Pulse Rate 70 Respiratory Rate 16 Blood Pressure 138/94 H Blood Pressure Mean 108 Pulse Ox 97 Oxygen Delivery Method Room Air MDM MDM MDM Narrative Medical decision making narrative: 29-year-old male complains consistent with nausea headache that resolved. Recently started on Keppra these could all be secondary to Keppra. He had recent labs are unremarkable. We discussed further lab testing which she deferred I do not think he needs at this time. He is comfortable being discharged home continue the Keppra follow-up with his neurologist. History & Record Review Discussion w/independent historian: Patient and Family Additional record(s) reviewed:: Prior inpatient record, Prior outpatient record, Prior ED visit and Prior labs Rhythm Strip Rhythm Strip: Sinus bradycardia Rate: 52 Ectopy: None EKG Initial EKG: Attestation: I personally reviewed and interpreted this EKG as follows: Interpretation: No Acute Injury Pattern and Sinus Bradycardia Comments: Sinus bradycardia rate of 52 no acute signs of KS or ischemia. Discharge Plan Triage Chief Complaint: Headache ED Provider: Morris Sorensen Dx/Rx/DC Orders Clinical Impression: History of seizure, Medication side effects, History of atrial fibrillation Prescriptions: No Action sotalol 80 mg tablet 80 mg PO BID levetiracetam 500 mg tablet 500 mg PO Q12.TCU Primary Care Provider: Gurwinder Finney Referrals: Rikki Solitario MD [Non-Staff, Family Practice] - As Needed Gurwinder Finney, HOSPITAL ACCOUNT MANAGER-C [Primary Care Provider, [facility]] Activity Restrictions/Additional Instructions: Follow-up with your neurologist for further evaluation. At this time your symptoms may be caused by the Keppra. I would continue taking it. And a lot of patients will overcome the side effects. If not you can speak to your neurologist about changing medication but I would not do that at this time. Print Language: Ukrainian Disposition Disposition: Home, Self Care
== END 2025-02-26 12:29 | disposition home or self-care (01) ==
LOC: ED 11:59
PROVIDERS: Emergency Provider Emergency Medicine; Visit Provider Emergency Medicine
DX: T42.6X5A Adverse effect of other antiepileptic and sedative-hypnotic drugs, initial encounter (principal); I48.91 Unspecified atrial fibrillation; G40.909 Epilepsy, unspecified, not intractable, without status epilepticus; R00.1 Bradycardia, unspecified; R10.9 Unspecified abdominal pain; Z87.891 Personal history of nicotine dependence; R51.9 Headache, unspecified; R11.0 Nausea
CPT/HCPCS: 93005; 99282